=== PATIENT | male | born 1945 | race Caucasian/White ===

== ENCOUNTER → 2022-07-03 12:50 | Outpatient (BNVA) | payer MEDICARE, MEDICAID, SELFPAY | PROVIDERS: PCP Internal Medicine; Visit Provider Urology | DX: R97.20 Elevated prostate specific antigen [PSA] (principal); R35.1 Nocturia | CPT/HCPCS: 99202 ==

== ENCOUNTER → 2022-10-23 11:27 | Outpatient (BNVA) | payer MEDICARE, MEDICAID, SELFPAY | PROVIDERS: PCP Internal Medicine; Visit Provider Urology | DX: N40.1 Benign prostatic hyperplasia with lower urinary tract symptoms (principal); N13.8 Other obstructive and reflux uropathy; R97.20 Elevated prostate specific antigen [PSA] | CPT/HCPCS: Q3014 ==

== ENCOUNTER → 2023-05-01 11:04 | Outpatient (BNVA) | payer MEDICARE, MEDICAID, SELFPAY | PROVIDERS: PCP Internal Medicine; Visit Provider Urology | DX: N40.1 Benign prostatic hyperplasia with lower urinary tract symptoms (principal); N13.8 Other obstructive and reflux uropathy; R97.20 Elevated prostate specific antigen [PSA] | CPT/HCPCS: 99212 ==

== ENCOUNTER → 2023-11-07 11:22 | Outpatient (BNVA) | payer MEDICARE, MEDICAID, SELFPAY | PROVIDERS: PCP Internal Medicine; Visit Provider Urology ==

== ENCOUNTER → 2023-11-07 11:45 | Outpatient (AMB) | payer MEDICARE, MEDICAID, SELFPAY ==
--- NOTE | 2023-11-07 11:33 | MHC.OFFVIS ---
Intake Intake Visit Reasons: 6m/PVR/PSA(SET) HPI HPI Comments History of Present Illness Details Daniel is a pleasant male. He is a patient of Dr. Almendarez. He is seen for the following urologic conditions - elevated PSA - nocturia Telemedicine Evaluation 15 min Consultation [employer] Danny Video attempted Did have recent urinary frequency Concern about UTI Culture and lab work normal Did prescribed 2 weeks tamsulosin to see if this assists His will call effective for extended prescription PSA remains on range Minimal voiding symptoms, nocturia 4-5 times per night which is longstanding Finasteride continue to use will response Six month follow-up PSA Elevated PSA PSA 05/09 5.7, 10/09 3.4 on finasteride, 05/10 2.6, 11/09 3.2 Minimal symptoms No family history prostate cancer - Discussed risk prostate cancer approximately 5-10% JOHNNY 2+ soft no nodules Review of Systems Const All systems reviewed & are unremarkable except as noted in HPI and below Reports no additional complaints Resp Reports no additional complaints GI Reports no additional complaints Reports as per HPI Musc Reports no additional complaints Physical Exam Telemedicine evaluation Appropriate responses Regular breathing rate and rhythm HEENT Head: Yes normal to inspection Ears: hearing grossly normal bilaterally Eyes General: appearance normal, both eyes and all related structures Neck Neck: Yes normal visual inspection Chest Chest palpation & inspection: normal inspection of the chest Resp Effort & Inspection: normal respiratory effort and able to speak in complete sentences Assessment & Plan Assessment & Plan (1) BPH w urinary obs/LUTS: Code(s): N40.1 - Benign prostatic hyperplasia with lower urinary tract symptoms; N13.8 - Other obstructive and reflux uropathy (2) Elevated PSA: Code(s): R97.20 - Elevated prostate specific antigen [PSA] Plan Six month follow-up PSA Orders: Orders Prostate Specific Antigen 6 Months N13.8 - Other obstructive and reflux uropathy, N40.1 - Benign prostatic hyperplasia with lower urinary tract symptoms Medications: New tamsulosin (Flomax) 0.4 mg PO BEDTIME 14 caps 0RF 14 days N13.2 - Hydronephrosis with renal and ureteral calculous obstruction, N13.8 - Other obstructive and reflux uropathy, N40.1 - Benign prostatic hyperplasia with lower urinary tract symptoms Patient Instructions: Imaging studies, laboratory and physical exam results were discussed and reviewed in detail. No major barriers to patient understanding were identified. An opportunity to ask questions regarding the treatment plan was provided. All questions were answered. The patient expressed understanding and agreement with the above treatment plan. The patient is aware they should contact our office by phone for worsening of their current condition or the appearance of new urologic symptoms. Compliance is encouraged with any medications and followup testing that is ordered. It is a privilege to participate in the urologic care of your patient. If you have any questions or concerns regarding treatment for the above conditions, or other urologic issues, please do not hesitate to contact me. The office telephone contact is [phone]. This note is constructed using voice recognition software. While every effort has been made to ensure accuracy jailer errors may have been included. Yours sincerely, Dr Nathan Norris MD, [facility] - Urology Providers of Expert, Compassionate Care for the Genitourinary System Telehealth Telehealth Location of provider rendering services: practice address Location of patient: address on file Patient Identification confirmed using: Name, : Yes Telehealth method: video Patient verbally consented to treatment: Yes Patient verbally consented to billing insurance company: Yes Patient informed of any privacy concerns related to visit: Yes Coding Level of Care Code Tele Est Pt Level 3 (86251) Diagnoses BPH w urinary obs/LUTS N40.1; N13.8 Elevated PSA R97.20
== END | disposition home or self-care (01) ==
LOC: HO.HUSH 11:22
PROVIDERS: PCP Internal Medicine; Visit Provider Urology
DX: N40.1 Benign prostatic hyperplasia with lower urinary tract symptoms (principal); N13.8 Other obstructive and reflux uropathy; R97.20 Elevated prostate specific antigen [PSA]
CPT/HCPCS: 99213

== ENCOUNTER 2024-04-02 12:44 | Outpatient (AMB) | payer MEDICARE, MEDICAID, SELFPAY ==
--- NOTE | 2024-04-02 12:59 | A.OFFVIS_ITS ---
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 Had a possible TIA on February 2022 and that seem to be the starting point of some issues. Some symptoms are tremors, weakness, high anxiety, hallucinations, delusions and insomnia. Loss of mobility. Allergies oxycodone Allergy (Severe, Verified 04/02/24 13:23) Blister Medication List - Last Reconciled 04/02/24 by Isabell Lott MD apixaban (Eliquis) 5 mg PO BID aspirin 81 mg PO DAILY finasteride 5 mg PO DAILY 90 days HPI Comments Details: 78y/o right handed male comes for evaluation of possible Parkinsons Disease. He is accompanied by his life partner Sarah who helps with history. He had a hip replacement in January of 2021 and has been having issues with tremors, cognition, gait, balance etc. The tremors in his right hand became noticeable 2 years ago and has progressed since then . Now he also has tremors in his right leg .He is slower . He has trouble with names, word finding difficulty and short term memory issues since 2020. He has loud dreams talks screams yells in sleep for past 6 mths. His anxiety has worsened in the past 1 year.He is not motivated. His voice is softer for more than 3 years now. He also has drooling.He needs help with using utensils, has trouble bathing and dressing. His handwriting is smaller. He has trouble turning in bed. He had a fall 5 months ago and since then his gait has been unstable and is using a walker. He reports constipation . He denies dizziness , diplopia .He has hallucinations and delusions. 20 years ago his son was murdered and he has been depressed and anxious since then. [facility] Medical History (Updated 04/02/24 @ 14:08 by Isabell Lott MD) REM behavioral disorder Hallucinations Cognitive disorder Parkinson's disease without dyskinesia HTN (hypertension) TIA (transient ischemic attack) Raynauds disease Hyperlipidemia Arthritis Lumbar spondylosis Fatty liver Atrial fibrillation Surgical History History of hip replacement Family History Father Stroke Mother Heart failure Sister Breast cancer in female Social History Household Members: Spouse Housing: House Alcohol intake: former Patient Tobacco Use Status: Never used Tobacco Physical Exam Vital Signs: Last Vital Signs Pulse 57 04/02/24 13:27 BP 92/64 04/02/24 13:27 Pulse Ox 96 04/02/24 13:27 Oxygen Delivery Method Room Air 04/02/24 13:27 BMI result Body Mass Index 19.5 Const General: cooperative and comfortable Nutritional Appearance: average body habitus Orientation/consciousness: oriented to person and oriented to place HEENT Head: Yes normal to inspection Neck Other: mild antecollis and restricted range of motion Neuro Other: severe decreased blink and facial expression mild- moderate tongue tremors , slow tongue movements Voice-severe hypophonia , whispering quality with word finding difficulties Right UE high amplitude rest tremors , right leg rest tremors Fine Finger movements - severely decreased hu R>L Alternating hand movements - decreased hu Hand movements - decreased hu Foot taps- decreased hu Hu cog wheel rigidity gait - stooped, mild slowness and decreased arm swing R>L General: oriented to person and oriented to place Cranial nerves: Yes CN's II-XII intact bilaterally, Yes Bilaterally intact EOM present, Yes Normal facial strength present and Yes Midline tongue present Cognition (Neuro): abnormal cognition (repeats questions frequently) Motor exam (neuro): 5/5 motor strength present throughout and Normal motor muscle tone present throughout Deep tendon reflexes (DTR's): Right triceps reflex intensity grade: 2+, Left triceps reflex intensity grade: 2+, Rt Biceps (C5, C6): 2+, Left biceps reflex intensity grade: 2+, Right brachioradialis reflex intensity grade: 2+, Left brachioradialis reflex intensity grade: 2+, Right patellar reflex intensity grade: 2+ and Left patellar reflex intensity grade: 2+ Coordination: [id number] test normal Orientation What is the (year) (season) (date) (day) (month)?: year, season, day and month Where are we (state) (county) (town or city) (hospital) (floor)?: state, county, town or city, hospital/clinic and floor Registration Name of 3 unrelated objects clearly and slowly, then ask patient to repeat all 3 of them. (1st repeat determines score. Make sure they can repeat all three): object 1, object 2 and object 3 Recall Ask patient to repeat the 3 items from question #3.: object 1 Language Show patient a wristwatch & ask what it is. Repeat for pencil.: watch and pencil Ask the patient to repeat the phrase 'No ifs, ands, or buts' after you.: correct Ask the patient to 'take a piece of paper with their right hand' 'fold paper in half' 'place paper on floor': take paper in right hand, fold paper in half and place paper on floor Print the sentence 'CLOSE YOUR EYES' on a piece. If patient actually closes eyes then score.: followed written direction Give patient a blank piece of paper & ask to write a sentence. Score if it contains a noun & verb.: sentence contains subject and verb Ask patient to copy figure of intersecting pentagons exactly. Score if all 10 angles & 2 intersects are included.: all 10 angles present & 2 are intersected Score Score: 22 Assessment & Plan Assessment & Plan (1) Parkinson's disease without dyskinesia: Comment: ? diffuse lewy body dementia Code(s): G20.A1 - Parkinson's disease without dyskinesia, without mention of fluctuations Category: Medical (2) Cognitive disorder: Comment: ? vascular ? DLBD Code(s): F09 - Unspecified mental disorder due to known physiological condition Category: Medical (3) Hallucinations: Code(s): R44.3 - Hallucinations, unspecified Category: Medical (4) REM behavioral disorder: Code(s): G47.52 - REM sleep behavior disorder Category: Medical Plan The disease state prognosis and management options were discussed with patient. I will trial him on carbidopa/levodopa 25/100 1/2 tab tid for 1 week increase to 1 tab tid - monitor for hallucinations , orthostatic hypotension. Interactions with protein discussed in detail PT for gait training balance MRI brain Miralax qod melatonin 3-5 mg qhs Increase fluids Orders: Orders MR head/brain wo con Today G20.A1 - Parkinson's disease without dyskinesia, without mention of fluctuations PT Evaluation and Treatment Today G20.A1 - Parkinson's disease without dyskinesia, without mention of fluctuations Medications: New carbidopa-levodopa 25-100 mg 1/2 tab tid for 1 week then 1 tab tid orally 3 times a day; 90 tabs 6RF Coding Level of Care Code New Pt Level 5 (60295) Complex EM visit Add On G2211 Diagnoses Parkinson's disease without dyskinesia G20.A1 Cognitive disorder F09 Hallucinations R44.3 REM behavioral disorder G47.52
[2024-04-02 13:27] VITALS: BP 92/64; PULSE 57; O2SAT 96; BMI 19.5
== END 2024-04-02 14:18 | disposition home or self-care (01) ==
PROVIDERS: PCP Internal Medicine; Visit Provider Psychiatry & Neurology Neurology
DX: G20.A1 Parkinson's disease without dyskinesia, without mention of fluctuations (principal); F02.82 Dementia in other diseases classified elsewhere, unspecified severity, with psychotic disturbance; G47.52 REM sleep behavior disorder
CPT/HCPCS: 99205; G2211

== ENCOUNTER → 2024-04-02 12:44 | Outpatient (BNVA) | payer MEDICARE, MEDICAID, SELFPAY | PROVIDERS: PCP Internal Medicine; Visit Provider Psychiatry & Neurology Neurology | DX: G20.A1 Parkinson's disease without dyskinesia, without mention of fluctuations (principal); G47.52 REM sleep behavior disorder; F09 Unspecified mental disorder due to known physiological condition; R44.3 Hallucinations, unspecified | CPT/HCPCS: 99202 ==

== ENCOUNTER 2024-05-01 14:27 | Outpatient (REF) | payer MEDICARE, OTHER, SELFPAY ==
--- NOTE | ~2024-05-01 | MR_ITS ---
EXAMINATION: MR BRAIN WITHOUT CONTRAST CLINICAL INFORMATION: Parkinson's disease without dyskinesia. COMPARISON: None available. TECHNIQUE: MRI of the brain was obtained using routine sequences without contrast. FINDINGS: Moderately motion degraded exam. No focal restricted diffusion is demonstrated to suggest acute or subacute cerebral ischemia. No evidence of acute or chronic hemorrhagic products on heme-sensitive imaging. 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 Scattered and partially confluent periventricular, deep white matter, and brainstem T2 FLAIR hyperintensities consistent with mild to moderate underlying microangiopathy. Proportional prominence of the ventricles and sulcal spaces without evidence of obstructive hydrocephalus. There is an extra-axial nodular lesion along the planum sphenoidale, measuring up to 1.7 x 1.9 x 0.9 cm. No additional abnormal mass effect. No midline shift. Normal appearance of the pituitary gland. Normal positioning of the cerebellar tonsils. Normal arterial and venous vascular flow voids are present. Normal, homogeneous marrow signal. Mild mucosal thickening of the paranasal sinuses. Moderate rightward nasal septal deviation. No signal abnormalities within the mastoids. Bilateral lens extractions. MR/MR head/brain wo con IMPRESSION: 1. No acute intracranial abnormalities. 2. Mild to moderate underlying microangiopathy and generalized cerebral volume loss. 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 3. There is a 1.9 cm extra-axial nodular lesion along the planum sphenoidale suggestive of a meningioma.
== END 2024-05-01 14:28 | disposition home or self-care (01) ==
LOC: HO.MRI 14:27
PROVIDERS: PCP Internal Medicine; Visit Provider Psychiatry & Neurology Neurology
DX: G20.A1 Parkinson's disease without dyskinesia, without mention of fluctuations (principal)
CPT/HCPCS: 70551

== ENCOUNTER 2024-05-06 11:02 | Outpatient (AMB) | payer MEDICARE, MEDICAID, SELFPAY ==
--- NOTE | 2024-05-06 11:04 | MHC.OFFVIS ---
Intake Visit Reasons: 1 mon follow up - Confirmed Intake Note: Patient presents for a 1 months f/u. Carbidopa-Levodopa is not working. Allergies oxycodone Allergy (Severe, Verified 05/06/24 11:05) Blister Medication List - Last Reconciled 05/06/24 by Isabell Lott MD apixaban (Eliquis) 5 mg PO BID aspirin 81 mg PO DAILY carbidopa-levodopa 25-100 mg 4 times a day; finasteride 5 mg PO DAILY 90 days pimavanserin (Nuplazid) 10 mg PO DAILY HPI Comments Details: 78y/o right handed male calls for follow up of possible Parkinsons Disease. He is accompanied by his life partner Sarah who helps with history and he was unable to come to an in perosn visit. He did not notice any improvement and no worsening of hallucinations. Past vist- He had a hip replacement in January of 2021 and has been having issues with tremors, cognition, gait, balance etc. The tremors in his right hand became noticeable 2 years ago and has progressed since then . Now he also has tremors in his right leg .He is slower . He has trouble with names, word finding difficulty and short term memory issues since 2020. He has loud dreams talks screams yells in sleep for past 6 mths. His anxiety has worsened in the past 1 year.He is not motivated. His voice is softer for more than 3 years now. He also has drooling.He needs help with using utensils, has trouble bathing and dressing. His handwriting is smaller. He has trouble turning in bed. He had a fall 5 months ago and since then his gait has been unstable and is using a walker. He reports constipation . He denies dizziness , diplopia .He has hallucinations and delusions. 20 years ago his son was murdered and he has been depressed and anxious since then. [facility] Medical History REM behavioral disorder Hallucinations Cognitive disorder Parkinson's disease without dyskinesia HTN (hypertension) TIA (transient ischemic attack) Raynauds disease Hyperlipidemia Arthritis Lumbar spondylosis Fatty liver Atrial fibrillation Surgical History History of hip replacement Family History Father Stroke Mother Heart failure Sister Breast cancer in female Social History Household Members: Spouse Housing: House Alcohol intake: former Patient Tobacco Use Status: Never used Tobacco Telehealth Telehealth Telehealth Platform: Telephone Location of provider rendering services: practice address Location of patient: address on file Patient Identification confirmed using: Name, : Yes Telehealth method: voice only Patient verbally consented to treatment: Yes Patient verbally consented to billing insurance company: Yes Patient informed of any privacy concerns related to visit: Yes Assessment & Plan Assessment & Plan (1) Parkinson's disease without dyskinesia: Comment: ? diffuse lewy body dementia Code(s): G20.A1 - Parkinson's disease without dyskinesia, without mention of fluctuations Category: Medical (2) Cognitive disorder: Comment: ? vascular ? DLBD Code(s): F09 - Unspecified mental disorder due to known physiological condition Category: Medical (3) Hallucinations: Code(s): R44.3 - Hallucinations, unspecified Category: Medical (4) REM behavioral disorder: Code(s): G47.52 - REM sleep behavior disorder Category: Medical Plan The disease state prognosis and management options were discussed with patient. Increase carbidopa/levodopa 25/100 qid monitor for hallucinations , orthostatic hypotension. Interactions with protein discussed in detail Nuplazid 10mg qd MRI brain reviewed Miralax qod melatonin 3-5 mg qhs Increase fluids Medications: New pimavanserin (Nuplazid) 10 mg PO DAILY 30 tabs 6RF Changed From carbidopa-levodopa 25-100 mg 1/2 tab tid for 1 week then 1 tab tid orally 3 times a day; 90 tabs 6RF To carbidopa-levodopa 25-100 mg 4 times a day; 120 tabs 6RF Coding Level of Care Code Tele Est Pt Level 4 (19158) Complex EM visit Add On G2211 Diagnoses Parkinson's disease without dyskinesia G20.A1 Cognitive disorder F09 Hallucinations R44.3 REM behavioral disorder G47.52 Time Spent (min) 22
== END 2024-05-06 16:20 | disposition home or self-care (01) ==
LOC: HO.HSMS 11:03
PROVIDERS: PCP Internal Medicine; Visit Provider Psychiatry & Neurology Neurology
DX: G20.A1 Parkinson's disease without dyskinesia, without mention of fluctuations (principal); R41.89 Other symptoms and signs involving cognitive functions and awareness; R44.3 Hallucinations, unspecified; G47.52 REM sleep behavior disorder
CPT/HCPCS: 99443

== ENCOUNTER → 2024-05-06 11:02 | Outpatient (BNVA) | payer MEDICARE, MEDICAID, SELFPAY | PROVIDERS: PCP Internal Medicine; Visit Provider Psychiatry & Neurology Neurology ==

== ENCOUNTER 2024-06-04 14:24 | Outpatient (AMB) | payer MEDICARE, MEDICAID, SELFPAY ==
--- NOTE | 2024-06-04 15:01 | MHC.OFFVIS ---
Vital Signs 06/04/24 15:02 Height 6 ft Weight 144 lb BMI 19.5 BP 124/66 Blood Pressure Location Lt brachial Position Sitting Respiration 17 Pulse 74 Pulse Source Pulse Oximeter Pulse Oximetry (%) 98 Oxygen Delivery Method Room Air Intake Visit Reasons: Follow up - Confirmed Intake Note: Pt presents for a one month follow up for cognitive disorder to assess med increase. Location Director Required: No Allergies oxycodone Allergy (Severe, Verified 06/04/24 15:02) Blister HPI Comments Details: 79y/o right handed male calls for follow up of possible Parkinsons Disease. He is accompanied by his life partner Sarah who helps with history and he was unable to come to an in person visit. He had 1 dose of nuplazid - the next day he was very weak and confused so she stopped. He did not notice any improvement and no worsening of hallucinations. Past visit- He had a hip replacement in January of 2021 and has been having issues with tremors, cognition, gait, balance etc. The tremors in his right hand became noticeable 2 years ago and has progressed since then . Now he also has tremors in his right leg .He is slower . He has trouble with names, word finding difficulty and short term memory issues since 2020. He has loud dreams talks screams yells in sleep for past 6 mths. His anxiety has worsened in the past 1 year.He is not motivated. His voice is softer for more than 3 years now. He also has drooling.He needs help with using utensils, has trouble bathing and dressing. His handwriting is smaller. He has trouble turning in bed. He had a fall 5 months ago and since then his gait has been unstable and is using a walker. He reports constipation . He denies dizziness , diplopia .He has hallucinations and delusions. 20 years ago his son was murdered and he has been depressed and anxious since then. [facility] Medical History REM behavioral disorder Hallucinations Cognitive disorder Parkinson's disease without dyskinesia HTN (hypertension) TIA (transient ischemic attack) Raynauds disease Hyperlipidemia Arthritis Lumbar spondylosis Fatty liver Atrial fibrillation Surgical History History of hip replacement Family History Father Stroke Mother Heart failure Sister Breast cancer in female Social History Household Members: Spouse Housing: House Alcohol intake: former Patient Tobacco Use Status: Never used Tobacco Physical Exam Vital Signs: Last Vital Signs Pulse 74 06/04/24 15:02 Resp 17 06/04/24 15:02 BP 124/66 06/04/24 15:02 Pulse Ox 98 06/04/24 15:02 Oxygen Delivery Method Room Air 06/04/24 15:02 BMI result Body Mass Index 19.5 Const General: cooperative and comfortable Nutritional Appearance: average body habitus Orientation/consciousness: oriented to person and oriented to place HEENT Head: Yes normal to inspection Neck Other: mild antecollis and restricted range of motion Neuro Other: severe decreased blink and facial expression mild- moderate tongue tremors , slow tongue movements Voice-severe hypophonia , whispering quality with word finding difficulties Right UE high amplitude rest tremors , right leg rest tremors Fine Finger movements - severely decreased hu R>L Alternating hand movements - decreased hu Hand movements - decreased hu Foot taps- decreased hu Hu cog wheel rigidity gait - stooped, mild slowness and decreased arm swing R>L General: oriented to person and oriented to place Cranial nerves: Yes CN's II-XII intact bilaterally, Yes Bilaterally intact EOM present, Yes Normal facial strength present and Yes Midline tongue present Cognition (Neuro): abnormal cognition (repeats questions frequently) Motor exam (neuro): 5/5 motor strength present throughout and Normal motor muscle tone present throughout Coordination: [id number] test normal Assessment & Plan Assessment & Plan (1) Parkinson's disease without dyskinesia: Comment: ? diffuse lewy body dementia Code(s): G20.A1 - Parkinson's disease without dyskinesia, without mention of fluctuations Category: Medical (2) Cognitive disorder: Comment: ? vascular ? DLBD Code(s): F09 - Unspecified mental disorder due to known physiological condition Category: Medical (3) Hallucinations: Code(s): R44.3 - Hallucinations, unspecified Category: Medical (4) REM behavioral disorder: Code(s): G47.52 - REM sleep behavior disorder Category: Medical Plan The disease state prognosis and management options were discussed with patient. Continue carbidopa/levodopa 25/100 qid monitor for hallucinations , orthostatic hypotension. Interactions with protein discussed in detail Miralax qod melatonin 3-5 mg qhs Increase fluids Coding Level of Care Code Est Pt Level 4 (56977) Complex EM visit Add On G2211 Diagnoses Parkinson's disease without dyskinesia G20.A1 Cognitive disorder F09 Hallucinations R44.3 REM behavioral disorder G47.52
[2024-06-04 15:02] VITALS: BP 124/66; PULSE 74; RESP 17; O2SAT 98; BMI 19.5
== END 2024-06-04 15:36 | disposition home or self-care (01) ==
PROVIDERS: PCP Internal Medicine; Visit Provider Psychiatry & Neurology Neurology
DX: G20.B1 Parkinson's disease with dyskinesia, without mention of fluctuations (principal); R41.89 Other symptoms and signs involving cognitive functions and awareness; R44.3 Hallucinations, unspecified; G47.52 REM sleep behavior disorder
CPT/HCPCS: 99214; G2211

== ENCOUNTER → 2024-06-04 14:24 | Outpatient (BNVA) | payer MEDICARE, MEDICAID, SELFPAY | PROVIDERS: PCP Internal Medicine; Visit Provider Psychiatry & Neurology Neurology | DX: G20.A1 Parkinson's disease without dyskinesia, without mention of fluctuations (principal); R44.3 Hallucinations, unspecified; G47.52 REM sleep behavior disorder | CPT/HCPCS: 99212 ==

== ENCOUNTER 2024-07-22 09:10 | Outpatient (AMB) | payer MEDICARE, MEDICAID, SELFPAY ==
--- NOTE | 2024-07-22 09:12 | MHC.OFFVIS ---
Intake Visit Reasons: 6M Follow Up-PVR/Med Review/Voiding Trial Intake Note: Patient is present for 6M Follow Up PVR/MED REVIEW/ VOIDING TRAIL Urology Med:NONE Antibiotic Allergy: None Blood Thinner: Eliquis, Aspirin TODAY'S PVR:0ML'S Block Engraver Required: No Allergies oxycodone Allergy (Severe, Verified 07/22/24 09:15) Blister HPI Comments Details: Daniel is a pleasant male. He is a patient of Dr. Almendarez. He is seen for the following urologic conditions - elevated PSA - nocturia Nine month follow-up PSA - has progressive Parkinson's Finasteride continue to use Recent admission to [facility] Verma catheter placed for urinary management Has been in place for 4 weeks No prior history of retention Catheter removed in office today Recommendation for [place] cath to be changed to daily due to immobility impairing bathroom access has toileting plan should he be transferred home Elevated PSA PSA 05/09 5.7, 10/09 3.4 on finasteride, 05/10 2.6, 11/09 3.2 Minimal symptoms No family history prostate cancer - Discussed risk prostate cancer approximately 5-10% JOHNNY 2+ soft no nodules PFSH Medical History REM behavioral disorder Hallucinations Cognitive disorder Parkinson's disease without dyskinesia HTN (hypertension) TIA (transient ischemic attack) Raynauds disease Hyperlipidemia Arthritis Lumbar spondylosis Fatty liver Atrial fibrillation Surgical History History of hip replacement Family History Father Stroke Mother Heart failure Sister Breast cancer in female Social History Household Members: Spouse Housing: House Alcohol intake: former Patient Tobacco Use Status: Never used Tobacco Review of Systems Const Denies chills and Denies fever(s) Card Reports no additional complaints and Denies syncope Resp Denies cough GI Denies abdominal pain and Denies heartburn Reports as per HPI and Denies change in libido Neuro Denies syncope Psych Denies change in libido Endo Denies change in libido Physical Exam Const General: cooperative, healthy appearing, comfortable and no acute distress Orientation/consciousness: patient oriented x3 HEENT Face and sinus: Yes normal facial exam Mouth: moist mucous membranes Neck Neck: Yes normal visual inspection, Yes full ROM and Yes trachea midline Chest Chest palpation & inspection: normal inspection of the chest Resp Effort & Inspection: normal respiratory effort, able to speak in complete sentences and no respiratory distress GI Inspection: Yes normal to inspection Back/Spine/Pelvis Cervical Spine: normal cervical lordosis Thoracic/Lumbar Spine: thoracic and lumbar spine normal to inspection Skin General skin exam: no rashes or lesions noted Neuro General: patient oriented x3, gait normal, tone normal and moves all extremities Extrem General: Yes normal to inspection and Yes capillary refill normal Office Procedures Post Void Residual Post Residual Void Post Void Residual (PVR): 0 [id number] Void Residual by ultrasound Assessment & Plan Assessment & Plan (1) Incontinence of urine: Code(s): R32 - Unspecified urinary incontinence Category: Medical (2) Parkinson's disease without dyskinesia: Comment: ? diffuse lewy body dementia Code(s): G20.A1 - Parkinson's disease without dyskinesia, without mention of fluctuations Category: Medical Plan [place]/condom catheter 3m f/u tele Patient Instructions: Imaging studies, laboratory and physical exam results were discussed and reviewed in detail. No major barriers to patient understanding were identified. An opportunity to ask questions regarding the treatment plan was provided. All questions were answered. The patient expressed understanding and agreement with the above treatment plan. The patient is aware they should contact our office by phone for worsening of their current condition or the appearance of new urologic symptoms. Compliance is encouraged with any medications and followup testing that is ordered. It is a privilege to participate in the urologic care of your patient. If you have any questions or concerns regarding treatment for the above conditions, or other urologic issues, please do not hesitate to contact me. The office telephone contact is [phone]. This note is constructed using voice recognition software. While every effort has been made to ensure accuracy quality assurance test program manager errors may have been included. Yours sincerely, Dr Nathan Norris MD, [facility] - Urology Providers of Expert, Compassionate Care for the Genitourinary System Coding Level of Care Code Est Pt Level 4 (09657) Diagnoses Incontinence of urine R32 Parkinson's disease without dyskinesia G20.A1 CPT Codes Post Residual Void - PVR CPT Code: 80671-Ppfd Void Residual by ultrasound ([id number])
== END 2024-07-22 09:50 | disposition home or self-care (01) ==
PROVIDERS: PCP Internal Medicine; Visit Provider Urology
DX: R32 Unspecified urinary incontinence (principal); G20.A1 Parkinson's disease without dyskinesia, without mention of fluctuations
CPT/HCPCS: 99214

== ENCOUNTER → 2024-07-22 09:10 | Outpatient (BNVA) | payer MEDICARE, MEDICAID, SELFPAY | PROVIDERS: PCP Internal Medicine; Visit Provider Urology | DX: R32 Unspecified urinary incontinence (principal); G20.A1 Parkinson's disease without dyskinesia, without mention of fluctuations | CPT/HCPCS: 51798; 99212 ==

== ENCOUNTER 2024-10-20 14:30 | Outpatient (REF) | payer MEDICARE, MEDICAID, SELFPAY ==
[2024-10-20 16:40] LABS: Urine Cytology See Pathology rpt
== END 2024-10-20 14:31 | disposition home or self-care (01) ==
LOC: HO.LAB 14:30
PROVIDERS: Visit Provider Urology
DX: G20.A1 Parkinson's disease without dyskinesia, without mention of fluctuations (principal); R32 Unspecified urinary incontinence; N40.1 Benign prostatic hyperplasia with lower urinary tract symptoms; N13.8 Other obstructive and reflux uropathy; F09 Unspecified mental disorder due to known physiological condition; R44.3 Hallucinations, unspecified; G47.52 REM sleep behavior disorder
CPT/HCPCS: 87086; 87088; 87186; 88112; 99212

== ENCOUNTER → 2024-10-20 14:30 | Outpatient (BNV) | payer MEDICARE, MEDICAID, SELFPAY | PROVIDERS: PCP Internal Medicine; Visit Provider Urology | DX: R32 Unspecified urinary incontinence (principal); N40.1 Benign prostatic hyperplasia with lower urinary tract symptoms; N13.8 Other obstructive and reflux uropathy | CPT/HCPCS: 81003 ==

== ENCOUNTER 2024-10-20 15:13 | Outpatient (AMB) | payer MEDICARE, MEDICAID, SELFPAY ==
--- NOTE | 2024-10-20 15:43 | MHC.OFFVIS ---
Vital Signs 10/20/24 15:44 Height 6 ft Weight 144 lb BMI 19.5 Intake Visit Reasons: Follow up Intake Note: Patient presents for follow up. Allergies oxycodone Allergy (Severe, Verified 10/20/24 15:45) Blister HPI Comments Details: 79y/o right handed male comes for follow up of Parkinsonism. He is accompanied by Sarah his life partner who is concerned about the timing of his parkinsons medications. when he was discharged from the hospital for possible UTI on June 18 and after his discharge he went to [place] His carbidopa.levodopa was decreased to 25/100 1/2 tab tid and was on zyprexa for 10 days . He felt good and calm at that time. Past visit- He had a hip replacement in January of 2021 and has been having issues with tremors, cognition, gait, balance etc. The tremors in his right hand became noticeable 2 years ago and has progressed since then . Now he also has tremors in his right leg .He is slower . He has trouble with names, word finding difficulty and short term memory issues since 2020. He has loud dreams talks screams yells in sleep for past 6 mths. His anxiety has worsened in the past 1 year.He is not motivated. His voice is softer for more than 3 years now. He also has drooling.He needs help with using utensils, has trouble bathing and dressing. His handwriting is smaller. He has trouble turning in bed. He had a fall 5 months ago and since then his gait has been unstable and is using a walker. He reports constipation . He denies dizziness , diplopia .He has hallucinations and delusions. 20 years ago his son was murdered and he has been depressed and anxious since then. [facility] Medical History REM behavioral disorder Hallucinations Cognitive disorder Parkinson's disease without dyskinesia HTN (hypertension) TIA (transient ischemic attack) Raynauds disease Hyperlipidemia Arthritis Lumbar spondylosis Fatty liver Atrial fibrillation Surgical History History of hip replacement Family History Father Stroke Mother Heart failure Sister Breast cancer in female Social History Household Members: Spouse Housing: House Alcohol intake: former Patient Tobacco Use Status: Never used Tobacco Physical Exam Vital Signs: BMI result Body Mass Index 19.5 Const General: cooperative and comfortable Nutritional Appearance: average body habitus Orientation/consciousness: oriented to person and oriented to place HEENT Head: Yes normal to inspection Neck Other: mild antecollis and restricted range of motion Neuro Other: severe decreased blink and facial expression mild- moderate tongue tremors , slow tongue movements Voice-severe hypophonia , whispering quality with word finding difficulties Right UE high amplitude rest tremors , right leg rest tremors Fine Finger movements - severely decreased stephanie R>L Alternating hand movements - decreased stephanie Hand movements - decreased stephanie Foot taps- decreased stephanie Stephanie cog wheel rigidity General: oriented to person and oriented to place Cranial nerves: Yes CN's II-XII intact bilaterally, Yes Bilaterally intact EOM present, Yes Normal facial strength present and Yes Midline tongue present Cognition (Neuro): abnormal cognition (repeats questions frequently) Motor exam (neuro): 5/5 motor strength present throughout and Normal motor muscle tone present throughout Coordination: [id number] test normal Results AMB Urinalysis, Automated UA Leukoctes 500 Long/uL Last Edit by Colin Mayer LPN on 10/20/24 14:37 UA Nitrite Negative Last Edit by Colin Mayer LPN on 10/20/24 14:37 UA Urobilinogen 0.2 mg/dL Last Edit by Colin Mayer LPN on 10/20/24 14:37 UA Protein 30 mg/dL Last Edit by Colin Mayer LPN on 10/20/24 14:37 UA pH 5.5 Last Edit by Colin Mayer LPN on 10/20/24 14:37 UA Blood 80 Tamir/uL Last Edit by Colin Mayer LPN on 10/20/24 14:37 UA Specific [place] 1.025 Last Edit by Colin Mayer LPN on 10/20/24 14:37 UA Ketone Positive Last Edit by Colin Mayer LPN on 10/20/24 14:37 UA Bilirubin 0 mg/dL Last Edit by Colin Mayer LPN on 10/20/24 14:37 UA Glucose 0 mg/dL Last Edit by Colin Mayer LPN on 10/20/24 14:37 Assessment & Plan Assessment & Plan (1) Parkinson's disease without dyskinesia: Comment: ? diffuse lewy body dementia Code(s): G20.A1 - Parkinson's disease without dyskinesia, without mention of fluctuations Category: Medical Qualifiers: Fluctuating manifestations: without fluctuating manifestations Qualified Code(s): G20.A1 - Parkinson's disease without dyskinesia, without mention of fluctuations (2) Cognitive disorder: Comment: ? vascular ? DLBD Code(s): F09 - Unspecified mental disorder due to known physiological condition Category: Medical (3) Hallucinations: Code(s): R44.3 - Hallucinations, unspecified Category: Medical (4) REM behavioral disorder: Code(s): G47.52 - REM sleep behavior disorder Category: Medical Plan The disease state prognosis and management options were discussed with patient. Continue carbidopa/levodopa 25/100 tid ( 8AM , 12 noon, 5pm )monitor for hallucinations , orthostatic hypotension. Interactions with protein discussed in detail. MAINTAIN time frame within 30 minutes when medications are given to avoid side effects Patient should be walk with walker gait belt and with supervision 2 times a day on days without PT Patients partner Sarah was disappointed and stressed with patients prognosis and his terminal operations supervisor care placement . suggested a caregiver support group which she declined. discussed about long acting sinemet and rytary and crexont may not be a good option due to his sensitivty and different pharmacokinetics. Coding Level of Care Code Est Pt Level 4 (54458) Complex EM visit Add On G2211 Diagnoses Parkinson's disease without dyskinesia or fluctuating manifestations G20.A1 Fluctuating manifestations: without fluctuating manifestations Cognitive disorder F09 Hallucinations R44.3 REM behavioral disorder G47.52
[2024-10-20 15:44] VITALS: BMI 19.5
== END 2024-10-20 16:28 | disposition home or self-care (01) ==
PROVIDERS: PCP Internal Medicine; Visit Provider Psychiatry & Neurology Neurology
DX: G20.A1 Parkinson's disease without dyskinesia, without mention of fluctuations (principal); F09 Unspecified mental disorder due to known physiological condition; R44.3 Hallucinations, unspecified; G47.52 REM sleep behavior disorder
CPT/HCPCS: 99214; G2211

== ENCOUNTER 2024-10-21 13:04 | Outpatient (AMB) | payer MEDICARE, MEDICAID, SELFPAY ==
--- NOTE | 2024-10-21 13:02 | MHC.OFFVIS ---
Intake Visit Reasons: 3m follow up Intake Note: Patient is present for 3m F/U Urology Medication:NONE Antibiotic Allergy:NONE Blood Thinner:ASPIRIN,ELIQUIS Senior Technical Manager Required: No Allergies oxycodone Allergy (Severe, Verified 10/21/24 13:05) Blister HPI Comments Details: Daniel is a pleasant male. He is a patient of Dr. Almendarez. He is seen for the following urologic conditions - elevated PSA - nocturia Telemedicine Evaluation 15 min Consultation [employer] Danny Video Discussion with Continue to use finasteride Urine from yesterday is testing positive with Gram-negative rods On Keflex just started for leg infection. At UTI should be covered. She will call if has continued mental status changes Prior admission to [facility] - 06/10 Prior attempted use of [place] catheter. Was uncomfortable for patient. Recommend timed voiding however this would require patient compliance has toileting plan should he be transferred home Elevated PSA PSA 05/09 5.7, 10/09 3.4 on finasteride, 05/10 2.6, 11/09 3.2 Minimal symptoms No family history prostate cancer - Discussed risk prostate cancer approximately 5-10% JOHNNY 2+ soft no nodules PFSH Medical History REM behavioral disorder Hallucinations Cognitive disorder Parkinson's disease without dyskinesia HTN (hypertension) TIA (transient ischemic attack) Raynauds disease Hyperlipidemia Arthritis Lumbar spondylosis Fatty liver Atrial fibrillation Surgical History History of hip replacement Family History Father Stroke Mother Heart failure Sister Breast cancer in female Social History Household Members: Spouse Housing: House Alcohol intake: former Patient Tobacco Use Status: Never used Tobacco Review of Systems Const All systems reviewed & are unremarkable except as noted in HPI and below Reports no additional complaints Resp Reports no additional complaints GI Reports no additional complaints Reports as per HPI Musc Reports no additional complaints Physical Exam Telemedicine evaluation Appropriate responses Regular breathing rate and rhythm HEENT Head: Yes normal to inspection Ears: hearing grossly normal bilaterally Eyes General: appearance normal, both eyes and all related structures Neck Neck: Yes normal visual inspection Chest Chest palpation & inspection: normal inspection of the chest Resp Effort & Inspection: normal respiratory effort and able to speak in complete sentences Telehealth Telehealth Telehealth Platform: Navid[employer] Location of provider rendering services: practice address Location of patient: address on file Patient Identification confirmed using: Name, : Yes Telehealth method: video Patient verbally consented to treatment: Yes Patient verbally consented to billing insurance company: Yes Patient informed of any privacy concerns related to visit: Yes Minutes spent on Phone/Video with Pt.: 15 Assessment & Plan Assessment & Plan (1) Chronic UTI (urinary tract infection): Code(s): N39.0 - Urinary tract infection, site not specified Category: Medical (2) Incontinence of urine: Code(s): R32 - Unspecified urinary incontinence Category: Medical (3) BPH w urinary obs/LUTS: Code(s): N40.1 - Benign prostatic hyperplasia with lower urinary tract symptoms; N13.8 - Other obstructive and reflux uropathy Category: Medical Plan Six-month follow-up tele Patient Instructions: Imaging studies, laboratory and physical exam results were discussed and reviewed in detail. No major barriers to patient understanding were identified. An opportunity to ask questions regarding the treatment plan was provided. All questions were answered. The patient expressed understanding and agreement with the above treatment plan. The patient is aware they should contact our office by phone for worsening of their current condition or the appearance of new urologic symptoms. Compliance is encouraged with any medications and followup testing that is ordered. It is a privilege to participate in the urologic care of your patient. If you have any questions or concerns regarding treatment for the above conditions, or other urologic issues, please do not hesitate to contact me. The office telephone contact is [phone]. This note is constructed using voice recognition software. While every effort has been made to ensure accuracy mannequin wig maker errors may have been included. Yours sincerely, Dr Nathan Norris MD, [facility] - Urology Providers of Expert, Compassionate Care for the Genitourinary System Coding Level of Care Code Tele Est Pt Level 3 (05822) Diagnoses Chronic UTI (urinary tract infection) N39.0 Incontinence of urine R32 BPH w urinary obs/LUTS N40.1; N13.8
== END 2024-10-21 14:28 | disposition home or self-care (01) ==
LOC: HO.HUSH 13:04
PROVIDERS: PCP Internal Medicine; Visit Provider Urology
DX: N39.0 Urinary tract infection, site not specified (principal); R32 Unspecified urinary incontinence; N40.1 Benign prostatic hyperplasia with lower urinary tract symptoms; N13.8 Other obstructive and reflux uropathy
CPT/HCPCS: 99213

== ENCOUNTER 2024-11-04 13:52 | Outpatient (REF) | payer MEDICARE, MEDICAID, SELFPAY | END 2024-11-04 13:53 | disposition home or self-care (01) | LOC: HO.HMGCX 13:52 | PROVIDERS: PCP Internal Medicine; Visit Provider Urology | DX: N39.0 Urinary tract infection, site not specified (principal); R32 Unspecified urinary incontinence; R97.20 Elevated prostate specific antigen [PSA]; N40.1 Benign prostatic hyperplasia with lower urinary tract symptoms; N13.8 Other obstructive and reflux uropathy | CPT/HCPCS: 76770 ==

== ENCOUNTER 2024-12-01 12:46 | Inpatient (IN) | payer MEDICARE, MEDICAID, SELFPAY ==
[2024-12-01] VITALS (8 sets, daily range): BP systolic 108–124; BP diastolic 49–80; PULSE 63–78; RESP 15–20; TEMP 36.7–38.2; O2SAT 94–99; BMI 24.4
--- NOTE | ~2024-12-01 | CT_ITS ---
CLINICAL HISTORY: rt hip fx CT right hip without contrast Comparison: CR/SR - XR FEMUR RT 2V - 12/01/24 14:30 EST CR/NV/SR - XR PELVIS 1-2V - 12/01/24 14:29 EST Findings: Acute subcapital fracture of the femur. Mild degenerative change of the hip joint. No radiopaque foreign body. Impression: Acute subcapital fracture of the femur. This document has been electronically signed by: Shanon Nieto MD on 12/01/2024 20:56:01
--- NOTE | ~2024-12-01 | CT_ITS ---
EXAMINATION: CT HEAD WITHOUT CONTRAST CLINICAL INFORMATION: Fall COMPARISON: None available. TECHNIQUE: Contiguous axial imaging was performed from the skull base to vertex without intravenous administration of contrast. This CT examination was performed using dose optimization techniques as appropriate, variously including the following: *Automated exposure control *Adjustment of mA and/or kV according to patient size (this includes techniques or standardized protocols for targeted exams where dose is matched to indication/reason for exam; i.e. extremities or head) *Use of iterative reconstruction technique FINDINGS: Study is significantly motion degraded, despite rescanning, significantly limiting sensitivity. There is no evidence of intracranial hemorrhage or extra-axial fluid collection. There is no mass effect, or edema. Grossly, no evidence of acute territorial infarct although motion significantly degrades sensitivity. Ventricles, sulci, and cisterns are normal in size and configuration for patient age. No hydrocephalus. No midline shift. There are old lacunar type infarcts in the left anterior gangliocapsular region. There are mild supratentorial low density white matter changes, in keeping with small vessel ischemia. Normal sella. Mild atheromatous calcification of the bilateral carotid siphons and V4 segments vertebral arteries bilaterally. Imaging of the globes and orbital contents is limited due to motion. There are bilateral lens replacements. Shift of normally. No extracranial soft tissue abnormalities. The paranasal sinuses, mastoid air cells, and tympanic cavities are normally aerated. No suspicious bony abnormalities. CT/CT head/brain wo IV con IMPRESSION: 1. Significantly motion limited exam. Within these confines, there is no definite acute intracranial abnormality. Electronically signed by: Brad Ibarra MD 12/01/2024 03:[address] [facility]
--- NOTE | ~2024-12-01 | XR_ITS ---
EXAMINATION: XR KNEE, RIGHT CLINICAL INFORMATION: right knee pain after a fall COMPARISON: None available. TECHNIQUE: Four views of the right knee. FINDINGS: No acute cortical disruption or malalignment. Joint space narrowing involving medial lateral compartment as well as the patellofemoral joint space. Osteopenia versus processes. No suprapatellar bursa joint effusion. Vascular calcifications. XR/XR knee RT 2V IMPRESSION: Tricompartmental osteoarthrosis without acute fracture or dislocation. Atherosclerosis disease, peripheral. Osteopenia versus osteoporosis. Electronically signed by: Enoch Cardona MD 12/01/2024 03:05 PM [facility]
--- NOTE | ~2024-12-01 | XR_ITS ---
EXAMINATION: XR PELVIS CLINICAL INFORMATION: fall COMPARISON: None available. TECHNIQUE: AP view of the pelvis. FINDINGS: There is foreshortening of the right femoral neck. The right femoral head is well-seated in the right acetabulum. Asymmetric joint space narrowing in the right coxofemoral joint with sclerosis in the articular surface of the right acetabulum. The bony pelvis is intact. Total left hip arthroplasty prosthesis not fully included. Lumbar spondylosis L4-5 and L5-S1. XR/XR pelvis 1-2V IMPRESSION: Questionable acute subcapital fracture, right femur. Electronically signed by: Enoch Cardona MD 12/01/2024 03:03 PM [facility]
--- NOTE | ~2024-12-01 | XR_ITS ---
EXAMINATION: XR TIBIA AND FIBULA, RIGHT CLINICAL INFORMATION: fall COMPARISON: None available. TECHNIQUE: AP and lateral views of the right tibia and fibula were obtained. FINDINGS: Excluded proximal tibia and fibula. No acute cortical disruption. No gross lytic or blastic lesions. XR/XR tibia fibula RT 2V IMPRESSION: Limited secondary to partial exclusion of the [id number] proximal tibia and fibula. No acute fracture. Electronically signed by: Enoch Cardona MD 12/01/2024 03:01 PM [facility]
--- NOTE | ~2024-12-01 | XR_ITS ---
EXAMINATION: XR FEMUR, RIGHT CLINICAL INFORMATION: fall COMPARISON: None available. TECHNIQUE: AP and lateral views of the right femur were obtained. FINDINGS: There is foreshortening of the right femoral neck with upward position. The right femoral head is well-seated in the right acetabulum. Osteopenia versus osteoporosis. Asymmetric joint space narrowing, right coxofemoral joint. Sclerotic articular surface, right acetabulum. Degenerative changes in the right knee. XR/XR femur RT 2V IMPRESSION: Concerning acute subcapital fracture, right femur. Electronically signed by: Enoch Cardona MD 12/01/2024 03:07 PM [facility]
--- NOTE | ~2024-12-01 | XR_ITS ---
EXAMINATION: XR PELVIS CLINICAL INFORMATION: s/p Lt hip corrine COMPARISON: Plain films dated earlier same day. TECHNIQUE: AP view of the pelvis. FINDINGS: Previously seen right subcapital hip fracture has been replaced bipolar arthroplasty. Femoral, and acetabular components appear intact, well seated, in anatomic alignment. No acute periprosthetic fracture or abnormality. There are skin aidee laterally. Total left hip arthroplasty in place, stable without complication. Degenerative changes lower lumbar spine and bilateral SI joints. XR/XR pelvis 1-2V IMPRESSION: 1. Total right hip arthroplasty without complication. Electronically signed by: Brad Ibarra MD 12/02/2024 02:52 PM [facility]
--- NOTE | ~2024-12-01 | CT_ITS ---
EXAMINATION: CT CERVICAL SPINE WITHOUT CONTRAST CLINICAL INFORMATION: Fall, no further clinical information provided. COMPARISON: None available. TECHNIQUE: Spiral CT of the cervical spine was performed in axial plane from the petrous ridges to the thoracic inlet without IV contrast. Sagittal, coronal, and thin section axial reformatted images were constructed from the axial data set. This CT examination was performed using dose optimization techniques as appropriate, variously including the following: *Automated exposure control *Adjustment of mA and/or kV according to patient size (this includes techniques or standardized protocols for targeted exams where dose is matched to indication/reason for exam; i.e. extremities or head) *Use of iterative reconstruction technique FINDINGS: Study is somewhat limited due to patient motion artifact. There is no evidence of fracture or traumatic subluxation. No suspicious bone lesions. There is a bone island in C6. There is normal facet alignment. Atlantoaxial joint and craniocervical junction are intact and aligned. Multilevel moderate to severe degenerative disc changes present with partial fusion of C3-4 disc space. There appears to be a prominent central disc protrusion at C4-5, which may be contacting the cervical cord. This cannot be evaluated further due to motion and study limitations. There is normal facet alignment. There are left greater than right multilevel hypertrophic degenerative facet uncinate changes. No prevertebral soft tissue abnormality is evident. There is moderate calcification of the bilateral carotid bulbs. There is heterogeneity of the thyroid gland with a calcified nodule in the left lobe measuring 1.2 cm. There may be additional nodules present although study limitations preclude definitive evaluation. Lung apices appear clear within the confines of respiratory motion. CT/CT cervical spine wo IV con IMPRESSION: 1. Mildly motion degraded examination. There is no acute cervical spine fracture or injury. 2. Degenerative spondylosis. 3. Ancillary findings as discussed. Electronically signed by: Brad Ibarra MD 12/01/2024 03:50 PM EST
--- NOTE | 2024-12-01 13:42 | ED.FALL ---
HPI - Fall General Chief Complaint: Fall Stated Complaint: FALL T-1,RLE PAIN FROM SNF PER EMS Time Seen by Provider: 12/01/24 13:15 Source: EMS Mode of arrival: EMS Limitations: other History of Present Illness HPI Narrative: 59-year-old male presents with his power of attorney general and caregiver and girlfriend over 20 years for a fall yesterday. Patient is at a retirement per his girlfriend who was not there he did not hit his head he does have advanced dementia with parkinsonian features and is on carbidopa levodopa she did let me know that he did not get his noon dose in his requesting it on arrival to the ER. Patient has a very limited historian he denies any pain and unable to reproduce any pain he was able to stand ambulate placed in a bed at the retirement. His girlfriend who is at the bedside also wants to be checked as he has history of ESBL but is adamant that no Verma catheter can be placed. Related Data Home Medications ?Medication ?Instructions ?Recorded ?Confirmed apixaban 5 mg tablet (Eliquis) 5 mg PO BID 07/03/22 05/06/24 aspirin 81 mg tablet,delayed 81 mg PO DAILY 10/22/22 05/06/24 release carbidopa 25 mg-levodopa 100 mg See Rx Instructions PO TID 06/04/24 tablet Previous Rx's ?Medication ?Instructions ?Recorded nitrofurantoin 100 mg PO BID 7 days #14 caps 10/22/24 monohydrate/macrocrystals 100 mg capsule (Macrobid) Allergies Allergy/AdvReac Type Severity Reaction Status Date / Time oxycodone Allergy Severe Blister Verified 12/01/24 13:48 haloperidol [From Haldol] Allergy Agitated Verified 12/01/24 13:48 Review of Systems Review of Systems: Yes Unobtainable due to mental status and Other PMFSH Past Medical History Medical History REM behavioral disorder Hallucinations Cognitive disorder Parkinson's disease without dyskinesia HTN (hypertension) TIA (transient ischemic attack) Raynauds disease Hyperlipidemia Arthritis Lumbar spondylosis Fatty liver Atrial fibrillation Surgical History History of hip replacement Family History Family History Father Stroke Mother Heart failure Sister Breast cancer in female Social History Social History Household Members: Spouse Housing: House Alcohol intake: former Patient Tobacco Use Status: Never used Tobacco Smoked in Last 30 Days: No Use of substances other than those prescribed or required for medical reasons: No Advance Directives: Yes Advance Directives Information Provided: Yes Advance Directives on File: No Do you have a plan to hurt others: No Plan Physical Exam Vital Signs: Vital Signs: Last Vital Signs Temp 100.7 F H 12/01/24 16:03 Pulse 69 12/01/24 16:03 Resp 18 12/01/24 16:03 BP 108/62 12/01/24 16:03 Pulse Ox 94 12/01/24 16:03 O2 Del Method Room Air 12/01/24 16:03 BMI result Body Mass Index 24.4 General: Well-appearing well-nourished in no signs of distress HEENT: Normocephalic atraumatic Neck: No signs of JVD, no masses no tenderness or lymphadenopathy Cardiovascular: Regular rate and rhythm Respiratory: Clear to auscultation bilaterally Abdomen: Soft nontender no masses rectal exam performed guiac negative construction quality control manager confirmed. Extremities: Normal pedal pulses no signs of edema no pain to palpation of the hip pelvis femur he tibia or fibula or ankle patient is able to lift up his leg is able to bend the knee there was redness around the knee on the right side Skin: Dry warm no rashes Back: No tenderness full ROM Course Reevaluation(s) Reevaluation #1: I did explain to his that home medications we will usually be given after they return home or at admission she did ask multiple times for medications estimated if those are going to be ordered reassure her they will not be too long. She did want a CBC done after the initial evaluation stating the nurse medical services manager requested a CBC. Time: 13:50 Time: 15:26 Reevaluation #3: Patient re-evaluated multiple times it did explain the CBC as well as the BNP and all labs came back CT scan of the head and neck is still pending but x-ray of the right leg demonstrates right hip fracture subcapital patient explain this to the girlfriend who was understandably upset as instructions to do surgery with his advanced dementia as he has not recovered from the previous surgery in 2020 at a local hospital. I contacted Orthopedics Time: 15:27 Consultations Consultation #1: Orthopedics were consulted at 1527 did respond to initial and wanted imaging sent via [employer] which was done Time: 15:46 Consultation #2: Ortho does agree the patient should be admitted to the medicine team I did consult Lesly who agrees with the admission Time: 16:27 Medications Administered Discontinued Medications Generic Name Dose Route Start Last Admin Trade Name Frenicole PRN Reason Stop Dose Admin Acetaminophen 1,000 mg in 100 mls @ 400 mls/hr 12/01/24 13:57 12/01/24 15:58 Ofirmev IV 12/01/24 14:11 Infused ONCE ONE Infusion Medical Decision Making Medical Decision Making [facility] Narrative: I will check labs hopefully get a urine CT scan x-ray and reassess Differential Diagnosis Differential Diagnoses: The differential diagnosis associated with the presentation includes Patient with advanced dementia with an unwitnessed fall I will give the patient for CT scan and an x-ray I will check some general labs with a girlfriend also wants to know if he has ESBL. Lab Data 12/01/24 14:09 12/01/24 14:09 Labs: Lab Results 12/01/24 Range/Units 14:09 WBC 9.2 (4.8-10.8) X10*3/uL RBC 4.08 L (4.60-5.80) X10*6/uL Hgb 13.2 L (14.0-18.0) g/dl Hct 38.8 L (42.0-52.0) % MCV 95.1 (80.0-98.0) fL MCH 32.4 (27.0-33.0) pg MCHC 34.0 (31.0-36.0) g/dl RDW 13.9 (11.0-16.0) % Plt Count 177 (160-400) X10*3/uL MPV 9.1 L (9.4-12.4) fL Immature Gran % (Auto) 0.4 (0.0-0.4) % Neut % (Auto) 69.7 (45-73) % Lymph % (Auto) 15.2 L (20-40) % [place] % (Auto) 11.5 H (2-11) % Eos % (Auto) 2.8 (0-4) % Baso % (Auto) 0.4 (0-2) % Lymph # (Auto) 1.4 (1.2-4.9) X10*3/uL [place] # (Auto) 1.1 (0.1-1.2) X10*3/uL Eos # (Auto) 0.3 (0.0-0.4) X10*3/uL Baso # (Auto) 0.0 (0.0-0.2) X10*3/uL Abs Immat Gran (auto) 0.04 H (0.00-0.03) X10*3/uL Absolute Neuts (auto) 6.4 (2.0-8.3) x10*3/uL Absolute Nucleated RBC 0.000 (0.0-0.012) X10*3/uL Nucleated RBC % (auto) 0.0 (0.0-0.2) /100WBC Sodium 137 (135-145) mmol/L Potassium 4.2 (3.3-5.1) mmol/L Chloride 104 (96-108) mmol/L Carbon Dioxide 27 (22-29) mmol/L Anion Gap 10 L (12-20) BUN 21 H (9-16) mg/dL Creatinine 0.72 (0.5-1.4) mg/dL Estim Creat Clear Calc 85.8 Estimated GFR > 60 Random Glucose 103 (60-115) mg/dL Lactic Acid 1.1 (0.5-2.0) mmol/L Calcium 9.2 (8.4-10.2) mg/dL COVID-19 (MARGARITO) Negative (Negative) COVID-19 Clin Com See Note Discharge Plan Discharge Clinical Impression: Fall, Closed fracture of right hip Patient Disposition: Admitted As Inpatient Print Language: Kyrgyz
[2024-12-01 14:14] LABS: MANUAL DIFF FLAG NO
[2024-12-01 14:15] LABS: Basophils Percent Auto 0.4 % (0-2); Eosinophils Absolute Auto 0.3 X10*3/uL (0.0-0.4); Eosinophils Percent Auto 2.8 % (0-4); Hematocrit 38.8 % (42.0-52.0); Hemoglobin 13.2 g/dl (14.0-18.0); Imm Gran Abs Auto 0.04 X10*3/uL (0.00-0.03); Imm Gran Pct Auto 0.4 % (0.0-0.4); Lymphocytes Absolute Auto 1.4 X10*3/uL (1.2-4.9); Lymphocytes Percent Auto 15.2 % (20-40); Mean Corpuscular Hemoglobin 32.4 pg (27.0-33.0); Mean Corpuscular Volume 95.1 fL (80.0-98.0); Mean Platelet Volume 9.1 fL (9.4-12.4); Monocytes Absolute Auto 1.1 X10*3/uL (0.1-1.2); Monocytes Percent Auto 11.5 % (2-11); Neutrophils Absolute Auto 6.4 x10*3/uL (2.0-8.3); Neutrophils Percent Auto 69.7 % (45-73); Platelet Count 177 X10*3/uL (160-400); Red Blood Count 4.08 X10*6/uL (4.60-5.80); Red Cell Distribution Width 13.9 % (11.0-16.0); White Blood Count 9.2 X10*3/uL (4.8-10.8)
[2024-12-01] MEDS: Acetaminophen 1,000 MG/100 ML PIGGYBACK 400 MG IV (14:19)
--- NOTE | 2024-12-01 14:22 | PC.NURSE ---
[place] CATH IN PLACE AT THIS TIME TO OBTAIN URINE SAMPLE
[2024-12-01 14:32] LABS: COVID-19 Test Negative (Negative); IDNOW Serial# 55D5AD1C
[2024-12-01 14:39] LABS: Anion Gap 10 (12-20); Blood Urea Nitrogen 21 mg/dL (9-16); Calcium 9.2 mg/dL (8.4-10.2); Carbon Dioxide 27 mmol/L (22-29); Chloride 104 mmol/L (96-108); Creatinine Clr Calc Pharmacy 85.8; Estimated Glomerular Filt Rate > 60; Glucose Random 103 mg/dL (60-115); Potassium 4.2 mmol/L (3.3-5.1); Sodium 137 mmol/L (135-145)
[2024-12-01 14:40] LABS: Lactic Acid 1.1 mmol/L (0.5-2.0)
--- NOTE | 2024-12-01 16:29 | P.HPHOSP_ITS ---
History of Present Illness Date of Service: 12/01/24 Chief Complaint: Fall 79-year-old man from [facility] presenting after a mechanical fall. Patient has a history of Lewy body dementia and is unable to give any history. Upon arrival to the ER, multiple imaging studies completed including head, cervical spine CT, knee x-ray all negative for acute fracture. However, femur x-ray showing acute subcapital fracture to right femur. Patient was seen evaluated by Orthopedic surgery team as well as his significant other, she was agreeable to move forward with surgery. Patient's labs are all within acceptable limits, vital signs are stable although he was noted to have a low- grade temperature of 100.7 degrees which will be treated with Tylenol. He was treated for a UTI at the custodial facility and has been started on Macrobid for ESBL type. Plan is to admit patient for further management and treatment of acute hip fracture. 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 HTN (hypertension) TIA (transient ischemic attack) Raynauds disease Hyperlipidemia Arthritis Lumbar spondylosis Fatty liver Atrial fibrillation Family History Father Stroke Mother Heart failure Sister Breast cancer in female Surgical History History of hip replacement Social History Household Members: Spouse Housing: House Alcohol intake: former Patient Tobacco Use Status: Never used Tobacco Smoked in Last 30 Days: No Use of substances other than those prescribed or required for medical reasons: No Advance Directives: Yes Advance Directives Information Provided: Yes Advance Directives on File: No Do you have a plan to hurt others: No Plan Nutrition Risks: No Nutritional Risk Meds Allergies Allergy/AdvReac Type Severity Reaction Status Date / Time oxycodone Allergy Severe Blister Verified 12/01/24 13:48 haloperidol [From Haldol] Allergy Agitated Verified 12/01/24 13:48 Home Medications ?Medication ?Instructions ?Recorded ?Confirmed ?Last Taken ?Type apixaban 5 mg tablet (Eliquis) 5 mg PO BID 07/03/22 05/06/24 Unknown History aspirin 81 mg tablet,delayed 81 mg PO DAILY 10/22/22 05/06/24 Unknown History release carbidopa 25 mg-levodopa 100 mg See Rx Instructions PO TID 06/04/24 Unknown History tablet Physical Exam 2 Vital Signs and Narrative: Vital Signs: Last Vital Signs Temp 100.7 F H 12/01/24 16:03 Pulse 69 12/01/24 16:03 Resp 18 12/01/24 16:03 BP 108/62 12/01/24 16:03 Pulse Ox 94 12/01/24 16:03 O2 Del Method Room Air 12/01/24 16:03 BMI result Body Mass Index 24.4 Appearing in no acute distress head is normocephalic atraumatic eyes pupils are PERRLA sclera is anicteric mouth throat mucous membranes are intact and moist neck is supple no lymphadenopathy, no JVD noted lung sounds are clear to auscultation heart regular rate rhythm, clear S1, S2 positive bowel sounds, abdomen is soft, nontender neuro patient is alert, confused Condom catheter Results Labs 12/01/24 14:09 12/01/24 14:09 Labs: Laboratory Results - last 24 hr 12/01/24 14:09 MCV 95.1 MCH 32.4 MCHC 34.0 RDW 13.9 Plt Count 177 MPV 9.1 L Immature Gran % (Auto) 0.4 Neut % (Auto) 69.7 Lymph % (Auto) 15.2 L [place] % (Auto) 11.5 H Eos % (Auto) 2.8 Baso % (Auto) 0.4 Lymph # (Auto) 1.4 [place] # (Auto) 1.1 Eos # (Auto) 0.3 Baso # (Auto) 0.0 Abs Immat Gran (auto) 0.04 H Absolute Neuts (auto) 6.4 Absolute Nucleated RBC 0.000 Nucleated RBC % (auto) 0.0 Anion Gap 10 L Estim Creat Clear Calc 85.8 Estimated GFR > 60 Random Glucose 103 Lactic Acid 1.1 Calcium 9.2 COVID-19 (MARGARITO) Negative COVID-19 Clin Com See Note Imaging Radiologist's Impressions: Impressions Head CT 12/01/24 13:40 IMPRESSION: 1. Significantly motion limited exam. Within these confines, there is no definite acute intracranial abnormality. Electronically signed by: Brad Ibarra MD 12/01/2024 03:44 PM EST RP Knee X-Ray 12/01/24 13:40 IMPRESSION: Tricompartmental osteoarthrosis without acute fracture or dislocation. Atherosclerosis disease, peripheral. Osteopenia versus osteoporosis. Electronically signed by: Eonch Cardona MD 12/01/2024 03:05 PM EST RP Pelvis X-Ray 12/01/24 13:40 IMPRESSION: Questionable acute subcapital fracture, right femur. Electronically signed by: Enoch Cardona MD 12/01/2024 03:03 PM EST RP Tibia/Fibula X-Ray 12/01/24 13:40 IMPRESSION: Limited secondary to partial exclusion of the [id number] proximal tibia and fibula. No acute fracture. Electronically signed by: Enoch Cardona MD 12/01/2024 03:01 PM EST RP Femur X-Ray 12/01/24 14:15 IMPRESSION: Concerning acute subcapital fracture, right femur. Electronically signed by: Enoch Cardona MD 12/01/2024 03:07 PM EST RP Cervical Spine CT 12/01/24 14:39 IMPRESSION: 1. Mildly motion degraded examination. There is no acute cervical spine fracture or injury. 2. Degenerative spondylosis. 3. Ancillary findings as discussed. Electronically signed by: Brad Ibarra MD 12/01/2024 03:50 PM EST RP Assessment and Plan (1) Closed fracture of right hip: Status: Acute Plan 79-year-old man with a history of Lewy body dementia presenting from long-term care facility after a mechanical fall and found to have a hip fracture. Mechanical fall with right femur fracture Orthopedic surgery consultation, plan for OR tomorrow NPO after midnight Pain management Bed rest ESBL UTI Reported by patient's significant other Patient was started on Macrobid on 12/01/2024 for ESBL UTI at custodial facility Start meropenem Recheck UA and culture Lewy body dementia Supportive care Redirection History of Parkinson's disease Continue Sinemet History of paroxysmal atrial fibrillation Hold Eliquis in light of surgical procedure DVT prophylaxis with pneumatic compression boots in light of upcoming surgical procedure Full code Quality Stroke Does the patient have a stroke diagnosis?: No VTE Prior VTE?: No VTE Risk Level:: Medical - moderate - high VTE Device Contraindication: N/A - Device Ordered VTE Drug Contraindication: Treatment Not Indicated
--- NOTE | 2024-12-01 16:31 | P.CONOP_ITS ---
History of Present Illness HPI Consult date: 12/01/24 Chief complaint: fall, hip fx Narrative: 59-year-old male admitted to the medical service after a fall yesterday . He was transported to the ED, xrays obtained which were significant for a right femoral neck fracture . His power of deputy county attorney/caregiver/girlfriend over 20 years is at bedside, she states he has been living at a rehab facility since Jun 2024 due to weakness, confusion and multiple falls. She states he has advanced dementia with parkinsonian features and is on carbidopa levodopa. She states the patient usually spends about 14-16 hours a day in a wheelchair at the rehab facility. If he does walk, it is with a walker with assistance from another individual with a gait belt and a wheelchair behind him. Of note, patient is on Eliquis for Afib. He is also being treated for ESBL urinary infection which has caused him more confusion. 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 HTN (hypertension) TIA (transient ischemic attack) Raynauds disease Hyperlipidemia Arthritis Lumbar spondylosis Fatty liver Atrial fibrillation Family History Family History Father Stroke Mother Heart failure Sister Breast cancer in female Surgical History Surgical History History of hip replacement Social History Social History Household Members: Spouse Housing: House Alcohol intake: former Patient Tobacco Use Status: Never used Tobacco Smoked in Last 30 Days: No Use of substances other than those prescribed or required for medical reasons: No Advance Directives: Yes Advance Directives Information Provided: Yes Advance Directives on File: No Do you have a plan to hurt others: No Plan Nutrition Risks: No Nutritional Risk Meds Allergies Allergy/AdvReac Type Severity Reaction Status Date / Time oxycodone Allergy Severe Blister Verified 12/01/24 13:48 haloperidol [From Haldol] Allergy Agitated Verified 12/01/24 13:48 Home Medications ?Medication ?Instructions ?Recorded ?Confirmed ?Last Taken ?Type apixaban 5 mg tablet (Eliquis) 5 mg PO BID 07/03/22 05/06/24 Unknown History carbidopa 25 mg-levodopa 100 mg See Rx Instructions PO TID 06/04/24 Unknown History tablet docusate sodium 100 mg capsule 100 mg PO BID 12/01/24 12/01/24 Unknown History (Colace) polyethylene glycol 3350 17 17 g PO DAILY 12/01/24 12/01/24 11/30/24 History gram/dose oral powder (Miralax) sennosides 8.6 mg tablet (senna) 17.2 mg PO BID 12/01/24 12/01/24 12/01/24 History thiamine HCl (vitamin B1) 100 mg 100 mg PO DAILY 12/01/24 12/01/24 Unknown History tablet (Vitamin B-1) Physical Exam 2 Vital Signs: Vital Signs: Last Vital Signs Temp 100.7 F H 12/01/24 16:03 Pulse 69 12/01/24 16:03 Resp 18 12/01/24 16:03 BP 108/62 12/01/24 16:03 Pulse Ox 94 12/01/24 16:03 O2 Del Method Room Air 12/01/24 16:03 BMI result Body Mass Index 24.4 Const: General: comfortable and no acute distress Extrem: Other: Right leg skin intact, no open wounds. Shortened and ER. Results Labs 12/01/24 14:09 12/01/24 14:09 Labs: Abnormal lab results 12/01/24 Range/Units 14:09 RBC 4.08 L (4.60-5.80) X10*6/uL Hgb 13.2 L (14.0-18.0) g/dl Hct 38.8 L (42.0-52.0) % MPV 9.1 L (9.4-12.4) fL Lymph % (Auto) 15.2 L (20-40) % [place] % (Auto) 11.5 H (2-11) % Abs Immat Gran (auto) 0.04 H (0.00-0.03) X10*3/uL Anion Gap 10 L (12-20) BUN 21 H (9-16) mg/dL H & H 12/01/24 Range/Units 14:09 Hgb 13.2 L (14.0-18.0) g/dl Hct 38.8 L (42.0-52.0) % All other labs normal. Assessment and Plan (1) Closed fracture of right hip: Status: Acute Plan I discussed the case with Dr Santos and explained the extent of the injury to the patient's HCP and options available which include surgical intervention. I explained the procedure in detail along with the length of recovery and rehab course. I explained the risk, benefits and alternatives. Risk including, but not limited to infection, blood clots, bleeding, non union or malunion and nerve/tissue damage to surrounding areas and decline in overall health. I answered all their questions and with their understanding they have consented to move forward with Operative Fixation of the right hip . The patient will be T&S, med clearance obtained and NPO after midnight. A CT scan will be obtained for further surgical planning. Procedures Date of Service Date of Service: 12/01/24
[2024-12-01] MEDS: Ibuprofen 400 MG TABLET PO (17:16)
--- NOTE | 2024-12-01 17:29 | PC.NURSE ---
replaced [place] cath. pt incontinent of urine. linens changed
[2024-12-01] MEDS: Meropenem 1 GM VIAL IVPUSH (18:29)
[2024-12-01 18:43] LABS: Appearance Urine Clear; Color Urine Yellow; Glucose Urine UA Negative (Negative); Leukocyte Esterase Urine Moderate (2+) (Negative); Nitrite Urine Negative (Negative); PH 5.5 (5.0-9.0); Specific Gravity - Urine 1.015 (1.005-1.025); UMIC TRIGGER UACC YES; Urine Blood Negative (Negative); Urine Ketones Negative (Negative); Urine Protein Negative (Neg-Trace)
--- NOTE | 2024-12-01 18:54 | PHA.MEDREC ---
Pharmacy Consult ? Medication Reconciliation Pharmacy has completed the medication reconciliation.
--- NOTE | 2024-12-01 19:35 | MHC.EDTECH ---
This tech took over care of pt at 1900,rounded and introduced self to pt,patient has a [place] Cath,placed by previous shift,draining urine at this time, pt appers comfortable,belongings list completed,copy placed in chart girlfriend at bedside,call green in reach
--- NOTE | 2024-12-01 19:52 | PC.NURSE ---
this RN spoke to Demarco JOSEPH at facility, report last took hussein 11/30/24 @ 9pm
[2024-12-01 20:28] LABS: Bacteria Urine None Seen (None Seen); Hyaline Casts Urine 0-2 /LPF (0-2); RBC Urine 0-2 /HPF (0-2); Squamous Epithelial Cell Urine 0-2 /HPF (0-2); UACC Culture Trigger YES; WBC Urine >50 /HPF (0-5)
--- NOTE | 2024-12-01 21:39 | MHC.EDTECH ---
Patient placed in hospital bed at this time,for comfort/safety,patient took [place] cath off, was incont. of a large amount of urine,cleaned and repositioned to comfort. bed alarm on for safety
--- NOTE | 2024-12-01 21:57 | MHC.EDTECH ---
Patient was given 2 sun butter and jelly sandwiches,a pudding and 240 MLS of milk,pt is sitting up in bed eating at this time,girlfriend is at bedside
--- NOTE | 2024-12-01 22:00 | PC.NURSE ---
pt has removed multiple [place] cath at this point. pt has a broken hip and pain when rolling to be cleaned. hcp is refusing [place] cath to be placed at this time. will allow another [place] cath to be placed at this time. if he takes this one off, she will consider a [place] cath for him. she is aware they will place one anyway tomorrow for surgery. hospitalist at bedside
--- NOTE | 2024-12-01 22:15 | MHC.EDTECH ---
Patient ate both sandwiches,T/W placed a [place] cath on pt,patient tolerated well,bed alarm on for safety
[2024-12-02] VITALS (21 sets, daily range): BP systolic 91–144; BP diastolic 45–77; PULSE 52–98; RESP 12–18; TEMP 36.2–37.1; O2SAT 94–100; BMI 25.9
--- NOTE | 2024-12-02 | ECG_ITS ---
Test Reason : pacu Blood Pressure : */* mmHG Vent. Rate : 76 BPM Atrial Rate : * BPM P-R Int : * ms QRS Dur : 74 ms QT Int : 372 ms P-R-T Axes : * 66 52 degrees QTcB Int : 418 ms Atrial fibrillation Nonspecific ST abnormality Abnormal ECG No previous ECGs available Referred By: Lay Avery Electronically Signed By: Yonatan Menjivar
[2024-12-02] MEDS: Acetaminophen 1,000 MG/100 ML PIGGYBACK 400 MG IV (00:34)
[2024-12-02] MEDS: 0.9 % Sodium Chloride Flush 3 ML SYRINGE IVFLUSH ×3 (00:36→20:19)
--- NOTE | 2024-12-02 00:55 | PC.NURSE ---
pt was sleeping and medicated per mar.
[2024-12-02] MEDS: Meropenem 1 GM VIAL IVPUSH ×3 (01:36→19:53)
[2024-12-02] MEDS: Morphine Sulfate 4 MG/ML CARTRIDGE 1 MG IVPUSH (01:48)
--- NOTE | 2024-12-02 02:01 | PC.NURSE ---
complete bed change, replaced [place] cath, medicated for pain management.
--- NOTE | 2024-12-02 02:04 | MHC.EDTECH ---
Replaced [place] cath,patient took previous off,pt was incont. of a large amount of urine, cleaned and repositioned to comfort,vitals taken,BP is low 95/45,RN aware
[2024-12-02] MEDS: Lactated Ringers 1,000 ML 999 ML IV (02:41)
--- NOTE | 2024-12-02 02:42 | PC.NURSE ---
pt has low bp, notified Dr. Ruth , fluid hung per order.
--- NOTE | 2024-12-02 04:03 | PC.NURSE ---
vss and up to date at this time aside from pt being slightly hypotensive despite previous IVF bolus. admitting provider notified/aware. no interventions needed at this time. pt otherwise continues to rest in no apparent distress w/ eyes closed. lights dimmed for comfort. partner bedside for support. on RA w/o difficulty - no sob/wob noted. respirations even/unlabored. bed alarm turned on for safety precautions. plan of care ongoing. call green placed within reach.
--- NOTE | 2024-12-02 04:09 | MHC.EDTECH ---
Labs drawn and sent to lab
[2024-12-02 04:12] LABS: MANUAL DIFF FLAG NO
[2024-12-02 04:13] LABS: Basophils Percent Auto 0.5 % (0-2); Eosinophils Absolute Auto 0.6 X10*3/uL (0.0-0.4); Eosinophils Percent Auto 8.2 % (0-4); Hematocrit 33.4 % (42.0-52.0); Hemoglobin 11.3 g/dl (14.0-18.0); Imm Gran Abs Auto 0.04 X10*3/uL (0.00-0.03); Imm Gran Pct Auto 0.5 % (0.0-0.4); Lymphocytes Absolute Auto 1.4 X10*3/uL (1.2-4.9); Lymphocytes Percent Auto 18.1 % (20-40); Mean Corpuscular HGB Conc 33.8 g/dl (31.0-36.0); Mean Corpuscular Volume 94.6 fL (80.0-98.0); Mean Platelet Volume 9.4 fL (9.4-12.4); Monocytes Percent Auto 12.8 % (2-11); Neutrophils Absolute Auto 4.6 x10*3/uL (2.0-8.3); Neutrophils Percent Auto 59.9 % (45-73); Platelet Count 144 X10*3/uL (160-400); Red Blood Count 3.53 X10*6/uL (4.60-5.80); White Blood Count 7.7 X10*3/uL (4.8-10.8)
[2024-12-02 04:38] LABS: Alanine Aminotransferase 12 U/L (0-40); Albumin Level 2.9 g/dL (3.5-5.0); Alkaline Phosphatase 61 U/L (39-117); Anion Gap 11 (12-20); Aspartate Amino Transferase 22 U/L (5-37); Bilirubin Total 1.4 mg/dL (0.0-1.0); Blood Urea Nitrogen 19 mg/dL (9-16); Calcium 8.5 mg/dL (8.4-10.2); Carbon Dioxide 24 mmol/L (22-29); Chloride 108 mmol/L (96-108); Creatinine Clr Calc Pharmacy 96.6; Estimated Glomerular Filt Rate > 60; Glucose Random 100 mg/dL (60-115); Potassium 3.9 mmol/L (3.3-5.1); Sodium 139 mmol/L (135-145); Total Protein 5.6 g/dL (6.5-8.0)
--- NOTE | 2024-12-02 05:54 | MHC.EDTECH ---
Rounds completed,patient is sleeping,bed alarm on for safety
--- NOTE | 2024-12-02 06:11 | MHC.EDTECH ---
Emptied 150MLS external cath
[2024-12-02] MEDS: Dextrose 5 % and 0.9 % NaCl 1,000 ML 80 ML IVCONT (08:05)
--- NOTE | 2024-12-02 08:11 | PC.NURSE ---
vss and up to date at this time. D5NS infusing @ 80mls/hr at this time. pt continues to pend ETA for procedure at this time. resting in no apparent distress. no sob/wob noted. respirations even/unlabored. plan of care ongoing. call green placed within reach.
--- NOTE | 2024-12-02 09:44 | PC.NURSE ---
abx administered per provider order. pt being transported to the OR at this time.
--- NOTE | 2024-12-02 10:06 | P.CONAN_ITS ---
HPI - Anesthesia Eval Consult details Narrative: for hip fracture repair PMFSH Active Problems Active Problems: All Active Problems Closed fracture of right hip (Acute) Fall (Acute) Chronic UTI (urinary tract infection) (Acute) Incontinence of urine (Acute) REM behavioral disorder (Acute) Hallucinations (Acute) Cognitive disorder (Acute) Parkinson's disease without dyskinesia (Acute) Raynauds disease (Acute) Hyperlipidemia (Acute) Arthritis (Acute) Lumbar spondylosis (Acute) Fatty liver (Acute) Atrial fibrillation (Acute) BPH w urinary obs/LUTS (Acute) Elevated PSA (Acute) Past Medical History Medical History 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 HTN (hypertension) TIA (transient ischemic attack) Raynauds disease Hyperlipidemia Arthritis Lumbar spondylosis Fatty liver Atrial fibrillation Family History Family History Father Stroke Mother Heart failure Sister Breast cancer in female Family history of problems with anesthesia: No Surgical History Surgical History History of hip replacement History of Problems with Anesthesia: No Social History Social History Household Members: Spouse Housing: House Alcohol intake: former Patient Tobacco Use Status: Never used Tobacco Meds Allergies Allergy/AdvReac Type Severity Reaction Status Date / Time oxycodone Allergy Severe Blister Verified 12/01/24 13:48 haloperidol [From Haldol] Allergy Agitated Verified 12/01/24 13:48 Active Medications: Current Medications Acetaminophen (Acetaminophen 325 Mg Tablet) 975 mg PO Q6H [facility] Last Admin: 12/02/24 04:45 Dose: Not Given Calcium Carbonate (Calcium Carbonate 750 Mg Tab.Chew) 750 mg PO Q4H PRN PRN Reason: Heartburn Dextrose/Sodium Chloride (D5ns) 1,000 mls @ 80 mls/hr IVCONT .[id number] [facility] Last Admin: 12/02/24 08:05 Dose: 80 mls/hr Magnesium Hydroxide (Milk Of Magnesia 30 Ml Oral.Susp) 30 ml PO DAILY PRN PRN Reason: Constipation Melatonin (Melatonin 3 Mg Tablet) 6 mg PO BEDTIME PRN PRN Reason: Insomnia Meropenem (Meropenem 1 Gm Vial) 1 gm IVPUSH Q8H [facility] Last Admin: 12/02/24 09:40 Dose: 1 gm Morphine Sulfate (Morphine Sulfate 4 Mg/Ml Cartridge) 1 mg IVPUSH Q4H PRN; Protocol PRN Reason: Pain, Severe (Pain Scale 7-10) Last Admin: 12/02/24 01:48 Dose: 1 mg Sodium Chloride (0.9 % Sodium Chloride Flush 3 Ml Syringe) 3 ml IVFLUSH QSHIFT [facility] Last Admin: 12/02/24 07:35 Dose: Not Given Home Medications ?Medication ?Instructions ?Recorded ?Confirmed ?Last Taken ?Type apixaban 5 mg tablet (Eliquis) 5 mg PO BID 07/03/22 12/01/24 12/01/24 History carbidopa 25 mg-levodopa 100 mg 1 tab PO TID 06/04/24 12/01/24 12/01/24 History tablet docusate sodium 100 mg capsule 100 mg PO BID 12/01/24 12/01/24 Unknown History (Colace) polyethylene glycol 3350 17 17 g PO DAILY 12/01/24 12/01/24 11/30/24 History gram/dose oral powder (Miralax) sennosides 8.6 mg tablet (senna) 17.2 mg PO BID 12/01/24 12/01/24 12/01/24 History thiamine HCl (vitamin B1) 100 mg 100 mg PO DAILY 12/01/24 12/01/24 Unknown History tablet (Vitamin B-1) Exam Height,Weight and Vital Signs: Height 5 ft 10 in Weight 77 kg Last Vital Signs Temp 97.4 F 12/02/24 08:03 Pulse 54 12/02/24 08:03 Resp 16 12/02/24 08:03 BP 107/46 L 12/02/24 08:03 Pulse Ox 96 12/02/24 08:03 O2 Del Method Room Air 12/02/24 08:03 Pertinent Lab Results Pertinent Lab Results: Laboratory Tests 12/01/24 12/01/24 12/01/24 14:09 18:31 18:51 WBC 9.2 RBC 4.08 L Hgb 13.2 L Hct 38.8 L MCV 95.1 MCH 32.4 MCHC 34.0 RDW 13.9 Plt Count 177 MPV 9.1 L Immature Gran % (Auto) 0.4 Neut % (Auto) 69.7 Lymph % (Auto) 15.2 L [place] % (Auto) 11.5 H Eos % (Auto) 2.8 Baso % (Auto) 0.4 Lymph # (Auto) 1.4 [place] # (Auto) 1.1 Eos # (Auto) 0.3 Baso # (Auto) 0.0 Abs Immat Gran (auto) 0.04 H Absolute Neuts (auto) 6.4 Absolute Nucleated RBC 0.000 Nucleated RBC % (auto) 0.0 Sodium 137 Potassium 4.2 Chloride 104 Carbon Dioxide 27 Anion Gap 10 L BUN 21 H Creatinine 0.72 Estim Creat Clear Calc 85.8 Estimated GFR > 60 Random Glucose 103 Lactic Acid 1.1 Calcium 9.2 Total Bilirubin AST ALT Alkaline Phosphatase Total Protein Albumin Urine Color Yellow Urine Appearance Clear Urine pH 5.5 Ur Specific [place] 1.015 Urine Protein Negative Urine Glucose (UA) Negative Urine Ketones Negative Urine Blood Negative Urine Nitrite Negative Ur Leukocyte Esterase Moderate (2+) H Urine RBC 0-2 Urine WBC >50 H Ur Squamous Epith Cells 0-2 Urine Bacteria None Seen Hyaline Casts 0-2 COVID-19 ([facility]) Negative COVID-19 Clin Com See Note Blood Type O Positive Antibody Screen NEGATIVE 12/02/24 04:08 WBC 7.7 RBC 3.53 L Hgb 11.3 L Hct 33.4 L MCV 94.6 MCH 32.0 MCHC 33.8 RDW 14.0 Plt Count 144 L MPV 9.4 Immature Gran % (Auto) 0.5 H Neut % (Auto) 59.9 Lymph % (Auto) 18.1 L [place] % (Auto) 12.8 H Eos % (Auto) 8.2 H Baso % (Auto) 0.5 Lymph # (Auto) 1.4 [place] # (Auto) 1.0 Eos # (Auto) 0.6 H Baso # (Auto) 0.0 Abs Immat Gran (auto) 0.04 H Absolute Neuts (auto) 4.6 Absolute Nucleated RBC 0.000 Nucleated RBC % (auto) 0.0 Sodium 139 Potassium 3.9 Chloride 108 Carbon Dioxide 24 Anion Gap 11 L BUN 19 H Creatinine 0.64 Estim Creat Clear Calc 96.6 Estimated GFR > 60 Random Glucose 100 Lactic Acid Calcium 8.5 D Total Bilirubin 1.4 H AST 22 ALT 12 Alkaline Phosphatase 61 Total Protein 5.6 L Albumin 2.9 L Urine Color Urine Appearance Urine pH Ur Specific [place] Urine Protein Urine Glucose (UA) Urine Ketones Urine Blood Urine Nitrite Ur Leukocyte Esterase Urine RBC Urine WBC Ur Squamous Epith Cells Urine Bacteria Hyaline Casts COVID-19 ([facility]) COVID-19 Clin Com Blood Type Antibody Screen Airway Mallampati Class: Patient Non-Cooperative TM Dist: <=3cm Neck ROM: Poor Heart: afib Lungs: cta Assessment and Plan Assessment Anesthesia Assessment: Anesthesia Plan Discussed Final Anesthetic Review Family History of Problems with Anesthesia: No History of Problems with Anesthesia: No NPO: Yes ASA Class: III Final Preanesthetic Review: No Changes in Pt Med Stat, Meds/Allgs Chart Reviewed, Consent Obtained/Reviewed and Anes Risks/Benef Reviewed Patient Risk: Intermediate Procedure Risk: Intermediate Anesthetic Plan Anesthetic Plan: GA Disposition: Standard PACU
--- NOTE | 2024-12-02 11:14 | MHC.SHP ---
Pre-Procedural Eval Section A - 24 Hr Update-Section A only Date of Service: 12/02/24 The patient is an INPATIENT: Yes Changes since office visit: No Cold of Flu in the past 2 weeks, No New Medical Problems, No Changes in Medication and No Patient answered all questions The patient has been examined within 24 hours of the surgical procedure. The History & Physical has been completed within 30 days and I have reviewed it.: Yes Section B - Complete if H&P > 30 days Chief Complaint: fall, hip fx Allergies: Allergies Allergy/AdvReac Type Severity Reaction Status Date / Time oxycodone Allergy Severe Blister Verified 12/01/24 13:48 haloperidol [From Haldol] Allergy Agitated Verified 12/01/24 13:48 Plan I have reviewed the history and physical and performed a pertinent physical examination on my patient. No changes have occurred unless specified. Time Spent With Patient Time: Total time managing care of this patient today ____ minutes.
--- NOTE | 2024-12-02 13:20 | HO.PM.IMPN ---
Subjective Subjective Date of Service: 12/02/24 Review of Systems Follow up fall Status post hemiarthroplasty today Physical Exam Vital Signs: Vital Signs: Last Vital Signs Temp 98.8 F 12/02/24 10:07 Pulse 61 12/02/24 10:07 Resp 16 12/02/24 10:07 BP 107/58 L 12/02/24 10:07 Pulse Ox 96 12/02/24 10:07 O2 Del Method Room Air 12/02/24 10:07 BMI result Body Mass Index 24.4 Appearing in no acute distress lung sounds are clear to auscultation heart regular rate rhythm, clear S1, S2 positive bowel sounds, abdomen is soft, nontender neuro patient is alert x3, no focal deficits Objective Data Active Medications Acetaminophen (Acetaminophen 325 Mg Tablet) 975 mg PO Q6H [facility] Last Admin: 12/02/24 04:45 Dose: Not Given Documented By: [email or web address] Non-Admin Reason: NPO Calcium Carbonate (Calcium Carbonate 750 Mg Tab.Chew) 750 mg PO Q4H PRN PRN Reason: Heartburn Fentanyl (Fentanyl Citrate/Pf 100 Mcg/2 Ml Vial) 25 mcg IVPUSH Q5M PRN PRN Reason: Pain, Moderate to Severe (Pain Scale 4-10) Stop: 12/02/24 16:07 Dextrose/Sodium Chloride (D5ns) 1,000 mls @ 80 mls/hr IVCONT .[id number] [facility] Last Admin: 12/02/24 08:05 Dose: 80 mls/hr Documented By: [email or web address] Magnesium Hydroxide (Milk Of Magnesia 30 Ml Oral.Susp) 30 ml PO DAILY PRN PRN Reason: Constipation Melatonin (Melatonin 3 Mg Tablet) 6 mg PO BEDTIME PRN PRN Reason: Insomnia Meropenem (Meropenem 1 Gm Vial) 1 gm IVPUSH Q8H [facility] Last Admin: 12/02/24 09:40 Dose: 1 gm Documented By: [email or web address] Morphine Sulfate (Morphine Sulfate 4 Mg/Ml Cartridge) 1 mg IVPUSH Q4H PRN; Protocol PRN Reason: Pain, Severe (Pain Scale 7-10) Last Admin: 12/02/24 01:48 Dose: 1 mg Documented By: BAKARI Naloxone HCl (Naloxone Hcl 0.4 Mg/Ml Vial) 0.04 mg IVPUSH Q5M PRN PRN Reason: Excessive sedation or RR < 8 Ondansetron HCl (Ondansetron Hcl 4 Mg/2 Ml Vial) 4 mg IVPUSH ONCE PRN PRN Reason: Nausea and Vomiting Stop: 12/02/24 16:07 Sodium Chloride (0.9 % Sodium Chloride Flush 3 Ml Syringe) 3 ml IVFLUSH QSHIFT [facility] Last Admin: 12/02/24 07:35 Dose: Not Given Documented By: [email or web address] Non-Admin Reason: Patient Asleep Labs 12/02/24 04:08 12/02/24 04:08 Labs: Laboratory Results - last 24 hr 12/01/24 12/01/24 12/01/24 14:09 18:31 18:51 MCV 95.1 MCH 32.4 MCHC 34.0 RDW 13.9 Plt Count 177 MPV 9.1 L Immature Gran % (Auto) 0.4 Neut % (Auto) 69.7 Lymph % (Auto) 15.2 L [place] % (Auto) 11.5 H Eos % (Auto) 2.8 Baso % (Auto) 0.4 Lymph # (Auto) 1.4 [place] # (Auto) 1.1 Eos # (Auto) 0.3 Baso # (Auto) 0.0 Abs Immat Gran (auto) 0.04 H Absolute Neuts (auto) 6.4 Absolute Nucleated RBC 0.000 Nucleated RBC % (auto) 0.0 Anion Gap 10 L Estim Creat Clear Calc 85.8 Estimated GFR > 60 Random Glucose 103 Lactic Acid 1.1 Calcium 9.2 Total Bilirubin AST ALT Alkaline Phosphatase Total Protein Albumin Urine Color Yellow Urine Appearance Clear Urine pH 5.5 Ur Specific [place] 1.015 Urine Protein Negative Urine Glucose (UA) Negative Urine Ketones Negative Urine Blood Negative Urine Nitrite Negative Ur Leukocyte Esterase Moderate (2+) H Urine RBC 0-2 Urine WBC >50 H Ur Squamous Epith Cells 0-2 Urine Bacteria None Seen Hyaline Casts 0-2 COVID-19 ([facility]) Negative COVID-19 Clin Com See Note Blood Type O Positive Antibody Screen NEGATIVE Crossmatch See Detail 12/02/24 04:08 MCV 94.6 MCH 32.0 MCHC 33.8 RDW 14.0 Plt Count 144 L MPV 9.4 Immature Gran % (Auto) 0.5 H Neut % (Auto) 59.9 Lymph % (Auto) 18.1 L [place] % (Auto) 12.8 H Eos % (Auto) 8.2 H Baso % (Auto) 0.5 Lymph # (Auto) 1.4 [place] # (Auto) 1.0 Eos # (Auto) 0.6 H Baso # (Auto) 0.0 Abs Immat Gran (auto) 0.04 H Absolute Neuts (auto) 4.6 Absolute Nucleated RBC 0.000 Nucleated RBC % (auto) 0.0 Anion Gap 11 L Estim Creat Clear Calc 96.6 Estimated GFR > 60 Random Glucose 100 Lactic Acid Calcium 8.5 D Total Bilirubin 1.4 H AST 22 ALT 12 Alkaline Phosphatase 61 Total Protein 5.6 L Albumin 2.9 L Urine Color Urine Appearance Urine pH Ur Specific [place] Urine Protein Urine Glucose (UA) Urine Ketones Urine Blood Urine Nitrite Ur Leukocyte Esterase Urine RBC Urine WBC Ur Squamous Epith Cells Urine Bacteria Hyaline Casts COVID-19 ([facility]) COVID-19 Clin Com Blood Type Antibody Screen Crossmatch Microbiology Microbiology Results: Microbiology 12/01/24 Unknown Urine Culture - Preliminary Urine clean catch - Clean Catch Midstream No growth to date. Assessment and Plan (1) Closed fracture of right hip: Status: Acute Plan 9-year-old man with a history of Lewy body dementia presenting from long-term care facility after a mechanical fall and found to have a hip fracture. Mechanical fall with right femur fracture s/p right hip hemiarthroplasty Pain management PT evaluation ESBL UTI Reported by patient's significant other Patient was started on Macrobid on 12/01/2024 for ESBL UTI at correction facility Start meropenem UA and culture pending Lewy body dementia Supportive care Redirection History of Parkinson's disease Continue Sinemet History of paroxysmal atrial fibrillation Hold Eliquis in light of surgical procedure DVT prophylaxis with pneumatic compression boots in light of upcoming surgical procedure Full code Quality Stroke Does the patient have a stroke diagnosis?: No VTE Prior VTE?: No VTE Risk Level:: Medical - moderate - high VTE Device Contraindication: N/A - Device Ordered VTE Drug Contraindication: Treatment Not Indicated
--- NOTE | 2024-12-02 13:34 | P.BOP_ITS ---
Brief Operative Note Date of Service: 12/02/24 Pre-op diagnosis: Right femoral neck fracture Post-op diagnosis: same Procedure: Right hip hemiarthroplasty Implants: Forsan Accolade2 127 # 7 with +54 Bipolar Surgeon: Donnell Santos MD Anesthesia: GLMA and local Was an Apartment Maintenance used for this Procedure?: Yes Apartment Maintenance: Rocío Aguilar Estimated blood loss (mL): 200 IV fluids (mL): 800 Pathology: other Condition: stable Disposition: PACU
--- NOTE | 2024-12-02 13:39 | P.OP_ITS ---
Operative Note Operative Note Date of Service: 12/02/24 Narrative: Date of Service: 12/02/24 Pre-op diagnosis: Right femoral neck fracture Post-op diagnosis: same Procedure: Right hip hemiarthroplasty Implants: [place] [id number] 127 # 7 with +54 Bipolar Surgeon: Donnell Santos MD Anesthesia: GLMA and local Was an Piano Case And Bench Assembler used for this Procedure?: Yes Piano Case And Bench Assembler: Rocío Aguilar Estimated blood loss (mL): 200 IV fluids (mL): 800 Pathology: other Condition: stable Disposition: PACU Procedure in detail: Patient was brought to the operative room placed in the lateral decubitus position. All bony prominences were well padded and the was prepped and draped in standard sterile fashion. IV antibiotics per weight were administered and a time-out was called to identify proper site proper procedure proper surgeon. Radiographs were available and confirmed. I began by making a curvilinear incision over the posterolateral aspect of the greater trochanter. Dissection was taken down to the tensor fascia which was incised in line with the incision and a Charnley retractor was placed. The hip was internally rotated and the external rotators were identified. All vessels in the area were cauterized and a full-thickness capsular/external rotator layer was developed in a hockey-stick fashion starting just proximal to the piriformis. This layer was tagged and the displaced femoral neck fracture was identified. Clean-up cuts was performed while protecting the posterolateral soft tissues and the head was removed and measured (54 mm) on the back table. I then copiously irrigated the acetabulum and removed all bony fragments. Once this was done I used a cookie cutter to lateralize and a Charnley awl to identify the canal and then sequentially broached up to a 127 deg #7. I then trialed with a standard +0 head and a bipolar component matching the femoral head size. I was satisfied with the range of motion and stability and length. Therefore I removed all instrumentation and copiously irrigated. I then placed my final femoral implant and then retrialed. I was satisfied with the +4/54 implants. My final bipolar components were then placed. I closed the capsular layer with FiberWire and then copiously irrigated. I performed a layered closure with aidee on skin. The patient was placed in sterile dressing extubated brought to recovery room in stable condition there were no known complications.
[2024-12-02] MEDS: Acetaminophen 325 MG TABLET 975 MG PO (19:18)
[2024-12-02] MEDS: Carbidopa/Levodopa 25/100 TABLET 1 TAB PO (19:19)
[2024-12-02] MEDS: Lactated Ringers 1,000 ML 100 ML IVCONT (19:49)
[2024-12-02] MEDS: ceFAZolin Sodium/Dextrose,Iso 2 GM/50 ML PIGGYBACK IV (20:02)
[2024-12-02] MEDS: Melatonin 3 MG TABLET 6 MG PO (20:18)
[2024-12-02] MEDS: Docusate Sodium 100 MG CAPSULE PO (20:18)
[2024-12-02] MEDS: Celecoxib 200 MG CAPSULE PO (20:18)
[2024-12-02] MEDS: Sennosides 8.6 MG TABLET 17.2 MG PO (20:18)
[2024-12-03] MEDS: Meropenem 1 GM VIAL IVPUSH ×3 (02:52→17:02)
[2024-12-03 04:00] VITALS: BP 113/57; PULSE 73; RESP 18; TEMP 36.4; O2SAT 96
[2024-12-03] MEDS: Lactated Ringers 1,000 ML 100 ML IVCONT (05:55)
[2024-12-03 06:00] LABS: MANUAL DIFF FLAG NO
[2024-12-03 06:05] LABS: Basophils Percent Auto 0.2 % (0-2); Eosinophils Percent Auto 0.2 % (0-4); Hematocrit 30.4 % (42.0-52.0); Imm Gran Abs Auto 0.05 X10*3/uL (0.00-0.03); Imm Gran Pct Auto 0.5 % (0.0-0.4); Lymphocytes Absolute Auto 0.9 X10*3/uL (1.2-4.9); Lymphocytes Percent Auto 7.7 % (20-40); Mean Corpuscular HGB Conc 32.9 g/dl (31.0-36.0); Mean Corpuscular Hemoglobin 32.3 pg (27.0-33.0); Mean Corpuscular Volume 98.1 fL (80.0-98.0); Mean Platelet Volume 10.1 fL (9.4-12.4); Monocytes Absolute Auto 1.2 X10*3/uL (0.1-1.2); Monocytes Percent Auto 10.4 % (2-11); Platelet Count 159 X10*3/uL (160-400); Red Cell Distribution Width 13.7 % (11.0-16.0); White Blood Count 11.1 X10*3/uL (4.8-10.8)
[2024-12-03 06:23] LABS: Anion Gap 10 (12-20); Blood Urea Nitrogen 20 mg/dL (9-16); Calcium 8.4 mg/dL (8.4-10.2); Carbon Dioxide 24 mmol/L (22-29); Chloride 108 mmol/L (96-108); Creatinine Clr Calc Pharmacy 98.1; Estimated Glomerular Filt Rate > 60; Glucose Random 121 mg/dL (60-115); Potassium 4.6 mmol/L (3.3-5.1); Sodium 137 mmol/L (135-145)
[2024-12-03 06:28] LABS: Anion Gap 12 (12-20); Blood Urea Nitrogen 20 mg/dL (9-16); Calcium 8.4 mg/dL (8.4-10.2); Carbon Dioxide 23 mmol/L (22-29); Chloride 108 mmol/L (96-108); Creatinine Clr Calc Pharmacy 99.7; Estimated Glomerular Filt Rate > 60; Glucose Fasting 120 mg/dL (60-99); Potassium 4.7 mmol/L (3.3-5.1); Sodium 138 mmol/L (135-145)
--- NOTE | 2024-12-03 07:28 | PM.PNORT ---
Subjective Subjective Date of Service: 12/03/24 Interval history: 79-year-old male postop day 1 status post right hip hemiarthroplasty Patient resting comfortably in bed Pain well managed No acute events overnight No other acute complaints or concerns at this time Physical Exam Vital Signs: Vital Signs: Last Vital Signs Temp 97.5 F 12/03/24 04:00 Pulse 73 12/03/24 04:00 Resp 18 12/03/24 04:00 BP 113/57 L 12/03/24 04:00 Pulse Ox 96 12/03/24 04:00 O2 Del Method Room Air 12/03/24 04:00 O2 Flow Rate 2 12/02/24 16:10 BMI result Body Mass Index 25.9 Extrem: Other: Dressing on right hip clean, dry, intact No evidence of surrounding erythema, ecchymosis No evidence of infection Patient is able to flex and extend the digits of the left foot without difficulty Compartments soft, nontender Distal sensation intact Capillary refill brisk Procedures Date of Service Date of Service: 12/03/24 Progress Note: A&P Assessment and plan (1) Closed fracture of right hip: Status: Acute Plan 1. Status post right hip hemiarthroplasty DOS 12/02/2024 Patient appears to be recovering well postoperatively Begin anticoagulation for DVT prophylaxis 24 hours postoperatively Continue pain management Dispo planning-PT/OT evaluation, pain management, medical clearance Continue with all other recommendations per Medicine Time Spent With Patient Time: Total time managing care of this patient today ____ minutes. Quality Stroke Does the patient have a stroke diagnosis?: No VTE Prior VTE?: No VTE Risk Level:: Medical - moderate - high VTE Device Contraindication: N/A - Device Ordered VTE Drug Contraindication: Treatment Not Indicated
[2024-12-03] MEDS: Morphine Sulfate 4 MG/ML CARTRIDGE 1 MG IVPUSH (07:59)
[2024-12-03] MEDS: Dextrose 5 % and 0.9 % NaCl 1,000 ML 80 ML IVCONT (07:59)
[2024-12-03 08:00] VITALS: BP 110/58; PULSE 67; RESP 18; TEMP 36.1; O2SAT 96
--- NOTE | 2024-12-03 08:42 | PM.PNORT ---
Subjective Subjective Date of Service: 12/03/24 Interval history: POD 1 s/p Rt hip corrine no overnight events working with OT sitting in recliner Physical Exam Vital Signs: Vital Signs: Last Vital Signs Temp 96.9 F 12/03/24 08:00 Pulse 67 12/03/24 08:00 Resp 18 12/03/24 08:00 BP 110/58 L 12/03/24 08:00 Pulse Ox 96 12/03/24 08:00 O2 Del Method Room Air 12/03/24 08:00 O2 Flow Rate 2 12/02/24 16:10 BMI result Body Mass Index 25.9 Const: General: cooperative and no acute distress Orientation/consciousness: patient oriented x3 Resp: Effort & Inspection: normal respiratory effort and able to speak in complete sentences Cardio: Peripheral pulses: Peripheral pulses 2+ throughout Neuro: General: patient oriented x3 Extrem: Other: bandage clean dry and intact. Caty intact. No erythema or effusion. Calf supple nontender. Neurovascularly intact. Procedures Date of Service Date of Service: 12/03/24 Progress Note: A&P Assessment and plan (1) Closed fracture of right hip: Status: Acute Assessment and Plan: pain mgmnt begin lovenox for dvt ppx x48 hrs then resume eliquis PT/OT for right hip posterior precautions wbat Dispo-pending PT eval and medical clearance Time Spent With Patient Time: Total time managing care of this patient today ____ minutes. Quality Stroke Does the patient have a stroke diagnosis?: No VTE Prior VTE?: No VTE Risk Level:: Medical - moderate - high VTE Device Contraindication: N/A - Device Ordered VTE Drug Contraindication: Treatment Not Indicated
--- NOTE | 2024-12-03 09:05 | HO.POSTANES ---
Post Anesthesia Evaluation Post Anesthesia Evaluation Date of Service: 12/03/24 Vital Signs: Vital Signs Temp Pulse Resp BP Pulse Ox O2 Del Method 12/03/24 08:00 96.9 F 67 18 110/58 L 96 Room Air 12/03/24 04:00 97.5 F 73 18 113/57 L 96 Room Air 12/02/24 23:33 97.3 F 67 16 115/57 L 96 Room Air Anesthesia: General Endotracheal-GETA Mental Status: Awake Pain Control: Satisfactory Nausea/Vomiting: None Hydration: Adequate Anesthesia-Related Issues: No Anes. Related Issues
[2024-12-03] MEDS: Celecoxib 200 MG CAPSULE PO ×2 (09:49→19:51)
[2024-12-03] MEDS: Carbidopa/Levodopa 25/100 TABLET 1 TAB PO ×3 (09:49→19:51)
[2024-12-03] MEDS: Thiamine HCL 100 MG TABLET PO (09:49)
[2024-12-03] MEDS: polyethylene glycoL 3350 17 GM POWD.PACK PO (09:49)
[2024-12-03] MEDS: Sennosides 8.6 MG TABLET 17.2 MG PO ×2 (09:49→19:52)
[2024-12-03] MEDS: Docusate Sodium 100 MG CAPSULE PO ×2 (09:49→19:51)
[2024-12-03 11:40] VITALS: BP 97/54; PULSE 67; RESP 18; TEMP 36.4; O2SAT 96
[2024-12-03] MEDS: Acetaminophen 325 MG TABLET 975 MG PO ×3 (12:07→22:30)
--- NOTE | 2024-12-03 15:02 | MHC.CM.PN ---
IMM 12/03/24 Patient resides @ [place]/ C. S/P fall R Hip FX s/p BETTYE. Patient's S.O./HCP/POA is requesting that the patient not return to [place]/[facility]. Patient + S.O. were informed that there is a shortage of LTC beds. It is not likely that a LTC bed offer will be extended. SNF preferences were obtained.Referrals have been sent. No bed offers have been received. Additional referrals have been sent. Print outs of SNFs + STAR ratings have been provided. CM will follow for placement vs return to [place]. DP LTC via BLS.
[2024-12-03] MEDS: 0.9 % Sodium Chloride Flush 3 ML SYRINGE IVFLUSH ×2 (15:05→22:30)
[2024-12-03 15:36] VITALS: BP 97/56; PULSE 67; RESP 18; TEMP 36.2; O2SAT 97
--- NOTE | 2024-12-03 17:18 | HO.PM.IMPN ---
Subjective Subjective Date of Service: 12/04/24 Interval History: seen and examined this morning follow up for right hemiarthroplasty awake, alert, confused limited history Physical Exam Vital Signs: Vital Signs: Last Vital Signs Temp 97.1 F 12/03/24 15:36 Pulse 67 12/03/24 15:36 Resp 18 12/03/24 15:36 BP 97/56 L 12/03/24 15:36 Pulse Ox 97 12/03/24 15:36 O2 Del Method Room Air 12/03/24 15:36 O2 Flow Rate 2 12/02/24 16:10 BMI result Body Mass Index 25.9 Const: General: alert, awake and Physically active Nutritional Appearance: average body habitus Orientation/consciousness: oriented to person Resp: Effort & Inspection: normal respiratory effort, able to speak in complete sentences, no respiratory distress and no use of accessory muscles Neuro: General: oriented to person Extrem: Other: right hip dressing c/d/i Objective Data Active Medications Acetaminophen (Acetaminophen 325 Mg Tablet) 975 mg PO Q6H [facility] Last Admin: 12/03/24 17:01 Dose: 975 mg Documented By: JORGE Calcium Carbonate (Calcium Carbonate 750 Mg Tab.Chew) 750 mg PO Q4H PRN PRN Reason: Heartburn Carbidopa/Levodopa (Carbidopa/Levodopa 25/100 Tablet) 1 tab PO TID [facility] Last Admin: 12/03/24 15:04 Dose: 1 tab Documented By: JORGE Celecoxib (Celecoxib 200 Mg Capsule) 200 mg PO BID [facility] Last Admin: 12/03/24 09:49 Dose: 200 mg Documented By: JORGE Docusate Sodium (Docusate Sodium 100 Mg Capsule) 100 mg PO BID [facility] Last Admin: 12/03/24 09:49 Dose: 100 mg Documented By: JORGE Magnesium Hydroxide (Milk Of Magnesia 30 Ml Oral.Susp) 30 ml PO DAILY PRN PRN Reason: Constipation Melatonin (Melatonin 3 Mg Tablet) 6 mg PO BEDTIME PRN PRN Reason: Insomnia Last Admin: 12/02/24 20:18 Dose: 6 mg Documented By: JUSTICE Meropenem (Meropenem 1 Gm Vial) 1 gm IVPUSH Q8H [facility] Last Admin: 12/03/24 17:02 Dose: 1 gm Documented By: JORGE Morphine Sulfate (Morphine Sulfate 4 Mg/Ml Cartridge) 1 mg IVPUSH Q4H PRN; Protocol PRN Reason: Pain, Severe (Pain Scale 7-10) Last Admin: 12/03/24 07:59 Dose: 1 mg Documented By: JORGE Naloxone HCl (Naloxone Hcl 0.4 Mg/Ml Vial) 0.04 mg IVPUSH Q5M PRN PRN Reason: Excessive sedation or RR < 8 Polyethylene Glycol (Polyethylene Glycol 3350 17 Gm Powd.Pack) 17 gm PO DAILY [facility] Last Admin: 12/03/24 09:49 Dose: 17 gm Documented By: JORGE Senna (Sennosides 8.6 Mg Tablet) 17.2 mg PO BID [facility] Last Admin: 12/03/24 09:49 Dose: 17.2 mg Documented By: JORGE Sodium Chloride (0.9 % Sodium Chloride Flush 3 Ml Syringe) 3 ml IVFLUSH QSHIFT [facility] Last Admin: 12/03/24 15:05 Dose: 3 ml Documented By: JORGE Thiamine HCl (Thiamine Hcl 100 Mg Tablet) 100 mg PO DAILY [facility] Last Admin: 12/03/24 09:49 Dose: 100 mg Documented By: JORGE Labs 12/04/24 05:38 12/04/24 05:38 Labs: Laboratory Results - last 24 hr 12/03/24 12/03/24 12/03/24 05:48 05:48 05:48 MCV 98.1 H MCH 32.3 MCHC 32.9 RDW 13.7 Plt Count 159 L MPV 10.1 Immature Gran % (Auto) 0.5 H Neut % (Auto) 81.0 H Lymph % (Auto) 7.7 L [place] % (Auto) 10.4 Eos % (Auto) 0.2 Baso % (Auto) 0.2 Lymph # (Auto) 0.9 L [place] # (Auto) 1.2 Eos # (Auto) 0.0 Baso # (Auto) 0.0 Abs Immat Gran (auto) 0.05 H Absolute Neuts (auto) 9.0 H Absolute Nucleated RBC 0.000 Nucleated RBC % (auto) 0.0 Anion Gap 10 L 12 Estim Creat Clear Calc 98.1 99.7 Estimated GFR > 60 Random Glucose Fasting Glucose Calcium 12/03/24 12/03/24 05:48 05:48 MCV MCH MCHC RDW Plt Count MPV Immature Gran % (Auto) Neut % (Auto) Lymph % (Auto) [place] % (Auto) Eos % (Auto) Baso % (Auto) Lymph # (Auto) [place] # (Auto) Eos # (Auto) Baso # (Auto) Abs Immat Gran (auto) Absolute Neuts (auto) Absolute Nucleated RBC Nucleated RBC % (auto) Anion Gap Estim Creat Clear Calc Estimated GFR > 60 Random Glucose 121 H Fasting Glucose 120 H Calcium 8.4 8.4 Microbiology Microbiology Results: Microbiology 12/01/24 14:13 Blood Culture - Preliminary Blood - Venous No growth after 48 hours. 12/01/24 14:09 Blood Culture - Preliminary Blood - Venous No growth after 48 hours. 12/01/24 Unknown Urine Culture - Final Urine clean catch - Clean Catch Midstream No growth. Assessment and Plan (1) Closed fracture of right hip: Status: Acute Plan This is a 79-year-old man with a history of Lewy body dementia presenting from long-term care facility after a mechanical fall and found to have a hip fracture. Mechanical fall with right femur fracture s/p right hip hemiarthroplasty Pain management PT evaluation -> rec LTC follow H/H ESBL UTI Reported by patient's significant other Patient was started on Macrobid on 12/01/2024 for ESBL UTI at [facility] facility initially treated with meropenem, repeat UCX negative; d/w ID no need to treat Lewy body dementia Supportive care Redirection History of Parkinson's disease Continue Sinemet History of paroxysmal atrial fibrillation Hold Eliquis in light of surgical procedure. plan for lovenox, then resume eliquis after 48 hours DVT prophylaxis per orthopedic recommendation Full code iwona return to facility in am Quality Stroke Does the patient have a stroke diagnosis?: No VTE Prior VTE?: No VTE Risk Level:: Medical - moderate - high VTE Device Contraindication: N/A - Device Ordered VTE Drug Contraindication: Treatment Not Indicated
[2024-12-03 19:23] VITALS: BP 96/51; PULSE 59; RESP 18; TEMP 36.6; O2SAT 96
[2024-12-03] MEDS: Enoxaparin Sodium 40 MG/0.4 ML SYRINGE SUBCUT (19:28)
[2024-12-03 23:52] VITALS: BP 104/55; PULSE 51; RESP 16; TEMP 36.6; O2SAT 95
[2024-12-04] MEDS: Acetaminophen 325 MG TABLET 975 MG PO ×2 (03:16→10:45)
[2024-12-04 03:25] VITALS: BP 109/54; PULSE 73; RESP 18; TEMP 36.6; O2SAT 96
[2024-12-04 05:48] LABS: MANUAL DIFF FLAG NO
[2024-12-04 06:11] LABS: Hematocrit 28.4 % (42.0-52.0); Hemoglobin 9.3 g/dl (14.0-18.0)
[2024-12-04 06:12] LABS: Basophils Percent Auto 0.3 % (0-2); Eosinophils Absolute Auto 0.5 X10*3/uL (0.0-0.4); Eosinophils Percent Auto 5.9 % (0-4); Hematocrit 28.1 % (42.0-52.0); Hemoglobin 9.3 g/dl (14.0-18.0); Imm Gran Abs Auto 0.05 X10*3/uL (0.00-0.03); Imm Gran Pct Auto 0.6 % (0.0-0.4); Lymphocytes Absolute Auto 1.6 X10*3/uL (1.2-4.9); Lymphocytes Percent Auto 18.2 % (20-40); Mean Corpuscular HGB Conc 33.1 g/dl (31.0-36.0); Mean Corpuscular Hemoglobin 32.3 pg (27.0-33.0); Mean Corpuscular Volume 97.6 fL (80.0-98.0); Monocytes Percent Auto 11.3 % (2-11); Neutrophils Absolute Auto 5.5 x10*3/uL (2.0-8.3); Neutrophils Percent Auto 63.7 % (45-73); Platelet Count 159 X10*3/uL (160-400); Red Blood Count 2.88 X10*6/uL (4.60-5.80); Red Cell Distribution Width 13.6 % (11.0-16.0); White Blood Count 8.6 X10*3/uL (4.8-10.8)
[2024-12-04 06:28] LABS: Anion Gap 9 (12-20); Blood Urea Nitrogen 29 mg/dL (9-16); Calcium 8.3 mg/dL (8.4-10.2); Carbon Dioxide 28 mmol/L (22-29); Chloride 105 mmol/L (96-108); Creatinine Clr Calc Pharmacy 88.3; Estimated Glomerular Filt Rate > 60; Glucose Fasting 91 mg/dL (60-99); Potassium 4.1 mmol/L (3.3-5.1); Sodium 138 mmol/L (135-145)
[2024-12-04] MEDS: Carbidopa/Levodopa 25/100 TABLET 1 TAB PO ×2 (07:56→14:17)
[2024-12-04] MEDS: polyethylene glycoL 3350 17 GM POWD.PACK PO (07:56)
[2024-12-04] MEDS: Docusate Sodium 100 MG CAPSULE PO (07:56)
[2024-12-04] MEDS: Sennosides 8.6 MG TABLET 17.2 MG PO (07:56)
[2024-12-04] MEDS: Thiamine HCL 100 MG TABLET PO (07:56)
[2024-12-04] MEDS: Celecoxib 200 MG CAPSULE PO (07:57)
[2024-12-04] MEDS: 0.9 % Sodium Chloride Flush 3 ML SYRINGE IVFLUSH (07:57)
[2024-12-04 08:11] VITALS: BP 115/56; PULSE 50; RESP 12; TEMP 36.1; O2SAT 94
[2024-12-04 10:27] VITALS: BP 115/56; PULSE 50; O2SAT 94
--- NOTE | 2024-12-04 10:45 | P.DS_ITS ---
DS: Providers Provider Date of Service: 12/04/24 Date of admission: 12/01/24 17:23 Date of discharge: 12/04/24 Primary care physician: Leona Almendarez MD Attending physician on discharge: Amanuel Hines Discharging clinician: Coleen Leger DS: Diagnosis Discharge Diagnosis (1) Closed fracture of right hip: Status: Acute DS: Summary Hospital Course Hospital Course: From H&P on the day of admission 79-year-old man from [facility] presenting after a mechanical fall. Patient has a history of Lewy body dementia and is unable to give any history. Upon arrival to the ER, multiple imaging studies completed including head, cervical spine CT, knee x-ray all negative for acute fracture. However, femur x-ray showing acute subcapital fracture to right femur. Patient was seen evaluated by Orthopedic surgery team as well as his significant other, she was agreeable to move forward with surgery. Patient's labs are all within acceptable limits, vital signs are st able although he was noted to have a low-grade temperature of 100.7 degrees which will be treated with Tylenol. He was treated for a UTI at the longterm facility and has been started on Macrobid for ESBL type. Plan is to admit patient for further management and treatment of acute hip fracture. Mechanical fall with right femur fracture seen by Orthopedic surgery and underwent right hip hemiarthroplasty on 12/02 seen by PT evaluation who rec LTC> patient currently resides at [facility]. H/H has trended down slightly but still well above transfusion threshold. Received Lovenox 12/03 for DVT ppx, should receive one more dose of lovenox subq 12/04 at around 7pm and then resume home dose of Eliquis 12/05 starting with the evening dose. outpatient follow up with orthopedic surgery ESBL UTI Reported by patient's significant other. Patient was started on Macrobid on 12/01/2024 for ESBL UTI at longterm facility. initially treated with meropenem, repeat UCX negative; d/w ID no need to treat, meropenem discontinued. patient has been afebrile, leukocytosis resolved and is otherwise well appearing. Lewy body dementia Supportive care. Redirection. appears to be at baseline metnal status. History of Parkinson's disease Continue Sinemet History of paroxysmal atrial fibrillation Hold Eliquis in light of surgical procedure. plan for lovenox, then resume eliquis after 48 hours as above Time Attestation Discharge Coordination Time (in mins): 36 Quality: Safe Use of Opioids Does Pt have an Active Cancer Diagnosis on the Problem List?: No Quality: Stroke Does the patient have a stroke diagnosis?: No Physical Exam Vital Signs: Vital Signs: Last Vital Signs Temp 97.0 F 12/04/24 08:11 Pulse 50 12/04/24 10:27 Resp 12 12/04/24 08:11 BP 115/56 L 12/04/24 10:27 Pulse Ox 94 12/04/24 10:27 O2 Del Method Room Air 12/04/24 08:11 O2 Flow Rate 2 12/02/24 16:10 BMI result Body Mass Index 25.9 Const: General: comfortable, no acute distress, alert, awake and Physically active Nutritional Appearance: average body habitus Orientation/consciousness: oriented to person and oriented to place Resp: Effort & Inspection: normal respiratory effort, able to speak in complete sentences, no respiratory distress and no use of accessory muscles Neuro: General: oriented to person and oriented to place Extrem: Other: right hip dressing c/d/i DS: Data Data Completed and Pending Pending studies at discharge: Pending at discharge 12/02/24 13:23 Surgical [PTH] Routine Labs on day of discharge: Laboratory Results - last 24 hr 12/04/24 12/04/24 12/04/24 05:38 05:38 05:38 WBC 8.6 RBC 2.88 L Hgb 9.3 L 9.3 L Hct 28.1 L 28.4 L MCV 97.6 MCH 32.3 MCHC 33.1 RDW 13.6 Plt Count 159 L MPV 10.0 Immature Gran % (Auto) 0.6 H Neut % (Auto) 63.7 Lymph % (Auto) 18.2 L [place] % (Auto) 11.3 H Eos % (Auto) 5.9 H Baso % (Auto) 0.3 Lymph # (Auto) 1.6 [place] # (Auto) 1.0 Eos # (Auto) 0.5 H Baso # (Auto) 0.0 Abs Immat Gran (auto) 0.05 H Absolute Neuts (auto) 5.5 Absolute Nucleated RBC 0.000 Nucleated RBC % (auto) 0.0 Sodium 138 Potassium 4.1 Chloride 105 Carbon Dioxide 28 Anion Gap 9 L BUN 29 H Creatinine 0.70 Estim Creat Clear Calc 88.3 Estimated GFR > 60 Fasting Glucose 91 Calcium 8.3 L Preliminary micro results at discharge 12/01/24 14:13 Blood Culture - Preliminary Blood - Venous No growth after 48 hours. 12/01/24 14:09 Blood Culture - Preliminary Blood - Venous No growth after 48 hours. Discharge Plan Discharge Anticipated Discharge Date/Time: 12/04/24 10:56 Patient Disposition: Xfer [facility] Discharge Diagnosis: acute right femoral neck fracture s/p right hip hemiarthroplasty Referrals: Leona Almendarez MD [Primary Care Provider] - 1 Week Discharge Medications: New enoxaparin 40 mg/0.4 mL Syringe 40 mg subcut Q24H 1 Days Qty: 0.4 0RF Continued sennosides [senna] 8.6 mg Tablet 17.2 mg PO BID thiamine HCl (vitamin B1) [Vitamin B-1] 100 mg Tablet 100 mg PO DAILY docusate sodium [Colace] 100 mg Capsule 100 mg PO BID polyethylene glycol 3350 [Miralax] 17 gram/dose Powder 17 g PO DAILY carbidopa-levodopa 25-100 mg tablet 1 tab PO TID Held Eliquis 5 mg tablet 5 mg PO BID Hold Instructions: resume 12/05 with evening dose Discontinued nitrofurantoin monohyd/m-cryst [Macrobid] 100 mg capsule 100 mg PO BID 7 Days Qty: 14 0RF Rx Instructions: must administer with a meal/food Discharge Orders: Discharge Order (Routine); Ordered 12/04/24 Ordered By: Coleen Leger Activity on Discharge: Use cane or walker Stand Alone Forms: Patient Portal Discharge page Print Language: Greenlandic Care Plan Goals: see below Health Concerns: right femoral neck fracture s/p right hip hemiarthoplasty Plan of Treatment: Physical therapy for hip hemiarthroplasty: WBAT, posterior precautions, gait training, range of motion, strength Limit stair climbing No showering, no tub bath-keep dressing clean dry and intact No driving for 6 weeks Continue anticoagulation as prescribed for 6 weeks - 1 dose of lovenox subQ 12/04 at 7pm and then resume home eliquis 12/05 at evening dose Follow-up with [facility] in 2 weeks can consider repeating H/H in the next one week pain has been well controlled with Tylenol Assessment: see discharge summary
[2024-12-04 12:32] VITALS: BP 124/80; PULSE 55; RESP 18; TEMP 36.5; O2SAT 96
--- NOTE | 2024-12-04 12:34 | MHC.CM.PN ---
PT CLEARED TO RETURN TO LTC TODAY ESTHER MET WITH PT AND S/O, SHE SAYS SHE DID NOT WANT PT TO RETURN TO THE SAME SNF SHE IS AWARE THE PREVIOUS CM DID A BROAD SEARCH FOR ANOTHER LTC BED, HOWEVER THERE WERE NO OFFERS SHE EXPRESSED CONCERNS ABOUT THE CARE THE PT WAS RECEIVING AT THE SNF ESTHER PROVIDED THE CONTACT INFO/FORMS TO FILE COMPLAINTS WITH DP AND THE NUMBER FOR THE LOCAL [facility] PT WILL DC BACK TO [facility] TODAY VIA [facility]
--- NOTE | 2024-12-04 12:59 | PC.NURSE ---
reviwed discharge instructions with Pt's JOSEPH Smith. pt is to return to [place] via ambulance eta [phone]
[2024-12-04 15:11] VITALS: BP 146/63; PULSE 69; RESP 18; TEMP 36.6; O2SAT 97
== END 2024-12-04 16:11 | DRG 522 ==
LOC: HO.ED 15:27 → HO.EDOVER 17:34 → HO.SSSA 12-02 15:26 → HO.S3 12-02 16:19
PROVIDERS: Orthopaedic Surgery; Physician Assistant; Admitting Provider Nurse Practitioner Acute Care; Emergency Provider Student in an Organized Health Care Education/Training Program; PCP Internal Medicine; Visit Provider Physician Assistant Medical
PROC: 0SRR0JA Replacement of Right Hip Joint, Femoral Surface with Synthetic Substitute, Uncemented, Open Approach (ICD-10-PCS; CPT 27125; principal; 2024-12-02 12:10)
DX: S72.011A Unspecified intracapsular fracture of right femur, initial encounter for closed fracture (principal); N39.0 Urinary tract infection, site not specified; Z16.12 Extended spectrum beta lactamase (ESBL) resistance; W19.XXXA Unspecified fall, initial encounter; G20.A1 Parkinson's disease without dyskinesia, without mention of fluctuations; I48.0 Paroxysmal atrial fibrillation; G31.83 Neurocognitive disorder with Lewy bodies; F02.80 Dementia in other diseases classified elsewhere, unspecified severity, without behavioral disturbance, psychotic disturbance, mood disturbance, and anxiety; I73.00 Raynaud's syndrome without gangrene; Z20.822 Contact with and (suspected) exposure to COVID-19; Z79.01 Long term (current) use of anticoagulants; Z79.899 Other long term (current) drug therapy
CPT/HCPCS: 36415; 70450; 72125; 72170; 73552; 73560; 73590; 73700; 80048; 80053; 81001; 83605; 85014; 85018; 85025; 86850; 86900; 86901; 86923; 87040; 87086; 87635; 88305; 88311; 93005; 97163; 97167; 97530; 97535; 99285; C1758; C1776; J0131; J0690; J1100; J1580; J1650; J2003; J2185; J2270; J2371; J2405; J2704; J2795; J3010; J7120

== ENCOUNTER → 2024-12-01 13:40 | Outpatient (BNV) | payer MEDICARE, MEDICAID, SELFPAY | PROVIDERS: Emergency Provider Student in an Organized Health Care Education/Training Program; PCP Internal Medicine; Visit Provider Radiology Diagnostic Radiology | DX: S72.011A Unspecified intracapsular fracture of right femur, initial encounter for closed fracture (principal); R90.82 White matter disease, unspecified; M47.812 Spondylosis without myelopathy or radiculopathy, cervical region; M25.561 Pain in right knee; M17.11 Unilateral primary osteoarthritis, right knee | CPT/HCPCS: 70450; 72125; 72170; 73552; 73560; 73590 ==

== ENCOUNTER 2024-12-01 17:23 | Outpatient (BNV) | payer MEDICARE, MEDICAID, SELFPAY | END 2024-12-02 14:34 | PROVIDERS: Admitting Provider Nurse Practitioner Acute Care; Emergency Provider Student in an Organized Health Care Education/Training Program; PCP Internal Medicine; Visit Provider Internal Medicine Cardiovascular Disease | DX: I48.91 Unspecified atrial fibrillation (principal) | CPT/HCPCS: 93010 ==

== ENCOUNTER 2024-12-01 17:23 | Outpatient (BNV) | payer MEDICARE, MEDICAID, SELFPAY | END 2024-12-02 11:53 | PROVIDERS: Admitting Provider Nurse Practitioner Acute Care; Emergency Provider Student in an Organized Health Care Education/Training Program; PCP Internal Medicine; Visit Provider Radiology Diagnostic Radiology | DX: M51.379 Other intervertebral disc degeneration, lumbosacral region without mention of lumbar back pain or lower extremity pain (principal); Z96.641 Presence of right artificial hip joint | CPT/HCPCS: 72170 ==

== ENCOUNTER → 2024-12-01 17:23 | Outpatient (BNV) | payer MEDICARE, MEDICAID, SELFPAY | PROVIDERS: Admitting Provider Nurse Practitioner Acute Care; Emergency Provider Student in an Organized Health Care Education/Training Program; PCP Internal Medicine; Visit Provider Physician Assistant | DX: S72.001A Fracture of unspecified part of neck of right femur, initial encounter for closed fracture (principal) | CPT/HCPCS: 27236; 99222 ==

== ENCOUNTER → 2024-12-01 17:23 | Outpatient (BNV) | payer MEDICARE, MEDICAID, SELFPAY | PROVIDERS: Admitting Provider Nurse Practitioner Acute Care; Emergency Provider Student in an Organized Health Care Education/Training Program; PCP Internal Medicine; Visit Provider Nurse Practitioner Acute Care | DX: S72.001A Fracture of unspecified part of neck of right femur, initial encounter for closed fracture (principal); G31.83 Neurocognitive disorder with Lewy bodies | CPT/HCPCS: 99223; 99232; 99239 ==

== ENCOUNTER 2024-12-16 10:32 | Outpatient (REF) | payer MEDICARE, MEDICAID, SELFPAY ==
--- NOTE | ~2024-12-16 | XR_ITS ---
EXAMINATION: XR HIP 2 OR MORE VIEWS RIGHT HISTORY: M25.551 - Pain in right hip COMPARISON: There are no prior studies for comparison. FINDINGS: Two AP views of the pelvis and two views of the right hip are submitted. 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 There is no fracture or dislocation. The patient is status post left total hip arthroplasty. The soft tissues are unremarkable. XR/XR hip RT min 2V IMPRESSION: Status post right total hip arthroplasty. 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 Electronically signed by: Basilio Killian MD 12/17/2024 07:42 AM [facility]
--- OUTSIDE RECORDS SUMMARY | 2024-12-17 14:10 | XMS_ITS | Encounter Summary ---
Author Organization [facility] [place] [address] Care Team Providers Care Railroad Dispatcher Name Role Phone Leona Almendarez MD Primary Care Provider [phone] Encounter Details Date Type Department Care Team (Late st Contact Info) Description 09/30/2024 Lab Requisition [facility] - Main Lab 299 [facility] [place] [phone] Angel Adamson MD [address] [place] [address] Hematuria, unspecified Social History Tobacco Use Types [...] AM EST) WBC 7.9 4.8 - 10.8 K/[facility] LAB HEMETOLOGY METHOD 10/01/2024 10:12 AM [facility] LAB RBC 4.00(L) 4.50 - 5.50 M/mcL LAB HEMETOLOGY METHOD 10/01/2024 10:12 AM [facility] LAB Hemoglobin 13.0(L) 13.5 - 17.5 g/dL LAB HEMETOLOGY METHOD 10/01/2024 10:12 AM [facility] LAB Hematocrit 40.5(L) 42.0 - 54.0 % LAB HEMETOLOGY METHOD 10/01/2024 10:12 AM [facility] LAB MCV 101.0(H) 79.0 - 98.0 FL LAB HEMETOLOGY METHOD 10/01/2024 10:12 AM [facility] LAB MCH 32.4(H) 27.0 - 32.0 pcg LAB HEMETOLOGY METHOD 10/01/2024 10:12 AM [facility] LAB MCHC 32.1 32.0 - 37.0 g/dL LAB HEMETOLOGY METHOD 10/01/2024 10:12 AM [facility] LAB RDW 13.6 11.0 - 15.0 % LAB HEMETOLOGY METHOD 10/01/2024 10:12 AM [facility] LAB Platelets 223 130 - 400 K/mcL LAB HEMETOLOGY METHOD 10/01/2024 10:12 AM [facility] LAB MPV 10.3 7.0 - 11.0 FL LAB HEMETOLOGY METHOD 10/01/2024 10:12 AM [facility] LAB NRBC 0.0 <1.0 % LAB HEMETOLOGY METHOD 10/01/2024 10:12 AM [facility] LAB NRBC Absolute 0.00 <0.10 K/mcL LAB HEMETOLOGY METHOD 10/01/2024 10:12 AM [facility] LAB Blood Venous blood specimen / Unknown Venipuncture / Unknown 10/01/2024 7:30 AM EST 10/01/2024 8:42 AM EST Angel Adamson MD LAB BLOOD ORDERABLES [facility] LAB [address] [place] [address], * (ABNORMAL) Basic metabolic panel (10/01/2024 7:30 AM EST) Sodium 140 133 - 145 mmol/L LAB CHEMISTRY METHOD 10/01/2024 10:16 AM [facility] LAB Potassium 4.1 3.5 - 5.5 mmol/L LAB CHEMISTRY METHOD 10/01/2024 10:16 AM [facility] LAB Chloride 108 96 - 110 mmol/L LAB CHEMISTRY METHOD 10/01/2024 10:16 AM [facility] LAB CO2 26 21 - 32 mmol/L LAB CHEMISTRY METHOD 10/01/2024 10:16 AM [facility] LAB Anion Gap 6 3 - 11 LAB CHEMISTRY METHOD 10/01/2024 10:16 AM [facility] LAB Glucose 84 70 - 100 mg/dL LAB CHEMISTRY METHOD 10/01/2024 10:16 AM [facility] LAB BUN 16 5 - 25 mg/dL LAB CHEMISTRY METHOD 10/01/2024 10:16 AM [facility] LAB Creatinine 0.65(L) 0.70 - 1.30 mg/dL LAB CHEMISTRY METHOD 10/01/2024 10:16 AM [facility] LAB eGFR 96 >=60 mL/min/1. 73m2 LAB CHEMISTRY METHOD 10/01/2024 10:16 AM [facility] LAB Comment:Calculation based on the??Chronic Kidney Disease Epidemiology Collaboration (CKD-EPI) equation refit??without adjustment for race. BUN/Creatinine Ratio 24.6 LAB CHEMISTRY METHOD 10/01/2024 10:16 AM EST [facility] LAB Calcium 9.0 8.5 - 10.5 mg/dL LAB CHEMISTRY METHOD 10/01/2024 10:16 AM EST [facility] LAB Blood Venous blood specimen / Unknown Venipuncture / Unknown 10/01/2024 7:30 AM EST 10/01/2024 8:42 AM EST Angel Adamson MD LAB BLOOD ORDERABLES [facility] LAB [address] [place] [address], documented in this encounter Visit Diagnoses Diagnosis Hematuria, unspecified documented in this encounter Additional Health Concerns Infection Onset Date Last Indicated Resolved Time ESBL 11/24/2024 11/24/2024 documented as of this encounter Care Teams Railroad Dispatcher Relationship Specialty Start Date End Date Leona Almendarez MD [facility] [address] [place], [place] PCP - General 07/03/18 documented as of this encounter
--- OUTSIDE RECORDS SUMMARY | 2024-12-17 14:10 | XMS_ITS | Encounter Summary ---
Author Organization [facility] [place] [address] Care Team Providers Care Sweeper Operator Highways Name Role Phone Leona Almendarez MD Primary Care Provider [phone] Encounter Details Date Type Department Care Team (Late st Contact Info) Description 12/15/2024 Lab Requisition [facility] - Main Lab 299 [facility] [place] [phone] Angel Adamson MD [address] [place] [address] Altered mental status, unspecified; Confusional arousals Social History Tobacco Use Types [...] Routine 12/15/2024 10:30 AM EST Confusional arousals Altered mental status, unspecified URINALYSIS MICROSCOPIC ONLY Routine 12/15/2024 10:30 AM EST Confusional arousals Altered mental status, unspecified CULTURE URINE Routine 12/15/2024 10:30 AM EST Confusional arousals Altered mental status, unspecified documented in this encounter Results * (ABNORMAL) Urinalysis microscopic only (12/15/2024 10:30 AM EST) RBC, Urine 4.0 0 - 4 /HPF LAB URINALYSIS - AUTOMATED METHOD 12/15/2024 5:36 PM [facility] LAB WBC, Urine 7.1(H) 0 - 4 /HPF LAB URINALYSIS - AUTOMATED METHOD 12/15/2024 5:36 PM [facility] LAB Squamous Epithelial, Urine 27 0 - 60 /LPF LAB URINALYSIS - AUTOMATED METHOD 12/15/2024 5:36 PM [facility] LAB Crystals, Urine ..Heavy Calcium Oxalate crystals. /LPF 12/15/2024 5:36 PM [facility] LAB Bacteria, Urine Negative Negative /HPF LAB URINALYSIS - AUTOMATED METHOD 12/15/2024 5:36 PM [facility] LAB Hyaline Casts, Urine 2.5 0 - 3 /LPF LAB URINALYSIS - AUTOMATED METHOD 12/15/2024 5:36 PM [facility] LAB Urine Urine specimen obtained by clean catch procedure / Unknown 12/15/2024 10:30 AM EST 12/15/2024 4:02 PM EST Angel Adamson MD LAB URINE ORDERABLES [facility] LAB [address] [place] [address], * Culture urine (12/15/2024 10:30 AM EST) Culture, Urine <10,000 CFU/mL gram positive cocci, insignificant count, no further workup 12/16/2024 7:56 AM EST [facility] Urine Urine specimen obtained by clean catch procedure / Unknown 12/15/2024 10:30 AM EST 12/15/2024 4:02 PM EST Angel Adamson MD LAB MICROBIOLOGY - G ENERAL ORDERABLES [facility] [address] [place] [address], documented in this encounter Visit Diagnoses Diagnosis Altered mental status, unspecified Confusional arousals documented in this encounter Additional Health Concerns Infection Onset Date Last Indicated Resolved Time ESBL 11/24/2024 11/24/2024 documented as of this encounter Care Teams Sweeper Operator Highways Relationship Specialty Start Date End Date Leona Almednarez MD [address] [place], [place] PCP - General 07/03/18 documented as of this encounter
--- OUTSIDE RECORDS SUMMARY | 2024-12-17 14:10 | XMS_ITS | Encounter Summary ---
Author Organization [facility] [place] [address] Care Team Providers Care Mirror Polisher Name Role Phone Leona Almendarez MD Primary Care Provider [phone] Encounter Details Date Type Department Care Team (Late st Contact Info) Description 11/25/2024 Lab Requisition [facility] - Main Lab 299 [facility] [place] [phone] Angel Adamson MD [address] [place] [address] Altered mental status, unspecified; Chronic fatigue, unspecified [...] reflex microscopic (11/24/2024 3:20 PM EST) Specific [place] Urine 1.012 1.003 - 1.030 LAB URINALYSIS - AUTOMATED METHOD 11/25/2024 10:19 AM [facility] pH, Urine 7.0 5.0 - 8.0 pH LAB URINALYSIS - AUTOMATED METHOD 11/25/2024 10:19 AM [facility] Leukocytes, Urine Large(A) Negative LAB URINALYSIS - AUTOMATED METHOD 11/25/2024 10:19 AM [facility] Nitrite, Urine Negative Negative LAB URINALYSIS - AUTOMATED METHOD 11/25/2024 10:19 AM [facility] Protein, Urine 30(A) <=Trace mg/dL LAB URINALYSIS - AUTOMATED METHOD 11/25/2024 10:19 AM [facility] LAB Glucose, Urine Negative Negative mg/dL LAB URINALYSIS - AUTOMATED METHOD 11/25/2024 10:19 AM [facility] Ketones, Urine Negative Negative mg/dL LAB URINALYSIS - AUTOMATED METHOD 11/25/2024 10:19 AM [facility] Urobilinogen , Urine 0.2 0.2 - 1.0 mg/dL LAB URINALYSIS - AUTOMATED METHOD 11/25/2024 10:19 AM [facility] Bilirubin, Urine Negative Negative LAB URINALYSIS - AUTOMATED METHOD 11/25/2024 10:19 AM [facility] Blood, Urine Small(A) Negative LAB URINALYSIS - AUTOMATED METHOD 11/25/2024 10:19 AM [facility] RBC, Urine 9.2(H) 0 - 4 /HPF LAB URINALYSIS - AUTOMATED METHOD 11/25/2024 10:19 AM [facility] WBC, Urine 2,095.6(H) 0 - 4 /HPF LAB URINALYSIS - AUTOMATED METHOD 11/25/2024 10:19 AM EST [facility] LAB Squamous Epithelial, Urine 64(H) 0 - 60 /LPF LAB URINALYSIS - AUTOMATED METHOD 11/25/2024 10:19 AM [facility] Bacteria, Urine Moderate(A) Negative /HPF LAB URINALYSIS - AUTOMATED METHOD 11/25/2024 10:19 AM [facility] LAB Hyaline Casts, Urine 3.4(H) 0 - 3 /LPF LAB URINALYSIS - AUTOMATED METHOD 11/25/2024 10:19 AM [facility] Urine Urine specimen from urethra / Unknown 11/24/2024 3:20 PM EST 11/25/2024 9:19 AM EST Angel Adamson MD LAB URINE ORDERABLES [facility] LAB [address] [place] [address], * (ABNORMAL) Culture urine (11/24/2024 3:20 PM EST) Culture, Urine 50,000-100,00 0 CFU/mL Klebsiella pneumoniae ESBL(A) ABNER 11/28/2024 9:40 AM EST [facility] LAB Comment: TESTING SUGGESTS AN ESBL(EXTENDED-SPECTRUM BETA-L [...] MD LAB MICROBIOLOGY - G ENERAL ORDERABLES [facility] ([facility]) [facility] LAB [address] [place] [address], documented in this encounter Visit Diagnoses Diagnosis Altered mental status, unspecified Chronic fatigue, unspecified documented in this encounter Additional Health Concerns Infection Onset Date Last Indicated Resolved Time ESBL 11/24/2024 11/24/2024 documented as of this encounter Care Teams Mirror Polisher Relationship Specialty Start Date End Date Leona Almendarez MD [facility] [address] PCP - General 07/03/18 documented as of this encounter
--- OUTSIDE RECORDS SUMMARY | 2024-12-17 14:10 | XMS_ITS | Encounter Summary ---
Author Organization [facility] [place] [address] Care Team Providers Care Director Paid Media Name Role Phone Leona Almendarez MD Primary Care Provider [phone] Encounter Details Date Type Department Care Team (Late st Contact Info) Description 12/16/2024 Lab Requisition [facility] - Main Lab 299 [facility] [place] [phone] Angel Adamson MD [address] [place] [address] Parkinsonism, unspecified (CMS/HCC) Social History Tobacco Use [...] Associated Diagnosis Comments COMPLETE BLOOD COUNT Routine 12/17/2024 7:30 AM EST Parkinsonism, unspecified (CMS/HCC) BASIC METABOLIC PANEL Routine 12/17/2024 7:30 AM EST Parkinsonism, unspecified (CMS/HCC) documented in this encounter Results * (ABNORMAL) Basic metabolic panel (12/17/2024 7:30 AM EST) Sodium 140 133 - 145 mmol/L LAB CHEMISTRY METHOD 12/17/2024 10:16 AM [facility] LAB Potassium 4.1 3.5 - 5.5 mmol/L LAB CHEMISTRY METHOD 12/17/2024 10:16 AM [facility] LAB Chloride 106 96 - 110 mmol/L LAB CHEMISTRY METHOD 12/17/2024 10:16 AM [facility] LAB CO2 28 21 - 32 mmol/L LAB CHEMISTRY METHOD 12/17/2024 10:16 AM [facility] LAB Anion Gap 6 3 - 11 LAB CHEMISTRY METHOD 12/17/2024 10:16 AM [facility] LAB Glucose 84 70 - 100 mg/dL LAB CHEMISTRY METHOD 12/17/2024 10:16 AM [facility] LAB BUN 17 5 - 25 mg/dL LAB CHEMISTRY METHOD 12/17/2024 10:16 AM [facility] LAB Creatinine 0.55(L) 0.70 - 1.30 mg/dL LAB CHEMISTRY METHOD 12/17/2024 10:16 AM [facility] LAB eGFR 101 >=60 mL/min/1. 73m2 LAB CHEMISTRY METHOD 12/17/2024 10:16 AM [facility] LAB Comment:Calculation based on the??Chronic Kidney Disease Epidemiology Collaboration (CKD-EPI) equation refit??without adjustment for race. BUN/Creatinine Ratio 30.9 LAB CHEMISTRY METHOD 12/17/2024 10:16 AM [facility] LAB Calcium 9.0 8.5 - 10.5 mg/dL LAB CHEMISTRY METHOD 12/17/2024 10:16 AM [facility] LAB Blood Venous blood specimen / Unknown Venipuncture / Unknown 12/17/2024 7:30 AM EST 12/17/2024 10:16 AM EST Angel Adamson MD LAB BLOOD ORDERABLES [facility] LAB [address] [place] [address], * (ABNORMAL) Complete blood count (12/17/2024 7:30 AM EST) [facility] Signature WBC 6.8 4.8 - 10.8 K/mcL LAB HEMETOLOGY METHOD 12/17/2024 10:16 AM EST [facility] LAB RBC 3.60(L) 4.50 - 5.50 M/mcL LAB HEMETOLOGY METHOD 12/17/2024 10:16 AM [facility] LAB Hemoglobin 11.5(L) 13.5 - 17.5 g/dL LAB HEMETOLOGY METHOD 12/17/2024 10:16 AM [facility] LAB Hematocrit 36.9(L) 42.0 - 54.0 % LAB HEMETOLOGY METHOD 12/17/2024 10:16 AM [facility] LAB MCV 101.9(H) 79.0 - 98.0 FL LAB HEMETOLOGY METHOD 12/17/2024 10:16 AM [facility] LAB MCH 31.8 27.0 - 32.0 pcg LAB HEMETOLOGY METHOD 12/17/2024 10:16 AM [facility] LAB MCHC 31.2(L) 32.0 - 37.0 g/dL LAB HEMETOLOGY METHOD 12/17/2024 10:16 AM [facility] LAB RDW 14.7 11.0 - 15.0 % LAB HEMETOLOGY METHOD 12/17/2024 10:16 AM [facility] LAB Platelets 352 130 - 400 K/mcL LAB HEMETOLOGY METHOD 12/17/2024 10:16 AM [facility] LAB MPV 9.4 7.0 - 11.0 FL LAB HEMETOLOGY METHOD 12/17/2024 10:16 AM [facility] LAB NRBC 0.0 <1.0 % LAB HEMETOLOGY METHOD 12/17/2024 10:16 AM EST [facility] LAB NRBC Absolute 0.00 <0.10 K/mcL LAB HEMETOLOGY METHOD 12/17/2024 10:16 AM EST [facility] LAB Blood Venous blood specimen / Unknown Venipuncture / Unknown 12/17/2024 7:30 AM EST 12/17/2024 10:16 AM EST Angel Adamson MD LAB BLOOD ORDERABLES [facility] LAB [address] [place], [place] [address] [phone] documented in this encounter Visit Diagnoses Diagnosis Parkinsonism, unspecified (CMS/HCC) documented in this encounter Additional Health Concerns Infection Onset Date Last Indicated Resolved Time ESBL 11/24/2024 11/24/2024 documented as of this encounter Care Teams Director Paid Media Relationship Specialty Start Date End Date Leona Almendarez MD [address] PCP - General 07/03/18 documented as of this encounter
--- OUTSIDE RECORDS SUMMARY | 2024-12-17 14:10 | XMS_ITS | Encounter Summary ---
Author Organization [facility] [place] [address] Care Team Providers Care Healthcare Administrator Name Role Phone Leona Almendarez MD Primary Care Provider [phone] Encounter Details Date Type Department Care Team (Late st Contact Info) Description 11/20/2024 Lab Requisition [facility] - Main Lab 299 [facility] [place] [phone] Maggie Parry PA [address] [place] [address] [facility] [place] [address] Essential (primary) hypertension Social History Tobacco Use [...] mmol/L LAB CHEMISTRY METHOD 11/20/2024 5:10 PM [facility] LAB Potassium 4.2 3.5 - 5.5 mmol/L LAB CHEMISTRY METHOD 11/20/2024 5:10 PM [facility] LAB Chloride 106 96 - 110 mmol/L LAB CHEMISTRY METHOD 11/20/2024 5:10 PM [facility] LAB CO2 30 21 - 32 mmol/L LAB CHEMISTRY METHOD 11/20/2024 5:10 PM [facility] LAB Anion Gap 5 3 - 11 LAB CHEMISTRY METHOD 11/20/2024 5:10 PM [facility] LAB Glucose 94 70 - 100 mg/dL LAB CHEMISTRY METHOD 11/20/2024 5:10 PM [facility] LAB BUN 19 5 - 25 mg/dL LAB CHEMISTRY METHOD 11/20/2024 5:10 PM [facility] LAB Creatinine 0.63(L) 0.70 - 1.30 mg/dL LAB CHEMISTRY METHOD 11/20/2024 5:10 PM [facility] LAB eGFR 97 >=60 mL/min/1. 73m2 LAB CHEMISTRY METHOD 11/20/2024 5:10 PM [facility] LAB Comment:Calculation based on the??Chronic Kidney Disease Epidemiology Collaboration (CKD-EPI) equation refit??without adjustment for race. BUN/Creatinine Ratio 30.2 LAB CHEMISTRY METHOD 11/20/2024 5:10 PM [facility] LAB Calcium 8.8 8.5 - 10.5 mg/dL LAB CHEMISTRY METHOD 11/20/2024 5:10 PM [facility] LAB Blood Venous blood specimen / Unknown Venipuncture / Unknown 11/20/2024 3:13 PM EST 11/20/2024 4:32 PM EST Maggie YORK LAB BLOOD ORDERABLES [facility] LAB [address] [place] [address], * (ABNORMAL) Complete blood count (11/20/2024 3:13 PM EST) [facility] WBC 7.9 4.8 - 10.8 K/mcL LAB HEMETOLOGY METHOD 11/20/2024 4:51 PM [facility] LAB RBC 4.10(L) 4.50 - 5.50 M/mcL LAB HEMETOLOGY METHOD 11/20/2024 4:51 PM [facility] LAB Hemoglobin 12.8(L) 13.5 - 17.5 g/dL LAB HEMETOLOGY METHOD 11/20/2024 4:51 PM [facility] LAB Hematocrit 39.5(L) 42.0 - 54.0 % LAB HEMETOLOGY METHOD 11/20/2024 4:51 PM [facility] LAB MCV 97.3 79.0 - 98.0 FL LAB HEMETOLOGY METHOD 11/20/2024 4:51 PM [facility] LAB MCH 31.5 27.0 - 32.0 pcg LAB HEMETOLOGY METHOD 11/20/2024 4:51 PM [facility] LAB MCHC 32.4 32.0 - 37.0 g/dL LAB HEMETOLOGY METHOD 11/20/2024 4:51 PM [facility] LAB RDW 13.5 11.0 - 15.0 % LAB HEMETOLOGY METHOD 11/20/2024 4:51 PM [facility] LAB Platelets 200 130 - 400 K/mcL LAB HEMETOLOGY METHOD 11/20/2024 4:51 PM [facility] LAB MPV 10.2 7.0 - 11.0 FL LAB HEMETOLOGY METHOD 11/20/2024 4:51 PM [facility] LAB NRBC 0.0 <1.0 % LAB HEMETOLOGY METHOD 11/20/2024 4:51 PM [facility] LAB NRBC Absolute 0.00 <0.10 K/mcL LAB HEMETOLOGY METHOD 11/20/2024 4:51 PM EST [facility] LAB Blood Venous blood specimen / Unknown Venipuncture / Unknown 11/20/2024 3:13 PM EST 11/20/2024 4:32 PM EST Maggie YORK LAB BLOOD ORDERABLES [facility] LAB [address] [place] [address], documented in this encounter Visit Diagnoses Diagnosis Essential (primary) hypertension Unspecified essential hypertension documented in this encounter Additional Health Concerns Infection Onset Date Last Indicated Resolved Time ESBL 11/24/2024 11/24/2024 documented as of this encounter Care Teams Healthcare Administrator Relationship Specialty Start Date End Date Leona Almendarez MD [facility] [address] [place], [place] PCP - General 07/03/18 documented as of this encounter
--- OUTSIDE RECORDS SUMMARY | 2024-12-17 14:10 | XMS_ITS | Encounter Summary ---
Author Organization [facility] [address] Care Team Providers Care Associate Store Manager Name Role Phone Leona Almendarez MD Primary Care Provider [phone] Encounter Details Date Type Department Care Team (Late st Contact Info) Description 09/22/2024 Lab Requisition [facility] - Main Lab 299 [facility] [place] [phone] Angel Adamson MD [address] [place] [address] Hematuria, unspecified Social History Tobacco Use Types [...] AM EST) WBC 6.9 4.8 - 10.8 K/[facility] LAB HEMETOLOGY METHOD 09/24/2024 9:58 AM [facility] LAB RBC 4.20(L) 4.50 - 5.50 M/[facility] LAB HEMETOLOGY METHOD 09/24/2024 9:58 AM [facility] LAB Hemoglobin 13.3(L) 13.5 - 17.5 g/dL LAB HEMETOLOGY METHOD 09/24/2024 9:58 AM [facility] LAB Hematocrit 41.8(L) 42.0 - 54.0 % LAB HEMETOLOGY METHOD 09/24/2024 9:58 AM [facility] LAB MCV 100.7(H) 79.0 - 98.0 FL LAB HEMETOLOGY METHOD 09/24/2024 9:58 AM [facility] LAB MCH 32.0 27.0 - 32.0 pcg LAB HEMETOLOGY METHOD 09/24/2024 9:58 AM [facility] LAB MCHC 31.8(L) 32.0 - 37.0 g/dL LAB HEMETOLOGY METHOD 09/24/2024 9:58 AM [facility] LAB RDW 13.6 11.0 - 15.0 % LAB HEMETOLOGY METHOD 09/24/2024 9:58 AM [facility] LAB Platelets 222 130 - 400 K/[facility] LAB HEMETOLOGY METHOD 09/24/2024 9:58 AM [facility] LAB MPV 10.3 7.0 - 11.0 FL LAB HEMETOLOGY METHOD 09/24/2024 9:58 AM [facility] LAB NRBC 0.0 <1.0 % LAB HEMETOLOGY METHOD 09/24/2024 9:58 AM [facility] LAB NRBC Absolute 0.00 <0.10 K/[facility] LAB HEMETOLOGY METHOD 09/24/2024 9:58 AM [facility] LAB Blood Venous blood specimen / Unknown Venipuncture / Unknown 09/24/2024 6:32 AM EST 09/24/2024 8:46 AM EST Angel Adamson MD LAB BLOOD ORDERABLES [facility] LAB [address] [place] [address], * (ABNORMAL) Basic metabolic panel (09/24/2024 6:32 AM EST) Sodium 141 133 - 145 mmol/L LAB CHEMISTRY METHOD 09/24/2024 10:21 AM [facility] LAB Potassium 3.8 3.5 - 5.5 mmol/L LAB CHEMISTRY METHOD 09/24/2024 10:21 AM [facility] LAB Chloride 107 96 - 110 mmol/L LAB CHEMISTRY METHOD 09/24/2024 10:21 AM [facility] LAB CO2 26 21 - 32 mmol/L LAB CHEMISTRY METHOD 09/24/2024 10:21 AM [facility] LAB Anion Gap 8 3 - 11 LAB CHEMISTRY METHOD 09/24/2024 10:21 AM [facility] LAB Glucose 63(L) 70 - 100 mg/dL LAB CHEMISTRY METHOD 09/24/2024 10:21 AM [facility] LAB BUN 15 5 - 25 mg/dL LAB CHEMISTRY METHOD 09/24/2024 10:21 AM [facility] LAB Creatinine 0.59(L) 0.70 - 1.30 mg/dL LAB CHEMISTRY METHOD 09/24/2024 10:21 AM [facility] LAB eGFR 99 >=60 mL/min/1. 73m2 LAB CHEMISTRY METHOD 09/24/2024 10:21 AM [facility] LAB Comment:Calculation based on the??Chronic Kidney [...] ORDERABLES [facility] LAB [address] [place] [address], documented in this encounter Visit Diagnoses Diagnosis Hematuria, unspecified documented in this encounter Additional Health Concerns Infection Onset Date Last Indicated Resolved Time ESBL 11/24/2024 11/24/2024 documented as of this encounter Care Teams Associate Store Manager Relationship Specialty Start Date End Date Leona Almendarez MD [facility] [address] PCP - General 07/03/18 documented as of this encounter
--- OUTSIDE RECORDS SUMMARY | 2024-12-17 14:10 | XMS_ITS | Encounter Summary ---
Author Organization [facility] [place] [address] Care Team Providers Care Electrolog Operator Name Role Phone Leona Almendarez MD Primary Care Provider [phone] Encounter Details Date Type Department Care Team (Late st Contact Info) Description 11/26/2024 Lab Requisition [facility] - Main Lab 299 [facility] [place] [phone] Angel Adamson MD [address] [place] [address] Parkinsonism, unspecified (CMS/HCC) Social History Tobacco Use [...] mmol/L LAB CHEMISTRY METHOD 11/27/2024 9:35 AM [facility] LAB Potassium 4.0 3.5 - 5.5 mmol/L LAB CHEMISTRY METHOD 11/27/2024 9:35 AM [facility] LAB Chloride 105 96 - 110 mmol/L LAB CHEMISTRY METHOD 11/27/2024 9:35 AM [facility] LAB CO2 29 21 - 32 mmol/L LAB CHEMISTRY METHOD 11/27/2024 9:35 AM [facility] LAB Anion Gap 4 3 - 11 LAB CHEMISTRY METHOD 11/27/2024 9:35 AM [facility] LAB Glucose 81 70 - 100 mg/dL LAB CHEMISTRY METHOD 11/27/2024 9:35 AM [facility] LAB BUN 20 5 - 25 mg/dL LAB CHEMISTRY METHOD 11/27/2024 9:35 AM [facility] LAB Creatinine 0.73 0.70 - 1.30 mg/dL LAB CHEMISTRY METHOD 11/27/2024 9:35 AM [facility] LAB eGFR 93 >=60 mL/min/1. 73m2 LAB CHEMISTRY METHOD 11/27/2024 9:35 AM [facility] LAB Comment:Calculation based on the??Chronic Kidney Disease Epidemiology Collaboration (CKD-EPI) equation refit??without adjustment for race. BUN/Creatinine Ratio 27.4 LAB CHEMISTRY METHOD 11/27/2024 9:35 AM [facility] LAB Calcium 9.2 8.5 - 10.5 mg/dL LAB CHEMISTRY METHOD 11/27/2024 9:35 AM [facility] LAB Blood Venous blood specimen / Unknown Venipuncture / Unknown 11/27/2024 7:12 AM EST 11/27/2024 8:47 AM EST Angel Adamson MD LAB BLOOD ORDERABLES [facility] LAB [address] [place] [address], * (ABNORMAL) Complete blood count (11/27/2024 7:12 AM EST) [facility] WBC 7.7 4.8 - 10.8 K/mcL LAB HEMETOLOGY METHOD 11/27/2024 9:13 AM [facility] LAB RBC 4.30(L) 4.50 - 5.50 M/mcL LAB HEMETOLOGY METHOD 11/27/2024 9:13 AM [facility] LAB Hemoglobin 13.8 13.5 - 17.5 g/dL LAB HEMETOLOGY METHOD 11/27/2024 9:13 AM [facility] LAB Hematocrit 42.9 42.0 - 54.0 % LAB HEMETOLOGY METHOD 11/27/2024 9:13 AM [facility] LAB MCV 100.5(H) 79.0 - 98.0 FL LAB HEMETOLOGY METHOD 11/27/2024 9:13 AM [facility] LAB MCH 32.3(H) 27.0 - 32.0 pcg LAB HEMETOLOGY METHOD 11/27/2024 9:13 AM [facility] LAB MCHC 32.2 32.0 - 37.0 g/dL LAB HEMETOLOGY METHOD 11/27/2024 9:13 AM [facility] LAB RDW 13.7 11.0 - 15.0 % LAB HEMETOLOGY METHOD 11/27/2024 9:13 AM [facility] LAB Platelets 214 130 - 400 K/mcL LAB HEMETOLOGY METHOD 11/27/2024 9:13 AM [facility] LAB MPV 10.2 7.0 - 11.0 FL LAB HEMETOLOGY METHOD 11/27/2024 9:13 AM [facility] LAB NRBC [...] BLOOD ORDERABLES [facility] LAB [address] [place] [address], documented in this encounter Visit Diagnoses Diagnosis Parkinsonism, unspecified (CMS/HCC) documented in this encounter Additional Health Concerns Infection Onset Date Last Indicated Resolved Time ESBL 11/24/2024 11/24/2024 documented as of this encounter Care Teams Electrolog Operator Relationship Specialty Start Date End Date Leona Almendarez MD [address] PCP - General 07/03/18 documented as of this encounter
--- OUTSIDE RECORDS SUMMARY | 2024-12-17 14:10 | XMS_ITS | Clinical Summary ---
Author Organization [address] Address [address] [place] [address] Phone Care Team Providers Care Organ Pipe Voicer Name Role Phone Leona Almendarez MD Primary Care Provider [phone] Encounters Date Type Department Care Team Description 12/16/2024 Lab Requisition [facility] [address] [place] [phone] Angel Adamson MD Parkinsonism, unspecified ([facility]/HCC) 12/15/2024 Lab Requisition [facility] [address] [place] [address] Angel Adamson MD Altered mental status, unspecified; Confusional arousals 12/09/2024 Lab Requisition [facility] [address] [place] [phone] Angel Adamson MD Parkinsonism, unspecified ([facility]/FORM[facility]LY [facility]) 11/26/2024 Lab Requisition [facility] [address] [place] [phone] Angel Adamson MD Parkinsonism, unspecified (CMS/[facility]ER[facility]) 11/25/2024 Lab Requisition [facility] [address] [place] [phone] Angel Adamson MD Altered mental status, unspecified; Chronic fatigue, unspecified 11/21/2024 Lab Requisition [facility] Lab [address] [place] [phone] Angel Adamson MD Urinary tract infection, site not specified 11/20/2024 Lab Requisition [facility] [address] [place] [phone] Maggie Parry PA Essential (primary) hypertension 10/14/2024 Lab Requisition [facility] [address] [place] [phone] Angel Adamson MD Hematuria, unspecified 10/07/2024 Lab Requisition [facility] [address] [place] [phone] Angel Adamson MD Hematuria, unspecified 09/30/2024 Lab Requisition [facility] [address] [place] [phone] Angel Adamson MD Hematuria, unspecified 09/22/2024 Lab Requisition [facility] [address] [place] [phone] Angel Adamson MD Hematuria, unspecified from Last [...] (#1) 2024 Hypertension/CHF/CAD Annual BMP Blood Test 12/17/2025 12/17/2024, 12/10/2024, 11/27/2024, Additional history exists Cholesterol Screening (Lipid Panel) [...] Procedure Name Priority Date/Time Associated Diagnosis Comments BASIC METABOLIC PANEL Routine 12/17/2024 7:30 AM EST Parkinsonism, unspecified (CMS/HCC) COMPLETE BLOOD COUNT Routine 12/17/2024 7:30 AM EST Parkinsonism, unspecified (CMS/HCC) URINALYSIS MICROSCOPIC ONLY Routine 12/15/2024 10:30 AM EST Confusional arousals Altered mental status, unspecified URINALYSIS MICROSCOPIC ONLY Routine 12/15/2024 10:30 AM EST Confusional arousals Altered mental status, unspecified CULTURE URINE Routine 12/15/2024 10:30 AM EST Confusional arousals Altered mental status, unspecified BASIC METABOLIC PANEL Routine 12/10/2024 7:03 AM [...] from Last 3 Months Results * (ABNORMAL) Complete blood count (12/17/2024 7:30 AM EST) Only the most recent of8 resultswithin the time period is included. WBC 6.8 4.8 - 10.8 K/mcL LAB HEMETOLOGY METHOD 12/17/2024 10:16 AM EST [facility] RBC 3.60(L) 4.50 - 5.50 M/mcL LAB HEMETOLOGY METHOD 12/17/2024 10:16 AM EST [facility] Hemoglobin 11.5(L) 13.5 - 17.5 g/dL LAB HEMETOLOGY METHOD 12/17/2024 10:16 AM [facility] Hematocrit 36.9(L) 42.0 - 54.0 % LAB HEMETOLOGY METHOD 12/17/2024 10:16 AM EST [facility] MCV 101.9(H) 79.0 - 98.0 FL LAB HEMETOLOGY METHOD 12/17/2024 10:16 AM [facility] MCH 31.8 27.0 - 32.0 pcg LAB HEMETOLOGY METHOD 12/17/2024 10:16 AM EST [facility] MCHC 31.2(L) 32.0 - 37.0 g/dL LAB HEMETOLOGY METHOD 12/17/2024 10:16 AM EST [facility] RDW 14.7 11.0 - 15.0 % LAB HEMETOLOGY METHOD 12/17/2024 10:16 AM [facility] Platelets 352 130 - 400 K/mcL LAB HEMETOLOGY METHOD 12/17/2024 10:16 AM EST [facility] MPV 9.4 7.0 - 11.0 FL LAB HEMETOLOGY METHOD 12/17/2024 10:16 AM EST [facility] NRBC 0.0 <1.0 % LAB HEMETOLOGY METHOD 12/17/2024 10:16 AM [facility] NRBC Absolute 0.00 <0.10 K/mcL LAB HEMETOLOGY METHOD 12/17/2024 10:16 AM EST [facility] Blood Venous blood specimen / Unknown Venipuncture / Unknown 12/17/2024 7:30 AM EST 12/17/2024 10:16 AM EST Angel Adamson MD LAB BLOOD ORDERABLES [facility] [address] [place] [address], * (ABNORMAL) Basic metabolic panel (12/17/2024 7:30 AM EST) Only the most recent of8 resultswithin the time period is included. Sodium 140 133 - 145 mmol/L LAB CHEMISTRY METHOD 12/17/2024 10:16 AM [facility] Potassium 4.1 3.5 - 5.5 mmol/L LAB CHEMISTRY METHOD 12/17/2024 10:16 AM [facility] Chloride 106 96 - 110 mmol/L LAB CHEMISTRY METHOD 12/17/2024 10:16 AM [facility] CO2 28 21 - 32 mmol/L LAB CHEMISTRY METHOD 12/17/2024 10:16 AM [facility] Anion Gap 6 3 - 11 LAB CHEMISTRY METHOD 12/17/2024 10:16 AM [facility] Glucose 84 70 - 100 mg/dL LAB CHEMISTRY METHOD 12/17/2024 10:16 AM [facility] BUN 17 5 - 25 mg/dL LAB CHEMISTRY METHOD 12/17/2024 10:16 AM [facility] Creatinine 0.55(L) 0.70 - 1.30 mg/dL LAB CHEMISTRY METHOD 12/17/2024 10:16 AM [facility] eGFR 101 >=60 mL/min/1. 73m2 LAB CHEMISTRY METHOD 12/17/2024 10:16 AM [facility] Comment:Calculation based on the??Chronic Kidney Disease Epidemiology Collaboration (CKD-EPI) equation refit??without adjustment for race. BUN/Creatinine Ratio 30.9 LAB CHEMISTRY METHOD 12/17/2024 10:16 AM [facility] Calcium 9.0 8.5 - 10.5 mg/dL LAB CHEMISTRY METHOD 12/17/2024 10:16 AM [facility] Blood Venous blood specimen / Unknown Venipuncture / Unknown 12/17/2024 7:30 AM EST 12/17/2024 10:16 AM EST Angel Adamson MD LAB BLOOD ORDERABLES [facility] [address] [place] [address], * (ABNORMAL) Urinalysis microscopic only (12/15/2024 10:30 AM EST) RBC, Urine 4.0 0 - 4 /HPF LAB URINALYSIS - AUTOMATED METHOD 12/15/2024 5:36 PM EST [facility] WBC, Urine 7.1(H) 0 - 4 /HPF LAB URINALYSIS - AUTOMATED METHOD 12/15/2024 5:36 PM [facility] Squamous Epithelial, Urine 27 0 - 60 /LPF LAB URINALYSIS - AUTOMATED METHOD 12/15/2024 5:36 PM EST [facility] Crystals, Urine ..Heavy Calcium Oxalate crystals. /LPF 12/15/2024 5:36 PM EST [facility] Bacteria, Urine Negative Negative /HPF LAB URINALYSIS - AUTOMATED METHOD 12/15/2024 5:36 PM [facility] Hyaline Casts, Urine 2.5 0 - 3 /LPF LAB URINALYSIS - AUTOMATED METHOD 12/15/2024 5:36 PM EST [facility] Urine Urine specimen obtained by clean catch procedure / Unknown 12/15/2024 10:30 AM EST 12/15/2024 4:02 PM EST Angel Adamson MD LAB URINE ORDERABLES [facility] [address] [place] [address], * Culture urine (12/15/2024 10:30 AM EST) Only the most recent of2 resultswithin the time period is included. Culture, Urine <10,000 CFU/mL gram positive cocci, insignificant count, no further workup 12/16/2024 7:56 AM [facility] Urine Urine specimen obtained by clean catch procedure / Unknown 12/15/2024 10:30 AM EST 12/15/2024 4:02 PM EST Angel Adamson MD LAB MICROBIOLOGY - G ENERAL ORDERABLES [facility] [address] [place] [address], * (ABNORMAL) Urinalysis with reflex microscopic (11/24/2024 3:20 PM EST) Only the most recent of2 resultswithin the time period is included. Specific [place] Urine 1.012 1.003 - 1.030 LAB URINALYSIS - AUTOMATED METHOD 11/25/2024 10:19 AM [facility] pH, Urine 7.0 5.0 - 8.0 pH LAB URINALYSIS - AUTOMATED METHOD 11/25/2024 10:19 AM [facility] Leukocytes, Urine Large(A) Negative LAB URINALYSIS - AUTOMATED METHOD 11/25/2024 10:19 AM [facility] Nitrite, Urine Negative Negative LAB URINALYSIS - AUTOMATED METHOD 11/25/2024 10:19 AM [facility] Protein, Urine 30(A) <=Trace mg/dL LAB URINALYSIS - AUTOMATED METHOD 11/25/2024 10:19 AM [facility] Glucose, Urine Negative Negative mg/dL LAB URINALYSIS - AUTOMATED METHOD 11/25/2024 10:19 AM [facility] Ketones, Urine Negative Negative mg/dL LAB URINALYSIS - AUTOMATED METHOD 11/25/2024 10:19 AM [facility] Urobilinogen , Urine 0.2 0.2 - 1.0 mg/dL LAB URINALYSIS - AUTOMATED METHOD 11/25/2024 10:19 AM [facility] Bilirubin, Urine Negative Negative LAB URINALYSIS - AUTOMATED METHOD 11/25/2024 10:19 AM [facility] Blood, Urine Small(A) Negative LAB URINALYSIS - AUTOMATED METHOD 11/25/2024 10:19 AM [facility] RBC, Urine 9.2(H) 0 - 4 /HPF LAB URINALYSIS - AUTOMATED METHOD 11/25/2024 10:19 AM [facility] WBC, Urine 2,095.6(H) 0 - 4 /HPF LAB URINALYSIS - AUTOMATED METHOD 11/25/2024 10:19 AM [facility] Squamous Epithelial, Urine 64(H) 0 - 60 /LPF LAB URINALYSIS - AUTOMATED METHOD 11/25/2024 10:19 AM [facility] Bacteria, Urine Moderate(A) Negative /HPF LAB URINALYSIS - AUTOMATED METHOD 11/25/2024 10:19 AM [facility] Hyaline Casts, Urine 3.4(H) 0 - 3 /LPF LAB URINALYSIS - AUTOMATED METHOD 11/25/2024 10:19 AM [facility] Urine Urine specimen from urethra / Unknown 11/24/2024 3:20 PM EST 11/25/2024 9:19 AM EST Angel Adamson MD LAB URINE ORDERABLES [facility] [address] [place] [address], * [place] urine culture tube (11/20/2024 12:00 AM EST) Extra Tube Hold for add-ons. 11/21/2024 2:01 PM EST [facility] Comment:Auto resulted. 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
--- OUTSIDE RECORDS SUMMARY | 2024-12-17 14:10 | XMS_ITS | Encounter Summary ---
Author Organization [facility] [place] [address] Care Team Providers Care Golf Club Assembler Name Role Phone Leona Almendarez MD Primary Care Provider [phone] Encounter Details Date Type Department Care Team (Late st Contact Info) Description 11/21/2024 Lab Requisition [facility] [address] [facility] [place] [phone] Angel Adamson MD [address] [place] [address] Urinary tract infection, site not specified Social [...] culture tube (11/20/2024 12:00 AM EST) Pathologist [facility] Extra Tube Hold for add-ons. 11/21/2024 2:01 PM [facility] Comment:Auto resulted. Urine Urine specimen obtained by clean catch procedure / Unknown Non-blood Collection / Unknown 11/20/2024 11/21/2024 12:11 PM EST Angel Adamson MD LAB URINE ORDERABLES [facility] [address] [place] [address], * (ABNORMAL) Urinalysis with reflex microscopic (11/20/2024 12:00 AM EST) [facility] Specific [place] Urine 1.019 1.003 - 1.030 LAB URINALYSIS - AUTOMATED METHOD 11/21/2024 1:26 PM [facility] pH, Urine >=9.0(A) 5.0 - 8.0 pH LAB URINALYSIS - AUTOMATED METHOD 11/21/2024 1:26 PM [facility] Leukocytes, Urine Large(A) Negative LAB URINALYSIS - AUTOMATED METHOD 11/21/2024 1:26 PM [facility] Nitrite, Urine Positive(A) Negative LAB URINALYSIS - AUTOMATED METHOD 11/21/2024 1:26 PM [facility] Protein, Urine 100(A) <=Trace mg/dL LAB URINALYSIS - AUTOMATED METHOD 11/21/2024 1:26 PM [facility] Glucose, Urine Negative Negative mg/dL LAB URINALYSIS - AUTOMATED METHOD 11/21/2024 1:26 PM [facility] Ketones, Urine Negative Negative mg/dL LAB URINALYSIS - AUTOMATED METHOD 11/21/2024 1:26 PM [facility] Urobilinogen , Urine 0.2 0.2 - 1.0 mg/dL LAB URINALYSIS - AUTOMATED METHOD 11/21/2024 1:26 PM [facility] Bilirubin, Urine Negative Negative LAB URINALYSIS - AUTOMATED METHOD 11/21/2024 1:26 PM [facility] Blood, Urine Negative Negative LAB URINALYSIS - AUTOMATED METHOD 11/21/2024 1:26 PM [facility] RBC, Urine 1.3 0 - 4 /HPF LAB URINALYSIS - AUTOMATED METHOD 11/21/2024 1:26 PM [facility] WBC, Urine 27.4(H) 0 - 4 /HPF LAB URINALYSIS - AUTOMATED METHOD 11/21/2024 1:26 PM [facility] Squamous Epithelial, Urine 10 0 - 60 /LPF LAB URINALYSIS - AUTOMATED METHOD 11/21/2024 1:26 PM [facility] Crystals, Urine HEAVY TRIPLE PHOS /LPF LAB URINALYSIS - AUTOMATED METHOD 11/21/2024 1:26 PM [facility] Bacteria, Urine Few(A) Negative /HPF LAB URINALYSIS - AUTOMATED METHOD 11/21/2024 1:26 PM [facility] Hyaline Casts, Urine 6.6(H) 0 - 3 /LPF LAB URINALYSIS - AUTOMATED METHOD 11/21/2024 1:26 PM [facility] Urine Urine specimen obtained by clean catch procedure / Unknown Non-blood Collection / Unknown 11/20/2024 11/21/2024 12:11 PM EST Angel Adamson MD LAB URINE ORDERABLES [facility] [address] [place] [address], documented in this encounter Visit Diagnoses Diagnosis Urinary tract infection, site not specified documented in this encounter Additional Health Concerns Infection Onset Date Last Indicated Resolved Time ESBL 11/24/2024 11/24/2024 documented as of this encounter Care Teams Golf Club Assembler Relationship Specialty Start Date End Date Leona Almendarez MD 12[address] [facility] [address] [place] PCP - General 07/03/18 documented as of this encounter
--- OUTSIDE RECORDS SUMMARY | 2024-12-17 14:10 | XMS_ITS | Data Portability ---
Author Organization [facility], PAIN OFFICE Address [address] [facility] [address] [place] [address] Care Team Providers Care Fabricator Industrial Furnace Name Role Phone CAPRI DUNAWAY Primary Care Provider Assessment Encounter Date Assessment Date Assessment LastModified by Organization Details LastModified Time 05/12/2018 05/12/2018 Daniel Smith is a 73 year old man with low back pain radiating into left lower extremity with numbness . On exam ,he has pain on flexion. Straight leg raising test is positive on the left. MRI Lumbar spine shows Multilevel spondylitic changes superimposed upon congenitally narrow central canal, at the L3-L4 and L4-L5 levels, there is moderate central stenosis with potential constriction of the cauda equina, particularly L3-L4 level. Mild to moderate foraminal stenoses, maximal on the left L3-L4 and L4-L5, but without effacement of foraminal fat planes. Trial of Lumbar epidural steroid injections under fluoroscopic guidance was recommended. The risks and benefits of the procedure were discussed in detail. He wishes to proceed. An appointment has been booked for the same. He needs a local owner operator truck driver on the day of the procedure. [email or web address] Not available 05/12/2018 14:59:57 05/27/2018 05/27/2018 Daniel Smith is a 73 year old man with low back pain radiating into left lower extremity with numbness . On exam ,he has pain on flexion. Straight leg raising test is positive on the left. MRI Lumbar spine shows Multilevel spondylitic changes superimposed upon congenitally narrow central canal, at the L3-L4 and L4-L5 levels, there is moderate central stenosis with potential constriction of the cauda equina, particularly L3-L4 level. Mild to moderate foraminal stenoses, maximal on the left L3-L4 and L4-L5, but without effacement of foraminal fat planes. He is here for a trial of Lumbar epidural steroid injections under fluoroscopic guidance . The risks and benefits of the procedure were discussed in detail. He wishes to proceed. He needs to follow up in four weeks. [email or web address] Not available 05/27/2018 13:46:36 Plan of Treatment Reminders Order Date Submit Date Provider Last Modified By Organization Details Last Modified Time Details Appointments None record ed. Lab None record ed. Referral None record ed. Procedures None record ed. Surgeries None record ed. Imaging None record ed. Medication Orders None record ed. Patient TargetsNo targets recorded. Patient Instructions Encounter Date Encounter Id Patient Instructions Last Modified By Organization Details Last Modified Time 05/12/2018 [id number] He was advised against bed rest lasting longer than four days and to continue activities as tolerated. [email or web address] Not available 05/12/2018 14:54:12 05/27/2018 [id number] He was advised against bed rest lasting longer than four days and to continue activities as tolerated. [email or web address] Not available 05/27/2018 13:41:18 Reason for Referral None Reported. Problems Name Problem SNOMED Code Status Onset Date Resolution Date Notes Provider Name and Address Organization Details Recorded Time Spinal stenosis of lumbar region 91018518 Active Davey enriquez MD [address] , [address], [facility] [place], [address], [place] [facility] 8 13:58:53 Degeneration of lumbar intervertebral disc 85895006 Active Davey enriquez MD [address] , [address], [facility] [place], [address], [place] [facility] 8 13:59:02 Lumbosacral radiculopathy 8742780 Active Davey enriquez MD [address] , [address], [facility] [place], [address], [place] [facility] 8 13:59:16 Lumbosacral spondylosis without myelopathy 52204624 Saul enriquez MD [address] , [address], [facility] [place], [address], [place] [facility] 8 13:59:38 Problem Notes None recorded. Procedures Surgical History Date Name Laterality Status Provider Name and Address Organization Details Recorded Time 05/27/20 18 Lumbar Epidural steroid injection under fluoroscopic guidance completed Davey Auguste MD [address] [place] [address] , [address], [place], [address], [place] [facility] 05/27/2018 13:45:40 Other completed Ashwini Tsang [facility] 05/12/2018 14:01:20 Other completed Ashwini Tsang [facility] 05/12/2018 14:02:10 Other completed Ashwini Tsang [facility] 05/12/2018 14:02:51 Imaging Results None recorded. Procedure Notes None recorded. Medical Equipment None Reported. Allergies No known drug allergies Medications Name Sig Start Date Stop Date Status Note LastModified by Organization Details LastModified Time ibuprofen 800 mg tablet as needed active Not Available Not Available No t Available lidocaine-robert locaine 2.5 %-2.5 % topical cream 05/12 completed Not Available Not Available Not Available cephalexin 500 mg capsule 05/12 completed Not Available Not Available Not Available lorazepam 1 mg tablet 05/12 completed Not Available Not Available Not Available Asprin Ec Low Dose 81 mg tablet,delaye d release Take 1 tablet every day by oral route. active Not Available Not Available No t Available Multi Vitamin active Not Available Not Available Not Available Fluzone High-Dose 4916-2417 (PF) 180 mcg/0.5 mL intramuscular syringe ADM 0.5ML IM UTD 05/12 completed Not Available Not Available Not Available Vitals Date Recorded Heart rate Oxygen saturation Oxygen saturation in Arterial blood by Pulse oximetry Body weight Body mass index (BMI) Body height Systolic blood pressure Diastolic blood pressure Provider Name and Address Organization Details Last Updated DateTime 8 71 /min 95 % 95 % 025459. 05 g 34.6 kg/m2 182.88 cm 152 mm[Hg] 65 mm[Hg] Ashwini Tsang [place] [facility] 8 13:49:46 Date Recorded Body height Heart rate Oxygen saturation Oxygen saturation in Arterial blood by Pulse oximetry Systolic blood pressure Diastolic blood pressure Provider Name and Address Organization Details Last Updated DateTime 8 182.88 cm 69 /min 96 % 96 % 153 mm[Hg] 73 mm[Hg] Ashwini Tsang MA [facility] 8 13:18:29 Social History Question Answer Notes LastModified by Organizat ion Details LastModified Time Tobacco Smoking Status Never Smoker [facility] 05/12/2018 13:56:10 What Is Your Level Of Alcohol Consumption? Occasional Information not available 05/12/2018 Are You Currently Employed? Yes Information not available 05/12/2018 Which Illicit Or Recreational Drugs Have You Used? No Information not available 05/12/2018 Education 12 Some College Information not available 05/12/2018 Live Alone Or With Others? With Others Information not available 05/12/2018 Marital Status [email or web address] Informatio n not available 05/12/2018 What Was The Date Of Your Most Recent Tobacco Screening? 05/27/2018 Information not available 06/10/2019 Sex: Unknown Functional Status None recorded. Mental Status None recorded. Family History Relationship Description Onset Age of this Age Resolved Age Notes LastModified by Organization Details LastModified Time Father No current problems or disability Not available 05/12 13:56:04 Mother No current problems or disability [email or web address] Not available 05/12 13:56:04 Medical History Condition Response Cancer Y Past Encounters Encounter ID Performer Location Encounter Start Date Encounter Closed Date Diagnosis/Indication Diagnosis SNOMED-CT Code Diagnosis ICD10 Code Diagnosis Note [id number] Davey Auguste MD PAIN OFFICE [address] [place] [address] 05/12/2018 13:27:49 05/12/2018 15:01:22 Lumbosacral radiculopathy 9612922 M54.17 Spinal marla nosis of lumbar region 32300226 M48.062 Degenerati on of lumbar intervertebral disc 24532398 M51.36 Lumbosacra l spondylosis without myelopathy 25584649 M47.817 [id number] Davey Auguste MD PAIN OFFICE [address] [place] [address] 05/27/2018 13:15:35 05/27/2018 14:13:07 Lumbosacral radiculopathy 0999688 M54.17 Spinal marla nosis of lumbar region 73384118 M48.062 Degenerati on of lumbar intervertebral disc 50690424 M51.36 Lumbosacra l spondylosis without myelopathy 05686529 M47.817 Health Concerns Section Related Observation LastModified by Organization Detai ls LastModified Time None Recorded Concern Status LastModified by Organization Details LastModified Time None Recorded Advance Directives Directive None Recorded Payers Encounter Date Sequence Insurance Name Policy Number Policy Seymour Covered Member ID Seymour Member ID Guarantor Name 05/12/2018 1 [facility] - MEDICARE PREFERRED (MEDICARE REPLACEMENT HMO) TERRIE Daniel Smith [id number] Daniel Smith 05/27/2018 1 [facility] - MEDICARE PREFERRED (MEDICARE REPLACEMENT HMO) [facility] Daniel Smith [id number] Daniel Smith Notes Date Note Type Note Provider Name and Address Organization Details Recorded Time 05/12/2018 text/html Daniel Smith is a 73 year old man with complaints of low back pain radiating into left buttock region and into the posterior aspect of his left lower extremity. The pain is chronic in nature and he has been having a recent exacerbation . He states he did play football and did a lot of lifting in the past. He describes the pain as a shooting pain , sharp which starts in his left buttock region to the left leg with numbness. Current pain level is 5-10/10. Pain is aggravated by standing and walking . Pain is relieved with sitting and laying down. He has no history of bladder or bowel incontinence.MRI Lumbar spine shows Multilevel spondylitic changes superimposed upon congenitally narrow central canal, at the L3-L4 and L4-L5 levels, there is moderate central stenosis with potential constriction of the cauda equina, particularly L3-L4 level. Mild to moderate foraminal stenoses, maximal on the left L3-L4 and L4-L5, but without effacement of foraminal fat planes.He has trialed physical therapy at [facility] with aggravation of his symptoms. He had two steroid injections at [facility] and the injections did not help. He has seen Dr. miriam Thomas who did not recommend surgery at that time. Davey Auguste MD [address] [facility] , [address], [place], [address], [facility] 05/27/2018 08:28:05 05/27/2018 text/html He is here today for a lumbar epidural steroid injection under fluroscopic guidance. Davey Auguste MD [address] [facility] , [address], [place], [address], [facility] - Pain Management 05/30/2018 08:35:36
--- OUTSIDE RECORDS SUMMARY | 2024-12-17 14:10 | XMS_ITS | Clinical Summary ---
Author Organization [facility] Address [address] [place] [address] Care Team Providers Care Underwear Cutter Name Role Phone Leona Almendarez MD Primary Care Provider [phone] Allergies No known active allergies Medications Medication [...] age to complete this topic Care Teams Underwear Cutter Relationship Specialty Start Date End Date Leona Almendarez MD [address] [phone] PCP - General Internal Medicine 05/11/19
--- OUTSIDE RECORDS SUMMARY | 2024-12-17 14:10 | XMS_ITS | Encounter Summary ---
Author Organization [facility] [place] [address] Care Team Providers Care Carpenter And Joiner Name Role Phone Leona Almendarez MD Primary Care Provider [phone] Encounter Details Date Type Department Care Team (Late st Contact Info) Description 12/09/2024 Lab Requisition [facility] - Main Lab [address] [facility] [place] [phone] Angel Adamson MD [address] [place] [address] Parkinsonism, unspecified (CMS/HCC) Social History Tobacco Use [...] mmol/L LAB CHEMISTRY METHOD 12/10/2024 8:57 AM [facility] Potassium 4.0 3.5 - 5.5 mmol/L LAB CHEMISTRY METHOD 12/10/2024 8:57 AM [facility] Chloride 104 96 - 110 mmol/L LAB CHEMISTRY METHOD 12/10/2024 8:57 AM [facility] CO2 27 21 - 32 mmol/L LAB CHEMISTRY METHOD 12/10/2024 8:57 AM [facility] Anion Gap 5 3 - 11 LAB CHEMISTRY METHOD 12/10/2024 8:57 AM [facility] Glucose 104(H) 70 - 100 mg/dL LAB CHEMISTRY METHOD 12/10/2024 8:57 AM [facility] BUN 22 5 - 25 mg/dL LAB CHEMISTRY METHOD 12/10/2024 8:57 AM [facility] Creatinine 0.63(L) 0.70 - 1.30 mg/dL LAB CHEMISTRY METHOD 12/10/2024 8:57 AM [facility] LAB eGFR 97 >=60 mL/min/1. 73m2 LAB CHEMISTRY METHOD 12/10/2024 8:57 AM [facility] LAB Comment:Calculation based on the??Chronic Kidney Disease Epidemiology Collaboration (CKD-EPI) equation refit??without adjustment for race. BUN/Creatinine Ratio 34.9 LAB CHEMISTRY METHOD 12/10/2024 8:57 AM [facility] Calcium 8.5 8.5 - 10.5 mg/dL LAB CHEMISTRY METHOD 12/10/2024 8:57 AM [facility] Blood Venous blood specimen / Unknown Venipuncture / Unknown 12/10/2024 7:03 AM EST 12/10/2024 8:24 AM EST Angel Adamson MD LAB BLOOD ORDERABLES [facility] LAB [address] [place] [address], * (ABNORMAL) Complete blood count (12/10/2024 7:03 AM EST) [facility] Signature WBC 9.5 4.8 - 10.8 K/mcL LAB HEMETOLOGY METHOD 12/10/2024 8:32 AM EST [facility] RBC 3.20(L) 4.50 - 5.50 M/mcL LAB HEMETOLOGY METHOD 12/10/2024 8:32 AM [facility] Hemoglobin 10.4(L) 13.5 - 17.5 g/dL LAB HEMETOLOGY METHOD 12/10/2024 8:32 AM [facility] Hematocrit 32.5(L) 42.0 - 54.0 % LAB HEMETOLOGY METHOD 12/10/2024 8:32 AM [facility] MCV 100.6(H) 79.0 - 98.0 FL LAB HEMETOLOGY METHOD 12/10/2024 8:32 AM [facility] MCH 32.2(H) 27.0 - 32.0 pcg LAB HEMETOLOGY METHOD 12/10/2024 8:32 AM [facility] MCHC 32.0 32.0 - 37.0 g/dL LAB HEMETOLOGY METHOD 12/10/2024 8:32 AM [facility] RDW 14.2 11.0 - 15.0 % LAB HEMETOLOGY METHOD 12/10/2024 8:32 AM [facility] LAB Platelets 356 130 - 400 K/mcL LAB HEMETOLOGY METHOD 12/10/2024 8:32 AM [facility] MPV 9.1 7.0 - 11.0 FL LAB HEMETOLOGY METHOD 12/10/2024 8:32 AM [facility] NRBC 0.0 <1.0 % LAB HEMETOLOGY METHOD 12/10/2024 8:32 AM EST [facility] NRBC Absolute 0.00 <0.10 K/mcL LAB HEMETOLOGY METHOD 12/10/2024 8:32 AM EST [facility] Blood Venous blood specimen / Unknown Venipuncture / Unknown 12/10/2024 7:03 AM EST 12/10/2024 8:24 AM EST Angel Adamson MD LAB BLOOD ORDERABLES [facility] [address] [phone] documented in this encounter Visit Diagnoses Diagnosis Parkinsonism, unspecified (CMS/HCC) documented in this encounter Additional Health Concerns Infection Onset Date Last Indicated Resolved Time ESBL 11/24/2024 11/24/2024 documented as of this encounter Care Teams Carpenter And Joiner Relationship Specialty Start Date End Date Leona Almendarez MD [address] PCP - General 07/03/18 documented as of this encounter
--- OUTSIDE RECORDS SUMMARY | 2024-12-17 14:10 | XMS_ITS | Encounter Summary ---
Author Organization [facility] [place] [address] Care Team Providers Care Clinical Application Consultant Name Role Phone Leona Almendarez MD Primary Care Provider [phone] Encounter Details Date Type Department Care Team (Late st Contact Info) Description 10/07/2024 Lab Requisition [facility] - Main Lab [address] [facility] [place] [phone] Angel Adamson MD [address] [place] [address] Hematuria, unspecified Social History Tobacco Use Types [...] mmol/L LAB CHEMISTRY METHOD 10/08/2024 10:04 AM [facility] LAB Potassium 4.0 3.5 - 5.5 mmol/L LAB CHEMISTRY METHOD 10/08/2024 10:04 AM [facility] LAB Chloride 107 96 - 110 mmol/L LAB CHEMISTRY METHOD 10/08/2024 10:04 AM [facility] LAB CO2 26 21 - 32 mmol/L LAB CHEMISTRY METHOD 10/08/2024 10:04 AM [facility] LAB Anion Gap 6 3 - 11 LAB CHEMISTRY METHOD 10/08/2024 10:04 AM [facility] LAB Glucose 111(H) 70 - 100 mg/dL LAB CHEMISTRY METHOD 10/08/2024 10:04 AM [facility] LAB BUN 12 5 - 25 mg/dL LAB CHEMISTRY METHOD 10/08/2024 10:04 AM [facility] LAB Creatinine 0.65(L) 0.70 - 1.30 mg/dL LAB CHEMISTRY METHOD 10/08/2024 10:04 AM [facility] LAB eGFR 96 >=60 mL/min/1. 73m2 LAB CHEMISTRY METHOD 10/08/2024 10:04 AM [facility] LAB Comment:Calculation based on the??Chronic Kidney Disease Epidemiology Collaboration (CKD-EPI) equation refit??without adjustment for race. BUN/Creatinine Ratio 18.5 LAB CHEMISTRY METHOD 10/08/2024 10:04 AM [facility] LAB Calcium 9.2 8.5 - 10.5 mg/dL LAB CHEMISTRY METHOD 10/08/2024 10:04 AM [facility] Blood Venous blood specimen / Unknown Venipuncture / Unknown 10/08/2024 7:18 AM EST 10/08/2024 9:10 AM EST Angel Adamson MD LAB BLOOD ORDERABLES [facility] [address] [place] [address], * (ABNORMAL) Complete blood count (10/08/2024 7:18 AM EST) [facility] WBC 7.0 4.8 - 10.8 K/mcL LAB HEMETOLOGY METHOD 10/08/2024 9:41 AM [facility] RBC 4.20(L) 4.50 - 5.50 M/mcL LAB HEMETOLOGY METHOD 10/08/2024 9:41 AM [facility] LAB Hemoglobin 13.6 13.5 - 17.5 g/dL LAB HEMETOLOGY METHOD 10/08/2024 9:41 AM [facility] LAB Hematocrit 42.0 42.0 - 54.0 % LAB HEMETOLOGY METHOD 10/08/2024 9:41 AM [facility] LAB MCV 99.1(H) 79.0 - 98.0 FL LAB HEMETOLOGY METHOD 10/08/2024 9:41 AM [facility] LAB MCH 32.1(H) 27.0 - 32.0 pcg LAB HEMETOLOGY METHOD 10/08/2024 9:41 AM [facility] LAB MCHC 32.4 32.0 - 37.0 g/dL LAB HEMETOLOGY METHOD 10/08/2024 9:41 AM [facility] LAB RDW 13.3 11.0 - 15.0 % LAB HEMETOLOGY METHOD 10/08/2024 9:41 AM [facility] LAB Platelets 255 130 - 400 K/mcL LAB HEMETOLOGY METHOD 10/08/2024 9:41 AM [facility] LAB MPV 9.9 7.0 - 11.0 FL LAB HEMETOLOGY METHOD 10/08/2024 9:41 AM [facility] LAB NRBC 0.0 <1.0 % LAB HEMETOLOGY METHOD 10/08/2024 9:41 AM [facility] LAB NRBC Absolute 0.00 <0.10 K/mcL LAB HEMETOLOGY METHOD 10/08/2024 9:41 AM EST [facility] LAB Blood Venous blood specimen / Unknown Venipuncture / Unknown 10/08/2024 7:18 AM EST 10/08/2024 9:10 AM EST Angel Adamson MD LAB BLOOD ORDERABLES [facility] [address] [place], [place] [address] [phone] documented in this encounter Visit Diagnoses Diagnosis Hematuria, unspecified documented in this encounter Additional Health Concerns Infection Onset Date Last Indicated Resolved Time ESBL 11/24/2024 11/24/2024 documented as of this encounter Care Teams Clinical Application Consultant Relationship Specialty Start Date End Date Leona Almendarez MD 1221 [facility] [address] [place], [place] PCP - General 07/03/18 documented as of this encounter
--- OUTSIDE RECORDS SUMMARY | 2024-12-17 14:10 | XMS_ITS | Encounter Summary ---
Author Organization [facility] [place] [address] Care Team Providers Care Indoor Sports Centre Manager Name Role Phone Leona Almendarez MD Primary Care Provider [phone] Encounter Details Date Type Department Care Team (Late st Contact Info) Description 10/14/2024 Lab Requisition [facility] - Main Lab [address] [facility] [phone] Angel Adamson MD [address] [place] [address] Hematuria, unspecified Social History Tobacco Use Types [...] AM EST) WBC 7.6 4.8 - 10.8 K/[facility] LAB HEMETOLOGY METHOD 10/16/2024 11:51 AM [facility] LAB RBC 4.20(L) 4.50 - 5.50 M/mcL LAB HEMETOLOGY METHOD 10/16/2024 11:51 AM [facility] LAB Hemoglobin 13.5 13.5 - 17.5 g/dL LAB HEMETOLOGY METHOD 10/16/2024 11:51 AM [facility] LAB Hematocrit 43.1 42.0 - 54.0 % LAB HEMETOLOGY METHOD 10/16/2024 11:51 AM [facility] LAB MCV 101.7(H) 79.0 - 98.0 FL LAB HEMETOLOGY METHOD 10/16/2024 11:51 AM [facility] LAB MCH 31.8 27.0 - 32.0 pcg LAB HEMETOLOGY METHOD 10/16/2024 11:51 AM [facility] LAB MCHC 31.3(L) 32.0 - 37.0 g/dL LAB HEMETOLOGY METHOD 10/16/2024 11:51 AM [facility] LAB RDW 13.2 11.0 - 15.0 % LAB HEMETOLOGY METHOD 10/16/2024 11:51 AM [facility] LAB Platelets 243 130 - 400 K/mcL LAB HEMETOLOGY METHOD 10/16/2024 11:51 AM [facility] LAB MPV 10.0 7.0 - 11.0 FL LAB HEMETOLOGY METHOD 10/16/2024 11:51 AM [facility] LAB NRBC 0.0 <1.0 % LAB HEMETOLOGY METHOD 10/16/2024 11:51 AM [facility] LAB NRBC Absolute 0.00 <0.10 K/mcL LAB HEMETOLOGY METHOD 10/16/2024 11:51 AM [facility] LAB Blood Venous blood specimen / Unknown Venipuncture / Unknown 10/16/2024 8:55 AM EST 10/16/2024 11:14 AM EST Angel Adamson MD LAB BLOOD ORDERABLES [facility] [address] [place] [address], * (ABNORMAL) Basic metabolic panel (10/16/2024 8:55 AM EST) Sodium 140 133 - 145 mmol/L LAB CHEMISTRY METHOD 10/16/2024 12:09 PM [facility] Potassium 4.1 3.5 - 5.5 mmol/L LAB CHEMISTRY METHOD 10/16/2024 12:09 PM [facility] LAB Chloride 106 96 - 110 mmol/L LAB CHEMISTRY METHOD 10/16/2024 12:09 PM [facility] LAB CO2 28 21 - 32 mmol/L LAB CHEMISTRY METHOD 10/16/2024 12:09 PM [facility] LAB Anion Gap 6 3 - 11 LAB CHEMISTRY METHOD 10/16/2024 12:09 PM [facility] LAB Glucose 80 70 - 100 mg/dL LAB CHEMISTRY METHOD 10/16/2024 12:09 PM [facility] BUN 19 5 - 25 mg/dL LAB CHEMISTRY METHOD 10/16/2024 12:09 PM [facility] LAB Creatinine 0.69(L) 0.70 - 1.30 mg/dL LAB CHEMISTRY METHOD 10/16/2024 12:09 PM [facility] LAB eGFR 94 >=60 mL/min/1. 73m2 LAB CHEMISTRY METHOD 10/16/2024 12:09 PM [facility] LAB Comment:Calculation based on the??Chronic Kidney Disease Epidemiology Collaboration (CKD-EPI) equation refit??without adjustment for race. BUN/Creatinine Ratio 27.5 LAB CHEMISTRY METHOD 10/16/2024 12:09 PM [facility] LAB Calcium 9.3 8.5 - 10.5 mg/dL LAB CHEMISTRY METHOD 10/16/2024 12:09 PM EST [facility] Blood Venous blood specimen / Unknown Venipuncture / Unknown 10/16/2024 8:55 AM EST 10/16/2024 11:14 AM EST Angel Adamson MD LAB BLOOD ORDERABLES [facility] [address] [place] [address], documented in this encounter Visit Diagnoses Diagnosis Hematuria, unspecified documented in this encounter Additional Health Concerns Infection Onset Date Last Indicated Resolved Time ESBL 11/24/2024 11/24/2024 documented as of this encounter Care Teams Indoor Sports Centre Manager Relationship Specialty Start Date End Date Leona Almendarez MD 1221 [facility] [address] [place], [place] PCP - General 07/03/18 documented as of this encounter
== END 2024-12-16 10:33 | disposition home or self-care (01) ==
LOC: HO.HOSX 10:32
PROVIDERS: Visit Provider Physician Assistant
DX: Z47.1 Aftercare following joint replacement surgery (principal); Z96.641 Presence of right artificial hip joint
CPT/HCPCS: 73502; 99212

== ENCOUNTER 2024-12-16 11:10 | Outpatient (AMB) | payer MEDICARE, MEDICAID, SELFPAY ==
--- NOTE | 2024-12-16 11:29 | MHC.OFFVIS ---
Intake Visit Reasons: PO Rt hip corrine 12/02/24 NE Intake Note: Daniel is a 79 year old male who presents today for a post operative RT hip corrine, DOS 12/02/24 NE. Allergies oxycodone Allergy (Severe, Verified 12/16/24 11:32) Blister haloperidol [From Haldol] Allergy (Verified 12/16/24 11:32) Agitated Medication List - Last Reconciled 12/16/24 by Reid Pryor PA-C apixaban (Eliquis) 5 mg PO BID carbidopa-levodopa 25-100 mg 1 tab PO TID docusate sodium (Colace) 100 mg PO BID enoxaparin 40 mg (0.4 mL) subcut Q24H 1 day polyethylene glycol 3350 (Miralax) 17 grams PO DAILY sennosides (senna) 17.2 mg PO BID thiamine HCl (vitamin B1) (Vitamin B-1) 100 mg PO DAILY HPI HPI PO Rt hip corrine 12/02/24 NE: Details: 79-year-old gentleman returns to the office today status post right hip hemiarthroplasty on 12/[address] Santos. He is working with physical therapy on a daily basis ambulating with a walker and assistance. [facility] Medical History 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 HTN (hypertension) TIA (transient ischemic attack) Raynauds disease Hyperlipidemia Arthritis Lumbar spondylosis Fatty liver Atrial fibrillation Surgical History History of hip replacement Family History Father Stroke Mother Heart failure Sister Breast cancer in female Social History Household Members: Other Housing: Senior Living Do you presently have visiting nurse or other home services: No Alcohol intake: former Patient Tobacco Use Status: Never used Tobacco Advance Directives Date on File: 12/02/24 service: Yes Review of Systems Const All systems reviewed & are unremarkable except as noted in HPI and below Physical Exam Extrem Other: Right hip incision clean dry and intact no erythema or drainage neurovascularly intact. Results Reviewed Results Reviewed: X-rays of the right hip obtained in the office today show intact prosthesis Assessment & Plan Assessment & Plan (1) History of hemiarthroplasty of right hip: Code(s): Z96.641 - Presence of right artificial hip joint Category: Surgical Plan: [place] removed today Steri-Strips applied he will continue working with physical therapy for gait training, strengthening ADLs an upper body conditioning. He will see us back in 4 weeks with x-rays sooner if needed. Orders: Orders XR hip RT min 2V Today M25.551 - Pain in right hip Coding Level of Care Code Global (84654) Diagnoses History of hemiarthroplasty of right hip Z96.641
--- OUTSIDE RECORDS SUMMARY | 2024-12-16 13:26 | XMS_ITS | Encounter Summary ---
Author Organization [facility] [place] [address] Care Team Providers Care Collect On Delivery Clerk Name Role Phone Leona Almendarez MD Primary Care Provider [phone] Encounter Details Date Type Department Care Team (Late st Contact Info) Description 10/14/2024 Lab Requisition [facility] - Main Lab [address] [facility] [place] [id number] Angel Adamson MD [address] [place] [address] Hematuria, unspecified Social History Tobacco Use Types Packs/Day Years Used Date Smoking Tobacco: Never Smokeless Tobacco: Never Alcohol Use Standard Drinks/Week Comments Not Currently 0 (1 standard drink = 0.6 oz pur e alcohol) Sex and Gender Information Value Date Recorded Sex Assigned at Not on file Gender Identity Not on file Sexual Orientation Not on file documented as of this encounter Plan of Treatment Not on file documented as of this encounter Procedures Procedure Name Priority Date/Time Associated Diagnosis Comments COMPLETE BLOOD COUNT Routine 10/16/2024 8:55 AM EST Hematuria, unspecified BASIC METABOLIC PANEL Routine 10/16/2024 8:55 AM EST Hematuria, unspecified documented in this encounter Results * (ABNORMAL) Complete blood count (10/16/2024 8:55 AM EST) WBC 7.6 4.8 - 10.8 [facility] LAB HEMETOLOGY METHOD 10/16/2024 11:51 AM [facility] RBC 4.20(L) 4.50 - 5.50 M/mcL LAB HEMETOLOGY METHOD 10/16/2024 11:51 AM [facility] Hemoglobin 13.5 13.5 - 17.5 g/dL LAB HEMETOLOGY METHOD 10/16/2024 11:51 AM [facility] Hematocrit 43.1 42.0 - 54.0 % LAB HEMETOLOGY METHOD 10/16/2024 11:51 AM [facility] MCV 101.7(H) 79.0 - 98.0 FL LAB HEMETOLOGY METHOD 10/16/2024 11:51 AM [facility] MCH 31.8 27.0 - 32.0 pcg LAB HEMETOLOGY METHOD 10/16/2024 11:51 AM [facility] MCHC 31.3(L) 32.0 - 37.0 g/dL LAB HEMETOLOGY METHOD 10/16/2024 11:51 AM [facility] RDW 13.2 11.0 - 15.0 % LAB HEMETOLOGY METHOD 10/16/2024 11:51 AM [facility] Platelets 243 130 - 400 K/mcL LAB HEMETOLOGY METHOD 10/16/2024 11:51 AM [facility] MPV 10.0 7.0 - 11.0 FL LAB HEMETOLOGY METHOD 10/16/2024 11:51 AM [facility] NRBC 0.0 <1.0 % LAB HEMETOLOGY METHOD 10/16/2024 11:51 AM [facility] NRBC Absolute 0.00 <0.10 K/mcL LAB HEMETOLOGY METHOD 10/16/2024 11:51 AM [facility] Blood Venous blood specimen / Unknown Venipuncture / Unknown 10/16/2024 8:55 AM EST 10/16/2024 11:14 AM EST Angel Adamson MD LAB BLOOD ORDERABLES [facility] [address] [place] [address], * (ABNORMAL) Basic metabolic panel (10/16/2024 8:55 AM EST) Sodium 140 133 - 145 mmol/L LAB CHEMISTRY METHOD 10/16/2024 12:09 PM [facility] Potassium 4.1 3.5 - 5.5 mmol/L LAB CHEMISTRY METHOD 10/16/2024 12:09 PM [facility] Chloride 106 96 - 110 mmol/L LAB CHEMISTRY METHOD 10/16/2024 12:09 PM [facility] CO2 28 21 - 32 mmol/L LAB CHEMISTRY METHOD 10/16/2024 12:09 PM [facility] Anion Gap 6 3 - 11 LAB CHEMISTRY METHOD 10/16/2024 12:09 PM [facility] Glucose 80 70 - 100 mg/dL LAB CHEMISTRY METHOD 10/16/2024 12:09 PM [facility] BUN 19 5 - 25 mg/dL LAB CHEMISTRY METHOD 10/16/2024 12:09 PM [facility] Creatinine 0.69(L) 0.70 - 1.30 mg/dL LAB CHEMISTRY METHOD 10/16/2024 12:09 PM [facility] eGFR 94 >=60 mL/min/1. 73m2 LAB CHEMISTRY METHOD 10/16/2024 12:09 PM [facility] Comment:Calculation based on the??Chronic Kidney Disease Epidemiology Collaboration (CKD-EPI) equation refit??without adjustment for race. BUN/Creatinine Ratio 27.5 LAB CHEMISTRY METHOD 10/16/2024 12:09 PM [facility] Calcium 9.3 8.5 - 10.5 mg/dL LAB CHEMISTRY METHOD 10/16/2024 12:09 PM EST [facility] Blood Venous blood specimen / Unknown Venipuncture / Unknown 10/16/2024 8:55 AM EST 10/16/2024 11:14 AM EST Angel Adamson MD LAB BLOOD ORDERABLES [facility] [address] [place] [address], documented in this encounter Visit Diagnoses Diagnosis Hematuria, unspecified documented in this encounter Additional Health Concerns Infection Onset Date Last Indicated Resolved Time ESBL 11/24/2024 11/24/2024 documented as of this encounter Care Teams Collect On Delivery Clerk Relationship Specialty Start Date End Date Leona Almendarez MD [address] [facility] [address] [place], [place] PCP - General 07/03/18 documented as of this encounter
--- OUTSIDE RECORDS SUMMARY | 2024-12-16 13:26 | XMS_ITS | Clinical Summary ---
Author Organization [facility] Address [address] [place] [address] Care Team Providers Care Machine Learning Intern Name Role Phone Leona Almendarez MD Primary Care Provider [phone] Allergies No known active allergies Medications Medication Sig Dispensed Refills Start Date End Date Status ELIQUIS 5 MG TABS tablet take 1 tablet by mouth twice a day 9AM AND 9PM 0 06/19/2019 Active atorvastatin (LIPITOR) tablet 20 mg TK 1 T PO HS 0 04/30/2019 Active ibuprofen (ADVIL,MOTRIN) 800 MG tablet ibuprofen 800 mg tablet as needed 0 Active furosemide (LASIX) 20 MG tablet Take 20 mg by mouth daily. 0 12/01/2020 Active celecoxib (CeleBREX) 200 MG capsule 0 04/06/2021 Active tamsulosin (FLOMAX) 0.4 MG CAPS Take 0.4 mg by mouth daily. 0 04/05/2021 Active amoxicillin (AMOXIL) 500 MG tablet Take four tabs (2,000 mg) one hour before any dental work 20 tablet 2 04/11/2021 Active Acetaminophen-Codein e (TYLENOL/CODEINE #3) 300-30 MG per tablet Take 1 tab every 12 hours as needed for pain 30 tablet 0 05/17/2021 Active Active Problems Problem Noted Date Diagnosed Date Osteoarthritis of one hip, left 01/08/2020 Arthritis of left hip 06/25/2019 Family History Medical History Relation Name Comments Heart disease Brother Heart disease Father Heart disease Mother Cancer Sister Relation Name Status Comments Brother Father Mother Sister Social History Tobacco Use Types Packs/Day Years Used Date Smoking Tobacco: Never Smokeless Tobacco: Never Alcohol Use Standard Drinks/Week Comments Yes 3 (1 standard drink = 0.6 oz pur e alcohol) Sex and Gender Information Value Date Recorded Sex Assigned at Male 05/07/2019 3:44 PM EDT Gender Identity Not on file Sexual Orientation Not on file Job Start Date Occupation Industry Not on file Not on file Not on file Last Filed Vital Signs Vital Sign Reading Time Taken Comments Blood Pressure - - Pulse - - Temperature - - Respiratory Rate - - Oxygen Saturation - - Inhaled Oxygen Concentration - - Weight 107 kg (236 lb) 06/25/2019 1:44 PM EDT Height 182.9 cm (6') 06/25/2019 1:44 PM EDT Body Mass Index 32.01 06/25/2019 1:44 PM EDT Plan of Treatment Health Maintenance Due Date Last Done Comments Hepatitis C Screening 1945 COVID-19 Vaccine (#1) 1945 Depression Screening 1957 BMI Counseling 1963 Preventative Health Evaluation 1963 DTap / Tdap / Td (1 - Tdap) 1964 Shingrix-Zoster Vaccine (1 of 2) 1995 Fall Risk Assessment 2010 Pneumococcal Vaccine (1 of 1 - PCV) 2010 RSV Adult > 60+ Yrs or Pregn ant (1 - 1-dose 75+ series) 2020 Influenza Vaccine (#1) 2024 Hepatitis B Vaccines Aged Out No long er eligible based on patient's age to complete this topic RSV Ped < 20 months Aged Out No longe r eligible based on patient's age to complete this topic Care Teams Machine Learning Intern Relationship Specialty Start Date End Date Leona Almendarez MD [address] [phone] PCP - General Internal Medicine 05/11/19
--- OUTSIDE RECORDS SUMMARY | 2024-12-16 13:26 | XMS_ITS | Clinical Summary ---
Author Organization [address] Address [address] [place] [address] Phone Care Team Providers Care Call Center Operator Name Role Phone Leona Almendarez MD Primary Care Provider [phone] Encounters Date Type Department Care Team Description 12/15/2024 Lab Requisition [facility] [address] [place] [phone] Angel Adamson MD Confusional arousals 12/09/2024 Lab Requisition [facility] [address] [place] [address] Angel Adamson MD Parkinsonism, unspecified ([facility]) 11/26/2024 Lab Requisition [facility] [address] [place] [phone] Angel Adamson MD Parkinsonism, unspecified ([facility]) 11/25/2024 Lab Requisition [facility] [address] [place] [address] Angel Adamson MD Altered mental status, unspecified; Chronic fatigue, unspecified 11/21/2024 Lab Requisition [facility] [address] [place] [phone] Angel Adamson MD Urinary tract infection, site not specified 11/20/[address] [facility] - Main Lab [address] [place] [phone] Maggie Parry PA Essential (primary) hypertension 10/14/2024 Lab Requisition [facility] Main Lab [address] [place] [phone] Angel Adamson MD Hematuria, unspecified 10/07/2024 Lab Requisition [facility] [address] [place] [phone] Angel Adamson MD Hematuria, unspecified 09/30/2024 Lab Requisition [facility] [address] [place] [phone] Angel Adamson MD Hematuria, unspecified 09/22/2024 Lab Requisition [facility] [address] [place] [phone] Angel Adamson MD Hematuria, unspecified from Last 3 Months Medical History Medical History Date Comments Status post left hip replacement DX:Status post left hip replacement DVT prophylaxis DX:DVT prophylax is SOB (shortness of breath) DX:SOB (shortness of breath) Social History Tobacco Use Types Packs/Day Years Used Date Smoking Tobacco: Never Smokeless Tobacco: Never Alcohol Use Standard Drinks/Week Comments Not Currently 0 (1 standard drink = 0.6 oz pur e alcohol) Sex and Gender Information Value Date Recorded Sex Assigned at Not on file Gender Identity Not on file Sexual Orientation Not on file Obstetrics History Last Filed Vital Signs Vital Sign Reading Time Taken Comments Blood Pressure 130/82 03/19/2023 1:09 PM EDT Sit ting L Arm Pulse 58 03/19/2023 1:09 PM EDT Temperature - - Respiratory Rate - - Oxygen Saturation - - Inhaled Oxygen Concentration - - Weight 103 kg (226 lb) 03/19/2023 1:09 PM EDT Height 182.9 cm (6') 03/19/2023 1:09 PM EDT Body Mass Index 30.65 03/19/2023 1:09 PM EDT Plan of Treatment Health Maintenance Due Date Last Done Comments DTaP,Tdap,and Td Vaccines (1 - Tdap) 1964 Zoster Vaccines (1 of 2) 1995 Pneumococcal Vaccine: 65+ Years (1 of 1 - PCV) 2010 RSV Immunization Patients 60+ Years Old (1 - 1-dose 75+ series) 2020 Depression Screening 10/25/2022 Falls Risk Assessment 10/25/2022 Hepatitis C Screening 10/25/2022 Medicare Annual Wellness Visit 10/25/2022 Social Influencers of Health Screening 10/25/2022 COVID-19 Vaccine (1 - 2023- season) 2024 Influenza Vaccine (#1) 2024 Hypertension/CHF/CAD Annual BMP Blood Test 12/10/2025 12/10/2024, 11/27/2024, 11/20/2024, Additional history exists Cholesterol Screening (Lipid Panel) 03/11/2029 03/11/2024 HIB Vaccines Aged Out No longer eligi ble based on patient's age to complete this topic HPV Vaccines Aged Out No longer eligi ble based on patient's age to complete this topic Hepatitis A Vaccines Aged Out No long er eligible based on patient's age to complete this topic Hepatitis B Vaccines Aged Out No long er eligible based on patient's age to complete this topic IPV Vaccines Aged Out No longer eligi ble based on patient's age to complete this topic MMR Vaccines Aged Out No longer eligi ble based on patient's age to complete this topic Meningococcal ACWY Vaccine Aged Out N o longer eligible based on patient's age to complete this topic RSV Immunization Patients Under 20 months Aged Out No longer eligible based on patient's age to complete this topic Varicella Vaccines Aged Out No longer eligible based on patient's age to complete this topic Procedures Procedure Name Priority Date/Time Associated Diagnosis Comments URINALYSIS MICROSCOPIC ONLY Routine 12/15/2024 10:30 AM EST Confusional arousals URINALYSIS MICROSCOPIC ONLY Routine 12/15/2024 10:30 AM EST Confusional arousals CULTURE URINE Routine 12/15/2024 10:30 AM EST Confusional arousals BASIC METABOLIC PANEL Routine 12/10/2024 7:03 AM EST Parkinsonism, unspecified (CMS/HCC) COMPLETE BLOOD COUNT Routine 12/10/2024 7:03 AM EST Parkinsonism, unspecified (CMS/HCC) BASIC METABOLIC PANEL Routine 11/27/2024 7:12 AM EST Parkinsonism, unspecified (CMS/HCC) COMPLETE BLOOD COUNT Routine 11/27/2024 7:12 AM EST Parkinsonism, unspecified (CMS/HCC) URINALYSIS WITH REFLEX MICROSCOPIC Routine 11/24/2024 3:20 PM EST Altered mental status, unspecified Chronic fatigue, unspecified URINALYSIS WITH REFLEX MICROSCOPIC Routine 11/24/2024 3:20 PM EST Altered mental status, unspecified Chronic fatigue, unspecified CULTURE URINE Routine 11/24/2024 3:20 PM EST Altered mental status, unspecified Chronic fatigue, unspecified BASIC METABOLIC PANEL STAT 11/20/2024 3:13 PM EST Essential (primary) hypertension COMPLETE BLOOD COUNT STAT 11/20/2024 3:13 PM EST Essential (primary) hypertension AMBROCIO URINE CULTURE TUBE Routine 11/20/2024 12:00 AM EST Urinary tract infection, site not specified URINALYSIS WITH REFLEX MICROSCOPIC Routine 11/20/2024 12:00 AM EST Urinary tract infection, site not specified URINALYSIS WITH REFLEX MICROSCOPIC Routine 11/20/2024 12:00 AM EST Urinary tract infection, site not specified COMPLETE BLOOD COUNT Routine 10/16/2024 8:55 AM EST Hematuria, unspecified BASIC METABOLIC PANEL Routine 10/16/2024 8:55 AM EST Hematuria, unspecified BASIC METABOLIC PANEL Routine 10/08/2024 7:18 AM EST Hematuria, unspecified COMPLETE BLOOD COUNT Routine 10/08/2024 7:18 AM EST Hematuria, unspecified COMPLETE BLOOD COUNT Routine 10/01/2024 7:30 AM EST Hematuria, unspecified BASIC METABOLIC PANEL Routine 10/01/2024 7:30 AM EST Hematuria, unspecified COMPLETE BLOOD COUNT Routine 09/24/2024 6:32 AM EST Hematuria, unspecified BASIC METABOLIC PANEL Routine 09/24/2024 6:32 AM EST Hematuria, unspecified from Last 3 Months Results * (ABNORMAL) Urinalysis microscopic only (12/15/2024 10:30 AM EST) RBC, Urine 4.0 0 - 4 /HPF LAB URINALYSIS - AUTOMATED METHOD 12/15/2024 5:36 PM [facility] WBC, Urine 7.1(H) 0 - 4 /HPF LAB URINALYSIS - AUTOMATED METHOD 12/15/2024 5:36 PM [facility] Squamous Epithelial, Urine 27 0 - 60 /LPF LAB URINALYSIS - AUTOMATED METHOD 12/15/2024 5:36 PM [facility] Crystals, Urine ..Heavy Calcium Oxalate crystals. /LPF 12/15/2024 5:36 PM [facility] Bacteria, Urine Negative Negative /HPF LAB URINALYSIS - AUTOMATED METHOD 12/15/2024 5:36 PM [facility] Hyaline Casts, Urine 2.5 0 - 3 /LPF LAB URINALYSIS - AUTOMATED METHOD 12/15/2024 5:36 PM [facility] Urine Urine specimen obtained by clean catch procedure / Unknown 12/15/2024 10:30 AM EST 12/15/2024 4:02 PM EST Angel Adamson MD LAB URINE ORDERABLES Performing Organization Address City/[facility]/ZIP Co de Phone Number [facility] [address] [place] [address], * Culture urine (12/15/2024 10:30 AM EST) Only the most recent of2 resultswithin the time period is included. Pathologist [facility] Culture, Urine <10,000 CFU/mL gram positive cocci, insignificant count, no further workup 12/16/2024 7:56 AM [facility] Urine Urine specimen obtained by clean catch procedure / Unknown 12/15/2024 10:30 AM EST 12/15/2024 4:02 PM EST Angel Adamson MD LAB MICROBIOLOGY - G ENERAL ORDERABLES Performing Organization Address [facility]/ZIP Co de Phone Number [facility] [address] [place] [address], [place] [phone] * (ABNORMAL) Complete blood count (12/10/2024 7:03 AM EST) Only the most recent of7 resultswithin the time period is included. Pathologist [facility] WBC 9.5 4.8 - 10.8 K/mcL LAB HEMETOLOGY METHOD 12/10/2024 8:32 AM [facility] RBC 3.20(L) 4.50 - 5.50 M/mcL LAB HEMETOLOGY METHOD 12/10/2024 8:32 AM [facility] Hemoglobin 10.4(L) 13.5 - 17.5 g/dL LAB HEMETOLOGY METHOD 12/10/2024 8:32 AM [facility] Hematocrit 32.5(L) 42.0 - 54.0 % LAB HEMETOLOGY METHOD 12/10/2024 8:32 AM [facility] MCV 100.6(H) 79.0 - 98.0 FL LAB HEMETOLOGY METHOD 12/10/2024 8:32 AM EST [facility] MCH 32.2(H) 27.0 - 32.0 pcg LAB HEMETOLOGY METHOD 12/10/2024 8:32 AM EST [facility] MCHC 32.0 32.0 - 37.0 g/dL LAB HEMETOLOGY METHOD 12/10/2024 8:32 AM EST [facility] RDW 14.2 11.0 - 15.0 % LAB HEMETOLOGY METHOD 12/10/2024 8:32 AM EST [facility] Platelets 356 130 - 400 K/mcL LAB HEMETOLOGY METHOD 12/10/2024 8:32 AM EST [facility] MPV 9.1 7.0 - 11.0 FL LAB HEMETOLOGY METHOD 12/10/2024 8:32 AM EST [facility] NRBC 0.0 <1.0 % LAB HEMETOLOGY METHOD 12/10/2024 8:32 AM EST [facility] NRBC Absolute 0.00 <0.10 K/mcL LAB HEMETOLOGY METHOD 12/10/2024 8:32 AM [facility] Blood Venous blood specimen / Unknown Venipuncture / Unknown 12/10/2024 7:03 AM EST 12/10/2024 8:24 AM EST Angel Adamson MD LAB BLOOD ORDERABLES [facility] [address] [place] [address], * (ABNORMAL) Basic metabolic panel (12/10/2024 7:03 AM EST) Only the most recent of7 resultswithin the time period is included. Sodium 136 133 - 145 mmol/L LAB CHEMISTRY METHOD 12/10/2024 8:57 AM EST [facility] Potassium 4.0 3.5 - 5.5 mmol/L LAB CHEMISTRY METHOD 12/10/2024 8:57 AM [facility] Chloride 104 96 - 110 mmol/L LAB CHEMISTRY METHOD 12/10/2024 8:57 AM [facility] CO2 27 21 - 32 mmol/L LAB CHEMISTRY METHOD 12/10/2024 8:57 AM [facility] Anion Gap 5 3 - 11 LAB CHEMISTRY METHOD 12/10/2024 8:57 AM [facility] Glucose 104(H) 70 - 100 mg/dL LAB CHEMISTRY METHOD 12/10/2024 8:57 AM [facility] BUN 22 5 - 25 mg/dL LAB CHEMISTRY METHOD 12/10/2024 8:57 AM [facility] Creatinine 0.63(L) 0.70 - 1.30 mg/dL LAB CHEMISTRY METHOD 12/10/2024 8:57 AM [facility] eGFR 97 >=60 mL/min/1. 73m2 LAB CHEMISTRY METHOD 12/10/2024 8:57 AM [facility] Comment:Calculation based on the??Chronic Kidney Disease Epidemiology Collaboration (CKD-EPI) equation refit??without adjustment for race. BUN/Creatinine Ratio 34.9 LAB CHEMISTRY METHOD 12/10/2024 8:57 AM [facility] Calcium 8.5 8.5 - 10.5 mg/dL LAB CHEMISTRY METHOD 12/10/2024 8:57 AM [facility] Blood Venous blood specimen / Unknown Venipuncture / Unknown 12/10/2024 7:03 AM EST 12/10/2024 8:24 AM EST Angel Adamson MD LAB BLOOD ORDERABLES [facility] [address] [place] [address], * (ABNORMAL) Urinalysis with reflex microscopic (11/24/2024 3:20 PM EST) Only the most recent of2 resultswithin the time period is included. Specific [place] Urine 1.012 1.003 - 1.030 LAB URINALYSIS - AUTOMATED METHOD 11/25/2024 10:19 AM [facility] pH, Urine 7.0 5.0 - 8.0 pH LAB URINALYSIS - AUTOMATED METHOD 11/25/2024 10:19 AM [facility] Leukocytes, Urine Large(A) Negative LAB URINALYSIS - AUTOMATED METHOD 11/25/2024 10:19 AM [facility] Nitrite, Urine Negative Negative LAB URINALYSIS - AUTOMATED METHOD 11/25/2024 10:19 AM [facility] Protein, Urine 30(A) <=Trace mg/dL LAB URINALYSIS - AUTOMATED METHOD 11/25/2024 10:19 AM [facility] Glucose, Urine Negative Negative mg/dL LAB URINALYSIS - AUTOMATED METHOD 11/25/2024 10:19 AM [facility] Ketones, Urine Negative Negative mg/dL LAB URINALYSIS - AUTOMATED METHOD 11/25/2024 10:19 AM [facility] Urobilinogen , Urine 0.2 0.2 - 1.0 mg/dL LAB URINALYSIS - AUTOMATED METHOD 11/25/2024 10:19 AM [facility] Bilirubin, Urine Negative Negative LAB URINALYSIS - AUTOMATED METHOD 11/25/2024 10:19 AM [facility] Blood, Urine Small(A) Negative LAB URINALYSIS - AUTOMATED METHOD 11/25/2024 10:19 AM [facility] RBC, Urine 9.2(H) 0 - 4 /HPF LAB URINALYSIS - AUTOMATED METHOD 11/25/2024 10:19 AM [facility] WBC, Urine 2,095.6(H) 0 - 4 /HPF LAB URINALYSIS - AUTOMATED METHOD 11/25/2024 10:19 AM [facility] Squamous Epithelial, Urine 64(H) 0 - 60 /LPF LAB URINALYSIS - AUTOMATED METHOD 11/25/2024 10:19 AM [facility] Bacteria, Urine Moderate(A) Negative /HPF LAB URINALYSIS - AUTOMATED METHOD 11/25/2024 10:19 AM [facility] Hyaline Casts, Urine 3.4(H) 0 - 3 /LPF LAB URINALYSIS - AUTOMATED METHOD 11/25/2024 10:19 AM [facility] Urine Urine specimen from urethra / Unknown 11/24/2024 3:20 PM EST 11/25/2024 9:19 AM EST Angel Adamson MD LAB URINE ORDERABLES Performing Organization Address [facility]/ZIP Co de Phone Number [facility] [address] [place] [address], [place] [phone] * Ambrocio urine culture tube (11/20/2024 12:00 AM EST) Extra Tube Hold for add-ons. 11/21/2024 2:01 PM [facility] Comment:Auto resulted. 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
--- OUTSIDE RECORDS SUMMARY | 2024-12-16 13:26 | XMS_ITS | Encounter Summary ---
Author Organization [facility] [place] [address] Care Team Providers Care Pastry Finisher Name Role Phone Leona Almendarez MD Primary Care Provider [phone] Encounter Details Date Type Department Care Team (Late st Contact Info) Description 11/20/2024 Lab Requisition [facility] - Main Lab [address] [facility] [place] [phone] Maggie Parry PA [address] [place] [address] [facility] [address] Essential (primary) hypertension Social History Tobacco Use Types Packs/Day Years [...] Date/Time Associated Diagnosis Comments COMPLETE BLOOD COUNT STAT 11/20/2024 3:13 PM EST Essential (primary) hypertension BASIC METABOLIC PANEL STAT 11/20/2024 3:13 PM EST Essential (primary) hypertension documented in this encounter Results * (ABNORMAL) Basic metabolic panel (11/20/2024 3:13 PM EST) Sodium 141 133 - 145 mmol/L LAB CHEMISTRY METHOD 11/20/2024 5:10 PM [facility] Potassium 4.2 3.5 - 5.5 mmol/L LAB CHEMISTRY METHOD 11/20/2024 5:10 PM [facility] Chloride 106 96 - 110 mmol/L LAB CHEMISTRY METHOD 11/20/2024 5:10 PM [facility] CO2 30 21 - 32 mmol/L LAB CHEMISTRY METHOD 11/20/2024 5:10 PM [facility] Anion Gap 5 3 - 11 LAB CHEMISTRY METHOD 11/20/2024 5:10 PM [facility] Glucose 94 70 - 100 mg/dL LAB CHEMISTRY METHOD 11/20/2024 5:10 PM [facility] BUN 19 5 - 25 mg/dL LAB CHEMISTRY METHOD 11/20/2024 5:10 PM [facility] Creatinine 0.63(L) 0.70 - 1.30 mg/dL LAB CHEMISTRY METHOD 11/20/2024 5:10 PM [facility] eGFR 97 >=60 mL/min/1. 73m2 LAB CHEMISTRY METHOD 11/20/2024 5:10 PM [facility] Comment:Calculation based on the??Chronic Kidney Disease Epidemiology Collaboration (CKD-EPI) equation refit??without adjustment for race. BUN/Creatinine Ratio 30.2 LAB CHEMISTRY METHOD 11/20/2024 5:10 PM [facility] Calcium 8.8 8.5 - 10.5 mg/dL LAB CHEMISTRY METHOD 11/20/2024 5:10 PM [facility] Blood Venous blood specimen / Unknown Venipuncture / Unknown 11/20/2024 3:13 PM EST 11/20/2024 4:32 PM EST Maggie YORK LAB BLOOD ORDERABLES [facility] [address] [place] [address], * (ABNORMAL) Complete blood count (11/20/2024 3:13 PM EST) [facility] WBC 7.9 4.8 - 10.8 K/mcL LAB HEMETOLOGY METHOD 11/20/2024 4:51 PM [facility] RBC 4.10(L) 4.50 - 5.50 M/mcL LAB HEMETOLOGY METHOD 11/20/2024 4:51 PM [facility] Hemoglobin 12.8(L) 13.5 - 17.5 g/dL LAB HEMETOLOGY METHOD 11/20/2024 4:51 PM [facility] Hematocrit 39.5(L) 42.0 - 54.0 % LAB HEMETOLOGY METHOD 11/20/2024 4:51 PM [facility] MCV 97.3 79.0 - 98.0 FL LAB HEMETOLOGY METHOD 11/20/2024 4:51 PM [facility] MCH 31.5 27.0 - 32.0 pcg LAB HEMETOLOGY METHOD 11/20/2024 4:51 PM [facility] MCHC 32.4 32.0 - 37.0 g/dL LAB HEMETOLOGY METHOD 11/20/2024 4:51 PM [facility] RDW 13.5 11.0 - 15.0 % LAB HEMETOLOGY METHOD 11/20/2024 4:51 PM [facility] Platelets 200 130 - 400 K/mcL LAB HEMETOLOGY METHOD 11/20/2024 4:51 PM [facility] MPV 10.2 7.0 - 11.0 FL LAB HEMETOLOGY METHOD 11/20/2024 4:51 PM [facility] NRBC 0.0 <1.0 % LAB HEMETOLOGY METHOD 11/20/2024 4:51 PM [facility] NRBC Absolute 0.00 <0.10 K/mcL LAB HEMETOLOGY METHOD 11/20/2024 4:51 PM EST [facility] Blood Venous blood specimen / Unknown Venipuncture / Unknown 11/20/2024 3:13 PM EST 11/20/2024 4:32 PM EST Maggie YORK LAB BLOOD ORDERABLES [facility] [address] [place] [address], documented in this encounter Visit Diagnoses Diagnosis Essential (primary) hypertension Unspecified essential hypertension documented in this encounter Additional Health Concerns Infection Onset Date Last Indicated Resolved Time ESBL 11/24/2024 11/24/2024 documented as of this encounter Care Teams Pastry Finisher Relationship Specialty Start Date End Date Leona Almendarez MD [facility] [address] [place], [place] PCP - General 07/03/18 documented as of this encounter
--- OUTSIDE RECORDS SUMMARY | 2024-12-16 13:26 | XMS_ITS | Encounter Summary ---
Author Organization [facility] [place] [address] Care Team Providers Care Horse Trainer Name Role Phone Loena Almendarez MD Primary Care Provider [phone] Encounter Details Date Type Department Care Team (Late st Contact Info) Description 12/15/2024 Lab Requisition [facility] - Main Lab [address] [facility] [place] [phone] Angel Adamson MD [address] [place] [address] Confusional arousals Social History Tobacco Use Types Packs/Day Years [...] Routine 12/15/2024 10:30 AM EST Confusional arousals documented in this encounter Results * (ABNORMAL) Urinalysis microscopic only (12/15/2024 10:30 AM EST) RBC, Urine 4.0 0 - 4 /HPF LAB URINALYSIS - AUTOMATED METHOD 12/15/2024 5:36 PM [facility] WBC, Urine 7.1(H) 0 - 4 /HPF LAB URINALYSIS - AUTOMATED METHOD 12/15/2024 5:36 PM [facility] Squamous Epithelial, Urine 27 0 - 60 /LPF LAB URINALYSIS - AUTOMATED METHOD 12/15/2024 5:36 PM [facility] Crystals, Urine ..Heavy Calcium Oxalate crystals. /LPF 12/15/2024 5:36 PM [facility] Bacteria, Urine Negative Negative /HPF LAB URINALYSIS - AUTOMATED METHOD 12/15/2024 5:36 PM [facility] Hyaline Casts, Urine 2.5 0 - 3 /LPF LAB URINALYSIS - AUTOMATED METHOD 12/15/2024 5:36 PM [facility] Urine Urine specimen obtained by clean catch procedure / Unknown 12/15/2024 10:30 AM EST 12/15/2024 4:02 PM EST Angel Adamson MD LAB URINE ORDERABLES [facility] [address] [place] [address], * Culture urine (12/15/2024 10:30 AM EST) Culture, Urine <10,000 CFU/mL gram positive cocci, insignificant count, no further workup 12/16/2024 7:56 AM EST [facility] Urine Urine specimen obtained by clean catch procedure / Unknown 12/15/2024 10:30 AM EST 12/15/2024 4:02 PM EST Angel Adamson MD LAB MICROBIOLOGY - G ENERAL ORDERABLES [facility] H[facility]PITAL LAB [address] [place] [address], documented in this encounter Visit Diagnoses Diagnosis Confusional arousals documented in this encounter Additional Health Concerns Infection Onset Date Last Indicated Resolved Time ESBL 11/24/2024 11/24/2024 documented as of this encounter Care Teams Horse Trainer Relationship Specialty Start Date End Date Leona Almendarez MD [address] [facility] [address] [place], [place] PCP - General 07/03/18 documented as of this encounter
--- OUTSIDE RECORDS SUMMARY | 2024-12-16 13:27 | XMS_ITS | Encounter Summary ---
Author Organization [facility] [place] [address] Care Team Providers Care Supervisor Solder Making Name Role Phone Leona Almendarez MD Primary Care Provider [phone] Encounter Details Date Type Department Care Team (Late st Contact Info) Description 12/09/[address] [facility] - Main Lab 299 [facility] [place] [phone] Angel Adamson MD [address] [place] [address] Parkinsonism, unspecified (CMS/HCC) Social History Tobacco Use Types Packs/Day Years [...] Associated Diagnosis Comments COMPLETE BLOOD COUNT Routine 12/10/2024 7:03 AM EST Parkinsonism, unspecified (CMS/HCC) BASIC METABOLIC PANEL Routine 12/10/2024 7:03 AM EST Parkinsonism, unspecified (CMS/HCC) documented in this encounter Results * (ABNORMAL) Basic metabolic panel (12/10/2024 7:03 AM EST) Sodium 136 133 - 145 mmol/L LAB CHEMISTRY METHOD 12/10/2024 8:57 AM [facility] Potassium 4.0 3.5 - 5.5 mmol/L LAB CHEMISTRY METHOD 12/10/2024 8:57 AM [facility] Chloride 104 96 - 110 mmol/L LAB CHEMISTRY METHOD 12/10/2024 8:57 AM [facility] CO2 27 21 - 32 mmol/L LAB CHEMISTRY METHOD 12/10/2024 8:57 AM [facility] Anion Gap 5 3 - 11 LAB CHEMISTRY METHOD 12/10/2024 8:57 AM [facility] Glucose 104(H) 70 - 100 mg/dL LAB CHEMISTRY METHOD 12/10/2024 8:57 AM [facility] BUN 22 5 - 25 mg/dL LAB CHEMISTRY METHOD 12/10/2024 8:57 AM [facility] Creatinine 0.63(L) 0.70 - 1.30 mg/dL LAB CHEMISTRY METHOD 12/10/2024 8:57 AM [facility] eGFR 97 >=60 mL/min/1. 73m2 LAB CHEMISTRY METHOD 12/10/2024 8:57 AM [facility] Comment:Calculation based on the??Chronic Kidney Disease Epidemiology Collaboration (CKD-EPI) equation refit??without adjustment for race. BUN/Creatinine Ratio 34.9 LAB CHEMISTRY METHOD 12/10/2024 8:57 AM [facility] Calcium 8.5 8.5 - 10.5 mg/dL LAB CHEMISTRY METHOD 12/10/2024 8:57 AM [facility] Blood Venous blood specimen / Unknown Venipuncture / Unknown 12/10/2024 7:03 AM EST 12/10/2024 8:24 AM EST Angel Adamson MD LAB BLOOD ORDERABLES [facility] [address] [place] [address], * (ABNORMAL) Complete blood count (12/10/2024 7:03 AM EST) [facility] Signature WBC 9.5 4.8 - 10.8 K/mcL LAB HEMETOLOGY METHOD 12/10/2024 8:32 AM EST [facility] RBC 3.20(L) 4.50 - 5.50 M/mcL LAB HEMETOLOGY METHOD 12/10/2024 8:32 AM [facility] Hemoglobin 10.4(L) 13.5 - 17.5 g/dL LAB HEMETOLOGY METHOD 12/10/2024 8:32 AM [facility] Hematocrit 32.5(L) 42.0 - 54.0 % LAB HEMETOLOGY METHOD 12/10/2024 8:32 AM [facility] MCV 100.6(H) 79.0 - 98.0 FL LAB HEMETOLOGY METHOD 12/10/2024 8:32 AM [facility] MCH 32.2(H) 27.0 - 32.0 pcg LAB HEMETOLOGY METHOD 12/10/2024 8:32 AM [facility] MCHC 32.0 32.0 - 37.0 g/dL LAB HEMETOLOGY METHOD 12/10/2024 8:32 AM [facility] RDW 14.2 11.0 - 15.0 % LAB HEMETOLOGY METHOD 12/10/2024 8:32 AM [facility] Platelets 356 130 - 400 K/mcL LAB HEMETOLOGY METHOD 12/10/2024 8:32 AM [facility] MPV 9.1 7.0 - 11.0 FL LAB HEMETOLOGY METHOD 12/10/2024 8:32 AM [facility] NRBC 0.0 <1.0 % LAB HEMETOLOGY METHOD 12/10/2024 8:32 AM EST [facility] NRBC Absolute 0.00 <0.10 K/mcL LAB HEMETOLOGY METHOD 12/10/2024 8:32 AM EST [facility] Blood Venous blood specimen / Unknown Venipuncture / Unknown 12/10/2024 7:03 AM EST 12/10/2024 8:24 AM EST Angel Adamson MD LAB BLOOD ORDERABLES [facility] [address] [phone] documented in this encounter Visit Diagnoses Diagnosis Parkinsonism, unspecified (CMS/HCC) documented in this encounter Additional Health Concerns Infection Onset Date Last Indicated Resolved Time ESBL 11/24/2024 11/24/2024 documented as of this encounter Care Teams Supervisor Solder Making Relationship Specialty Start Date End Date Leona Almendarez MD [address] PCP - General 07/03/18 documented as of this encounter
--- OUTSIDE RECORDS SUMMARY | 2024-12-16 13:27 | XMS_ITS | Encounter Summary ---
Author Organization [facility] [place] [address] Care Team Providers Care Manager Actuarial Name Role Phone Leona Almendarez MD Primary Care Provider [phone] Encounter Details Date Type Department Care Team (Late st Contact Info) Description 10/07/2024 Lab Requisition [facility] - Main Lab 299 [facility] [place] [phone] Angel Adamson MD [address] [place] [address] Hematuria, unspecified Social History Tobacco Use Types [...] Associated Diagnosis Comments COMPLETE BLOOD COUNT Routine 10/08/2024 7:18 AM EST Hematuria, unspecified BASIC METABOLIC PANEL Routine 10/08/2024 7:18 AM EST Hematuria, unspecified documented in this encounter Results * (ABNORMAL) Basic metabolic panel (10/08/2024 7:18 AM EST) Sodium 139 133 - 145 mmol/L LAB CHEMISTRY METHOD 10/08/2024 10:04 AM [facility] Potassium 4.0 3.5 - 5.5 mmol/L LAB CHEMISTRY METHOD 10/08/2024 10:04 AM [facility] Chloride 107 96 - 110 mmol/L LAB CHEMISTRY METHOD 10/08/2024 10:04 AM [facility] CO2 26 21 - 32 mmol/L LAB CHEMISTRY METHOD 10/08/2024 10:04 AM [facility] Anion Gap 6 3 - 11 LAB CHEMISTRY METHOD 10/08/2024 10:04 AM [facility] Glucose 111(H) 70 - 100 mg/dL LAB CHEMISTRY METHOD 10/08/2024 10:04 AM [facility] BUN 12 5 - 25 mg/dL LAB CHEMISTRY METHOD 10/08/2024 10:04 AM [facility] Creatinine 0.65(L) 0.70 - 1.30 mg/dL LAB CHEMISTRY METHOD 10/08/2024 10:04 AM [facility] eGFR 96 >=60 mL/min/1. 73m2 LAB CHEMISTRY METHOD 10/08/2024 10:04 AM [facility] Comment:Calculation based on the??Chronic Kidney Disease Epidemiology Collaboration (CKD-EPI) equation refit??without adjustment for race. BUN/Creatinine Ratio 18.5 LAB CHEMISTRY METHOD 10/08/2024 10:04 AM [facility] Calcium 9.2 8.5 - 10.5 mg/dL LAB CHEMISTRY METHOD 10/08/2024 10:04 AM [facility] Blood Venous blood specimen / Unknown Venipuncture / Unknown 10/08/2024 7:18 AM EST 10/08/2024 9:10 AM EST Angel Adamson MD LAB BLOOD ORDERABLES [facility] [address] [place] [address], * (ABNORMAL) Complete blood count (10/08/2024 7:18 AM EST) [facility] WBC 7.0 4.8 - 10.8 K/mcL LAB HEMETOLOGY METHOD 10/08/2024 9:41 AM [facility] RBC 4.20(L) 4.50 - 5.50 M/mcL LAB HEMETOLOGY METHOD 10/08/2024 9:41 AM [facility] Hemoglobin 13.6 13.5 - 17.5 g/dL LAB HEMETOLOGY METHOD 10/08/2024 9:41 AM [facility] Hematocrit 42.0 42.0 - 54.0 % LAB HEMETOLOGY METHOD 10/08/2024 9:41 AM [facility] MCV 99.1(H) 79.0 - 98.0 FL LAB HEMETOLOGY METHOD 10/08/2024 9:41 AM [facility] MCH 32.1(H) 27.0 - 32.0 pcg LAB HEMETOLOGY METHOD 10/08/2024 9:41 AM [facility] MCHC 32.4 32.0 - 37.0 g/dL LAB HEMETOLOGY METHOD 10/08/2024 9:41 AM [facility] RDW 13.3 11.0 - 15.0 % LAB HEMETOLOGY METHOD 10/08/2024 9:41 AM [facility] Platelets 255 130 - 400 K/mcL LAB HEMETOLOGY METHOD 10/08/2024 9:41 AM [facility] MPV 9.9 7.0 - 11.0 FL LAB HEMETOLOGY METHOD 10/08/2024 9:41 AM [facility] NRBC 0.0 <1.0 % LAB HEMETOLOGY METHOD 10/08/2024 9:41 AM [facility] NRBC Absolute 0.00 <0.10 K/mcL LAB HEMETOLOGY METHOD 10/08/2024 9:41 AM EST [facility] Blood Venous blood specimen / Unknown Venipuncture / Unknown 10/08/2024 7:18 AM EST 10/08/2024 9:10 AM EST Angel Adamson MD LAB BLOOD ORDERABLES [facility] [address] [place], [place] [address] [phone] documented in this encounter Visit Diagnoses Diagnosis Hematuria, unspecified documented in this encounter Additional Health Concerns Infection Onset Date Last Indicated Resolved Time ESBL 11/24/2024 11/24/2024 documented as of this encounter Care Teams Manager Actuarial Relationship Specialty Start Date End Date Leona Almendarez MD 1221 [facility] [address] [place], [place] PCP - General 07/03/18 documented as of this encounter
--- OUTSIDE RECORDS SUMMARY | 2024-12-16 13:27 | XMS_ITS | Encounter Summary ---
Author Organization [facility] [place] [address] Care Team Providers Care Cigarette Seller Name Role Phone Leona Almendarez MD Primary Care Provider [phone] Encounter Details Date Type Department Care Team (Late st Contact Info) Description 09/30/2024 Lab Requisition [facility] - Main Lab 299 [facility] [place] [phone] Angel Adamson MD [address] [place] [address] Hematuria, unspecified Social History Tobacco Use Types [...] Associated Diagnosis Comments COMPLETE BLOOD COUNT Routine 10/01/2024 7:30 AM EST Hematuria, unspecified BASIC METABOLIC PANEL Routine 10/01/2024 7:30 AM EST Hematuria, unspecified documented in this encounter Results * (ABNORMAL) Complete blood count (10/01/2024 7:30 AM EST) WBC 7.9 4.8 - 10.8 K/[facility] LAB HEMETOLOGY METHOD 10/01/2024 10:12 AM [facility] RBC 4.00(L) 4.50 - 5.50 M/mcL LAB HEMETOLOGY METHOD 10/01/2024 10:12 AM [facility] Hemoglobin 13.0(L) 13.5 - 17.5 g/dL LAB HEMETOLOGY METHOD 10/01/2024 10:12 AM [facility] Hematocrit 40.5(L) 42.0 - 54.0 % LAB HEMETOLOGY METHOD 10/01/2024 10:12 AM [facility] MCV 101.0(H) 79.0 - 98.0 FL LAB HEMETOLOGY METHOD 10/01/2024 10:12 AM [facility] MCH 32.4(H) 27.0 - 32.0 pcg LAB HEMETOLOGY METHOD 10/01/2024 10:12 AM [facility] MCHC 32.1 32.0 - 37.0 g/dL LAB HEMETOLOGY METHOD 10/01/2024 10:12 AM [facility] RDW 13.6 11.0 - 15.0 % LAB HEMETOLOGY METHOD 10/01/2024 10:12 AM [facility] Platelets 223 130 - 400 K/mcL LAB HEMETOLOGY METHOD 10/01/2024 10:12 AM [facility] MPV 10.3 7.0 - 11.0 FL LAB HEMETOLOGY METHOD 10/01/2024 10:12 AM [facility] NRBC 0.0 <1.0 % LAB HEMETOLOGY METHOD 10/01/2024 10:12 AM [facility] NRBC Absolute 0.00 <0.10 K/mcL LAB HEMETOLOGY METHOD 10/01/2024 10:12 AM [facility] Blood Venous blood specimen / Unknown Venipuncture / Unknown 10/01/2024 7:30 AM EST 10/01/2024 8:42 AM EST Angel Adamson MD LAB BLOOD ORDERABLES [facility] [address] [place] [address], * (ABNORMAL) Basic metabolic panel (10/01/2024 7:30 AM EST) Sodium 140 133 - 145 mmol/L LAB CHEMISTRY METHOD 10/01/2024 10:16 AM [facility] Potassium 4.1 3.5 - 5.5 mmol/L LAB CHEMISTRY METHOD 10/01/2024 10:16 AM [facility] Chloride 108 96 - 110 mmol/L LAB CHEMISTRY METHOD 10/01/2024 10:16 AM [facility] CO2 26 21 - 32 mmol/L LAB CHEMISTRY METHOD 10/01/2024 10:16 AM [facility] Anion Gap 6 3 - 11 LAB CHEMISTRY METHOD 10/01/2024 10:16 AM [facility] Glucose 84 70 - 100 mg/dL LAB CHEMISTRY METHOD 10/01/2024 10:16 AM [facility] BUN 16 5 - 25 mg/dL LAB CHEMISTRY METHOD 10/01/2024 10:16 AM [facility] Creatinine 0.65(L) 0.70 - 1.30 mg/dL LAB CHEMISTRY METHOD 10/01/2024 10:16 AM [facility] eGFR 96 >=60 mL/min/1. 73m2 LAB CHEMISTRY METHOD 10/01/2024 10:16 AM [facility] Comment:Calculation based on the??Chronic Kidney Disease Epidemiology Collaboration (CKD-EPI) equation refit??without adjustment for race. BUN/Creatinine Ratio 24.6 LAB CHEMISTRY METHOD 10/01/2024 10:[address] [facility] Calcium 9.0 8.5 - 10.5 mg/dL LAB CHEMISTRY METHOD 10/01/2024 10:[address] [facility] Blood Venous blood specimen / Unknown Venipuncture / Unknown 10/01/2024 7:30 AM EST 10/01/2024 8:42 AM EST Angel Adamson MD LAB BLOOD ORDERABLES [facility] [address] [place] [address], documented in this encounter Visit Diagnoses Diagnosis Hematuria, unspecified documented in this encounter Additional Health Concerns Infection Onset Date Last Indicated Resolved Time ESBL 11/24/2024 11/24/2024 documented as of this encounter Care Teams Cigarette Seller Relationship Specialty Start Date End Date Leona Almendarez MD [facility] [address] [place], [place] PCP - General 07/03/18 documented as of this encounter
--- OUTSIDE RECORDS SUMMARY | 2024-12-16 13:27 | XMS_ITS | Encounter Summary ---
Author Organization [facility] [place] [address] Care Team Providers Care Shake Table Operator Name Role Phone Leona Almendarez MD Primary Care Provider [phone] Encounter Details Date Type Department Care Team (Late st Contact Info) Description 11/26/2024 Lab Requisition [facility] - Main Lab 299 [facility] [place] [phone] Angel Adamson MD [address] [place] [address] Parkinsonism, unspecified (CMS/HCC) Social History Tobacco Use [...] Associated Diagnosis Comments COMPLETE BLOOD COUNT Routine 11/27/2024 7:12 AM EST Parkinsonism, unspecified (CMS/HCC) BASIC METABOLIC PANEL Routine 11/27/2024 7:12 AM EST Parkinsonism, unspecified (CMS/HCC) documented in this encounter Results * Basic metabolic panel (11/27/2024 7:12 AM EST) Sodium 138 133 - 145 mmol/L LAB CHEMISTRY METHOD 11/27/2024 9:35 AM [facility] Potassium 4.0 3.5 - 5.5 mmol/L LAB CHEMISTRY METHOD 11/27/2024 9:35 AM [facility] Chloride 105 96 - 110 mmol/L LAB CHEMISTRY METHOD 11/27/2024 9:35 AM [facility] CO2 29 21 - 32 mmol/L LAB CHEMISTRY METHOD 11/27/2024 9:35 AM [facility] Anion Gap 4 3 - 11 LAB CHEMISTRY METHOD 11/27/2024 9:35 AM [facility] Glucose 81 70 - 100 mg/dL LAB CHEMISTRY METHOD 11/27/2024 9:35 AM [facility] BUN 20 5 - 25 mg/dL LAB CHEMISTRY METHOD 11/27/2024 9:35 AM [facility] Creatinine 0.73 0.70 - 1.30 mg/dL LAB CHEMISTRY METHOD 11/27/2024 9:35 AM [facility] eGFR 93 >=60 mL/min/1. 73m2 LAB CHEMISTRY METHOD 11/27/2024 9:35 AM [facility] Comment:Calculation based on the??Chronic Kidney Disease Epidemiology Collaboration (CKD-EPI) equation refit??without adjustment for race. BUN/Creatinine Ratio 27.4 LAB CHEMISTRY METHOD 11/27/2024 9:35 AM [facility] Calcium 9.2 8.5 - 10.5 mg/dL LAB CHEMISTRY METHOD 11/27/2024 9:35 AM [facility] Blood Venous blood specimen / Unknown Venipuncture / Unknown 11/27/2024 7:12 AM EST 11/27/2024 8:47 AM EST Angel Adamson MD LAB BLOOD ORDERABLES [facility] [address] [place] [address], * (ABNORMAL) Complete blood count (11/27/2024 7:12 AM EST) [facility] WBC 7.7 4.8 - 10.8 K/mcL LAB HEMETOLOGY METHOD 11/27/2024 9:13 AM [facility] RBC 4.30(L) 4.50 - 5.50 M/mcL LAB HEMETOLOGY METHOD 11/27/2024 9:13 AM [facility] Hemoglobin 13.8 13.5 - 17.5 g/dL LAB HEMETOLOGY METHOD 11/27/2024 9:13 AM [facility] Hematocrit 42.9 42.0 - 54.0 % LAB HEMETOLOGY METHOD 11/27/2024 9:13 AM [facility] MCV 100.5(H) 79.0 - 98.0 FL LAB HEMETOLOGY METHOD 11/27/2024 9:13 AM [facility] MCH 32.3(H) 27.0 - 32.0 pcg LAB HEMETOLOGY METHOD 11/27/2024 9:13 AM [facility] MCHC 32.2 32.0 - 37.0 g/dL LAB HEMETOLOGY METHOD 11/27/2024 9:13 AM [facility] RDW 13.7 11.0 - 15.0 % LAB HEMETOLOGY METHOD 11/27/2024 9:13 AM [facility] Platelets 214 130 - 400 K/mcL LAB HEMETOLOGY METHOD 11/27/2024 9:13 AM [facility] MPV 10.2 7.0 - 11.0 FL LAB HEMETOLOGY METHOD 11/27/2024 9:13 AM [facility] NRBC 0.0 <1.0 % LAB HEMETOLOGY METHOD 11/27/2024 9:13 AM EST [facility] NRBC Absolute 0.00 <0.10 K/mcL LAB HEMETOLOGY METHOD 11/27/2024 9:13 AM EST [facility] Blood Venous blood specimen / Unknown Venipuncture / Unknown 11/27/2024 7:12 AM EST 11/27/2024 8:47 AM EST Angel Adamson MD LAB BLOOD ORDERABLES [facility] [address] [place] [address], documented in this encounter Visit Diagnoses Diagnosis Parkinsonism, unspecified (CMS/HCC) documented in this encounter Additional Health Concerns Infection Onset Date Last Indicated Resolved Time ESBL 11/24/2024 11/24/2024 documented as of this encounter Care Teams Shake Table Operator Relationship Specialty Start Date End Date Leona Almendarez MD [address] PCP - General 07/03/18 documented as of this encounter
--- OUTSIDE RECORDS SUMMARY | 2024-12-16 13:27 | XMS_ITS | Encounter Summary ---
Author Organization [facility] [place] [address] Care Team Providers Care Weld Technician Name Role Phone Leona Almendarez MD Primary Care Provider Encounter Details Date Type Department Care Team (Late st Contact Info) Description 11/21/[address] [facility] - Main Lab 299 [facility] [place] [phone] Angel Adamson MD [address] [place] [address] Urinary tract infection, site not specified Social History Tobacco Use Types Packs/Day Years [...] Name Priority Date/Time Associated Diagnosis Comments URINALYSIS WITH REFLEX MICROSCOPIC Routine 11/20/2024 12:00 AM EST Urinary tract infection, site not specified AMBROCIO URINE CULTURE TUBE Routine 11/20/2024 12:00 AM EST Urinary tract infection, site not specified URINALYSIS WITH REFLEX MICROSCOPIC Routine 11/20/2024 12:00 AM EST Urinary tract infection, site not specified documented in this encounter Results * Ambrocio urine culture tube (11/20/2024 12:00 AM EST) Pathologist [facility] Extra Tube Hold for add-ons. 11/21/2024 2:01 PM [facility] Comment:Auto resulted. Urine Urine specimen obtained by clean catch procedure / Unknown Non-blood Collection / Unknown 11/20/2024 11/21/2024 12:11 PM EST Angel Adamson MD LAB URINE ORDERABLES [facility] [address] [place] [address], * (ABNORMAL) Urinalysis with reflex microscopic (11/20/2024 12:00 AM EST) [facility] Specific [place] Urine 1.019 1.003 - 1.030 LAB URINALYSIS - AUTOMATED METHOD 11/21/2024 1:26 PM [facility] pH, Urine >=9.0(A) 5.0 - 8.0 pH LAB URINALYSIS - AUTOMATED METHOD 11/21/2024 1:26 PM [facility] Leukocytes, Urine Large(A) Negative LAB URINALYSIS - AUTOMATED METHOD 11/21/2024 1:26 PM [facility] Nitrite, Urine Positive(A) Negative LAB URINALYSIS - AUTOMATED METHOD 11/21/2024 1:26 PM [facility] Protein, Urine 100(A) <=Trace mg/dL LAB URINALYSIS - AUTOMATED METHOD 11/21/2024 1:26 PM [facility] Glucose, Urine Negative Negative mg/dL LAB URINALYSIS - AUTOMATED METHOD 11/21/2024 1:26 PM [facility] Ketones, Urine Negative Negative mg/dL LAB URINALYSIS - AUTOMATED METHOD 11/21/2024 1:26 PM [facility] Urobilinogen , Urine 0.2 0.2 - 1.0 mg/dL LAB URINALYSIS - AUTOMATED METHOD 11/21/2024 1:26 PM [facility] Bilirubin, Urine Negative Negative LAB URINALYSIS - AUTOMATED METHOD 11/21/2024 1:26 PM [facility] Blood, Urine Negative Negative LAB URINALYSIS - AUTOMATED METHOD 11/21/2024 1:26 PM [facility] RBC, Urine 1.3 0 - 4 /HPF LAB URINALYSIS - AUTOMATED METHOD 11/21/2024 1:26 PM [facility] WBC, Urine 27.4(H) 0 - 4 /HPF LAB URINALYSIS - AUTOMATED METHOD 11/21/2024 1:26 PM [facility] Squamous Epithelial, Urine 10 0 - 60 /LPF LAB URINALYSIS - AUTOMATED METHOD 11/21/2024 1:26 PM [facility] Crystals, Urine HEAVY TRIPLE PHOS /LPF LAB URINALYSIS - AUTOMATED METHOD 11/21/2024 1:26 PM [facility] Bacteria, Urine Few(A) Negative /HPF LAB URINALYSIS - AUTOMATED METHOD 11/21/2024 1:26 PM [facility] Hyaline Casts, Urine 6.6(H) 0 - 3 /LPF LAB URINALYSIS - AUTOMATED METHOD 11/21/2024 1:26 PM [facility] Urine Urine specimen obtained by clean catch procedure / Unknown Non-blood Collection / Unknown 11/20/2024 11/21/2024 12:11 PM EST Angel Adamson MD LAB URINE ORDERABLES [facility] [address] [place] [address], documented in this encounter Visit Diagnoses Diagnosis Urinary tract infection, site not specified documented in this encounter Additional Health Concerns Infection Onset Date Last Indicated Resolved Time ESBL 11/24/2024 11/24/2024 documented as of this encounter Care Teams Weld Technician Relationship Specialty Start Date End Date Leona Almendarez MD 1221 [facility] [address] [place] PCP - General 07/03/18 documented as of this encounter
--- OUTSIDE RECORDS SUMMARY | 2024-12-16 13:27 | XMS_ITS | Encounter Summary ---
Author Organization [facility] [place] [address] Care Team Providers Care Framework Developer Name Role Phone Leona Almendarez MD Primary Care Provider [phone] Encounter Details Date Type Department Care Team (Late st Contact Info) Description 09/22/2024 Lab Requisition [facility] - Main Lab 299 [facility] [place] [phone] Angel Adamson MD [address] [place] [address] Hematuria, unspecified Social History Tobacco Use Types [...] Associated Diagnosis Comments COMPLETE BLOOD COUNT Routine 09/24/2024 6:32 AM EST Hematuria, unspecified BASIC METABOLIC PANEL Routine 09/24/2024 6:32 AM EST Hematuria, unspecified documented in this encounter Results * (ABNORMAL) Complete blood count (09/24/2024 6:32 AM EST) WBC 6.9 4.8 - 10.8 K/[facility] LAB HEMETOLOGY METHOD 09/24/2024 9:58 AM [facility] LAB RBC 4.20(L) 4.50 - 5.50 M/[facility] LAB HEMETOLOGY METHOD 09/24/2024 9:58 AM [facility] LAB Hemoglobin 13.3(L) 13.5 - 17.5 g/dL LAB HEMETOLOGY METHOD 09/24/2024 9:58 AM [facility] LAB Hematocrit 41.8(L) 42.0 - 54.0 % LAB HEMETOLOGY METHOD 09/24/2024 9:58 AM [facility] LAB MCV 100.7(H) 79.0 - 98.0 FL LAB HEMETOLOGY METHOD 09/24/2024 9:58 AM [facility] LAB MCH 32.0 27.0 - 32.0 pcg LAB HEMETOLOGY METHOD 09/24/2024 9:58 AM [facility] LAB MCHC 31.8(L) 32.0 - 37.0 g/dL LAB HEMETOLOGY METHOD 09/24/2024 9:58 AM [facility] LAB RDW 13.6 11.0 - 15.0 % LAB HEMETOLOGY METHOD 09/24/2024 9:58 AM [facility] LAB Platelets 222 130 - 400 K/[facility] LAB HEMETOLOGY METHOD 09/24/2024 9:58 AM [facility] LAB MPV 10.3 7.0 - 11.0 FL LAB HEMETOLOGY METHOD 09/24/2024 9:58 AM [facility] LAB NRBC 0.0 <1.0 % LAB HEMETOLOGY METHOD 09/24/2024 9:58 AM [facility] LAB NRBC Absolute 0.00 <0.10 K/[facility] LAB HEMETOLOGY METHOD 09/24/2024 9:58 AM [facility] LAB Blood Venous blood specimen / Unknown Venipuncture / Unknown 09/24/2024 6:32 AM EST 09/24/2024 8:46 AM EST Angel Adamson MD LAB BLOOD ORDERABLES [facility] LAB [address] [place] [address], * (ABNORMAL) Basic metabolic panel (09/24/2024 6:32 AM EST) Sodium 141 133 - 145 mmol/L LAB CHEMISTRY METHOD 09/24/2024 10:21 AM [facility] LAB Potassium 3.8 3.5 - 5.5 mmol/L LAB CHEMISTRY METHOD 09/24/2024 10:21 AM [facility] LAB Chloride 107 96 - 110 mmol/L LAB CHEMISTRY METHOD 09/24/2024 10:21 AM [facility] LAB CO2 26 21 - 32 mmol/L LAB CHEMISTRY METHOD 09/24/2024 10:21 AM [facility] LAB Anion Gap 8 3 - 11 LAB CHEMISTRY METHOD 09/24/2024 10:21 AM [facility] LAB Glucose 63(L) 70 - 100 mg/dL LAB CHEMISTRY METHOD 09/24/2024 10:21 AM [facility] LAB BUN 15 5 - 25 mg/dL LAB CHEMISTRY METHOD 09/24/2024 10:21 AM [facility] LAB Creatinine 0.59(L) 0.70 - 1.30 mg/dL LAB CHEMISTRY METHOD 09/24/2024 10:21 AM [facility] LAB eGFR 99 >=60 mL/min/1. 73m2 LAB CHEMISTRY METHOD 09/24/2024 10:21 AM [facility] LAB Comment:Calculation based on the??Chronic Kidney Disease Epidemiology Collaboration (CKD-EPI) equation refit??without adjustment for race. BUN/Creatinine Ratio 25.4 LAB CHEMISTRY METHOD 09/24/2024 10:21 AM EST [facility] LAB Calcium 9.1 8.5 - 10.5 mg/dL LAB CHEMISTRY METHOD 09/24/2024 10:21 AM EST [facility] LAB Blood Venous blood specimen / Unknown Venipuncture / Unknown 09/24/2024 6:32 AM EST 09/24/2024 8:46 AM EST Angel Adamson MD LAB BLOOD ORDERABLES [facility] LAB [address] [place] [address], documented in this encounter Visit Diagnoses Diagnosis Hematuria, unspecified documented in this encounter Additional Health Concerns Infection Onset Date Last Indicated Resolved Time ESBL 11/24/2024 11/24/2024 documented as of this encounter Care Teams Framework Developer Relationship Specialty Start Date End Date Leona Almendarez MD [facility] [address] PCP - General 07/03/18 documented as of this encounter
--- OUTSIDE RECORDS SUMMARY | 2024-12-16 13:27 | XMS_ITS | Encounter Summary ---
Author Organization [facility] [place] [address] Care Team Providers Care Departmental Shipping Clerk Name Role Phone Leona Almendarez MD Primary Care Provider [phone] Encounter Details Date Type Department Care Team (Late st Contact Info) Description 11/25/2024 Lab Requisition [facility] - Main Lab 299 [facility] [place] [phone] Angel Adamson MD [address] [place] [address] Altered mental status, unspecified; Chronic fatigue, unspecified Social History Tobacco Use Types Packs/Day [...] Diagnosis Comments URINALYSIS WITH REFLEX MICROSCOPIC Routine 11/24/2024 3:20 PM EST Altered mental status, unspecified Chronic fatigue, unspecified URINALYSIS WITH REFLEX MICROSCOPIC Routine 11/24/2024 3:20 PM EST Altered mental status, unspecified Chronic fatigue, unspecified CULTURE URINE Routine 11/24/2024 3:20 PM EST Altered mental status, unspecified Chronic fatigue, unspecified documented in this encounter Results * (ABNORMAL) Urinalysis with reflex microscopic (11/24/2024 3:20 PM EST) Specific [place] Urine 1.012 1.003 - 1.030 LAB URINALYSIS - AUTOMATED METHOD 11/25/2024 10:19 AM [facility] LAB pH, Urine 7.0 5.0 - 8.0 pH LAB URINALYSIS - AUTOMATED METHOD 11/25/2024 10:19 AM [facility] LAB Leukocytes, Urine Large(A) Negative LAB URINALYSIS - AUTOMATED METHOD 11/25/2024 10:19 AM [facility] LAB Nitrite, Urine Negative Negative LAB URINALYSIS - AUTOMATED METHOD 11/25/2024 10:19 AM [facility] LAB Protein, Urine 30(A) <=Trace mg/dL LAB URINALYSIS - AUTOMATED METHOD 11/25/2024 10:19 AM [facility] LAB Glucose, Urine Negative Negative mg/dL LAB URINALYSIS - AUTOMATED METHOD 11/25/2024 10:19 AM [facility] LAB Ketones, Urine Negative Negative mg/dL LAB URINALYSIS - AUTOMATED METHOD 11/25/2024 10:19 AM [facility] LAB Urobilinogen , Urine 0.2 0.2 - 1.0 mg/dL LAB URINALYSIS - AUTOMATED METHOD 11/25/2024 10:19 AM [facility] LAB Bilirubin, Urine Negative Negative LAB URINALYSIS - AUTOMATED METHOD 11/25/2024 10:19 AM [facility] LAB Blood, Urine Small(A) Negative LAB URINALYSIS - AUTOMATED METHOD 11/25/2024 10:19 AM [facility] LAB RBC, Urine 9.2(H) 0 - 4 /HPF LAB URINALYSIS - AUTOMATED METHOD 11/25/2024 10:19 AM [facility] LAB WBC, Urine 2,095.6(H) 0 - 4 /HPF LAB URINALYSIS - AUTOMATED METHOD 11/25/2024 10:19 AM EST [facility] LAB Squamous Epithelial, Urine 64(H) 0 - 60 /LPF LAB URINALYSIS - AUTOMATED METHOD 11/25/2024 10:19 AM [facility] LAB Bacteria, Urine Moderate(A) Negative /HPF LAB URINALYSIS - AUTOMATED METHOD 11/25/2024 10:19 AM [facility] LAB Hyaline Casts, Urine 3.4(H) 0 - 3 /LPF LAB URINALYSIS - AUTOMATED METHOD 11/25/2024 10:19 AM [facility] LAB Urine Urine specimen from urethra / Unknown 11/24/2024 3:20 PM EST 11/25/2024 9:19 AM EST Angel Adamson MD LAB URINE ORDERABLES [facility] LAB [address] [place] [address], * (ABNORMAL) Culture urine (11/24/2024 3:20 PM EST) Culture, Urine 50,000-100,00 0 CFU/mL Klebsiella pneumoniae ESBL(A) ABNER 11/28/2024 9:40 AM EST [facility] LAB Comment: TESTING SUGGESTS AN ESBL(EXTENDED-SPECTRUM BETA-L ACTAMASE PRODUCING STRAIN)WHICH MAY BE RESISTANT C LINICALLY TO ALL CEPHALOSPORINS AND AZTREONAM. This is an edited result. Previous organism was Gram negative bacilli on 11/26/2024 at 0814 EST. This is an edited result. Previous organism was Klebsiella pneumoniae ssp pneumoniae on 11/27/2024 at 1021 EST. Urine Urine specimen from urethra / Unknown 11/24/2024 3:20 PM EST 11/25/2024 9:19 AM EST Narrative Organism Antibiotic Method Susceptibility Klebsiella pneumoniae ESBL Amoxicillin/Clavulanate ABNER 16 ug/ml: Intermediate Klebsiella pneumoniae ESBL Ampicillin/Sulbactam ABNER >=32 ug/ml: Resistant Klebsiella pneumoniae ESBL Piperacillin/Tazobactam ABNER 16 ug/ml: Intermediate Klebsiella pneumoniae ESBL Cefazolin (Urine) ABNER >=32 ug/ml: Resistant Klebsiella pneumoniae ESBL Cefoxitin ABNER <=4 ug/ml: Susceptible Klebsiella pneumoniae ESBL Ceftazidime ABNER >=32 ug/ml: Resistant Klebsiella pneumoniae ESBL Ceftriaxone ABNER >=64 ug/ml: Resistant Klebsiella pneumoniae ESBL Cefepime ABNER >=32 ug/ml: Resistant Klebsiella pneumoniae ESBL Meropenem ABNER <=0.25 ug/ml: Susceptible Klebsiella pneumoniae ESBL Amikacin ABNER 4 ug/ml: Susceptible Klebsiella pneumoniae ESBL Gentamicin ABNER <=1 ug/ml: Susceptible Klebsiella pneumoniae ESBL Ciprofloxacin ABNER >=4 ug/ml: Resistant Klebsiella pneumoniae ESBL Levofloxacin ABNER 1 ug/ml: Resistant Klebsiella pneumoniae ESBL Nitrofurantoin ABNER <=16 ug/ml: Susceptible Klebsiella pneumoniae ESBL Trimethoprim/Sulfamethoxazo le ABNER >=320 ug/ml: Resistant Angel Adamson MD LAB MICROBIOLOGY - G ENERAL ORDERABLES [facility] ([facility] LAB [address] [place] [address], documented in this encounter Visit Diagnoses Diagnosis Altered mental status, unspecified Chronic fatigue, unspecified documented in this encounter Additional Health Concerns Infection Onset Date Last Indicated Resolved Time ESBL 11/24/2024 11/24/2024 documented as of this encounter Care Teams Departmental Shipping Clerk Relationship Specialty Start Date End Date Leona Almendarez MD [facility] [address] PCP - General 07/03/18 documented as of this encounter
== END 2024-12-16 11:51 | disposition home or self-care (01) ==
PROVIDERS: PCP Internal Medicine; Visit Provider Physician Assistant
DX: Z96.641 Presence of right artificial hip joint (principal)
CPT/HCPCS: 99024

== ENCOUNTER → 2024-12-16 11:17 | Outpatient (BNV) | payer MEDICARE, MEDICAID, SELFPAY | PROVIDERS: Visit Provider Radiology Diagnostic Radiology | DX: M25.551 Pain in right hip (principal); Z96.641 Presence of right artificial hip joint | CPT/HCPCS: 73502 ==

== ENCOUNTER 2025-01-14 11:07 | Outpatient (REF) | payer MEDICARE, MEDICAID, SELFPAY ==
--- NOTE | ~2025-01-14 | XR_ITS ---
CLINICAL HISTORY: M25.551 - Pain in right hip 3 view, pelvis and right hip Comparison: 12/16/2024 Findings: The bones and components of the hip prostheses are intact. No significant arthritic change. The soft tissues are unremarkable. IMPRESSION: No acute findings. This document has been electronically signed by: Vern Tilley MD on 01/14/2025 18:38:28
--- OUTSIDE RECORDS SUMMARY | 2025-01-15 13:02 | XMS_ITS | Encounter Summary ---
Author Organization [facility] [place] [address] Care Team Providers Care Squadron Worker Name Role Phone Leona Almendarez MD Primary Care Provider [phone] Encounter Details Date Type Department Care Team (Late st Contact Info) Description 01/08/2025 Lab Requisition [facility] Lab 299 [facility] [place] [phone] Angel Adamson MD [address] [place] [address] Hematuria, unspecified Social History Tobacco Use Types [...] reflex microscopic (01/08/2025 12:00 AM EST) Specific [place] Urine 1.020 1.003 - 1.030 LAB URINALYSIS - AUTOMATED METHOD 01/08/2025 7:39 PM [facility] pH, Urine 6.5 5.0 - 8.0 pH LAB URINALYSIS - AUTOMATED METHOD 01/08/2025 7:39 PM [facility] Leukocytes, Urine Trace(A) Negative LAB URINALYSIS - AUTOMATED METHOD 01/08/2025 7:39 PM [facility] Nitrite, Urine Negative Negative LAB URINALYSIS - AUTOMATED METHOD 01/08/2025 7:39 PM [facility] Protein, Urine Negative <=Trace mg/dL LAB URINALYSIS - AUTOMATED METHOD 01/08/2025 7:39 PM [facility] Glucose, Urine Negative Negative mg/dL LAB URINALYSIS - AUTOMATED METHOD 01/08/2025 7:39 PM [facility] Ketones, Urine Negative Negative mg/dL LAB URINALYSIS - AUTOMATED METHOD 01/08/2025 7:39 PM [facility] Urobilinogen, Urine 1.0 0.2 - 1.0 mg/dL LAB URINALYSIS - AUTOMATED METHOD 01/08/2025 7:39 PM [facility] Bilirubin, Urine Negative Negative LAB URINALYSIS - AUTOMATED METHOD 01/08/2025 7:39 PM [facility] Blood, Urine Negative Negative LAB URINALYSIS - AUTOMATED METHOD 01/08/2025 7:39 PM [facility] RBC, Urine 3.6 0 - 4 /HPF LAB URINALYSIS - AUTOMATED METHOD 01/08/2025 7:39 PM [facility] WBC, Urine 1.6 0 - 4 /HPF LAB URINALYSIS - AUTOMATED METHOD 01/08/2025 7:39 PM [facility] Squamous Epithelial, Urine 4 0 - 60 /LPF LAB URINALYSIS - AUTOMATED METHOD 01/08/2025 7:39 PM [facility] Bacteria, Urine Negative Negative /HPF LAB URINALYSIS - AUTOMATED METHOD 01/08/2025 7:39 PM [facility] Hyaline Casts, Urine 0.8 0 - 3 /LPF LAB URINALYSIS - AUTOMATED METHOD 01/08/2025 7:39 PM [facility] Urine Urine specimen obtained by clean catch procedure / Unknown 01/08/2025 01/08/2025 7:01 PM EST us Angel Adamson MD LAB URINE ORDERABLES Final Resul t Performing Organization Address [facility]/ZIP Co de Phone Number [facility] [address] [place] [address], [place] [phone] * Culture urine (01/08/2025 12:00 AM EST) Culture, Urine No growth 01/09/2025 1:42 PM [facility] Urine Urine specimen obtained by clean catch procedure / Unknown 01/08/2025 01/08/2025 7:01 PM EST us Angel Adamson MD LAB MICROBIOLOGY - GENERAL ORDER TABITHA Final Result Performing Organization Address City/[facility]/ZIP Co de Phone Number [facility] [address] [place] [address], [place] [phone] documented in this encounter Visit Diagnoses Diagnosis Hematuria, unspecified documented in this encounter Additional Health Concerns Infection Onset Date Last Indicated Resolved Time ESBL 11/24/2024 11/24/2024 documented as of this encounter Care Teams Squadron Worker Relationship Specialty Start Date End Date Leona Almendarez MD [address] PCP - General 07/03/18 documented as of this encounter
--- OUTSIDE RECORDS SUMMARY | 2025-01-15 13:02 | XMS_ITS | Clinical Summary ---
Author Organization [address] Address [address] [place] [address] Phone Care Team Providers Care Entry Level Accountant Name Role Phone Leona Almendarez MD Primary Care Provider [phone] Encounters Date Type Department Care Team Description 01/15/2025 Lab Requisition [facility] - [facility] Lab [address] [place] [address] Angel Adamson MD Other fatigue 01/08/2025 [facility] [address] [place] [address] Angel Adamson MD Hematuria, unspecified 01/08/2025 Lab Requisition [facility] Lab [address] [place] [address] Angel Adamson MD Unspecified atrial fibrillation ([facility]/HCC) 12/23/2024 Lab Requisition [facility] Lab [address] [place] [address] Angel Adamson MD Parkinsonism, unspecified ([facility]/HCC) 12/16/2024 Lab Requisition [facility] Main Lab [address] [place] [address] Angel Adamson MD Parkinsonism, unspecified ([facility]/HCC) 12/15/2024 Lab Requisition [facility] Main Lab [address] [place] [phone] Angel Adamson MD Altered mental status, unspecified; Confusional arousals 12/09/2024 Lab Requisition [facility] Lab [address] [place] [phone] Angel Adamson MD Parkinsonism, unspecified ([facility]) 11/26/2024 Lab Requisition [facility] Lab [address] [place] [phone] Angel Adamson MD Parkinsonism, unspecified ([facility]) 11/25/2024 Lab Requisition [facility] Lab [address] [place] [phone] Angel Adamson MD Altered mental status, unspecified; Chronic fatigue, unspecified 11/21/2024 Lab Requisition [facility] Lab [address] [place] [phone] Angel Adamson MD Urinary tract infection, site not specified 11/20/2024 Lab Requisition [facility] Lab [address] [place] [phone] Maggie Parry PA Essential (primary) hypertension 10/14/2024 Lab Requisition [facility] Lab [address] [place] [phone] Angel Adamson MD Hematuria, unspecified from Last [...] of Health Screening 10/25/2022 COVID-19 Vaccine ( season) 2024 Influenza Vaccine (#1) 2024 Hypertension/CHF/CAD [...] Procedure Name Priority Date/Time Associated Diagnosis Comments HEMOGLOBIN AND HEMATOCRIT Routine 01/15/2025 8:18 AM EST Other fatigue BASIC METABOLIC PANEL STAT 01/08/2025 10:49 AM [...] from Last 3 Months Results * (ABNORMAL) Hemoglobin and hematocrit (01/15/2025 8:18 AM EST) Hemoglobin 13.3(L) 13.5 - 17.5 g/dL LAB HEMETOLOGY METHOD 01/15/2025 10:10 AM EST [facility] Hematocrit 41.9(L) 42.0 - 54.0 % LAB HEMETOLOGY METHOD 01/15/2025 10:10 AM EST [facility] Blood Venous blood specimen / Unknown Venipuncture / Unknown 01/15/2025 8:18 AM EST 01/15/2025 9:34 AM EST Angel Adamson MD LAB BLOOD ORDERABLES Final Resul t [facility] [address] [place] [address], [place] [phone] * (ABNORMAL) Complete blood count (01/08/2025 10:49 AM EST) Only the most recent of7 resultswithin the time period is included. Pathologist [facility] WBC 6.8 4.8 - 10.8 K/mcL LAB HEMETOLOGY METHOD 01/08/2025 11:42 AM [facility] RBC 3.70(L) 4.50 - 5.50 M/mcL LAB HEMETOLOGY METHOD 01/08/2025 11:42 AM [facility] Hemoglobin 11.8(L) 13.5 - 17.5 g/dL LAB HEMETOLOGY METHOD 01/08/2025 11:42 AM [facility] Hematocrit 37.8(L) 42.0 - 54.0 % LAB HEMETOLOGY METHOD 01/08/2025 11:42 AM [facility] MCV 103.6(H) 79.0 - 98.0 FL LAB HEMETOLOGY METHOD 01/08/2025 11:42 AM [facility] MCH 32.3(H) 27.0 - 32.0 pcg LAB HEMETOLOGY METHOD 01/08/2025 11:42 AM EST [facility] MCHC 31.2(L) 32.0 - 37.0 g/dL LAB HEMETOLOGY METHOD 01/08/2025 11:42 AM [facility] RDW 14.0 11.0 - 15.0 % LAB HEMETOLOGY METHOD 01/08/2025 11:42 AM EST [facility] Platelets 221 130 - 400 K/mcL LAB HEMETOLOGY METHOD 01/08/2025 11:42 AM [facility] MPV 10.0 7.0 - 11.0 FL LAB HEMETOLOGY METHOD 01/08/2025 11:42 AM [facility] NRBC 0.0 <1.0 % LAB HEMETOLOGY METHOD 01/08/2025 11:42 AM [facility] NRBC Absolute 0.00 <0.10 K/mcL LAB HEMETOLOGY METHOD 01/08/2025 11:42 AM [facility] Blood Venous blood specimen / Unknown Venipuncture / Unknown 01/08/2025 10:49 AM EST 01/08/2025 11:28 AM EST us Angel Adamson MD LAB BLOOD ORDERABLES Final Resul t [facility] [address] [place] [address], * (ABNORMAL) Basic metabolic panel (01/08/2025 10:49 AM EST) Only the most recent of7 resultswithin the time period is included. Sodium 142 133 - 145 mmol/L LAB CHEMISTRY METHOD 01/08/2025 11:57 AM [facility] Potassium 3.9 3.5 - 5.5 mmol/L LAB CHEMISTRY METHOD 01/08/2025 11:57 AM [facility] Chloride 108 96 - 110 mmol/L LAB CHEMISTRY METHOD 01/08/2025 11:57 AM [facility] CO2 27 21 - 32 mmol/L LAB CHEMISTRY METHOD 01/08/2025 11:57 AM [facility] Anion Gap 7 3 - 11 LAB CHEMISTRY METHOD 01/08/2025 11:57 AM [facility] Glucose 97 70 - 100 mg/dL LAB CHEMISTRY METHOD 01/08/2025 11:57 AM [facility] BUN 16 5 - 25 mg/dL LAB CHEMISTRY METHOD 01/08/2025 11:57 AM [facility] Creatinine 0.63(L) 0.70 - 1.30 mg/dL LAB CHEMISTRY METHOD 01/08/2025 11:57 AM [facility] eGFR 97 >=60 mL/min/1. 73m2 LAB CHEMISTRY METHOD 01/08/2025 11:57 AM [facility] Comment:Calculation based on the??Chronic Kidney Disease Epidemiology Collaboration (CKD-EPI) equation refit??without adjustment for race. BUN/Creatinine Ratio 25.4 LAB CHEMISTRY METHOD 01/08/2025 11:57 AM [facility] Calcium 8.8 8.5 - 10.5 mg/dL LAB CHEMISTRY METHOD 01/08/2025 11:57 AM [facility] Blood Venous blood specimen / Unknown Venipuncture / Unknown 01/08/2025 10:49 AM EST 01/08/2025 11:28 AM EST us Angel Adamson MD LAB BLOOD ORDERABLES Final Resul t [facility] [address] [place] [address], [place] [phone] * (ABNORMAL) Urinalysis with reflex microscopic (01/08/2025 12:00 AM EST) Only the most recent of3 resultswithin the time period is included. Specific [place] Urine 1.020 1.003 - 1.030 LAB URINALYSIS - AUTOMATED METHOD 01/08/2025 7:39 PM [facility] pH, Urine 6.5 5.0 - 8.0 pH LAB URINALYSIS - AUTOMATED METHOD 01/08/2025 7:39 PM [facility] Leukocytes, Urine Trace(A) Negative LAB URINALYSIS - AUTOMATED METHOD 01/08/2025 7:39 PM [facility] Nitrite, Urine Negative Negative LAB URINALYSIS - AUTOMATED METHOD 01/08/2025 7:39 PM [facility] Protein, Urine Negative <=Trace mg/dL LAB URINALYSIS - AUTOMATED METHOD 01/08/2025 7:39 PM [facility] Glucose, Urine Negative Negative mg/dL LAB URINALYSIS - AUTOMATED METHOD 01/08/2025 7:39 PM [facility] Ketones, Urine Negative Negative mg/dL LAB URINALYSIS - AUTOMATED METHOD 01/08/2025 7:39 PM [facility] Urobilinogen, Urine 1.0 0.2 - 1.0 mg/dL LAB URINALYSIS - AUTOMATED METHOD 01/08/2025 7:39 PM [facility] Bilirubin, Urine Negative Negative LAB URINALYSIS - AUTOMATED METHOD 01/08/2025 7:39 PM [facility] Blood, Urine Negative Negative LAB URINALYSIS - AUTOMATED METHOD 01/08/2025 7:39 PM [facility] RBC, Urine 3.6 0 - 4 /HPF LAB URINALYSIS - AUTOMATED METHOD 01/08/2025 7:39 PM [facility] WBC, Urine 1.6 0 - 4 /HPF LAB URINALYSIS - AUTOMATED METHOD 01/08/2025 7:39 PM [facility] Squamous Epithelial, Urine 4 0 - 60 /LPF LAB URINALYSIS - AUTOMATED METHOD 01/08/2025 7:39 PM [facility] Bacteria, Urine Negative Negative /HPF LAB URINALYSIS - AUTOMATED METHOD 01/08/2025 7:39 PM [facility] Hyaline Casts, Urine 0.8 0 - 3 /LPF LAB URINALYSIS - AUTOMATED METHOD 01/08/2025 7:39 PM [facility] Urine Urine specimen obtained by clean catch procedure / Unknown 01/08/2025 01/08/2025 7:01 PM EST us Angel Adamson MD LAB URINE ORDERABLES Final Resul t Performing Organization Address [facility]/ZIP Co de Phone Number [facility] [address] [place] [address], [place] [phone] * Culture urine (01/08/2025 12:00 AM EST) Only the most recent of3 resultswithin the time period is included. Culture, Urine No growth 01/09/2025 1:42 PM [facility] Urine Urine specimen obtained by clean catch procedure / Unknown 01/08/2025 01/08/2025 7:01 PM EST us Angel Adamson MD LAB MICROBIOLOGY - GENERAL ORDER TABITHA Final Result [facility] [address] [place] [address], [place] [phone] * (ABNORMAL) Urinalysis microscopic only (12/15/2024 10:30 AM EST) RBC, Urine 4.0 0 - 4 /HPF LAB URINALYSIS - AUTOMATED METHOD 12/15/2024 5:36 PM [facility] WBC, Urine 7.1(H) 0 - 4 /HPF LAB URINALYSIS - AUTOMATED METHOD 12/15/2024 5:36 PM [facility] Squamous Epithelial, Urine 27 0 - 60 /LPF LAB URINALYSIS - AUTOMATED METHOD 12/15/2024 5:36 PM [facility] Crystals, Urine ..Heavy Calcium Oxalate crystals. /LPF 12/15/2024 5:36 PM [facility] Bacteria, Urine Negative Negative /HPF LAB URINALYSIS - AUTOMATED METHOD 12/15/2024 5:36 PM [facility] Hyaline Casts, Urine 2.5 0 - 3 /LPF LAB URINALYSIS - AUTOMATED METHOD 12/15/2024 5:36 PM [facility] Urine Urine specimen obtained by clean catch procedure / Unknown 12/15/2024 10:30 AM EST 12/15/2024 4:02 PM EST us Angel Adamson MD LAB URINE ORDERABLES Final Resul t Performing Organization Address City/[facility]/ZIP Co de Phone Number [facility] [address] [place] [address], [place] [phone] * [place] urine culture tube (11/20/2024 12:00 AM EST) Extra Tube Hold for add-ons. 11/21/2024 2:01 PM [facility] Comment:Auto resulted. Urine Urine specimen obtained by clean catch procedure / Unknown Non-blood Collection / Unknown 11/20/2024 11/21/2024 12:11 PM EST us Angel Adamson MD LAB URINE ORDERABLES Final Resul t Performing Organization Address City/[facility]/ZIP Co de Phone Number [facility] [address] [place] [address], [place] [phone] from Last 3 Months Additional Health Concerns Infection Onset Date Last Indicated ESBL 11/24/2024 11/24/2024 Insurance [place]ICA[place] - [place] MEDICARE Advance Directives Documents on File Type Date Recorded Patient Log Scaler Expl anation Health Care Decision (hx) 06/25/2024 AD WILSON DIRECTIVE Health Care Decision (hx) 06/25/2024 AD WILSON DIRECTIVE Health Care Decision (hx) 06/20/2024 AD WILSON DIRECTIVE Health Care Decision (hx) 06/20/2024 AD WILSON DIRECTIVE Care Teams Entry Level Accountant Relationship Specialty Start Date End Date Leona Almendarez MD [address] [place] [address] [place] PCP - General 07/03/18
--- OUTSIDE RECORDS SUMMARY | 2025-01-15 13:02 | XMS_ITS | Encounter Summary ---
Author Organization [facility] [place] [address] Care Team Providers Care Horses Or Mules Teamster Name Role Phone Leona Almendarez MD Primary Care Provider [phone] Encounter Details Date Type Department Care Team (Late st Contact Info) Description 09/22/2024 Lab Requisition [facility] Lab 299 [facility] [place] [phone] Angel Adamson MD [address] [place] [address] Hematuria, unspecified Social History Tobacco Use Types [...] K/mcL LAB HEMETOLOGY METHOD 09/24/2024 9:58 AM [facility] RBC 4.20(L) 4.50 - 5.50 M/[facility] LAB HEMETOLOGY METHOD 09/24/2024 9:58 AM [facility] Hemoglobin 13.3(L) 13.5 - 17.5 g/dL LAB HEMETOLOGY METHOD 09/24/2024 9:58 AM [facility] Hematocrit 41.8(L) 42.0 - 54.0 % LAB HEMETOLOGY METHOD 09/24/2024 9:58 AM [facility] MCV 100.7(H) 79.0 - 98.0 FL LAB HEMETOLOGY METHOD 09/24/2024 9:58 AM [facility] MCH 32.0 27.0 - 32.0 pcg LAB HEMETOLOGY METHOD 09/24/2024 9:58 AM [facility] MCHC 31.8(L) 32.0 - 37.0 g/dL LAB HEMETOLOGY METHOD 09/24/2024 9:58 AM [facility] RDW 13.6 11.0 - 15.0 % LAB HEMETOLOGY METHOD 09/24/2024 9:58 AM [facility] Platelets 222 130 - 400 K/[facility] LAB HEMETOLOGY METHOD 09/24/2024 9:58 AM [facility] MPV 10.3 7.0 - 11.0 FL LAB HEMETOLOGY METHOD 09/24/2024 9:58 AM [facility] NRBC 0.0 <1.0 % LAB HEMETOLOGY METHOD 09/24/2024 9:58 AM [facility] NRBC Absolute 0.00 <0.10 K/[facility] LAB HEMETOLOGY METHOD 09/24/2024 9:58 AM [facility] Blood Venous blood specimen / Unknown Venipuncture / Unknown 09/24/2024 6:32 AM EST 09/24/2024 8:46 AM EST Angel Adamson MD LAB BLOOD ORDERABLES Final Resul t [facility] [address] [place] [address], [place] [phone] * (ABNORMAL) Basic metabolic panel (09/24/2024 6:32 AM EST) Sodium 141 133 - 145 mmol/L LAB CHEMISTRY METHOD 09/24/2024 10:21 AM [facility] Potassium 3.8 3.5 - 5.5 mmol/L LAB CHEMISTRY METHOD 09/24/2024 10:21 AM [facility] Chloride 107 96 - 110 mmol/L LAB CHEMISTRY METHOD 09/24/2024 10:21 AM [facility] CO2 26 21 - 32 mmol/L LAB CHEMISTRY METHOD 09/24/2024 10:21 AM [facility] Anion Gap 8 3 - 11 LAB CHEMISTRY METHOD 09/24/2024 10:21 AM [facility] Glucose 63(L) 70 - 100 mg/dL LAB CHEMISTRY METHOD 09/24/2024 10:21 AM [facility] BUN 15 5 - 25 mg/dL LAB CHEMISTRY METHOD 09/24/2024 10:21 AM [facility] Creatinine 0.59(L) 0.70 - 1.30 mg/dL LAB CHEMISTRY METHOD 09/24/2024 10:21 AM [facility] eGFR 99 >=60 mL/min/1. 73m2 LAB CHEMISTRY METHOD 09/24/2024 10:21 AM [facility] Comment:Calculation based on the??Chronic Kidney Disease Epidemiology Collaboration (CKD-EPI) equation refit??without adjustment for race. BUN/Creatinine Ratio 25.4 LAB CHEMISTRY METHOD 09/24/2024 10:21 AM EST [facility] Calcium 9.1 8.5 - 10.5 mg/dL LAB CHEMISTRY METHOD 09/24/2024 10:21 AM EST [facility] Blood Venous blood specimen / Unknown Venipuncture / Unknown 09/24/2024 6:32 AM EST 09/24/2024 8:46 AM EST us Angel Adamson MD LAB BLOOD ORDERABLES Final Resul t [facility] [address] [place] [address], documented in this encounter Visit Diagnoses Diagnosis Hematuria, unspecified documented in this encounter Additional Health Concerns Infection Onset Date Last Indicated Resolved Time ESBL 11/24/2024 11/24/2024 documented as of this encounter Care Teams Horses Or Mules Teamster Relationship Specialty Start Date End Date Leona Almendarez MD [address] [facility] [address] [place], [place] PCP - General 07/03/18 documented as of this encounter
--- OUTSIDE RECORDS SUMMARY | 2025-01-15 13:02 | XMS_ITS | Encounter Summary ---
Author Organization [facility] [place] [address] Care Team Providers Care Wrecking Crane Engine Operator Name Role Phone Leona Almendarez MD Primary Care Provider [phone] Encounter Details Date Type Department Care Team (Late st Contact Info) Description 01/15/2025 Lab Requisition [facility] - Main Lab 299 [facility] [employer] [place] [phone] Angel Adamson MD [address] [place] [address] Other fatigue Social History Tobacco Use Types Packs/Day Years [...] Routine 01/15/2025 8:18 AM EST Other fatigue documented in this encounter Results * (ABNORMAL) Hemoglobin and hematocrit (01/15/2025 8:18 AM EST) Hemoglobin 13.3(L) 13.5 - 17.5 g/dL LAB HEMETOLOGY METHOD 01/15/2025 10:10 AM EST [facility] Hematocrit 41.9(L) 42.0 - 54.0 % LAB HEMETOLOGY METHOD 01/15/2025 10:10 AM EST [facility] Blood Venous blood specimen / Unknown Venipuncture / Unknown 01/15/2025 8:18 AM EST 01/15/2025 9:34 AM EST us Angel Adamson MD LAB BLOOD ORDERABLES Final Resul t [facility] [address] [place] [address], documented in this encounter Visit Diagnoses Diagnosis Other fatigue documented in this encounter Additional Health Concerns Infection Onset Date Last Indicated Resolved Time ESBL 11/24/2024 11/24/2024 documented as of this encounter Care Teams Wrecking Crane Engine Operator Relationship Specialty Start Date End Date Leona Almendarez MD [address] [facility] [address] [place], [place] PCP - General 07/03/18 documented as of this encounter
--- OUTSIDE RECORDS SUMMARY | 2025-01-15 13:02 | XMS_ITS | Encounter Summary ---
Author Organization [facility] [place] [address] Care Team Providers Care Machine Umbrella Tipper Name Role Phone Leona Almendarez MD Primary Care Provider [phone] Encounter Details Date Type Department Care Team (Late st Contact Info) Description 12/09/2024 Lab Requisition [facility] - Main Lab 299 [facility] [place] [phone] Angel Adamson MD [address] [place] [address] Parkinsonism, unspecified (CMS/HCC) Social History Tobacco Use [...] mmol/L LAB CHEMISTRY METHOD 12/10/2024 8:57 AM [facility] Potassium 4.0 3.5 - 5.5 mmol/L LAB CHEMISTRY METHOD 12/10/2024 8:57 AM [facility] Chloride 104 96 - 110 mmol/L LAB CHEMISTRY METHOD 12/10/2024 8:57 AM [facility] CO2 27 21 - 32 mmol/L LAB CHEMISTRY METHOD 12/10/2024 8:57 AM [facility] Anion Gap 5 3 - 11 LAB CHEMISTRY METHOD 12/10/2024 8:57 AM [facility] Glucose 104(H) 70 - 100 mg/dL LAB CHEMISTRY METHOD 12/10/2024 8:57 AM [facility] BUN 22 5 - 25 mg/dL LAB CHEMISTRY METHOD 12/10/2024 8:57 AM [facility] Creatinine 0.63(L) 0.70 - 1.30 mg/dL LAB CHEMISTRY METHOD 12/10/2024 8:57 AM [facility] eGFR 97 >=60 mL/min/1. 73m2 LAB CHEMISTRY METHOD 12/10/2024 8:57 AM [facility] Comment:Calculation based on the??Chronic Kidney Disease Epidemiology Collaboration (CKD-EPI) equation refit??without adjustment for race. BUN/Creatinine Ratio 34.9 LAB CHEMISTRY METHOD 12/10/2024 8:57 AM [facility] Calcium 8.5 8.5 - 10.5 mg/dL LAB CHEMISTRY METHOD 12/10/2024 8:57 AM [facility] Blood Venous blood specimen / Unknown Venipuncture / Unknown 12/10/2024 7:03 AM EST 12/10/2024 8:24 AM EST Angel Adamson MD LAB BLOOD ORDERABLES Final Resul t [facility] [address] [place] [address], * (ABNORMAL) Complete blood count (12/10/2024 7:03 AM EST) WBC 9.5 4.8 - 10.8 K/mcL LAB HEMETOLOGY METHOD 12/10/2024 8:32 AM [facility] RBC 3.20(L) 4.50 - 5.50 M/mcL LAB HEMETOLOGY METHOD 12/10/2024 8:32 AM [facility] Hemoglobin 10.4(L) 13.5 - 17.5 g/dL LAB HEMETOLOGY METHOD 12/10/2024 8:32 AM [facility] Hematocrit 32.5(L) 42.0 - 54.0 % LAB HEMETOLOGY METHOD 12/10/2024 8:32 AM [facility] MCV 100.6(H) 79.0 - 98.0 FL LAB HEMETOLOGY METHOD 12/10/2024 8:32 AM [facility] MCH 32.2(H) 27.0 - 32.0 pcg LAB HEMETOLOGY METHOD 12/10/2024 8:32 AM [facility] MCHC 32.0 32.0 - 37.0 g/dL LAB HEMETOLOGY METHOD 12/10/2024 8:32 AM [facility] RDW 14.2 11.0 - 15.0 % LAB HEMETOLOGY METHOD 12/10/2024 8:32 AM [facility] Platelets 356 130 - 400 K/mcL LAB HEMETOLOGY METHOD 12/10/2024 8:32 AM [facility] MPV 9.1 7.0 - 11.0 FL LAB HEMETOLOGY METHOD 12/10/2024 8:32 AM [facility] NRBC 0.0 <1.0 % [...] Resul t [facility] [address] [place] [address], documented in this encounter Visit Diagnoses Diagnosis Parkinsonism, unspecified (CMS/HCC) documented in this encounter Additional Health Concerns Infection Onset Date Last Indicated Resolved Time ESBL 11/24/2024 11/24/2024 documented as of this encounter Care Teams Machine Umbrella Tipper Relationship Specialty Start Date End Date Leona Almendarez MD [address] [place], [place] PCP - General 07/03/18 documented as of this encounter
--- OUTSIDE RECORDS SUMMARY | 2025-01-15 13:02 | XMS_ITS | Encounter Summary ---
Author Organization [facility] [place] [address] Care Team Providers Care Wood Gluer Name Role Phone Leona Almendarez MD Primary Care Provider [phone] Encounter Details Date Type Department Care Team (Late st Contact Info) Description 09/30/2024 Lab Requisition [facility] - Main Lab 299 [facility] [place] [phone] Angel Adamson MD [address] [place] [address] Hematuria, unspecified Social History Tobacco Use Types [...] K/mcL LAB HEMETOLOGY METHOD 10/01/2024 10:12 AM [facility] RBC 4.00(L) 4.50 - 5.50 M/mcL LAB HEMETOLOGY METHOD 10/01/2024 10:12 AM [facility] Hemoglobin 13.0(L) 13.5 - 17.5 g/dL LAB HEMETOLOGY METHOD 10/01/2024 10:12 AM [facility] Hematocrit 40.5(L) 42.0 - 54.0 % LAB HEMETOLOGY METHOD 10/01/2024 10:12 AM [facility] LAB MCV 101.0(H) 79.0 - 98.0 FL LAB HEMETOLOGY METHOD 10/01/2024 10:12 AM [facility] LAB MCH 32.4(H) 27.0 - 32.0 pcg LAB HEMETOLOGY METHOD 10/01/2024 10:12 AM [facility] LAB MCHC 32.1 32.0 - 37.0 g/dL LAB HEMETOLOGY METHOD 10/01/2024 10:12 AM [facility] LAB RDW 13.6 11.0 - 15.0 % LAB HEMETOLOGY METHOD 10/01/2024 10:12 AM [facility] LAB Platelets 223 130 - 400 K/[facility] LAB HEMETOLOGY METHOD 10/01/2024 10:12 AM [facility] LAB MPV 10.3 7.0 - 11.0 FL LAB HEMETOLOGY METHOD 10/01/2024 10:12 AM [facility] LAB NRBC 0.0 <1.0 % LAB HEMETOLOGY METHOD 10/01/2024 10:12 AM [facility] LAB NRBC Absolute 0.00 <0.10 K/mcL LAB HEMETOLOGY METHOD 10/01/2024 10:12 AM [facility] Blood Venous blood specimen / Unknown Venipuncture / Unknown 10/01/2024 7:30 AM EST 10/01/2024 8:42 AM EST us Angel Adamson MD LAB BLOOD ORDERABLES Final Resul t [facility] [address] [place] [address], [place] [phone] * (ABNORMAL) Basic metabolic panel (10/01/2024 7:30 AM EST) Sodium 140 133 - 145 mmol/L LAB CHEMISTRY METHOD 10/01/2024 10:16 AM [facility] Potassium 4.1 3.5 - 5.5 mmol/L LAB CHEMISTRY METHOD 10/01/2024 10:16 AM [facility] Chloride 108 96 - 110 mmol/L LAB CHEMISTRY METHOD 10/01/2024 10:16 AM [facility] CO2 26 21 - 32 mmol/L LAB CHEMISTRY METHOD 10/01/2024 10:16 AM [facility] Anion Gap 6 3 - 11 LAB CHEMISTRY METHOD 10/01/2024 10:16 AM [facility] Glucose 84 70 - 100 mg/dL LAB CHEMISTRY METHOD 10/01/2024 10:16 AM [facility] BUN 16 5 - 25 mg/dL LAB CHEMISTRY METHOD 10/01/2024 10:16 AM [facility] Creatinine 0.65(L) 0.70 - 1.30 mg/dL LAB CHEMISTRY METHOD 10/01/2024 10:16 AM [facility] eGFR 96 >=60 mL/min/1. 73m2 LAB CHEMISTRY METHOD 10/01/2024 10:16 AM [facility] LAB Comment:Calculation based on the??Chronic Kidney Disease Epidemiology Collaboration (CKD-EPI) equation refit??without adjustment for race. BUN/Creatinine Ratio 24.6 LAB CHEMISTRY METHOD 10/01/2024 10:16 AM EST [facility] Calcium 9.0 8.5 - 10.5 mg/dL LAB CHEMISTRY METHOD 10/01/2024 10:16 AM EST [facility] Blood Venous blood specimen / Unknown Venipuncture / Unknown 10/01/2024 7:30 AM EST 10/01/2024 8:42 AM EST us Angel Adamson MD LAB BLOOD ORDERABLES Final Resul t [facility]) [facility] [address] [place] [address], documented in this encounter Visit Diagnoses Diagnosis Hematuria, unspecified documented in this encounter Additional Health Concerns Infection Onset Date Last Indicated Resolved Time ESBL 11/24/2024 11/24/2024 documented as of this encounter Care Teams Wood Gluer Relationship Specialty Start Date End Date Leona Alemndarez MD 1221 [facility] [address] [place], [place] PCP - General 07/03/18 documented as of this encounter
--- OUTSIDE RECORDS SUMMARY | 2025-01-15 13:02 | XMS_ITS | Clinical Summary ---
Author Organization [facility] Address [address] [place] [address] Care Team Providers Care Resourcing Advisor Name Role Phone Leona Almendarez MD Primary Care Provider [phone] Allergies No known active allergies Medications Medication [...] age to complete this topic Care Teams Resourcing Advisor Relationship Specialty Start Date End Date Leona Almendarez MD [address] [phone] PCP - General Internal Medicine 05/11/19
--- OUTSIDE RECORDS SUMMARY | 2025-01-15 13:02 | XMS_ITS | Encounter Summary ---
Author Organization [facility] [place] [address] Care Team Providers Care Kennel Aide Name Role Phone Leona Almendarez MD Primary Care Provider [phone] Encounter Details Date Type Department Care Team (Late st Contact Info) Description 10/14/2024 Lab Requisition [facility] - Main Lab 299 [facility] [place] [phone] Angel Adamson MD [address] [place] [address] Hematuria, unspecified Social History Tobacco Use Types [...] K/mcL LAB HEMETOLOGY METHOD 10/16/2024 11:51 AM [facility] RBC 4.20(L) 4.50 - 5.50 M/mcL LAB HEMETOLOGY METHOD 10/16/2024 11:51 AM [facility] Hemoglobin 13.5 13.5 - 17.5 g/dL LAB HEMETOLOGY METHOD 10/16/2024 11:51 AM [facility] Hematocrit 43.1 42.0 - 54.0 % LAB HEMETOLOGY METHOD 10/16/2024 11:51 AM [facility] MCV 101.7(H) 79.0 - 98.0 FL LAB HEMETOLOGY METHOD 10/16/2024 11:51 AM [facility] MCH 31.8 27.0 - 32.0 pcg LAB HEMETOLOGY METHOD 10/16/2024 11:51 AM [facility] MCHC 31.3(L) 32.0 - 37.0 g/dL LAB HEMETOLOGY METHOD 10/16/2024 11:51 AM [facility] RDW 13.2 11.0 - 15.0 % LAB HEMETOLOGY METHOD 10/16/2024 11:51 AM [facility] Platelets 243 130 - 400 K/[facility] LAB HEMETOLOGY METHOD 10/16/2024 11:51 AM [facility] MPV 10.0 7.0 - 11.0 FL LAB HEMETOLOGY METHOD 10/16/2024 11:51 AM [facility] NRBC 0.0 <1.0 % LAB HEMETOLOGY METHOD 10/16/2024 11:51 AM [facility] NRBC Absolute 0.00 <0.10 K/mcL LAB HEMETOLOGY METHOD 10/16/2024 11:51 AM [facility] Blood Venous blood specimen / Unknown Venipuncture / Unknown 10/16/2024 8:55 AM EST 10/16/2024 11:14 AM EST us Angel Adamson MD LAB BLOOD ORDERABLES Final Resul t [facility] [address] [place] [address], * (ABNORMAL) Basic metabolic panel (10/16/2024 8:55 AM EST) Sodium 140 133 - 145 mmol/L LAB CHEMISTRY METHOD 10/16/2024 12:09 PM [facility] Potassium 4.1 3.5 - 5.5 mmol/L LAB CHEMISTRY METHOD 10/16/2024 12:09 PM [facility] Chloride 106 96 - 110 mmol/L LAB CHEMISTRY METHOD 10/16/2024 12:09 PM [facility] CO2 28 21 - 32 mmol/L LAB CHEMISTRY METHOD 10/16/2024 12:09 PM [facility] Anion Gap 6 3 - 11 LAB CHEMISTRY METHOD 10/16/2024 12:09 PM [facility] Glucose 80 70 - 100 mg/dL LAB CHEMISTRY METHOD 10/16/2024 12:09 PM [facility] BUN 19 5 - 25 mg/dL LAB CHEMISTRY METHOD 10/16/2024 12:09 PM [facility] Creatinine 0.69(L) 0.70 - 1.30 mg/dL LAB CHEMISTRY METHOD 10/16/2024 12:09 PM [facility] eGFR 94 >=60 mL/min/1. 73m2 LAB CHEMISTRY METHOD 10/16/2024 12:09 PM [facility] Comment:Calculation based on the??Chronic Kidney Disease Epidemiology Collaboration (CKD-EPI) equation refit??without adjustment for race. BUN/Creatinine Ratio 27.5 LAB CHEMISTRY METHOD 10/16/2024 12:09 PM EST [facility] Calcium 9.3 8.5 - 10.5 mg/dL LAB CHEMISTRY METHOD 10/16/2024 12:09 PM EST [facility] Blood Venous blood specimen / Unknown Venipuncture / Unknown 10/16/2024 8:55 AM EST 10/16/2024 11:14 AM EST us Angel Adamson MD LAB BLOOD ORDERABLES Final Resul t [facility] [address] [place] [address], documented in this encounter Visit Diagnoses Diagnosis Hematuria, unspecified documented in this encounter Additional Health Concerns Infection Onset Date Last Indicated Resolved Time ESBL 11/24/2024 11/24/2024 documented as of this encounter Care Teams Kennel Aide Relationship Specialty Start Date End Date Leona Almendarez MD [address] PCP - General 07/03/18 documented as of this encounter
--- OUTSIDE RECORDS SUMMARY | 2025-01-15 13:02 | XMS_ITS | Encounter Summary ---
Author Organization [facility] [place] [address] Care Team Providers Care Swimming Teacher Name Role Phone Leona Almendarez MD Primary Care Provider [phone] Encounter Details Date Type Department Care Team (Late st Contact Info) Description 12/15/2024 Lab Requisition [facility] - Main Lab 299 [facility] [place] [phone] Angel Adamson MD [address] [place] [address] Altered mental status, unspecified; Confusional arousals Social [...] Resul t [facility] [address] [place] [address], [place] [phone] * Culture urine (12/15/2024 10:30 AM EST) Culture, Urine <10,000 CFU/mL gram positive cocci, insignificant count, no further workup 12/16/2024 7:56 AM EST [facility] Urine Urine specimen obtained by clean catch procedure / Unknown 12/15/2024 10:30 AM EST 12/15/2024 4:02 PM EST Angel Adamson MD LAB MICROBIOLOGY - GENERAL ORDER TABITHA Final Result [facility] [address] [place] [address], documented in this encounter Visit Diagnoses Diagnosis Altered mental status, unspecified Confusional arousals documented in this encounter Additional Health Concerns Infection Onset Date Last Indicated Resolved Time ESBL 11/24/2024 11/24/2024 documented as of this encounter Care Teams Swimming Teacher Relationship Specialty Start Date End Date Leona Almendarez MD 1221 [facility] [address] [place], [place] PCP - General 07/03/18 documented as of this encounter
--- OUTSIDE RECORDS SUMMARY | 2025-01-15 13:02 | XMS_ITS | Encounter Summary ---
Author Organization [facility] [place] [address] Care Team Providers Care Engine Oiler Name Role Phone Leona Almendarez MD Primary Care Provider [phone] Encounter Details Date Type Department Care Team (Late st Contact Info) Description 12/16/2024 Lab Requisition [facility] - Main Lab 299 [facility] [place] [phone] Angel Adamson MD [address] [place] [address] Parkinsonism, unspecified (CMS/HCC) Social History Tobacco Use [...] mmol/L LAB CHEMISTRY METHOD 12/17/2024 10:16 AM [facility] Potassium 4.1 3.5 - 5.5 mmol/L LAB CHEMISTRY METHOD 12/17/2024 10:16 AM [facility] Chloride 106 96 - 110 mmol/L LAB CHEMISTRY METHOD 12/17/2024 10:16 AM [facility] CO2 28 21 - 32 mmol/L LAB CHEMISTRY METHOD 12/17/2024 10:16 AM [facility] Anion Gap 6 3 - 11 LAB CHEMISTRY METHOD 12/17/2024 10:16 AM [facility] Glucose 84 70 - 100 mg/dL LAB CHEMISTRY METHOD 12/17/2024 10:16 AM [facility] BUN 17 5 - 25 mg/dL LAB CHEMISTRY METHOD 12/17/2024 10:16 AM [facility] Creatinine 0.55(L) 0.70 - 1.30 mg/dL LAB CHEMISTRY METHOD 12/17/2024 10:16 AM [facility] LAB eGFR 101 >=60 mL/min/1. 73m2 LAB CHEMISTRY METHOD 12/17/2024 10:16 AM [facility] LAB Comment:Calculation based on the??Chronic Kidney Disease Epidemiology Collaboration (CKD-EPI) equation refit??without adjustment for race. BUN/Creatinine Ratio 30.9 LAB CHEMISTRY METHOD 12/17/2024 10:16 AM [facility] Calcium 9.0 8.5 - 10.5 mg/dL LAB CHEMISTRY METHOD 12/17/2024 10:16 AM [facility] Blood Venous blood specimen / Unknown Venipuncture / Unknown 12/17/2024 7:30 AM EST 12/17/2024 10:16 AM EST Angel Adamson MD LAB BLOOD ORDERABLES Final Resul t [facility] [address] [place] [address], * (ABNORMAL) Complete blood count (12/17/2024 7:30 AM EST) [facility] Signature WBC 6.8 4.8 - 10.8 K/mcL LAB HEMETOLOGY METHOD 12/17/2024 10:16 AM EST [facility] LAB RBC 3.60(L) 4.50 - 5.50 M/mcL LAB HEMETOLOGY METHOD 12/17/2024 10:16 AM EST [facility] Hemoglobin 11.5(L) 13.5 - 17.5 g/dL LAB HEMETOLOGY METHOD 12/17/2024 10:16 AM [facility] Hematocrit 36.9(L) 42.0 - 54.0 % LAB HEMETOLOGY METHOD 12/17/2024 10:16 AM EST [facility] LAB MCV 101.9(H) 79.0 - 98.0 FL LAB HEMETOLOGY METHOD 12/17/2024 10:16 AM EST [facility] LAB MCH 31.8 27.0 - 32.0 pcg LAB HEMETOLOGY METHOD 12/17/2024 10:16 AM [facility] MCHC 31.2(L) 32.0 - 37.0 g/dL LAB HEMETOLOGY METHOD 12/17/2024 10:16 AM EST [facility] RDW 14.7 11.0 - 15.0 % LAB HEMETOLOGY METHOD 12/17/2024 10:16 AM [facility] Platelets 352 130 - 400 K/mcL LAB HEMETOLOGY METHOD 12/17/2024 10:16 AM [facility] MPV 9.4 7.0 - 11.0 FL LAB HEMETOLOGY METHOD 12/17/2024 10:16 AM EST [facility] NRBC 0.0 <1.0 % LAB HEMETOLOGY METHOD 12/17/2024 10:16 AM EST [facility] NRBC Absolute 0.00 <0.10 K/mcL LAB HEMETOLOGY METHOD 12/17/2024 10:16 AM EST [facility] Blood Venous blood specimen / Unknown Venipuncture / Unknown 12/17/2024 7:30 AM EST 12/17/2024 10:16 AM EST us Angel Adamson MD LAB BLOOD ORDERABLES Final Resul t [facility] [address] [place] [address], documented in this encounter Visit Diagnoses Diagnosis Parkinsonism, unspecified (CMS/HCC) documented in this encounter Additional Health Concerns Infection Onset Date Last Indicated Resolved Time ESBL 11/24/2024 11/24/2024 documented as of this encounter Care Teams Engine Oiler Relationship Specialty Start Date End Date Leona Almendarez MD 1221 [facility] [address] [place], [place] PCP - General 07/03/18 documented as of this encounter
--- OUTSIDE RECORDS SUMMARY | 2025-01-15 13:02 | XMS_ITS | Encounter Summary ---
Author Organization [facility] [place] [address] Care Team Providers Care Brilliandeer Lopper Name Role Phone Leona Almendarez MD Primary Care Provider [phone] Encounter Details Date Type Department Care Team (Late st Contact Info) Description 11/20/2024 Lab Requisition [facility] - Main Lab 299 [facility] [place] [phone] Maggie Parry PA [address] [place] [address] [facility] [place] [address] Essential (primary) hypertension Social History Tobacco Use [...] mmol/L LAB CHEMISTRY METHOD 11/20/2024 5:10 PM [facility] Potassium 4.2 3.5 - 5.5 mmol/L LAB CHEMISTRY METHOD 11/20/2024 5:10 PM [facility] Chloride 106 96 - 110 mmol/L LAB CHEMISTRY METHOD 11/20/2024 5:10 PM [facility] CO2 30 21 - 32 mmol/L LAB CHEMISTRY METHOD 11/20/2024 5:10 PM [facility] Anion Gap 5 3 - 11 LAB CHEMISTRY METHOD 11/20/2024 5:10 PM [facility] Glucose 94 70 - 100 mg/dL LAB CHEMISTRY METHOD 11/20/2024 5:10 PM [facility] BUN 19 5 - 25 mg/dL LAB CHEMISTRY METHOD 11/20/2024 5:10 PM [facility] Creatinine 0.63(L) 0.70 - 1.30 mg/dL LAB CHEMISTRY METHOD 11/20/2024 5:10 PM [facility] eGFR 97 >=60 mL/min/1. 73m2 LAB CHEMISTRY METHOD 11/20/2024 5:10 PM [facility] Comment:Calculation based on the??Chronic Kidney Disease Epidemiology Collaboration (CKD-EPI) equation refit??without adjustment for race. BUN/Creatinine Ratio 30.2 LAB CHEMISTRY METHOD 11/20/2024 5:10 PM [facility] Calcium 8.8 8.5 - 10.5 mg/dL LAB CHEMISTRY METHOD 11/20/2024 5:10 PM [facility] Blood Venous blood specimen / Unknown Venipuncture / Unknown 11/20/2024 3:13 PM EST 11/20/2024 4:32 PM EST us Maggie YORK LAB BLOOD ORDERABLES Final Resu lt [facility] [address] [place] [address], * (ABNORMAL) Complete blood count (11/20/2024 3:13 PM EST) [facility] Signature WBC 7.9 4.8 - 10.8 K/mcL LAB HEMETOLOGY METHOD 11/20/2024 4:51 PM EST [facility] RBC 4.10(L) 4.50 - 5.50 M/mcL LAB HEMETOLOGY METHOD 11/20/2024 4:51 PM EST [facility] Hemoglobin 12.8(L) 13.5 - 17.5 g/dL LAB HEMETOLOGY METHOD 11/20/2024 4:51 PM [facility] Hematocrit 39.5(L) 42.0 - 54.0 % LAB HEMETOLOGY METHOD 11/20/2024 4:51 PM EST [facility] MCV 97.3 79.0 - 98.0 FL LAB HEMETOLOGY METHOD 11/20/2024 4:51 PM EST [facility] MCH 31.5 27.0 - 32.0 pcg LAB HEMETOLOGY METHOD 11/20/2024 4:51 PM [facility] MCHC 32.4 32.0 - 37.0 g/dL LAB HEMETOLOGY METHOD 11/20/2024 4:51 PM EST [facility] RDW 13.5 11.0 - 15.0 % LAB HEMETOLOGY METHOD 11/20/2024 4:51 PM [facility] Platelets 200 130 - 400 K/mcL LAB HEMETOLOGY METHOD 11/20/2024 4:51 PM [facility] MPV 10.2 7.0 - 11.0 FL LAB HEMETOLOGY METHOD 11/20/2024 4:51 PM [facility] NRBC 0.0 <1.0 % LAB HEMETOLOGY METHOD 11/20/2024 4:51 PM EST [facility] NRBC Absolute 0.00 <0.10 K/mcL LAB HEMETOLOGY METHOD 11/20/2024 4:51 PM EST [facility] Blood Venous blood specimen / Unknown Venipuncture / Unknown 11/20/2024 3:13 PM EST 11/20/2024 4:32 PM EST us Maggie YORK LAB BLOOD ORDERABLES Final Resu lt [facility] [address] [place] [address], documented in this encounter Visit Diagnoses Diagnosis Essential (primary) hypertension Unspecified essential hypertension documented in this encounter Additional Health Concerns Infection Onset Date Last Indicated Resolved Time ESBL 11/24/2024 11/24/2024 documented as of this encounter Care Teams Brilliandeer Lopper Relationship Specialty Start Date End Date Leona Almendarez MD 12[address] [facility] [address] [place], [place] PCP - General 07/03/18 documented as of this encounter
--- OUTSIDE RECORDS SUMMARY | 2025-01-15 13:03 | XMS_ITS | Encounter Summary ---
Author Organization [facility] [place] [address] Care Team Providers Care Manager Stone Name Role Phone Leona Almendarez MD Primary Care Provider [phone] Encounter Details Date Type Department Care Team (Late st Contact Info) Description 01/08/2025 Lab Requisition [facility] - Main Lab 299 [facility] [place] [phone] Angel Adamson MD [address] [place] [address] Unspecified atrial fibrillation (CMS/HCC) Social History Tobacco [...] mmol/L LAB CHEMISTRY METHOD 01/08/2025 11:57 AM [facility] Potassium 3.9 3.5 - 5.5 mmol/L LAB CHEMISTRY METHOD 01/08/2025 11:57 AM [facility] Chloride 108 96 - 110 mmol/L LAB CHEMISTRY METHOD 01/08/2025 11:57 AM [facility] CO2 27 21 - 32 mmol/L LAB CHEMISTRY METHOD 01/08/2025 11:57 AM [facility] Anion Gap 7 3 - 11 LAB CHEMISTRY METHOD 01/08/2025 11:57 AM [facility] Glucose 97 70 - 100 mg/dL LAB CHEMISTRY METHOD 01/08/2025 11:57 AM [facility] BUN 16 5 - 25 mg/dL LAB CHEMISTRY METHOD 01/08/2025 11:57 AM [facility] Creatinine 0.63(L) 0.70 - 1.30 mg/dL LAB CHEMISTRY METHOD 01/08/2025 11:57 AM [facility] eGFR 97 >=60 mL/min/1. 73m2 LAB CHEMISTRY METHOD 01/08/2025 11:57 AM [facility] Comment:Calculation based on the??Chronic Kidney Disease Epidemiology Collaboration (CKD-EPI) equation refit??without adjustment for race. BUN/Creatinine Ratio 25.4 LAB CHEMISTRY METHOD 01/08/2025 11:57 AM [facility] Calcium 8.8 8.5 - 10.5 mg/dL LAB CHEMISTRY METHOD 01/08/2025 11:57 AM [facility] Blood Venous blood specimen / Unknown Venipuncture / Unknown 01/08/2025 10:49 AM EST 01/08/2025 11:28 AM EST Angel Adamson MD LAB BLOOD ORDERABLES Final Resul t [facility] [address] [place] [address], * (ABNORMAL) Complete blood count (01/08/2025 10:49 AM EST) [facility] Signature WBC 6.8 4.8 - 10.8 K/mcL LAB HEMETOLOGY METHOD 01/08/2025 11:42 AM [facility] RBC 3.70(L) 4.50 - 5.50 M/mcL LAB HEMETOLOGY METHOD 01/08/2025 11:42 AM [facility] Hemoglobin 11.8(L) 13.5 - 17.5 g/dL LAB HEMETOLOGY METHOD 01/08/2025 11:42 AM [facility] Hematocrit 37.8(L) 42.0 - 54.0 % LAB HEMETOLOGY METHOD 01/08/2025 11:42 AM [facility] MCV 103.6(H) 79.0 - 98.0 FL LAB HEMETOLOGY METHOD 01/08/2025 11:42 AM [facility] MCH 32.3(H) 27.0 - 32.0 pcg LAB HEMETOLOGY METHOD 01/08/2025 11:42 AM [facility] MCHC 31.2(L) 32.0 - 37.0 g/dL LAB HEMETOLOGY METHOD 01/08/2025 11:42 AM [facility] RDW 14.0 11.0 - 15.0 % LAB HEMETOLOGY METHOD 01/08/2025 11:42 AM [facility] Platelets 221 130 - 400 K/mcL LAB HEMETOLOGY METHOD 01/08/2025 11:42 AM [facility] MPV 10.0 7.0 - 11.0 FL LAB HEMETOLOGY METHOD 01/08/2025 11:42 AM [facility] NRBC 0.0 <1.0 % LAB HEMETOLOGY METHOD 01/08/2025 11:42 AM EST [facility] NRBC Absolute 0.00 <0.10 K/mcL LAB HEMETOLOGY METHOD 01/08/2025 11:42 AM EST [facility] Blood Venous blood specimen / Unknown Venipuncture / Unknown 01/08/2025 10:49 AM EST 01/08/2025 11:28 AM EST us Angel Adamson MD LAB BLOOD ORDERABLES Final Resul t [facility] [address] [place] [address], documented in this encounter Visit Diagnoses Diagnosis Unspecified atrial fibrillation (CMS/HCC) documented in this encounter Additional Health Concerns Infection Onset Date Last Indicated Resolved Time ESBL 11/24/2024 11/24/2024 documented as of this encounter Care Teams Manager Stone Relationship Specialty Start Date End Date Leona Almendarez MD [address] [place], [place] PCP - General 07/03/18 documented as of this encounter
--- OUTSIDE RECORDS SUMMARY | 2025-01-15 13:03 | XMS_ITS | Encounter Summary ---
Author Organization [facility] [place] [address] Care Team Providers Care Staff Pharmacist Hospital Name Role Phone Leona Almendarez MD Primary Care Provider [phone] Encounter Details Date Type Department Care Team (Late st Contact Info) Description 11/21/2024 Lab Requisition [facility] - Main Lab 299 [facility] [place] [phone] Angel Adamson MD [address] [place] [address] Urinary tract infection, site not specified Social [...] culture tube (11/20/2024 12:00 AM EST) Pathologist [facility] Extra Tube Hold for add-ons. 11/21/2024 2:01 PM [facility] Comment:Auto resulted. Urine Urine specimen obtained by clean catch procedure / Unknown Non-blood Collection / Unknown 11/20/2024 11/21/2024 12:11 PM EST Angel Adamson MD LAB URINE ORDERABLES Final Resul t [facility] [address] [place] [address], [place] [phone] * (ABNORMAL) Urinalysis with reflex microscopic (11/20/2024 12:00 AM EST) [facility] Specific [employer] Urine 1.019 1.003 - 1.030 LAB URINALYSIS - AUTOMATED METHOD 11/21/2024 1:26 PM [facility] pH, Urine >=9.0(A) 5.0 - 8.0 pH LAB URINALYSIS - AUTOMATED METHOD 11/21/2024 1:26 PM [facility] Leukocytes, Urine Large(A) Negative LAB URINALYSIS - AUTOMATED METHOD 11/21/2024 1:26 PM [facility] Nitrite, Urine Positive(A) Negative LAB URINALYSIS - AUTOMATED METHOD 11/21/2024 1:26 PM [facility] Protein, Urine 100(A) <=Trace mg/dL LAB URINALYSIS - AUTOMATED METHOD 11/21/2024 1:26 PM [facility] Glucose, Urine Negative Negative mg/dL LAB URINALYSIS - AUTOMATED METHOD 11/21/2024 1:26 PM [facility] Ketones, Urine Negative Negative mg/dL LAB URINALYSIS - AUTOMATED METHOD 11/21/2024 1:26 PM [facility] Urobilinogen , Urine 0.2 0.2 - 1.0 mg/dL LAB URINALYSIS - AUTOMATED METHOD 11/21/2024 1:26 PM [facility] Bilirubin, Urine Negative Negative LAB URINALYSIS - AUTOMATED METHOD 11/21/2024 1:26 PM [facility] Blood, Urine Negative Negative LAB URINALYSIS - AUTOMATED METHOD 11/21/2024 1:26 PM [facility] RBC, Urine 1.3 0 - 4 /HPF LAB URINALYSIS - AUTOMATED METHOD 11/21/2024 1:26 PM [facility] WBC, Urine 27.4(H) 0 - 4 /HPF LAB URINALYSIS - AUTOMATED METHOD 11/21/2024 1:26 PM [facility] Squamous Epithelial, Urine 10 0 - 60 /LPF LAB URINALYSIS - AUTOMATED METHOD 11/21/2024 1:26 PM [facility] Crystals, Urine HEAVY TRIPLE PHOS /LPF LAB URINALYSIS - AUTOMATED METHOD 11/21/2024 1:26 PM [facility] Bacteria, Urine Few(A) Negative /HPF LAB URINALYSIS - AUTOMATED METHOD 11/21/2024 1:26 PM [facility] Hyaline Casts, Urine 6.6(H) 0 - 3 /LPF LAB URINALYSIS - AUTOMATED METHOD 11/21/2024 1:26 PM [facility] Urine Urine specimen obtained by clean catch procedure / Unknown Non-blood Collection / Unknown 11/20/2024 11/21/2024 12:11 PM EST us Angel Adamson MD LAB URINE ORDERABLES Final Resul t [facility] [address] [place] [address], documented in this encounter Visit Diagnoses Diagnosis Urinary tract infection, site not specified documented in this encounter Additional Health Concerns Infection Onset Date Last Indicated Resolved Time ESBL 11/24/2024 11/24/2024 documented as of this encounter Care Teams Staff Pharmacist Hospital Relationship Specialty Start Date End Date Leona Almendarez MD [address] [facility] [address] [place], [place] PCP - General 07/03/18 documented as of this encounter
--- OUTSIDE RECORDS SUMMARY | 2025-01-15 13:03 | XMS_ITS | Encounter Summary ---
Author Organization [facility] [place] [address] Care Team Providers Care Veterinary Radiologist Name Role Phone Leona Almendarez MD Primary Care Provider [phone] Encounter Details Date Type Department Care Team (Late st Contact Info) Description 11/26/2024 Lab Requisition [facility] - Main Lab 299 [facility] [place] [phone] Angel Adamson MD [address] [place] [address] Parkinsonism, unspecified (CMS/HCC) Social History Tobacco Use [...] mmol/L LAB CHEMISTRY METHOD 11/27/2024 9:35 AM [facility] Potassium 4.0 3.5 - 5.5 mmol/L LAB CHEMISTRY METHOD 11/27/2024 9:35 AM [facility] Chloride 105 96 - 110 mmol/L LAB CHEMISTRY METHOD 11/27/2024 9:35 AM [facility] CO2 29 21 - 32 mmol/L LAB CHEMISTRY METHOD 11/27/2024 9:35 AM [facility] Anion Gap 4 3 - 11 LAB CHEMISTRY METHOD 11/27/2024 9:35 AM [facility] Glucose 81 70 - 100 mg/dL LAB CHEMISTRY METHOD 11/27/2024 9:35 AM [facility] BUN 20 5 - 25 mg/dL LAB CHEMISTRY METHOD 11/27/2024 9:35 AM [facility] Creatinine 0.73 0.70 - 1.30 mg/dL LAB CHEMISTRY METHOD 11/27/2024 9:35 AM [facility] eGFR 93 >=60 mL/min/1. 73m2 LAB CHEMISTRY METHOD 11/27/2024 9:35 AM [facility] Comment:Calculation based on the??Chronic Kidney Disease Epidemiology Collaboration (CKD-EPI) equation refit??without adjustment for race. BUN/Creatinine Ratio 27.4 LAB CHEMISTRY METHOD 11/27/2024 9:35 AM [facility] Calcium 9.2 8.5 - 10.5 mg/dL LAB CHEMISTRY METHOD 11/27/2024 9:35 AM [facility] Blood Venous blood specimen / Unknown Venipuncture / Unknown 11/27/2024 7:12 AM EST 11/27/2024 8:47 AM EST Angel Adamson MD LAB BLOOD ORDERABLES Final Resul t [facility] [address] [place] [address], * (ABNORMAL) Complete blood count (11/27/2024 7:12 AM EST) WBC 7.7 4.8 - 10.8 K/mcL LAB HEMETOLOGY METHOD 11/27/2024 9:13 AM EST [facility] RBC 4.30(L) 4.50 - 5.50 M/mcL LAB HEMETOLOGY METHOD 11/27/2024 9:13 AM EST [facility] Hemoglobin 13.8 13.5 - 17.5 g/dL LAB HEMETOLOGY METHOD 11/27/2024 9:13 AM [facility] Hematocrit 42.9 42.0 - 54.0 % LAB HEMETOLOGY METHOD 11/27/2024 9:13 AM EST [facility] MCV 100.5(H) 79.0 - 98.0 FL LAB HEMETOLOGY METHOD 11/27/2024 9:13 AM [facility] MCH 32.3(H) 27.0 - 32.0 pcg LAB HEMETOLOGY METHOD 11/27/2024 9:13 AM [facility] MCHC 32.2 32.0 - 37.0 g/dL LAB HEMETOLOGY METHOD 11/27/2024 9:13 AM EST [facility] RDW 13.7 11.0 - 15.0 % LAB HEMETOLOGY METHOD 11/27/2024 9:13 AM [facility] Platelets 214 130 - 400 K/mcL LAB HEMETOLOGY METHOD 11/27/2024 9:13 AM [facility] MPV 10.2 7.0 - 11.0 FL LAB HEMETOLOGY METHOD 11/27/2024 9:13 AM [facility] NRBC 0.0 <1.0 % LAB HEMETOLOGY METHOD 11/27/2024 9:13 AM EST [facility] NRBC Absolute 0.00 <0.10 K/mcL LAB HEMETOLOGY METHOD 11/27/2024 9:13 AM EST [facility] Blood Venous blood specimen / Unknown Venipuncture / Unknown 11/27/2024 7:12 AM EST 11/27/2024 8:47 AM EST us Angel Adamson MD LAB BLOOD ORDERABLES Final Resul t [facility] [address] [place] [address], documented in this encounter Visit Diagnoses Diagnosis Parkinsonism, unspecified (CMS/HCC) documented in this encounter Additional Health Concerns Infection Onset Date Last Indicated Resolved Time ESBL 11/24/2024 11/24/2024 documented as of this encounter Care Teams Veterinary Radiologist Relationship Specialty Start Date End Date Leona Almendarez MD [address] [place], [place] PCP - General 07/03/18 documented as of this encounter
--- OUTSIDE RECORDS SUMMARY | 2025-01-15 13:03 | XMS_ITS | Encounter Summary ---
Author Organization [facility] [place] [address] Care Team Providers Care Barrel Bridge Assembler Name Role Phone Leona Amlendarez MD Primary Care Provider [phone] Encounter Details Date Type Department Care Team (Late st Contact Info) Description 11/25/2024 Lab Requisition [facility] - Main Lab 299 [facility] [place] [phone] Angel Adamson MD [address] [place] [address] Altered mental status, unspecified; Chronic fatigue, unspecified [...] reflex microscopic (11/24/2024 3:20 PM EST) Specific [place] Urine 1.012 1.003 - 1.030 LAB URINALYSIS - AUTOMATED METHOD 11/25/2024 10:19 AM [facility] pH, Urine 7.0 5.0 - 8.0 pH LAB URINALYSIS - AUTOMATED METHOD 11/25/2024 10:19 AM [facility] Leukocytes, Urine Large(A) Negative LAB URINALYSIS - AUTOMATED METHOD 11/25/2024 10:19 AM [facility] Nitrite, Urine Negative Negative LAB URINALYSIS - AUTOMATED METHOD 11/25/2024 10:19 AM [facility] Protein, Urine 30(A) <=Trace mg/dL LAB URINALYSIS - AUTOMATED METHOD 11/25/2024 10:19 AM [facility] Glucose, Urine Negative Negative mg/dL LAB URINALYSIS - AUTOMATED METHOD 11/25/2024 10:19 AM [facility] Ketones, Urine Negative Negative mg/dL LAB URINALYSIS - AUTOMATED METHOD 11/25/2024 10:19 AM [facility] Urobilinogen , Urine 0.2 0.2 - 1.0 mg/dL LAB URINALYSIS - AUTOMATED METHOD 11/25/2024 10:19 AM [facility] Bilirubin, Urine Negative Negative LAB URINALYSIS - AUTOMATED METHOD 11/25/2024 10:19 AM [facility] Blood, Urine Small(A) Negative LAB URINALYSIS - AUTOMATED METHOD 11/25/2024 10:19 AM [facility] RBC, Urine 9.2(H) 0 - 4 /HPF LAB URINALYSIS - AUTOMATED METHOD 11/25/2024 10:19 AM EST [facility] WBC, Urine 2,095.6(H) 0 - 4 /HPF LAB URINALYSIS - AUTOMATED METHOD 11/25/2024 10:19 AM [facility] Squamous Epithelial, Urine 64(H) 0 - 60 /LPF LAB URINALYSIS - AUTOMATED METHOD 11/25/2024 10:19 AM [facility] Bacteria, Urine Moderate(A) Negative /HPF LAB URINALYSIS - AUTOMATED METHOD 11/25/2024 10:19 AM [facility] Hyaline Casts, Urine 3.4(H) 0 - 3 /LPF LAB URINALYSIS - AUTOMATED METHOD 11/25/2024 10:19 AM [facility] Urine Urine specimen from urethra / Unknown 11/24/2024 3:20 PM EST 11/25/2024 9:19 AM EST Angel Adamson MD LAB URINE ORDERABLES Final Resul t [facility] [address] [place] [address], * (ABNORMAL) Culture urine (11/24/2024 3:20 PM EST) Culture, Urine 50,000-100,00 0 CFU/mL Klebsiella pneumoniae ESBL(A) ABNER 11/28/2024 9:40 AM [facility] Comment: TESTING SUGGESTS AN ESBL(EXTENDED-SPECTRUM [...] MICROBIOLOGY - GENERAL ORDER TABITHA Final Result [facility] [address] [place] [address], documented in this encounter Visit Diagnoses Diagnosis Altered mental status, unspecified Chronic fatigue, unspecified documented in this encounter Additional Health Concerns Infection Onset Date Last Indicated Resolved Time ESBL 11/24/2024 11/24/2024 documented as of this encounter Care Teams Barrel Bridge Assembler Relationship Specialty Start Date End Date Leona Almendarez MD [address] [facility] [address] [place], [place] PCP - General 07/03/18 documented as of this encounter
--- OUTSIDE RECORDS SUMMARY | 2025-01-15 13:03 | XMS_ITS | Encounter Summary ---
Author Organization [facility] [place] [address] Care Team Providers Care Environmental Program Manager Name Role Phone Leona Almendarez MD Primary Care Provider [phone] Encounter Details Date Type Department Care Team (Late st Contact Info) Description 12/23/2024 Lab Requisition [facility] - Main Lab 299 [facility] [place] [phone] Angel Adamson MD [address] [place] [address] Parkinsonism, unspecified (CMS/HCC) Social History Tobacco Use [...] mmol/L LAB CHEMISTRY METHOD 12/24/2024 11:08 AM [facility] Potassium 3.8 3.5 - 5.5 mmol/L LAB CHEMISTRY METHOD 12/24/2024 11:08 AM [facility] Chloride 105 96 - 110 mmol/L LAB CHEMISTRY METHOD 12/24/2024 11:08 AM [facility] CO2 30 21 - 32 mmol/L LAB CHEMISTRY METHOD 12/24/2024 11:08 AM [facility] Anion Gap 5 3 - 11 LAB CHEMISTRY METHOD 12/24/2024 11:08 AM [facility] Glucose 91 70 - 100 mg/dL LAB CHEMISTRY METHOD 12/24/2024 11:08 AM [facility] BUN 24 5 - 25 mg/dL LAB CHEMISTRY METHOD 12/24/2024 11:08 AM [facility] Creatinine 0.66(L) 0.70 - 1.30 mg/dL LAB CHEMISTRY METHOD 12/24/2024 11:08 AM [facility] eGFR 95 >=60 mL/min/1. 73m2 LAB CHEMISTRY METHOD 12/24/2024 11:08 AM [facility] Comment:Calculation based on the??Chronic Kidney Disease Epidemiology Collaboration (CKD-EPI) equation refit??without adjustment for race. BUN/Creatinine Ratio 36.4 LAB CHEMISTRY METHOD 12/24/2024 11:08 AM [facility] Calcium 9.2 8.5 - 10.5 mg/dL LAB CHEMISTRY METHOD 12/24/2024 11:08 AM [facility] Blood Venous blood specimen / Unknown Venipuncture / Unknown 12/24/2024 8:37 AM EST 12/24/2024 11:08 AM EST Angel Adamson MD LAB BLOOD ORDERABLES Final Resul t [facility] [address] [place] [address], * (ABNORMAL) Complete blood count (12/24/2024 8:37 AM EST) [facility] Signature WBC 6.4 4.8 - 10.8 K/mcL LAB HEMETOLOGY METHOD 12/24/2024 11:37 AM EST [facility] RBC 3.50(L) 4.50 - 5.50 M/mcL LAB HEMETOLOGY METHOD 12/24/2024 11:37 AM [facility] Hemoglobin 11.4(L) 13.5 - 17.5 g/dL LAB HEMETOLOGY METHOD 12/24/2024 11:37 AM [facility] Hematocrit 36.2(L) 42.0 - 54.0 % LAB HEMETOLOGY METHOD 12/24/2024 11:37 AM [facility] MCV 102.5(H) 79.0 - 98.0 FL LAB HEMETOLOGY METHOD 12/24/2024 11:37 AM [facility] MCH 32.3(H) 27.0 - 32.0 pcg LAB HEMETOLOGY METHOD 12/24/2024 11:37 AM [facility] MCHC 31.5(L) 32.0 - 37.0 g/dL LAB HEMETOLOGY METHOD 12/24/2024 11:37 AM [facility] RDW 15.2(H) 11.0 - 15.0 % LAB HEMETOLOGY METHOD 12/24/2024 11:37 AM [facility] Platelets 271 130 - 400 K/mcL LAB HEMETOLOGY METHOD 12/24/2024 11:37 AM [facility] MPV 9.5 7.0 - 11.0 FL LAB HEMETOLOGY METHOD 12/24/2024 11:37 AM EST [facility] NRBC 0.0 <1.0 % LAB HEMETOLOGY METHOD 12/24/2024 11:37 AM EST [facility] NRBC Absolute 0.00 <0.10 K/mcL LAB HEMETOLOGY METHOD 12/24/2024 11:37 AM EST [facility] Blood Venous blood specimen / Unknown Venipuncture / Unknown 12/24/2024 8:37 AM EST 12/24/2024 11:36 AM EST us Angel Adamson MD LAB BLOOD ORDERABLES Final Resul t [facility] [address] [place] [address], documented in this encounter Visit Diagnoses Diagnosis Parkinsonism, unspecified (CMS/HCC) documented in this encounter Additional Health Concerns Infection Onset Date Last Indicated Resolved Time ESBL 11/24/2024 11/24/2024 documented as of this encounter Care Teams Environmental Program Manager Relationship Specialty Start Date End Date Leona Almendarez MD [address] [place], [place] PCP - General 07/03/18 documented as of this encounter
--- OUTSIDE RECORDS SUMMARY | 2025-01-15 13:03 | XMS_ITS | Encounter Summary ---
Author Organization [facility] [place] [address] Care Team Providers Care Cigar Head Piercer Name Role Phone Leona Almendarez MD Primary Care Provider [phone] Encounter Details Date Type Department Care Team (Late st Contact Info) Description 10/07/2024 Lab Requisition [facility] - Main Lab 299 [facility] [place] [phone] Angel Adamson MD [address] [place] [address] Hematuria, unspecified Social History Tobacco Use Types [...] mmol/L LAB CHEMISTRY METHOD 10/08/2024 10:04 AM [facility] Potassium 4.0 3.5 - 5.5 mmol/L LAB CHEMISTRY METHOD 10/08/2024 10:04 AM [facility] Chloride 107 96 - 110 mmol/L LAB CHEMISTRY METHOD 10/08/2024 10:04 AM [facility] CO2 26 21 - 32 mmol/L LAB CHEMISTRY METHOD 10/08/2024 10:04 AM [facility] Anion Gap 6 3 - 11 LAB CHEMISTRY METHOD 10/08/2024 10:04 AM [facility] Glucose 111(H) 70 - 100 mg/dL LAB CHEMISTRY METHOD 10/08/2024 10:04 AM [facility] BUN 12 5 - 25 mg/dL LAB CHEMISTRY METHOD 10/08/2024 10:04 AM [facility] Creatinine 0.65(L) 0.70 - 1.30 mg/dL LAB CHEMISTRY METHOD 10/08/2024 10:04 AM [facility] eGFR 96 >=60 mL/min/1. 73m2 LAB CHEMISTRY METHOD 10/08/2024 10:04 AM [facility] Comment:Calculation based on the??Chronic Kidney Disease Epidemiology Collaboration (CKD-EPI) equation refit??without adjustment for race. BUN/Creatinine Ratio 18.5 LAB CHEMISTRY METHOD 10/08/2024 10:04 AM [facility] Calcium 9.2 8.5 - 10.5 mg/dL LAB CHEMISTRY METHOD 10/08/2024 10:04 AM [facility] Blood Venous blood specimen / Unknown Venipuncture / Unknown 10/08/2024 7:18 AM EST 10/08/2024 9:10 AM EST us Angel Adamson MD LAB BLOOD ORDERABLES Final Resul t [facility] [address] [place] [address], * (ABNORMAL) Complete blood count (10/08/2024 7:18 AM EST) [facility] WBC 7.0 4.8 - 10.8 K/mcL LAB HEMETOLOGY METHOD 10/08/2024 9:41 AM EST [facility] RBC 4.20(L) 4.50 - 5.50 M/mcL LAB HEMETOLOGY METHOD 10/08/2024 9:41 AM EST [facility] Hemoglobin 13.6 13.5 - 17.5 g/dL LAB HEMETOLOGY METHOD 10/08/2024 9:41 AM EST [facility] Hematocrit 42.0 42.0 - 54.0 % LAB HEMETOLOGY METHOD 10/08/2024 9:41 AM [facility] MCV 99.1(H) 79.0 - 98.0 FL LAB HEMETOLOGY METHOD 10/08/2024 9:41 AM [facility] MCH 32.1(H) 27.0 - 32.0 pcg LAB HEMETOLOGY METHOD 10/08/2024 9:41 AM [facility] MCHC 32.4 32.0 - 37.0 g/dL LAB HEMETOLOGY METHOD 10/08/2024 9:41 AM EST [facility] RDW 13.3 11.0 - 15.0 % LAB HEMETOLOGY METHOD 10/08/2024 9:41 AM [facility] Platelets 255 130 - 400 K/mcL LAB HEMETOLOGY METHOD 10/08/2024 9:41 AM [facility] MPV 9.9 7.0 - 11.0 FL LAB HEMETOLOGY METHOD 10/08/2024 9:41 AM [facility] NRBC 0.0 <1.0 % LAB HEMETOLOGY METHOD 10/08/2024 9:41 AM EST [facility] NRBC Absolute 0.00 <0.10 K/mcL LAB HEMETOLOGY METHOD 10/08/2024 9:41 AM EST [facility] Blood Venous blood specimen / Unknown Venipuncture / Unknown 10/08/2024 7:18 AM EST 10/08/2024 9:10 AM EST us Angel Adamson MD LAB BLOOD ORDERABLES Final Resul t [facility] [address] [place] [address], documented in this encounter Visit Diagnoses Diagnosis Hematuria, unspecified documented in this encounter Additional Health Concerns Infection Onset Date Last Indicated Resolved Time ESBL 11/24/2024 11/24/2024 documented as of this encounter Care Teams Cigar Head Piercer Relationship Specialty Start Date End Date Leona Alemndarez MD [address] PCP - General 07/03/18 documented as of this encounter
== END 2025-01-14 11:08 | disposition home or self-care (01) ==
LOC: HO.HOSX 11:07
PROVIDERS: Visit Provider Physician Assistant
DX: M25.551 Pain in right hip (principal); Z96.641 Presence of right artificial hip joint
CPT/HCPCS: 73502; 99212

== ENCOUNTER 2025-01-14 11:15 | Outpatient (AMB) | payer MEDICARE, MEDICAID, SELFPAY ==
--- NOTE | 2025-01-14 11:47 | A.OFFVIS_ITS ---
Intake Visit Reasons: PO Rt hip corrine 12/02/24 NE Intake Note: Daniel is a 79 year old male who presents today for a post operative RT hip corrine, DOS 12/02/[address] Santos. Allergies oxycodone Allergy (Severe, Verified 01/14/25 11:47) Blister haloperidol [From Haldol] Allergy (Verified 01/14/25 11:47) Agitated HPI HPI PO Rt hip corrine 12/02/24 NE: Details: 79-year-old gentleman returns to the office today 6 weeks status post right hip hemiarthroplasty on 12/02/[address] Santos. He presents today in a wheelchair accompanied by his significant other. He is still in a rehab facility and working with physical therapy with assistance for ambulation. He complains of pain around the buttock region. States this pain is more prominent when he goes to abduct the leg. [facility] Medical History 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 HTN (hypertension) TIA (transient ischemic attack) Raynauds disease Hyperlipidemia Arthritis Lumbar spondylosis Fatty liver Atrial fibrillation Surgical History History of hip replacement Family History Father Stroke Mother Heart failure Sister Breast cancer in female Social History Household Members: Other Housing: Group Home Do you presently have visiting nurse or other home services: No Alcohol intake: former Patient Tobacco Use Status: Never used Tobacco Advance Directives Date on File: 12/02/24 service: Yes Review of Systems Const All systems reviewed & are unremarkable except as noted in HPI and below Physical Exam Extrem Other: Right hip incision well healed no erythema or drainage, no pain with range of motion or hip flexion. neurovascularly intact. Results Reviewed Results Reviewed: X-rays of the right hip obtained in the office today show intact prosthesis Assessment & Plan Assessment & Plan (1) History of hemiarthroplasty of right hip: Code(s): Z96.641 - Presence of right artificial hip joint Category: Surgical Plan He will continue working with physical therapy and occupational therapy for gait training and strengthening exercises. I suggested a recliner to help with offsetting the pressure on the right side as it was described to me that he often leans to the left in a straight up chair. All see him back in 6 weeks with x-rays sooner if needed. Orders: Orders XR hip RT min 2V Today M25.551 - Pain in right hip Coding Level of Care Code Global (30012) Diagnoses History of hemiarthroplasty of right hip Z96.641
--- OUTSIDE RECORDS SUMMARY | 2025-01-14 13:37 | XMS_ITS | Encounter Summary ---
Author Organization [facility] [place] [address] Care Team Providers Care Spring Clipper Name Role Phone Leona Almendarez MD Primary Care Provider [phone] Encounter Details Date Type Department Care Team (Late st Contact Info) Description 10/14/2024 Lab Requisition [facility] - Main Lab 299 [facility] [place] [phone] Angel Adamson MD [address] [place] [address] Hematuria, unspecified Social History Tobacco Use Types Packs/Day Years Used Date Smoking Tobacco: Never Smokeless Tobacco: Never Alcohol Use Standard Drinks/Week Comments Not Currently 0 (1 standard drink = 0.6 oz pur e alcohol) Sex and Gender Information Value Date Recorded Sex Assigned at Not on file Legal Sex Male 2:10 AM EST Gender Identity Not on file Sexual Orientation [...] AM EST) WBC 7.6 4.8 - 10.8 K/mcL LAB HEMETOLOGY METHOD 10/16/2024 11:51 AM [facility] RBC 4.20(L) 4.50 - 5.50 M/mcL LAB HEMETOLOGY METHOD 10/16/2024 11:51 AM [facility] Hemoglobin 13.5 13.5 - 17.5 g/dL LAB HEMETOLOGY METHOD 10/16/2024 11:51 AM [facility] LAB Hematocrit 43.1 42.0 - 54.0 % LAB HEMETOLOGY METHOD 10/16/2024 11:51 AM [facility] MCV 101.7(H) 79.0 - 98.0 FL LAB HEMETOLOGY METHOD 10/16/2024 11:51 AM [facility] LAB MCH 31.8 27.0 - 32.0 pcg LAB HEMETOLOGY METHOD 10/16/2024 11:51 AM [facility] LAB MCHC 31.3(L) 32.0 - 37.0 g/dL LAB HEMETOLOGY METHOD 10/16/2024 11:51 AM [facility] RDW 13.2 11.0 - 15.0 % LAB HEMETOLOGY METHOD 10/16/2024 11:51 AM [facility] LAB Platelets 243 130 - 400 K/[facility] LAB HEMETOLOGY METHOD 10/16/2024 11:51 AM [facility] MPV 10.0 7.0 - 11.0 FL LAB HEMETOLOGY METHOD 10/16/2024 11:51 AM [facility] LAB NRBC 0.0 <1.0 % LAB HEMETOLOGY METHOD 10/16/2024 11:51 AM [facility] NRBC Absolute 0.00 <0.10 K/mcL LAB HEMETOLOGY METHOD 10/16/2024 11:51 AM [facility] Blood Venous blood specimen / Unknown Venipuncture / Unknown 10/16/2024 8:55 AM EST 10/16/2024 11:14 AM EST us Angel Adamson MD LAB BLOOD ORDERABLES Final Resul t [facility] [address] [place] [address], * (ABNORMAL) Basic metabolic panel (10/16/2024 8:55 AM EST) Sodium 140 133 - 145 mmol/L LAB CHEMISTRY METHOD 10/16/2024 12:09 PM [facility] Potassium 4.1 3.5 - 5.5 mmol/L LAB CHEMISTRY METHOD 10/16/2024 12:09 PM [facility] Chloride 106 96 - 110 mmol/L LAB CHEMISTRY METHOD 10/16/2024 12:09 PM [facility] CO2 28 21 - 32 mmol/L LAB CHEMISTRY METHOD 10/16/2024 12:09 PM [facility] Anion Gap 6 3 - 11 LAB CHEMISTRY METHOD 10/16/2024 12:09 PM [facility] Glucose 80 70 - 100 mg/dL LAB CHEMISTRY METHOD 10/16/2024 12:09 PM [facility] BUN 19 5 - 25 mg/dL LAB CHEMISTRY METHOD 10/16/2024 12:09 PM [facility] Creatinine 0.69(L) 0.70 - 1.30 mg/dL LAB CHEMISTRY METHOD 10/16/2024 12:09 PM [facility] eGFR 94 >=60 mL/min/1. 73m2 LAB CHEMISTRY METHOD 10/16/2024 12:09 PM [facility] Comment:Calculation based on the??Chronic Kidney Disease Epidemiology Collaboration (CKD-EPI) equation refit??without adjustment for race. BUN/Creatinine Ratio 27.5 LAB CHEMISTRY METHOD 10/16/2024 12:09 PM EST [facility] Calcium 9.3 8.5 - 10.5 mg/dL LAB CHEMISTRY METHOD 10/16/2024 12:09 PM EST [facility] Blood Venous blood specimen / Unknown Venipuncture / Unknown 10/16/2024 8:55 AM EST 10/16/2024 11:14 AM EST us Angel Adamson MD LAB BLOOD ORDERABLES Final Resul t [facility] [address] [place] [address], documented in this encounter Visit Diagnoses Diagnosis Hematuria, unspecified documented in this encounter Additional Health Concerns Infection Onset Date Last Indicated Resolved Time ESBL 11/24/2024 11/24/2024 documented as of this encounter Care Teams Spring Clipper Relationship Specialty Start Date End Date Leona Almendarez MD [address] PCP - General 07/03/18 documented as of this encounter
--- OUTSIDE RECORDS SUMMARY | 2025-01-14 13:37 | XMS_ITS | Encounter Summary ---
Author Organization [facility] [place] [address] Care Team Providers Care Refractory Mixer Name Role Phone Leona Almendarez MD Primary Care Provider [phone] Encounter Details Date Type Department Care Team (Late st Contact Info) Description 12/23/2024 Lab Requisition [facility] - Main Lab 299 [facility] [place] [phone] Angel Adamson MD [address] [place] [address] Parkinsonism, unspecified (CMS/HCC) Social History Tobacco Use [...] Associated Diagnosis Comments COMPLETE BLOOD COUNT Routine 12/24/2024 8:37 AM EST Parkinsonism, unspecified (CMS/HCC) BASIC METABOLIC PANEL Routine 12/24/2024 8:37 AM EST Parkinsonism, unspecified (CMS/HCC) documented in this encounter Results * (ABNORMAL) Basic metabolic panel (12/24/2024 8:37 AM EST) Sodium 140 133 - 145 mmol/L LAB CHEMISTRY METHOD 12/24/2024 11:08 AM [facility] Potassium 3.8 3.5 - 5.5 mmol/L LAB CHEMISTRY METHOD 12/24/2024 11:08 AM [facility] Chloride 105 96 - 110 mmol/L LAB CHEMISTRY METHOD 12/24/2024 11:08 AM [facility] CO2 30 21 - 32 mmol/L LAB CHEMISTRY METHOD 12/24/2024 11:08 AM [facility] Anion Gap 5 3 - 11 LAB CHEMISTRY METHOD 12/24/2024 11:08 AM [facility] Glucose 91 70 - 100 mg/dL LAB CHEMISTRY METHOD 12/24/2024 11:08 AM [facility] BUN 24 5 - 25 mg/dL LAB CHEMISTRY METHOD 12/24/2024 11:08 AM [facility] Creatinine 0.66(L) 0.70 - 1.30 mg/dL LAB CHEMISTRY METHOD 12/24/2024 11:08 AM [facility] LAB eGFR 95 >=60 mL/min/1. 73m2 LAB CHEMISTRY METHOD 12/24/2024 11:08 AM [facility] Comment:Calculation based on the??Chronic Kidney Disease Epidemiology Collaboration (CKD-EPI) equation refit??without adjustment for race. BUN/Creatinine Ratio 36.4 LAB CHEMISTRY METHOD 12/24/2024 11:08 AM [facility] Calcium 9.2 8.5 - 10.5 mg/dL LAB CHEMISTRY METHOD 12/24/2024 11:08 AM [facility] Blood Venous blood specimen / Unknown Venipuncture / Unknown 12/24/2024 8:37 AM EST 12/24/2024 11:08 AM EST Angel Adamson MD LAB BLOOD ORDERABLES Final Resul t [facility] [address] [place] [address], * (ABNORMAL) Complete blood count (12/24/2024 8:37 AM EST) [facility] Signature WBC 6.4 4.8 - 10.8 K/mcL LAB HEMETOLOGY METHOD 12/24/2024 11:37 AM EST [facility] RBC 3.50(L) 4.50 - 5.50 M/mcL LAB HEMETOLOGY METHOD 12/24/2024 11:37 AM [facility] Hemoglobin 11.4(L) 13.5 - 17.5 g/dL LAB HEMETOLOGY METHOD 12/24/2024 11:37 AM [facility] Hematocrit 36.2(L) 42.0 - 54.0 % LAB HEMETOLOGY METHOD 12/24/2024 11:37 AM [facility] MCV 102.5(H) 79.0 - 98.0 FL LAB HEMETOLOGY METHOD 12/24/2024 11:37 AM [facility] LAB MCH 32.3(H) 27.0 - 32.0 pcg LAB HEMETOLOGY METHOD 12/24/2024 11:37 AM [facility] MCHC 31.5(L) 32.0 - 37.0 g/dL LAB HEMETOLOGY METHOD 12/24/2024 11:37 AM [facility] RDW 15.2(H) 11.0 - 15.0 % LAB HEMETOLOGY METHOD 12/24/2024 11:37 AM [facility] LAB Platelets 271 130 - 400 K/mcL LAB HEMETOLOGY METHOD 12/24/2024 11:37 AM [facility] LAB MPV 9.5 7.0 - 11.0 FL LAB HEMETOLOGY METHOD 12/24/2024 11:37 AM EST [facility] NRBC 0.0 <1.0 % LAB HEMETOLOGY METHOD 12/24/2024 11:37 AM EST [facility] NRBC Absolute 0.00 <0.10 K/mcL LAB HEMETOLOGY METHOD 12/24/2024 11:37 AM EST [facility] Blood Venous blood specimen / Unknown Venipuncture / Unknown 12/24/2024 8:37 AM EST 12/24/2024 11:36 AM EST us Angel Adamson MD LAB BLOOD ORDERABLES Final Resul t [facility] [address] [place] [address], documented in this encounter Visit Diagnoses Diagnosis Parkinsonism, unspecified (CMS/HCC) documented in this encounter Additional Health Concerns Infection Onset Date Last Indicated Resolved Time ESBL 11/24/2024 11/24/2024 documented as of this encounter Care Teams Refractory Mixer Relationship Specialty Start Date End Date Leona Almendarez MD [address] [place], [place] PCP - General 07/03/18 documented as of this encounter
--- OUTSIDE RECORDS SUMMARY | 2025-01-14 13:37 | XMS_ITS | Encounter Summary ---
Author Organization [facility] [place] [address] Care Team Providers Care Senior Grants Officer Name Role Phone Leona Almendarez MD Primary Care Provider [phone] Encounter Details Date Type Department Care Team (Late st Contact Info) Description 11/21/2024 Lab Requisition [facility] - Main Lab 299 [facility] [place] [phone] Angel Adamson MD [address] [place] [address] Urinary tract infection, site not specified Social [...] culture tube (11/20/2024 12:00 AM EST) Pathologist [facility] Extra Tube Hold for add-ons. 11/21/2024 2:01 PM [facility] Comment:Auto resulted. Urine Urine specimen obtained by clean catch procedure / Unknown Non-blood Collection / Unknown 11/20/2024 11/21/2024 12:11 PM EST Angel Adamson MD LAB URINE ORDERABLES Final Resul t [facility] [address] [place] [address], [place] [phone] * (ABNORMAL) Urinalysis with reflex microscopic (11/20/2024 12:00 AM EST) [facility] Specific [place] Urine 1.019 1.003 - 1.030 LAB URINALYSIS [...] / Unknown 11/20/2024 11/21/2024 12:11 PM EST us Angel Adasmon MD LAB URINE ORDERABLES Final Resul t [facility] [address] [place] [address], documented in this encounter Visit Diagnoses Diagnosis Urinary tract infection, site not specified documented in this encounter Additional Health Concerns Infection Onset Date Last Indicated Resolved Time ESBL 11/24/2024 11/24/2024 documented as of this encounter Care Teams Senior Grants Officer Relationship Specialty Start Date End Date Leona Almendarez MD 1221 [facility] [address] [place], [place] PCP - General 07/03/18 documented as of this encounter
--- OUTSIDE RECORDS SUMMARY | 2025-01-14 13:37 | XMS_ITS | Encounter Summary ---
Author Organization [facility] [place] [address] Care Team Providers Care Admiralty Lawyer Name Role Phone Leona Almendarez MD Primary Care Provider [phone] Encounter Details Date Type Department Care Team (Late st Contact Info) Description 12/16/2024 Lab Requisition [facility] - Main Lab [address] [facility] [place] [phone] Angel Adamson MD [address] [place] [address] Parkinsonism, unspecified (CMS/HCC) Social History Tobacco Use [...] mmol/L LAB CHEMISTRY METHOD 12/17/2024 10:[address] [facility] Potassium 4.1 3.5 - 5.5 mmol/L LAB CHEMISTRY METHOD 12/17/2024 10:[address] [facility] Chloride 106 96 - 110 mmol/L LAB CHEMISTRY METHOD 12/17/2024 10:[address] [facility] LAB CO2 28 21 - 32 mmol/L LAB CHEMISTRY METHOD 12/17/2024 10:[address] [facility] LAB Anion Gap 6 3 - 11 LAB CHEMISTRY METHOD 12/17/2024 10:[address] [facility] LAB Glucose 84 70 - 100 mg/dL LAB CHEMISTRY METHOD 12/17/2024 10:[address] [facility] BUN 17 5 - 25 mg/dL LAB CHEMISTRY METHOD 12/17/2024 10:[address] [facility] LAB Creatinine 0.55(L) 0.70 - 1.30 mg/dL LAB CHEMISTRY METHOD 12/17/2024 10:[address] [facility] LAB eGFR 101 >=60 mL/min/1. 73m2 LAB CHEMISTRY METHOD 12/17/2024 10:[address] [facility] LAB Comment:Calculation based on the??Chronic Kidney Disease Epidemiology Collaboration (CKD-EPI) equation refit??without adjustment for race. BUN/Creatinine Ratio 30.9 LAB CHEMISTRY METHOD 12/17/2024 10:[address] [facility] Calcium 9.0 8.5 - 10.5 mg/dL LAB CHEMISTRY METHOD 12/17/2024 10:[address] [facility] Blood Venous blood specimen / Unknown Venipuncture / Unknown 12/17/2024 7:30 AM EST 12/17/2024 10:16 AM EST Angel Adamson MD LAB BLOOD ORDERABLES Final Resul t [facility] [address] [place] [address], * (ABNORMAL) Complete blood count (12/17/2024 7:30 AM EST) [facility] Signature WBC 6.8 4.8 - 10.8 K/mcL LAB HEMETOLOGY METHOD 12/17/2024 10:16 AM EST [facility] RBC 3.60(L) 4.50 - 5.50 M/mcL LAB HEMETOLOGY METHOD 12/17/2024 10:16 AM EST [facility] Hemoglobin 11.5(L) 13.5 - 17.5 g/dL LAB HEMETOLOGY METHOD 12/17/2024 10:[address] [facility] LAB Hematocrit 36.9(L) 42.0 - 54.0 % LAB HEMETOLOGY METHOD 12/17/2024 10:16 AM EST [facility] MCV 101.9(H) 79.0 - 98.0 FL LAB HEMETOLOGY METHOD 12/17/2024 10:16 AM EST [facility] MCH 31.8 27.0 - 32.0 pcg LAB HEMETOLOGY METHOD 12/17/2024 10:[address] [facility] MCHC 31.2(L) 32.0 - 37.0 g/dL LAB HEMETOLOGY METHOD 12/17/2024 10:16 AM EST [facility] RDW 14.7 11.0 - 15.0 % LAB HEMETOLOGY METHOD 12/17/2024 10:[address] [facility] Platelets 352 130 - 400 K/mcL LAB HEMETOLOGY METHOD 12/17/2024 10:[address] [facility] MPV 9.4 7.0 - 11.0 FL LAB HEMETOLOGY METHOD 12/17/2024 10:16 AM EST [facility] NRBC 0.0 <1.0 % LAB HEMETOLOGY METHOD 12/17/2024 10:16 AM EST [facility] NRBC Absolute 0.00 <0.10 K/mcL LAB HEMETOLOGY METHOD 12/17/2024 10:16 AM EST [facility] Blood Venous blood specimen / Unknown Venipuncture / Unknown 12/17/2024 7:30 AM EST 12/17/2024 10:16 AM EST us Angel Adamson MD LAB BLOOD ORDERABLES Final Resul t [facility] [address] [place] [address], documented in this encounter Visit Diagnoses Diagnosis Parkinsonism, unspecified (CMS/HCC) documented in this encounter Additional Health Concerns Infection Onset Date Last Indicated Resolved Time ESBL 11/24/2024 11/24/2024 documented as of this encounter Care Teams Admiralty Lawyer Relationship Specialty Start Date End Date Leona Almendarez MD 1221 [facility] [address] [place], [place] PCP - General 07/03/18 documented as of this encounter
--- OUTSIDE RECORDS SUMMARY | 2025-01-14 13:37 | XMS_ITS | Encounter Summary ---
Author Organization [facility] [place] [address] Care Team Providers Care Hazardous Waste Material Technician Name Role Phone Leona Almendarez MD Primary Care Provider [phone] Encounter Details Date Type Department Care Team (Late st Contact Info) Description 10/07/2024 Lab Requisition [facility] - Main Lab 299 [facility] [place] [phone] Angel Adamson MD [address] [place] [address] Hematuria, unspecified Social History Tobacco Use Types [...] 7:18 AM EST 10/08/2024 9:10 AM EST us Angel Adamson MD LAB BLOOD ORDERABLES Final Resul t [facility] [address] [place] [address], * (ABNORMAL) Complete blood count (10/08/2024 7:18 AM EST) [facility] WBC 7.0 4.8 - 10.8 K/mcL LAB HEMETOLOGY METHOD 10/08/2024 9:41 AM EST [facility] RBC 4.20(L) 4.50 - 5.50 M/mcL LAB HEMETOLOGY METHOD 10/08/2024 9:41 AM EST [facility] Hemoglobin 13.6 13.5 - 17.5 g/dL LAB HEMETOLOGY METHOD 10/08/2024 9:41 AM EST [facility] LAB Hematocrit 42.0 42.0 - 54.0 % LAB HEMETOLOGY METHOD 10/08/2024 9:41 AM [facility] LAB MCV 99.1(H) 79.0 - 98.0 FL LAB HEMETOLOGY METHOD 10/08/2024 9:41 AM [facility] LAB MCH 32.1(H) 27.0 - 32.0 pcg LAB HEMETOLOGY METHOD 10/08/2024 9:41 AM [facility] LAB MCHC 32.4 32.0 - 37.0 g/dL LAB HEMETOLOGY METHOD 10/08/2024 9:41 AM EST [facility] RDW 13.3 11.0 - 15.0 % LAB HEMETOLOGY METHOD 10/08/2024 9:41 AM [facility] LAB Platelets 255 130 - 400 K/mcL LAB HEMETOLOGY METHOD 10/08/2024 9:41 AM [facility] LAB MPV 9.9 7.0 - 11.0 FL LAB HEMETOLOGY METHOD 10/08/2024 9:41 AM [facility] LAB NRBC 0.0 <1.0 % LAB HEMETOLOGY METHOD 10/08/2024 9:41 AM EST [facility] NRBC Absolute 0.00 <0.10 K/mcL LAB HEMETOLOGY METHOD 10/08/2024 9:41 AM EST [facility] Blood Venous blood specimen / Unknown Venipuncture / Unknown 10/08/2024 7:18 AM EST 10/08/2024 9:10 AM EST us Angel Adamson MD LAB BLOOD ORDERABLES Final Resul t [facility] [address] [place] [address], documented in this encounter Visit Diagnoses Diagnosis Hematuria, unspecified documented in this encounter Additional Health Concerns Infection Onset Date Last Indicated Resolved Time ESBL 11/24/2024 11/24/2024 documented as of this encounter Care Teams Hazardous Waste Material Technician Relationship Specialty Start Date End Date Leona Almendarez MD [address] PCP - General 07/03/18 documented as of this encounter
--- OUTSIDE RECORDS SUMMARY | 2025-01-14 13:37 | XMS_ITS | Encounter Summary ---
Author Organization [facility] [place] [address] Care Team Providers Care Bath Attendant Name Role Phone Leona Almendarez MD Primary Care Provider [phone] Encounter Details Date Type Department Care Team (Late st Contact Info) Description 09/30/2024 Lab Requisition [facility] - Main Lab 299 [facility] [place] [phone] Angel Adamson MD [address] [place] [address] Hematuria, unspecified Social History Tobacco Use Types [...] AM EST) WBC 7.9 4.8 - 10.8 K/mcL LAB HEMETOLOGY METHOD 10/01/2024 10:12 AM [...] CENTER LAB Platelets 223 130 - 400 K/[facility] LAB HEMETOLOGY METHOD 10/01/2024 10:12 AM [...] 7:30 AM EST 10/01/2024 8:42 AM EST us Angel Adamson MD LAB BLOOD ORDERABLES Final Resul t [facility] [address] [place] [address], [place] [phone] * (ABNORMAL) Basic metabolic panel (10/01/2024 7:30 [...] LAB CHEMISTRY METHOD 10/01/2024 10:16 AM EST [facility] Calcium 9.0 8.5 - 10.5 mg/dL LAB CHEMISTRY METHOD 10/01/2024 10:16 AM EST [facility] Blood Venous blood specimen / Unknown Venipuncture / Unknown 10/01/2024 7:30 AM EST 10/01/2024 8:42 AM EST us Angel Adamson MD LAB BLOOD ORDERABLES Final Resul t [facility]) [facility] [address] [place] [address], documented in this encounter Visit Diagnoses Diagnosis Hematuria, unspecified documented in this encounter Additional Health Concerns Infection Onset Date Last Indicated Resolved Time ESBL 11/24/2024 11/24/2024 documented as of this encounter Care Teams Bath Attendant Relationship Specialty Start Date End Date Leona Almendarez MD 1221 [facility] [address] [place], [place] PCP - General 07/03/18 documented as of this encounter
--- OUTSIDE RECORDS SUMMARY | 2025-01-14 13:37 | XMS_ITS | Clinical Summary ---
Author Organization [facility] Address [address] [place] [address] Care Team Providers Care Motion Study Engineer Name Role Phone Leona Almendarez MD Primary Care Provider [phone] Allergies No known active allergies Medications Medication [...] age to complete this topic Care Teams Motion Study Engineer Relationship Specialty Start Date End Date Leona Almendarez MD [address] [phone] PCP - General Internal Medicine 05/11/19
--- OUTSIDE RECORDS SUMMARY | 2025-01-14 13:37 | XMS_ITS | Encounter Summary ---
Author Organization [facility] [place] [address] Care Team Providers Care Television Operator Name Role Phone Leona Almendarez MD Primary Care Provider [phone] Encounter Details Date Type Department Care Team (Late st Contact Info) Description 11/20/2024 Lab Requisition [facility] - Main Lab 299 [facility] [place] [phone] Maggie Parry PA [address] [place] [address] [facility] [place] [address] Essential (primary) hypertension Social History Tobacco Use [...] mmol/L LAB CHEMISTRY METHOD 11/20/2024 5:[address] [facility] Potassium 4.2 3.5 - 5.5 mmol/L LAB CHEMISTRY METHOD 11/20/2024 5:[address] [facility] Chloride 106 96 - 110 mmol/L LAB CHEMISTRY METHOD 11/20/2024 5:[address] [facility] CO2 30 21 - 32 mmol/L LAB CHEMISTRY METHOD 11/20/2024 5:[address] [facility] Anion Gap 5 3 - 11 LAB CHEMISTRY METHOD 11/20/2024 5:[address] [facility] Glucose 94 70 - 100 mg/dL LAB CHEMISTRY METHOD 11/20/2024 5:[address] [facility] BUN 19 5 - 25 mg/dL LAB CHEMISTRY METHOD 11/20/2024 5:[address] [facility] Creatinine 0.63(L) 0.70 - 1.30 mg/dL LAB CHEMISTRY METHOD 11/20/2024 5:[address] [facility] eGFR 97 >=60 mL/min/1. 73m2 LAB CHEMISTRY METHOD 11/20/2024 5:[address] [facility] Comment:Calculation based on the??Chronic Kidney Disease Epidemiology Collaboration (CKD-EPI) equation refit??without adjustment for race. BUN/Creatinine Ratio 30.2 LAB CHEMISTRY METHOD 11/20/2024 5:[address] [facility] Calcium 8.8 8.5 - 10.5 mg/dL LAB CHEMISTRY METHOD 11/20/2024 5:[address] [facility] Blood Venous blood specimen / Unknown Venipuncture / Unknown 11/20/2024 3:13 PM EST 11/20/2024 4:32 PM EST us Maggie YORK LAB BLOOD ORDERABLES Final Resu lt [facility] [address] [place] [address], * (ABNORMAL) Complete blood count (11/20/2024 3:13 PM EST) [facility] Signature WBC 7.9 4.8 - 10.8 K/mcL LAB HEMETOLOGY METHOD 11/20/2024 4:[address] [facility] RBC 4.10(L) 4.50 - 5.50 M/mcL LAB HEMETOLOGY METHOD 11/20/2024 4:[address] [facility] Hemoglobin 12.8(L) 13.5 - 17.5 g/dL LAB HEMETOLOGY METHOD 11/20/2024 4:[address] [facility] Hematocrit 39.5(L) 42.0 - 54.0 % LAB HEMETOLOGY METHOD 11/20/2024 4:[address] [facility] MCV 97.3 79.0 - 98.0 FL LAB HEMETOLOGY METHOD 11/20/2024 4:[address] [facility] MCH 31.5 27.0 - 32.0 pcg LAB HEMETOLOGY METHOD 11/20/2024 4:[address] [facility] MCHC 32.4 32.0 - 37.0 g/dL LAB HEMETOLOGY METHOD 11/20/2024 4:[address] [facility] RDW 13.5 11.0 - 15.0 % LAB HEMETOLOGY METHOD 11/20/2024 4:[address] [facility] Platelets 200 130 - 400 K/mcL LAB HEMETOLOGY METHOD 11/20/2024 4:[address] [facility] MPV 10.2 7.0 - 11.0 FL LAB HEMETOLOGY METHOD 11/20/2024 4:[address] [facility] NRBC 0.0 <1.0 % LAB HEMETOLOGY METHOD 11/20/2024 4:[address] [facility] NRBC Absolute 0.00 <0.10 K/mcL LAB HEMETOLOGY METHOD 11/20/2024 4:[address] [facility] Blood Venous blood specimen / Unknown Venipuncture / Unknown 11/20/2024 3:13 PM EST 11/20/2024 4:32 PM EST us Maggie YORK LAB BLOOD ORDERABLES Final Resu lt [facility] [address] [place] [address], documented in this encounter Visit Diagnoses Diagnosis Essential (primary) hypertension Unspecified essential hypertension documented in this encounter Additional Health Concerns Infection Onset Date Last Indicated Resolved Time ESBL 11/24/2024 11/24/2024 documented as of this encounter Care Teams Television Operator Relationship Specialty Start Date End Date Leona Almendarez MD [address] [facility] [address] [place], [place] PCP - General 07/03/18 documented as of this encounter
--- OUTSIDE RECORDS SUMMARY | 2025-01-14 13:37 | XMS_ITS | Clinical Summary ---
Author Organization [address] Address [address] [place] [address] Phone Care Team Providers Care Hvac Designer Name Role Phone Leona Almendarez MD Primary Care Provider [phone] Encounters Date Type Department Care Team Description 01/08/2025 Lab Requisition [facility] Lab [address] [place] [address] Angel Adamson MD Hematuria, unspecified 01/08/2025 Lab Requisition [facility] Lab [address] [place] [address] Angel Adamson MD Unspecified atrial fibrillation ([facility]) 12/23/2024 Lab Requisition [facility] Lab [address] [place] [address] Angel Adamson MD Parkinsonism, unspecified ([facility]) 12/16/2024 Lab Requisition [facility] Lab [address] [place] [address] Angel Adamson MD Parkinsonism, unspecified ([facility]) 12/15/2024 Lab Requisition [facility] [address] [place] [phone] Angel Adamson MD Altered mental status, unspecified; Confusional arousals 12/09/2024 Lab Requisition [facility] Lab [address] [place] [phone] Angel Adamson MD Parkinsonism, unspecified ([facility]) 11/26/2024 Lab Requisition [facility] Lab [address] [place] [phone] Angel Adamson MD Parkinsonism, unspecified ([facility]) 11/25/2024 Lab Requisition [facility] Lab [address] [place] [phone] Angel Adamson MD Altered mental status, unspecified; Chronic fatigue, unspecified 11/21/2024 Lab Requisition [facility] Lab [address] [place] [phone] Angel Adamson MD Urinary tract infection, site not specified 11/20/2024 Lab Requisition [facility] Lab [address] [place] [phone] Maggie Parry PA Essential (primary) hypertension 10/14/2024 Lab Requisition [facility] Lab [address] [place] [phone] Angel Adamson MD Hematuria, unspecified from Last [...] DTaP,Tdap,and Td Vaccines (1 - Tdap) 1964 Pneumococcal Vaccine: 50+ Years (1 of 1 - PCV) 1995 Zoster Vaccines (1 of 2) 1995 RSV Immunization Patients 60+ Years Old (1 - 1-dose 75+ series) 2020 Depression Screening 10/25/2022 Falls Risk Assessment 10/25/2022 Hepatitis C Screening 10/25/2022 Medicare Annual Wellness Visit 10/25/2022 Social Influencers of Health Screening 10/25/2022 COVID-19 Vaccine ( - season) 2024 Influenza Vaccine (#1) 2024 Hypertension/CHF/CAD Annual BMP Blood Test 01/08/2026 01/08/2025, 12/24/2024, 12/17/2024, Additional history exists Cholesterol Screening (Lipid Panel) [...] patient's age to complete this topic Meningococcal B Vacine Aged Out No lo nger eligible based on patient's age to complete this topic RSV Immunization Patients Under 20 months Aged Out No longer eligible based on patient's age to complete this topic Varicella Vaccines Aged Out No longer eligible based on patient's age to complete this topic Procedures Procedure Name Priority Date/Time Associated Diagnosis Comments BASIC METABOLIC PANEL STAT 01/08/2025 10:49 AM EST Unspecified atrial fibrillation (CMS/HCC) COMPLETE BLOOD COUNT STAT 01/08/2025 10:49 AM EST Unspecified atrial fibrillation (CMS/HCC) URINALYSIS WITH REFLEX MICROSCOPIC Routine 01/08/2025 12:00 AM EST Hematuria, unspecified URINALYSIS WITH REFLEX MICROSCOPIC Routine 01/08/2025 12:00 AM EST Hematuria, unspecified CULTURE URINE Routine 01/08/2025 12:00 AM EST Hematuria, unspecified BASIC METABOLIC PANEL Routine 12/24/2024 8:37 AM EST Parkinsonism, unspecified (CMS/HCC) COMPLETE BLOOD COUNT Routine 12/24/2024 8:37 AM [...] 11/20/2024 3:13 PM EST Essential (primary) hypertension AMBORCIO URINE CULTURE TUBE Routine 11/20/2024 12:00 AM [...] Routine 10/16/2024 8:55 AM EST Hematuria, unspecified from Last 3 Months Results * (ABNORMAL) Complete blood count (01/08/2025 10:49 AM EST) Only the most recent of7 resultswithin the time period is included. WBC 6.8 4.8 - 10.8 K/[facility] LAB HEMETOLOGY METHOD 01/08/2025 11:42 AM [facility] RBC 3.70(L) 4.50 - 5.50 M/mcL LAB HEMETOLOGY METHOD 01/08/2025 11:42 AM [facility] Hemoglobin 11.8(L) 13.5 - 17.5 g/dL LAB HEMETOLOGY METHOD 01/08/2025 11:42 AM [facility] Hematocrit 37.8(L) 42.0 - 54.0 % LAB HEMETOLOGY METHOD 01/08/2025 11:42 AM [facility] MCV 103.6(H) 79.0 - 98.0 FL LAB HEMETOLOGY METHOD 01/08/2025 11:42 AM [facility] MCH 32.3(H) 27.0 - 32.0 pcg LAB HEMETOLOGY METHOD 01/08/2025 11:42 AM [facility] MCHC 31.2(L) 32.0 - 37.0 g/dL LAB HEMETOLOGY METHOD 01/08/2025 11:42 AM [facility] RDW 14.0 11.0 - 15.0 % LAB HEMETOLOGY METHOD 01/08/2025 11:42 AM [facility] Platelets 221 130 - 400 K/mcL LAB HEMETOLOGY METHOD 01/08/2025 11:42 AM [facility] MPV 10.0 7.0 - 11.0 FL LAB HEMETOLOGY METHOD 01/08/2025 11:42 AM [facility] NRBC 0.0 <1.0 % LAB HEMETOLOGY METHOD 01/08/2025 11:42 AM [facility] NRBC Absolute 0.00 <0.10 K/mcL LAB HEMETOLOGY METHOD 01/08/2025 11:42 AM [facility] Blood Venous blood specimen / Unknown Venipuncture / Unknown 01/08/2025 10:49 AM EST 01/08/2025 11:28 AM EST us Angel Adamson MD LAB BLOOD ORDERABLES Final Resul t [facility] [address] [place] [address], [place] [phone] * (ABNORMAL) Basic metabolic panel (01/08/2025 10:49 AM EST) Only the most recent of7 resultswithin the time period is included. Sodium 142 133 - 145 mmol/L LAB CHEMISTRY METHOD 01/08/2025 11:57 AM [facility] Potassium 3.9 3.5 - 5.5 mmol/L LAB CHEMISTRY METHOD 01/08/2025 11:57 AM [facility] Chloride 108 96 - 110 mmol/L LAB CHEMISTRY METHOD 01/08/2025 11:57 AM [facility] CO2 27 21 - 32 mmol/L LAB CHEMISTRY METHOD 01/08/2025 11:57 AM [facility] Anion Gap 7 3 - 11 LAB CHEMISTRY METHOD 01/08/2025 11:57 AM [facility] Glucose 97 70 - 100 mg/dL LAB CHEMISTRY METHOD 01/08/2025 11:57 AM [facility] BUN 16 5 - 25 mg/dL LAB CHEMISTRY METHOD 01/08/2025 11:57 AM [facility] Creatinine 0.63(L) 0.70 - 1.30 mg/dL LAB CHEMISTRY METHOD 01/08/2025 11:57 AM [facility] eGFR 97 >=60 mL/min/1. 73m2 LAB CHEMISTRY METHOD 01/08/2025 11:57 AM [facility] Comment:Calculation based on the??Chronic Kidney Disease Epidemiology Collaboration (CKD-EPI) equation refit??without adjustment for race. BUN/Creatinine Ratio 25.4 LAB CHEMISTRY METHOD 01/08/2025 11:57 AM [facility] Calcium 8.8 8.5 - 10.5 mg/dL LAB CHEMISTRY METHOD 01/08/2025 11:57 AM [facility] Blood Venous blood specimen / Unknown Venipuncture / Unknown 01/08/2025 10:49 AM EST 01/08/2025 11:28 AM EST us Angel Adamson MD LAB BLOOD ORDERABLES Final Resul t [facility] [address] [place] [address], [place] [phone] * (ABNORMAL) Urinalysis with reflex microscopic (01/08/2025 12:00 AM EST) Only the most recent of3 resultswithin the time period is included. Specific Humphrey Urine 1.020 1.003 - 1.030 LAB URINALYSIS - AUTOMATED METHOD 01/08/2025 7:39 PM [facility] pH, Urine 6.5 5.0 - 8.0 pH LAB URINALYSIS - AUTOMATED METHOD 01/08/2025 7:39 PM [facility] Leukocytes, Urine Trace(A) Negative LAB URINALYSIS - AUTOMATED METHOD 01/08/2025 7:39 PM [facility] Nitrite, Urine Negative Negative LAB URINALYSIS - AUTOMATED METHOD 01/08/2025 7:39 PM [facility] Protein, Urine Negative <=Trace mg/dL LAB URINALYSIS - AUTOMATED METHOD 01/08/2025 7:39 PM [facility] Glucose, Urine Negative Negative mg/dL LAB URINALYSIS - AUTOMATED METHOD 01/08/2025 7:39 PM [facility] Ketones, Urine Negative Negative mg/dL LAB URINALYSIS - AUTOMATED METHOD 01/08/2025 7:39 PM [facility] Urobilinogen, Urine 1.0 0.2 - 1.0 mg/dL LAB URINALYSIS - AUTOMATED METHOD 01/08/2025 7:39 PM [facility] Bilirubin, Urine Negative Negative LAB URINALYSIS - AUTOMATED METHOD 01/08/2025 7:39 PM [facility] Blood, Urine Negative Negative LAB URINALYSIS - AUTOMATED METHOD 01/08/2025 7:39 PM [facility] RBC, Urine 3.6 0 - 4 /HPF LAB URINALYSIS - AUTOMATED METHOD 01/08/2025 7:39 PM [facility] WBC, Urine 1.6 0 - 4 /HPF LAB URINALYSIS - AUTOMATED METHOD 01/08/2025 7:39 PM [facility] Squamous Epithelial, Urine 4 0 - 60 /LPF LAB URINALYSIS - AUTOMATED METHOD 01/08/2025 7:39 PM [facility] Bacteria, Urine Negative Negative /HPF LAB URINALYSIS - AUTOMATED METHOD 01/08/2025 7:39 PM [facility] Hyaline Casts, Urine 0.8 0 - 3 /LPF LAB URINALYSIS - AUTOMATED METHOD 01/08/2025 7:39 PM [facility] Urine Urine specimen obtained by clean catch procedure / Unknown 01/08/2025 01/08/2025 7:01 PM EST us Angel Adamson MD LAB URINE ORDERABLES Final Resul t [facility] [address] [place] [address], * Culture urine (01/08/2025 12:00 AM EST) Only the most recent of3 resultswithin the time period is included. Culture, Urine No growth 01/09/2025 1:42 PM [facility] Urine Urine specimen obtained by clean catch procedure / Unknown 01/08/2025 01/08/2025 7:01 PM EST Angel Adamson MD LAB MICROBIOLOGY - GENERAL ORDER TABITHA Final Result Performing Organization Address [facility]/ZIP Co de Phone Number [facility] [address] [place] [address], [place] [phone] * (ABNORMAL) Urinalysis microscopic only (12/15/2024 10:30 AM EST) RBC, Urine 4.0 0 - 4 /HPF LAB URINALYSIS - AUTOMATED METHOD 12/15/2024 5:36 PM [facility] WBC, Urine 7.1(H) 0 - 4 /HPF LAB URINALYSIS - AUTOMATED METHOD 12/15/2024 5:36 PM [facility] Squamous Epithelial, Urine 27 0 - 60 /LPF LAB URINALYSIS - AUTOMATED METHOD 12/15/2024 5:36 PM [facility] Crystals, Urine ..Heavy Calcium Oxalate crystals. /LPF 12/15/2024 5:36 PM [facility] Bacteria, Urine Negative Negative /HPF LAB URINALYSIS - AUTOMATED METHOD 12/15/2024 5:36 PM [facility] Hyaline Casts, Urine 2.5 0 - 3 /LPF LAB URINALYSIS - AUTOMATED METHOD 12/15/2024 5:36 PM [facility] Urine Urine specimen obtained by clean catch procedure / Unknown 12/15/2024 10:30 AM EST 12/15/2024 4:02 PM EST us Angel Adamson MD LAB URINE ORDERABLES Final Resul t Performing Organization Address [facility]/ZIP Co de Phone Number [facility] [address] [place] [address], [place] [phone] * Ambrocio urine culture tube (11/20/2024 12:00 AM EST) Extra Tube Hold for add-ons. 11/21/2024 2:[address] [facility] Comment:Auto resulted. Urine Urine specimen obtained by clean catch procedure / Unknown Non-blood Collection / Unknown 11/20/2024 11/21/2024 12:11 PM EST us Angel Adamson MD LAB URINE ORDERABLES Final Resul t [facility] [address] [place] [address], [place] [phone] from Last 3 Months Additional Health Concerns Infection Onset Date Last Indicated ESBL 11/24/2024 11/24/2024 Insurance [place]ICA[place] - [place] MEDICARE Advance Directives Documents on File Type Date Recorded Patient Fish Smoker Expl anation Health Care Decision (hx) 06/25/2024 AD WILSON DIRECTIVE Health Care Decision (hx) 06/25/2024 AD WILSON DIRECTIVE Health Care Decision (hx) 06/20/2024 AD WILSON DIRECTIVE Health Care Decision (hx) 06/20/2024 AD WILSON DIRECTIVE Care Teams Hvac Designer Relationship Specialty Start Date End Date Leona Almendarez MD [facility] PCP - General 07/03/18
--- OUTSIDE RECORDS SUMMARY | 2025-01-14 13:37 | XMS_ITS | Encounter Summary ---
Author Organization [facility] [place] [address] Care Team Providers Care Cnp Name Role Phone Leona Almendarez MD Primary Care Provider [phone] Encounter Details Date Type Department Care Team (Late st Contact Info) Description 09/22/2024 Lab Requisition [facility] - Main Lab [address] [facility] [place] [phone] Angel Adamson MD [address] [place] [address] Hematuria, unspecified Social History Tobacco Use Types [...] AM EST) WBC 6.9 4.8 - 10.8 K/mcL LAB HEMETOLOGY METHOD 09/24/2024 9:58 AM [facility] RBC 4.20(L) 4.50 - 5.50 M/[facility] LAB HEMETOLOGY METHOD 09/24/2024 9:58 [...] HOSPITAL LAB Platelets 222 130 - 400 K/[facility] LAB HEMETOLOGY METHOD 09/24/2024 9:58 AM [facility] MPV 10.3 7.0 - 11.0 FL LAB HEMETOLOGY METHOD 09/24/2024 9:58 AM [facility] NRBC 0.0 <1.0 % LAB HEMETOLOGY METHOD 09/24/2024 9:58 AM [facility] NRBC Absolute 0.00 <0.10 K/[facility] LAB HEMETOLOGY METHOD 09/24/2024 9:58 AM [facility] Blood Venous blood specimen / Unknown Venipuncture / Unknown 09/24/2024 6:32 AM EST 09/24/2024 8:46 AM EST Angel Adamson MD LAB BLOOD ORDERABLES Final Resul t [facility] [address] [place] [address], [place] [phone] * (ABNORMAL) Basic metabolic panel (09/24/2024 6:32 [...] LAB CHEMISTRY METHOD 09/24/2024 10:21 AM EST [facility] Calcium 9.1 8.5 - 10.5 mg/dL LAB CHEMISTRY METHOD 09/24/2024 10:21 AM EST [facility] Blood Venous blood specimen / Unknown Venipuncture / Unknown 09/24/2024 6:32 AM EST 09/24/2024 8:46 AM EST us Angel Adamson MD LAB BLOOD ORDERABLES Final Resul t [facility] [address] [place] [address], documented in this encounter Visit Diagnoses Diagnosis Hematuria, unspecified documented in this encounter Additional Health Concerns Infection Onset Date Last Indicated Resolved Time ESBL 11/24/2024 11/24/2024 documented as of this encounter Care Teams Cnp Relationship Specialty Start Date End Date Leona Almendarez MD [address] [facility] [address] [place], [place] PCP - General 07/03/18 documented as of this encounter
--- OUTSIDE RECORDS SUMMARY | 2025-01-14 13:37 | XMS_ITS | Encounter Summary ---
Author Organization [facility] [place] [address] Care Team Providers Care Staging Technician Name Role Phone Leona Almendarez MD Primary Care Provider [phone] Encounter Details Date Type Department Care Team (Late st Contact Info) Description 01/08/2025 Lab Requisition [facility] - Main Lab [address] [facility] [place] [phone] Angel Adamson MD [address] [place] [address] Hematuria, unspecified Social History Tobacco Use Types [...] Diagnosis Comments URINALYSIS WITH REFLEX MICROSCOPIC Routine 01/08/2025 12:00 AM EST Hematuria, unspecified URINALYSIS WITH REFLEX MICROSCOPIC Routine 01/08/2025 12:00 AM EST Hematuria, unspecified CULTURE URINE Routine 01/08/2025 12:00 AM EST Hematuria, unspecified documented in this encounter Results * (ABNORMAL) Urinalysis with reflex microscopic (01/08/2025 12:00 AM EST) Specific [place] Urine 1.020 1.003 - 1.030 LAB URINALYSIS - AUTOMATED METHOD 01/08/2025 7:39 PM [facility] pH, Urine 6.5 5.0 - 8.0 pH LAB URINALYSIS - AUTOMATED METHOD 01/08/2025 7:39 PM [facility] Leukocytes, Urine Trace(A) Negative LAB URINALYSIS - AUTOMATED METHOD 01/08/2025 7:39 PM [facility] Nitrite, Urine Negative Negative LAB URINALYSIS - AUTOMATED METHOD 01/08/2025 7:39 PM [facility] Protein, Urine Negative <=Trace mg/dL LAB URINALYSIS - AUTOMATED METHOD 01/08/2025 7:39 PM [facility] Glucose, Urine Negative Negative mg/dL LAB URINALYSIS - AUTOMATED METHOD 01/08/2025 7:39 PM [facility] Ketones, Urine Negative Negative mg/dL LAB URINALYSIS - AUTOMATED METHOD 01/08/2025 7:39 PM [facility] Urobilinogen, Urine 1.0 0.2 - 1.0 mg/dL LAB URINALYSIS - AUTOMATED METHOD 01/08/2025 7:39 PM [facility] Bilirubin, Urine Negative Negative LAB URINALYSIS - AUTOMATED METHOD 01/08/2025 7:39 PM [facility] Blood, Urine Negative Negative LAB URINALYSIS - AUTOMATED METHOD 01/08/2025 7:39 PM [facility] RBC, Urine 3.6 0 - 4 /HPF LAB URINALYSIS - AUTOMATED METHOD 01/08/2025 7:39 PM [facility] WBC, Urine 1.6 0 - 4 /HPF LAB URINALYSIS - AUTOMATED METHOD 01/08/2025 7:39 PM [facility] Squamous Epithelial, Urine 4 0 - 60 /LPF LAB URINALYSIS - AUTOMATED METHOD 01/08/2025 7:39 PM [facility] Bacteria, Urine Negative Negative /HPF LAB URINALYSIS - AUTOMATED METHOD 01/08/2025 7:39 PM [facility] Hyaline Casts, Urine 0.8 0 - 3 /LPF LAB URINALYSIS - AUTOMATED METHOD 01/08/2025 7:39 PM [facility] Urine Urine specimen obtained by clean catch procedure / Unknown 01/08/2025 01/08/2025 7:01 PM EST us Angel Adamson MD LAB URINE ORDERABLES Final Resul t Performing Organization Address [facility]/ZIP Co de Phone Number [facility] [address] [place] [address], [place] [phone] * Culture urine (01/08/2025 12:00 AM EST) Culture, Urine No growth 01/09/2025 1:42 PM [facility] Urine Urine specimen obtained by clean catch procedure / Unknown 01/08/2025 01/08/2025 7:01 PM EST us Angel Adamson MD LAB MICROBIOLOGY - GENERAL ORDER TABITHA Final Result Performing Organization Address City/[facility]/ZIP Co de Phone Number [facility] [address] [place] [address], [place] [phone] documented in this encounter Visit Diagnoses Diagnosis Hematuria, unspecified documented in this encounter Additional Health Concerns Infection Onset Date Last Indicated Resolved Time ESBL 11/24/2024 11/24/2024 documented as of this encounter Care Teams Staging Technician Relationship Specialty Start Date End Date Leona Almendarez MD [address] PCP - General 07/03/18 documented as of this encounter
--- OUTSIDE RECORDS SUMMARY | 2025-01-14 13:37 | XMS_ITS | Encounter Summary ---
Author Organization [facility] [place] [address] Care Team Providers Care Dairy Bar Manager Name Role Phone Leona Almendarez MD Primary Care Provider [phone] Encounter Details Date Type Department Care Team (Late st Contact Info) Description 01/08/2025 Lab Requisition [facility] - Main Lab 299 [facility] [place] [phone] Angel Adamson MD [address] [place] [address] Unspecified atrial fibrillation (CMS/HCC) Social History Tobacco Use Types Packs/Day [...] Associated Diagnosis Comments COMPLETE BLOOD COUNT STAT 01/08/2025 10:49 AM EST Unspecified atrial fibrillation (CMS/HCC) BASIC METABOLIC PANEL STAT 01/08/2025 10:49 AM EST Unspecified atrial fibrillation (CMS/HCC) documented in this encounter Results * (ABNORMAL) Basic metabolic panel (01/08/2025 10:49 AM EST) Sodium 142 133 - 145 mmol/L LAB CHEMISTRY METHOD 01/08/2025 11:57 AM [facility] Potassium 3.9 3.5 - 5.5 mmol/L LAB CHEMISTRY METHOD 01/08/2025 11:57 AM [facility] Chloride 108 96 - 110 mmol/L LAB CHEMISTRY METHOD 01/08/2025 11:57 AM [facility] CO2 27 21 - 32 mmol/L LAB CHEMISTRY METHOD 01/08/2025 11:57 AM [facility] Anion Gap 7 3 - 11 LAB CHEMISTRY METHOD 01/08/2025 11:57 AM [facility] Glucose 97 70 - 100 mg/dL LAB CHEMISTRY METHOD 01/08/2025 11:57 AM [facility] BUN 16 5 - 25 mg/dL LAB CHEMISTRY METHOD 01/08/2025 11:57 AM [facility] Creatinine 0.63(L) 0.70 - 1.30 mg/dL LAB CHEMISTRY METHOD 01/08/2025 11:57 AM [facility] eGFR 97 >=60 mL/min/1. 73m2 LAB CHEMISTRY METHOD 01/08/2025 11:57 AM [facility] Comment:Calculation based on the??Chronic Kidney Disease Epidemiology Collaboration (CKD-EPI) equation refit??without adjustment for race. BUN/Creatinine Ratio 25.4 LAB CHEMISTRY METHOD 01/08/2025 11:57 AM [facility] Calcium 8.8 8.5 - 10.5 mg/dL LAB CHEMISTRY METHOD 01/08/2025 11:57 AM [facility] Blood Venous blood specimen / Unknown Venipuncture / Unknown 01/08/2025 10:49 AM EST 01/08/2025 11:28 AM EST Angel Adamson MD LAB BLOOD ORDERABLES Final Resul t [facility] [address] [place] [address], * (ABNORMAL) Complete blood count (01/08/2025 10:49 AM EST) [facility] Signature WBC 6.8 4.8 - 10.8 K/mcL LAB HEMETOLOGY METHOD 01/08/2025 11:42 AM [facility] RBC 3.70(L) 4.50 - 5.50 M/mcL LAB HEMETOLOGY METHOD 01/08/2025 11:42 AM [facility] Hemoglobin 11.8(L) 13.5 - 17.5 g/dL LAB HEMETOLOGY METHOD 01/08/2025 11:42 AM [facility] Hematocrit 37.8(L) 42.0 - 54.0 % LAB HEMETOLOGY METHOD 01/08/2025 11:42 AM [facility] MCV 103.6(H) 79.0 - 98.0 FL LAB HEMETOLOGY METHOD 01/08/2025 11:42 AM [facility] MCH 32.3(H) 27.0 - 32.0 pcg LAB HEMETOLOGY METHOD 01/08/2025 11:42 AM [facility] MCHC 31.2(L) 32.0 - 37.0 g/dL LAB HEMETOLOGY METHOD 01/08/2025 11:42 AM [facility] RDW 14.0 11.0 - 15.0 % LAB HEMETOLOGY METHOD 01/08/2025 11:42 AM [facility] Platelets 221 130 - 400 K/mcL LAB HEMETOLOGY METHOD 01/08/2025 11:42 AM [facility] MPV 10.0 7.0 - 11.0 FL LAB HEMETOLOGY METHOD 01/08/2025 11:42 AM [facility] NRBC 0.0 <1.0 % LAB HEMETOLOGY METHOD 01/08/2025 11:42 AM EST [facility] NRBC Absolute 0.00 <0.10 K/mcL LAB HEMETOLOGY METHOD 01/08/2025 11:42 AM EST [facility] Blood Venous blood specimen / Unknown Venipuncture / Unknown 01/08/2025 10:49 AM EST 01/08/2025 11:28 AM EST us Angel Adamson MD LAB BLOOD ORDERABLES Final Resul t [facility] [address] [place] [address], documented in this encounter Visit Diagnoses Diagnosis Unspecified atrial fibrillation (CMS/HCC) documented in this encounter Additional Health Concerns Infection Onset Date Last Indicated Resolved Time ESBL 11/24/2024 11/24/2024 documented as of this encounter Care Teams Dairy Bar Manager Relationship Specialty Start Date End Date Leona Almendarez MD [address] [place], [place] PCP - General 07/03/18 documented as of this encounter
--- OUTSIDE RECORDS SUMMARY | 2025-01-14 13:37 | XMS_ITS | Encounter Summary ---
Author Organization [facility] [place] [address] Care Team Providers Care Pcas Name Role Phone Leona Almendarez MD Primary Care Provider [phone] Encounter Details Date Type Department Care Team (Late st Contact Info) Description 11/25/2024 Lab Requisition [facility] - Main Lab 299 [facility] [place] [phone] Angel Adamson MD [address] [place] [address] Altered mental status, unspecified; Chronic fatigue, unspecified [...] reflex microscopic (11/24/2024 3:20 PM EST) Specific Julian Urine 1.012 1.003 - 1.030 LAB URINALYSIS - AUTOMATED METHOD 11/25/2024 10:19 AM [facility] pH, Urine 7.0 5.0 - 8.0 pH LAB URINALYSIS - AUTOMATED METHOD 11/25/2024 10:19 AM [facility] Leukocytes, Urine Large(A) Negative LAB URINALYSIS - AUTOMATED METHOD 11/25/2024 10:19 AM [facility] Nitrite, Urine Negative Negative LAB URINALYSIS - AUTOMATED METHOD 11/25/2024 10:19 AM [facility] Protein, Urine 30(A) <=Trace mg/dL LAB URINALYSIS - AUTOMATED METHOD 11/25/2024 10:19 AM [facility] Glucose, Urine Negative Negative mg/dL LAB URINALYSIS - AUTOMATED METHOD 11/25/2024 10:19 AM [facility] Ketones, Urine Negative Negative mg/dL LAB URINALYSIS - AUTOMATED METHOD 11/25/2024 10:19 AM [facility] Urobilinogen , Urine 0.2 0.2 - 1.0 mg/dL LAB URINALYSIS - AUTOMATED METHOD 11/25/2024 10:19 AM [facility] Bilirubin, Urine Negative Negative LAB URINALYSIS - AUTOMATED METHOD 11/25/2024 10:19 AM [facility] Blood, Urine Small(A) Negative LAB URINALYSIS - AUTOMATED METHOD 11/25/2024 10:19 AM [facility] RBC, Urine 9.2(H) 0 - 4 /HPF LAB URINALYSIS - AUTOMATED METHOD 11/25/2024 10:19 AM EST [facility] WBC, Urine 2,095.6(H) 0 - 4 /HPF LAB URINALYSIS - AUTOMATED METHOD 11/25/2024 10:19 AM [facility] Squamous Epithelial, Urine 64(H) 0 - 60 /LPF LAB URINALYSIS - AUTOMATED METHOD 11/25/2024 10:19 AM [facility] Bacteria, Urine Moderate(A) Negative /HPF LAB URINALYSIS - AUTOMATED METHOD 11/25/2024 10:19 AM [facility] Hyaline Casts, Urine 3.4(H) 0 - 3 /LPF LAB URINALYSIS - AUTOMATED METHOD 11/25/2024 10:19 AM [facility] Urine Urine specimen from urethra / Unknown 11/24/2024 3:20 PM EST 11/25/2024 9:19 AM EST Angel Adamson MD LAB URINE ORDERABLES Final Resul t [facility] [address] [place] [address], * (ABNORMAL) Culture urine (11/24/2024 3:20 PM EST) Culture, Urine 50,000-100,00 0 CFU/mL Klebsiella pneumoniae ESBL(A) ABNER 11/28/2024 9:40 AM [facility] Comment: TESTING SUGGESTS AN [...] ESBL Trimethoprim/Sulfamethoxazo le ABNER >=320 ug/ml: Resistant us Angel Adamson MD LAB MICROBIOLOGY - GENERAL ORDER TABITHA Final Result [facility] LAB [address] [place] [address], documented in this encounter Visit Diagnoses Diagnosis Altered mental status, unspecified Chronic fatigue, unspecified documented in this encounter Additional Health Concerns Infection Onset Date Last Indicated Resolved Time ESBL 11/24/2024 11/24/2024 documented as of this encounter Care Teams Pcas Relationship Specialty Start Date End Date Leona Almendarez MD [address] [facility] [address] [place], [place] PCP - General 07/03/18 documented as of this encounter
--- OUTSIDE RECORDS SUMMARY | 2025-01-14 13:37 | XMS_ITS | Encounter Summary ---
Author Organization [facility] [place] [address] Care Team Providers Care Inspector Structural Bonding Name Role Phone Leona Almendarez MD Primary Care Provider [phone] Encounter Details Date Type Department Care Team (Late st Contact Info) Description 12/15/2024 Lab Requisition [facility] - Main Lab 299 [facility] [place] [phone] Angel Adamson MD [address] [place] [address] Altered mental status, unspecified; Confusional arousals Social [...] MD LAB URINE ORDERABLES Final Resul t [facility] [address] [place] [address], [place] [phone] * Culture urine (12/15/2024 10:30 AM EST) Culture, Urine <10,000 CFU/mL gram positive cocci, insignificant count, no further workup 12/16/2024 7:56 AM EST [facility] Urine Urine specimen obtained by clean catch procedure / Unknown 12/15/2024 10:30 AM EST 12/15/2024 4:02 PM EST Angel Adamson MD LAB MICROBIOLOGY - GENERAL ORDER TABITHA Final Result [facility] [address] [place] [address], documented in this encounter Visit Diagnoses Diagnosis Altered mental status, unspecified Confusional arousals documented in this encounter Additional Health Concerns Infection Onset Date Last Indicated Resolved Time ESBL 11/24/2024 11/24/2024 documented as of this encounter Care Teams Inspector Structural Bonding Relationship Specialty Start Date End Date Leona Almendarez MD [address] [facility] [address] [place], [place] PCP - General 07/03/18 documented as of this encounter
--- OUTSIDE RECORDS SUMMARY | 2025-01-14 13:37 | XMS_ITS | Encounter Summary ---
Author Organization [facility] [place] [address] Care Team Providers Care Sheet Metal Apprentice Name Role Phone Leona Almendarez MD Primary Care Provider Encounter Details Date Type Department Care Team (Late st Contact Info) Description 12/09/2024 Lab Requisition [facility] - Main Lab 299 [facility] [place] [phone] Angel Adamson MD [address] [place] [address] Parkinsonism, unspecified (CMS/HCC) Social History Tobacco Use [...] mmol/L LAB CHEMISTRY METHOD 12/10/2024 8:57 AM [facility] Potassium 4.0 3.5 - 5.5 mmol/L LAB CHEMISTRY METHOD 12/10/2024 8:57 AM [facility] Chloride 104 96 - 110 mmol/L LAB CHEMISTRY METHOD 12/10/2024 8:57 AM [facility] CO2 27 21 - 32 mmol/L LAB CHEMISTRY METHOD 12/10/2024 8:57 AM [facility] Anion Gap 5 3 - 11 LAB CHEMISTRY METHOD 12/10/2024 8:57 AM [facility] Glucose 104(H) 70 - 100 mg/dL LAB CHEMISTRY METHOD 12/10/2024 8:57 AM [facility] BUN 22 5 - 25 mg/dL LAB CHEMISTRY METHOD 12/10/2024 8:57 AM [facility] Creatinine 0.63(L) 0.70 - 1.30 mg/dL LAB CHEMISTRY METHOD 12/10/2024 8:57 AM [facility] LAB eGFR 97 >=60 mL/min/1. 73m2 LAB CHEMISTRY METHOD 12/10/2024 8:57 AM [facility] Comment:Calculation based on the??Chronic Kidney Disease Epidemiology Collaboration (CKD-EPI) equation refit??without adjustment for race. BUN/Creatinine Ratio 34.9 LAB CHEMISTRY METHOD 12/10/2024 8:57 AM [facility] Calcium 8.5 8.5 - 10.5 mg/dL LAB CHEMISTRY METHOD 12/10/2024 8:57 AM [facility] Blood Venous blood specimen / Unknown Venipuncture / Unknown 12/10/2024 7:03 AM EST 12/10/2024 8:24 AM EST Angel Adamson MD LAB BLOOD ORDERABLES Final Resul t [facility] [address] [place] [address], * (ABNORMAL) Complete blood count (12/10/2024 7:03 AM EST) WBC 9.5 4.8 - 10.8 K/mcL LAB HEMETOLOGY METHOD 12/10/2024 8:32 AM [facility] RBC 3.20(L) 4.50 - 5.50 M/mcL LAB HEMETOLOGY METHOD 12/10/2024 8:32 AM [facility] Hemoglobin 10.4(L) 13.5 - 17.5 g/dL LAB HEMETOLOGY METHOD 12/10/2024 8:32 AM [facility] Hematocrit 32.5(L) 42.0 - 54.0 % LAB HEMETOLOGY METHOD 12/10/2024 8:32 AM [facility] MCV 100.6(H) 79.0 - 98.0 FL LAB HEMETOLOGY METHOD 12/10/2024 8:32 AM [facility] LAB MCH 32.2(H) 27.0 - 32.0 pcg LAB HEMETOLOGY METHOD 12/10/2024 8:32 AM [facility] LAB MCHC 32.0 32.0 - 37.0 g/dL LAB HEMETOLOGY METHOD 12/10/2024 8:32 AM [facility] RDW 14.2 11.0 - 15.0 % LAB HEMETOLOGY METHOD 12/10/2024 8:32 AM [facility] Platelets 356 130 - 400 K/mcL LAB HEMETOLOGY METHOD 12/10/2024 8:32 AM [facility] MPV 9.1 7.0 - 11.0 FL LAB HEMETOLOGY METHOD 12/10/2024 8:32 AM [facility] NRBC 0.0 <1.0 % LAB HEMETOLOGY METHOD 12/10/2024 8:32 AM EST [facility] NRBC Absolute 0.00 <0.10 K/mcL LAB HEMETOLOGY METHOD 12/10/2024 8:32 AM EST [facility] Blood Venous blood specimen / Unknown Venipuncture / Unknown 12/10/2024 7:03 AM EST 12/10/2024 8:24 AM EST us Angel Adamson MD LAB BLOOD ORDERABLES Final Resul t [facility] [address] [place] [address], documented in this encounter Visit Diagnoses Diagnosis Parkinsonism, unspecified (CMS/HCC) documented in this encounter Additional Health Concerns Infection Onset Date Last Indicated Resolved Time ESBL 11/24/2024 11/24/2024 documented as of this encounter Care Teams Sheet Metal Apprentice Relationship Specialty Start Date End Date Leona Almendarez MD [address] [place], [place] PCP - General 07/03/18 documented as of this encounter
--- OUTSIDE RECORDS SUMMARY | 2025-01-14 13:37 | XMS_ITS | Encounter Summary ---
Author Organization [facility] [place] [address] Care Team Providers Care Child Care Team Lead Name Role Phone Leona Almendarez MD Primary Care Provider [phone] Encounter Details Date Type Department Care Team (Late st Contact Info) Description 11/26/2024 Lab Requisition [facility] - Main Lab 299 [facility] [place] [phone] Angel Adamson MD [address] [place] [address] Parkinsonism, unspecified (CMS/HCC) Social History Tobacco Use [...] mmol/L LAB CHEMISTRY METHOD 11/27/2024 9:35 AM [facility] Potassium 4.0 3.5 - 5.5 mmol/L LAB CHEMISTRY METHOD 11/27/2024 9:35 AM [facility] Chloride 105 96 - 110 mmol/L LAB CHEMISTRY METHOD 11/27/2024 9:35 AM [facility] CO2 29 21 - 32 mmol/L LAB CHEMISTRY METHOD 11/27/2024 9:35 AM [facility] Anion Gap 4 3 - 11 LAB CHEMISTRY METHOD 11/27/2024 9:35 AM [facility] Glucose 81 70 - 100 mg/dL LAB CHEMISTRY METHOD 11/27/2024 9:35 AM [facility] BUN 20 5 - 25 mg/dL LAB CHEMISTRY METHOD 11/27/2024 9:35 AM [facility] Creatinine 0.73 0.70 - 1.30 mg/dL LAB CHEMISTRY METHOD 11/27/2024 9:35 AM [facility] eGFR 93 >=60 mL/min/1. 73m2 LAB CHEMISTRY METHOD 11/27/2024 9:35 AM [facility] Comment:Calculation based on the??Chronic Kidney Disease Epidemiology Collaboration (CKD-EPI) equation refit??without adjustment for race. BUN/Creatinine Ratio 27.4 LAB CHEMISTRY METHOD 11/27/2024 9:35 AM [facility] Calcium 9.2 8.5 - 10.5 mg/dL LAB CHEMISTRY METHOD 11/27/2024 9:35 AM [facility] Blood Venous blood specimen / Unknown Venipuncture / Unknown 11/27/2024 7:12 AM EST 11/27/2024 8:47 AM EST Angel Adamson MD LAB BLOOD ORDERABLES Final Resul t [facility] [address] [place] [address], * (ABNORMAL) Complete blood count (11/27/2024 7:12 AM EST) WBC 7.7 4.8 - 10.8 K/mcL LAB HEMETOLOGY METHOD 11/27/2024 9:13 AM EST [facility] RBC 4.30(L) 4.50 - 5.50 M/mcL LAB HEMETOLOGY METHOD 11/27/2024 9:13 AM EST [facility] Hemoglobin 13.8 13.5 - 17.5 g/dL LAB HEMETOLOGY METHOD 11/27/2024 9:13 AM [facility] Hematocrit 42.9 42.0 - 54.0 % LAB HEMETOLOGY METHOD 11/27/2024 9:13 AM EST [facility] MCV 100.5(H) 79.0 - 98.0 FL LAB HEMETOLOGY METHOD 11/27/2024 9:13 AM [facility] MCH 32.3(H) 27.0 - 32.0 pcg LAB HEMETOLOGY METHOD 11/27/2024 9:13 AM [facility] MCHC 32.2 32.0 - 37.0 g/dL LAB HEMETOLOGY METHOD 11/27/2024 9:13 AM EST [facility] RDW 13.7 11.0 - 15.0 % LAB HEMETOLOGY METHOD 11/27/2024 9:13 AM [facility] Platelets 214 130 - 400 K/mcL LAB HEMETOLOGY METHOD 11/27/2024 9:13 AM [facility] MPV 10.2 7.0 - 11.0 FL LAB HEMETOLOGY METHOD 11/27/2024 9:13 AM [facility] NRBC 0.0 <1.0 % LAB HEMETOLOGY METHOD 11/27/2024 9:13 AM EST [facility] NRBC Absolute 0.00 <0.10 K/mcL LAB HEMETOLOGY METHOD 11/27/2024 9:13 AM EST [facility] Blood Venous blood specimen / Unknown Venipuncture / Unknown 11/27/2024 7:12 AM EST 11/27/2024 8:47 AM EST us Angel Adamson MD LAB BLOOD ORDERABLES Final Resul t [facility] [address] [place] [address], documented in this encounter Visit Diagnoses Diagnosis Parkinsonism, unspecified (CMS/HCC) documented in this encounter Additional Health Concerns Infection Onset Date Last Indicated Resolved Time ESBL 11/24/2024 11/24/2024 documented as of this encounter Care Teams Child Care Team Lead Relationship Specialty Start Date End Date Leona Almendarez MD [address] [place], [place] PCP - General 07/03/18 documented as of this encounter
--- OUTSIDE RECORDS SUMMARY | 2025-01-14 13:37 | XMS_ITS | Data Portability ---
Author Organization [facility] PAIN OFFICE Address [address] [facility] [address] [place] [address] Care Team Providers Care Viscose Cellar Worker Name Role Phone CAPRI DUNAWAY Primary Care [...] booked for the same. He needs a tour bus driver on the day of the procedure. [...] By Organization Details Last Modified Time 05/12/2018 [id number] He was advised against bed rest lasting longer than four days and to continue activities as tolerated. [email or web address] Not available 05/12/2018 14:54:12 05/27/2018 [id number] He was advised against bed rest lasting longer than four days and to continue activities as tolerated. [email or web address] Not available 05/27/2018 13:41:18 Reason for Referral None Reported. Problems Name Problem SNOMED Code Status Onset Date Resolution Date Notes Provider Name and Address Organization Details Recorded Time Spinal stenosis of lumbar region 74044594 Active Davey enriquez MD [address] , [address], [facility] [place], [address], [place] [facility] 8 13:58:53 Degeneration of lumbar intervertebral disc 35288385 Active Davey enriquez MD [address] , [address], [place], [address], [place] [facility] 8 13:59:02 Lumbosacral radiculopathy 8410171 Active Davey enriquez MD [address] , [address], [facility] [place], [address], [place] [facility] 8 13:59:16 Lumbosacral spondylosis without myelopathy [id number] [place] enriquez MD [address] , [address], [place], [address], [place] [facility] 8 13:59:38 Problem Notes None recorded. Procedures Surgical History Date Name Laterality Status Provider Name and Address Organization Details Recorded Time 05/27/20 18 Lumbar Epidural steroid injection under fluoroscopic guidance completed Davey Auguste MD [address] [place] [address] , [address], [place], [address], [place] [facility] 05/27/2018 13:45:40 [...] Available Not Available Not Available Fluzone High-Dose 9304-5731 (PF) 180 mcg/0.5 mL intramuscular syringe ADM 0.5ML IM UTD 05/12 completed Not Available Not Available Not Available Vitals Date Recorded Heart rate Oxygen saturation Oxygen saturation in Arterial blood by Pulse oximetry Body weight Body mass index (BMI) Body height Systolic blood pressure Diastolic blood pressure Provider Name and Address Organization Details Last Updated DateTime 8 71 /min 95 % 95 % 012001. 05 g 34.6 kg/m2 182.88 cm 152 [...] 153 mm[Hg] 73 mm[Hg] Ashwini Tsang MA [facility] 8 13:18:29 Social History Question [...] SNOMED-CT Code Diagnosis ICD10 Code Diagnosis Note 17347 Davey Auguste MD PAIN OFFICE [address] [place] [address] 05/12/2018 13:27:49 05/12/2018 15:01:22 Lumbosacral radiculopathy 7562880 M54.17 Spinal marla nosis of lumbar region 99248893 M48.062 Degenerati on of lumbar intervertebral disc 07052370 M51.36 Lumbosacra l spondylosis without myelopathy 95086149 M47.817 73400 Davey Auguste MD PAIN OFFICE [address] [place] [address] 05/27/2018 13:15:35 05/27/2018 14:13:07 Lumbosacral radiculopathy 1227041 M54.17 Spinal marla nosis of lumbar region 93177587 M48.062 Degenerati on of lumbar intervertebral disc 11615064 M51.36 Lumbosacra l spondylosis without myelopathy 20705630 M47.817 Health Concerns Section Related Observation LastModified by Organization Detai ls LastModified Time None Recorded Concern Status LastModified by Organization Details LastModified Time None Recorded Advance Directives Directive None Recorded Payers Encounter Date Sequence Insurance Name Policy Number Policy Seymour Covered Member ID Seymour Member ID Guarantor Name 05/12/2018 1 [facility] - MEDICARE PREFERRED (MEDICARE REPLACEMENT HMO) TERRIE Daniel Smith [id number] Daniel Smith 05/27/2018 1 [facility] - MEDICARE PREFERRED (MEDICARE REPLACEMENT HMO) [facility] Daniel Smith [id number] Daniel Smith Notes Date Note Type [...] fat planes.He has trialed physical therapy at [facility] with aggravation of his symptoms. He had two steroid injections at [facility] [employer] [facility] and the injections did not help. He has seen Dr. miriam Thomas who did not recommend surgery at that time. Davey Auguste MD [address] [address], [place], [address], [facility] Management 05/27/2018 08:28:05 05/27/2018 text/html He is here today for a lumbar epidural steroid injection under fluroscopic guidance. Davey Auguste MD [address] [address] , [address], [place], [address], [facility] - Pain Management 05/30/2018 08:35:36
== END 2025-01-14 12:08 | disposition home or self-care (01) ==
PROVIDERS: PCP Internal Medicine; Visit Provider Physician Assistant
DX: Z96.641 Presence of right artificial hip joint (principal)
CPT/HCPCS: 99024

== ENCOUNTER → 2025-01-14 11:25 | Outpatient (BNV) | payer MEDICARE, MEDICAID, SELFPAY | PROVIDERS: Visit Provider Specialist | DX: M25.551 Pain in right hip (principal) | CPT/HCPCS: 73502 ==

== ENCOUNTER 2025-02-12 13:30 | Outpatient (AMB) | payer MEDICARE, MEDICAID, SELFPAY ==
--- NOTE | 2025-02-12 13:31 | MHC.OFFVIS ---
Intake Visit Reasons: 3M/US results Intake Note: Pt presents to the office today as a telehealth visit for a 3 month follow up/US results. Allergies oxycodone Allergy (Severe, Verified 02/12/25 13:31) Blister haloperidol [From Haldol] Allergy (Verified 02/12/25 13:31) Agitated HPI Comments Details: Daniel is a pleasant male. He is a patient of Dr. Almendarez. He is seen for the following urologic conditions - elevated PSA - nocturia Telemedicine Evaluation 15 min Consultation [employer] Danny Video Discussion with Prior admission to [facility] - 06/10 Prior attempted use of [place] catheter. Was uncomfortable for patient. 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 HTN (hypertension) TIA (transient ischemic attack) Raynauds disease Hyperlipidemia Arthritis Lumbar spondylosis Fatty liver Atrial fibrillation Surgical History History of hip replacement Family History Father Stroke Mother Heart failure Sister Breast cancer in female Social History Household Members: Other Housing: Detention Do you presently have visiting nurse or other home services: No Alcohol intake: former Patient Tobacco Use Status: Never used Tobacco Advance Directives Date on File: 12/02/24 service: Yes Review of Systems Const All systems reviewed & are unremarkable except as noted in HPI and below Reports no additional complaints Resp Reports no additional complaints GI Reports no additional complaints Reports as per HPI Musc Reports no additional complaints Physical Exam Telemedicine evaluation Appropriate responses Regular breathing rate and rhythm HEENT Head: Yes normal to inspection Ears: hearing grossly normal bilaterally Eyes General: appearance normal, both eyes and all related structures Neck Neck: Yes normal visual inspection Chest Chest palpation & inspection: normal inspection of the chest Resp Effort & Inspection: normal respiratory effort and able to speak in complete sentences Telehealth Telehealth Telehealth Platform: [employer] Location of provider rendering services: practice address Location of patient: address on file Patient Identification confirmed using: Name, : Yes Telehealth method: video Patient verbally consented to treatment: Yes Patient verbally consented to billing insurance company: Yes Patient informed of any privacy concerns related to visit: Yes Assessment & Plan Assessment & Plan (1) Elevated PSA: Code(s): R97.20 - Elevated prostate specific antigen [PSA] Category: Medical (2) BPH w urinary obs/LUTS: Code(s): N40.1 - Benign prostatic hyperplasia with lower urinary tract symptoms; N13.8 - Other obstructive and reflux uropathy Category: Medical (3) Incontinence of urine: Code(s): R32 - Unspecified urinary incontinence Category: Medical Plan P.r.n. follow-up Patient Instructions: This note is constructed using voice recognition software. While every effort has been made to ensure accuracy hair boiler errors may have been included. Imaging studies, laboratory and physical exam results were discussed and reviewed in detail. No major barriers to patient understanding were identified. An opportunity to ask questions regarding the treatment plan was provided. All questions were answered. The patient expressed understanding and agreement with the above treatment plan. The patient is aware they should contact our office by phone for worsening of their current condition or the appearance of new urologic symptoms. Compliance is encouraged with any medications and followup testing that is ordered. It is a privilege to participate in the urologic care of your patient. If you have any questions or concerns regarding treatment for the above conditions, or other urologic issues, please do not hesitate to contact me. The office telephone contact is [phone]. Sincerely, Dr Nathan Norris MD, [facility] - Urology Compassionate Specialist Care for the Genitourinary System Coding Level of Care Code Tele Est Pt Level 3 (44203) Complex EM visit Add On G2211 Diagnoses Elevated PSA R97.20 BPH w urinary obs/LUTS N40.1; N13.8 Incontinence of urine R32
== END 2025-02-12 15:06 | disposition home or self-care (01) ==
LOC: HO.HUSH 13:30
PROVIDERS: PCP Internal Medicine; Visit Provider Urology
DX: R97.20 Elevated prostate specific antigen [PSA] (principal); N40.1 Benign prostatic hyperplasia with lower urinary tract symptoms; N13.8 Other obstructive and reflux uropathy; R32 Unspecified urinary incontinence
CPT/HCPCS: 99213; G2211

== ENCOUNTER 2025-02-25 11:16 | Outpatient (AMB) | payer MEDICARE, MEDICAID, SELFPAY ==
--- NOTE | 2025-02-25 11:19 | MHC.OFFVIS ---
Intake Visit Reasons: PO Rt hip corrine 12/02/24 NE Intake Note: Daniel is a 79 year old male who presents today with his significant other for a post operative right hip corrine, DOS 12/02/24. Patient reports he is doing well, states pain now and there. He complains of discomfort at his groin. Patient spouse mentions that he [place] [facility] [place] and that she was told that patient is suppose to be working with PT 3 times a week. Allergies oxycodone Allergy (Severe, Verified 02/25/25 11:42) Blister haloperidol [From Haldol] Allergy (Verified 02/25/25 11:42) Agitated Medication List - Last Reconciled 02/25/25 by Reid Pryor PA-C acetaminophen 650 mg PO Q4H PRN apixaban (Eliquis) 5 mg PO BID carbidopa-levodopa 25-100 mg 1 tab PO TID docusate sodium (Colace) 100 mg PO BID polyethylene glycol 3350 (Miralax) 17 grams PO DAILY sennosides (senna) 17.2 mg PO BID thiamine HCl (vitamin B1) (Vitamin B-1) 100 mg PO DAILY HPI HPI PO Rt hip corrine 12/02/24 NE: Details: 79-year-old gentleman returns to the office today 3 months status post right hip hemiarthroplasty on 12/02/[address] Santos. 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 HTN (hypertension) TIA (transient ischemic attack) Raynauds disease Hyperlipidemia Arthritis Lumbar spondylosis Fatty liver Atrial fibrillation Surgical History History of hip replacement Family History Father Stroke Mother Heart failure Sister Breast cancer in female Social History Household Members: Other Housing: Long Term Do you presently have visiting nurse or other home services: No Alcohol intake: former Patient Tobacco Use Status: Never used Tobacco Advance Directives Date on File: 12/02/24 service: Yes Review of Systems Const All systems reviewed & are unremarkable except as noted in HPI and below Physical Exam Extrem Other: Right hip incision well healed no erythema or drainage, no pain with range of motion or hip flexion. neurovascularly intact. Results Reviewed Results Reviewed: X-rays of the right hip obtained in the office today show intact prosthesis Assessment & Plan Assessment & Plan (1) History of hemiarthroplasty of right hip: Code(s): Z96.641 - Presence of right artificial hip joint Category: Surgical Plan: Patient will continue working with therapy for upper and lower body conditioning. I explained to his significant other with the diagnosis of ?Parkinson's? he should have some daily therapy to maintain his motion and strength. I advised her to speak with his primary care physician about this going forward. As far as hip he is recovering well and does not need to follow up in the stairs any questions or concerns. Orders: Orders XR hip RT min 2V Today M25.551 - Pain in right hip Coding Level of Care Code Global (22580) Diagnoses History of hemiarthroplasty of right hip Z96.641
--- OUTSIDE RECORDS SUMMARY | 2025-02-25 13:42 | XMS_ITS | Data Portability ---
Author Organization [facility], PAIN OFFICE Address [address] [facility] [address] [place] [address] Care Team Providers Care Principal Security Architect Name Role Phone CAPRI DUNAWAY Primary Care [...] booked for the same. 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 [email or web address] Not available 05/12/2018 14:54:12 05/27/2018 48285 He was advised against bed rest lasting longer than four days and to continue activities as tolerated. [email or web address] Not available 05/27/2018 13:41:18 Reason for Referral None Reported. Problems Name Problem SNOMED Code Status Onset Date Resolution Date Notes Provider Name and Address Organization Details Recorded Time Spinal stenosis of lumbar region 01190723 Active Davey enriquez MD [email or web address] , [address], [facility] [place], [address], [place] [facility] 8 13:58:53 Degeneration of lumbar intervertebral disc 39615369 Active Davey enriquez MD [address] , [address], [facility] [place], [address], [place] [facility] 8 13:59:02 Lumbosacral radiculopathy 7583160 Active Davey enriquez MD [address] , [address], [facility] [place], [address], [place] [facility] 8 13:59:16 Lumbosacral spondylosis without myelopathy 61600149 Saul enriquez MD [address] , [address], [facility] [place], [address], [place] [facility] 8 13:59:38 Problem Notes None recorded. Procedures Surgical History Date Name Laterality Status Provider Name and Address Organization Details Recorded Time 05/27/20 18 Lumbar Epidural steroid injection under fluoroscopic guidance completed Davey Auguste MD [address] [place] [address] , [address], [place], [address], [place] [facility] 05/27/2018 13:45:40 [...] Available Not Available Not Available Fluzone High-Dose 6434-1064 (PF) 180 mcg/0.5 mL intramuscular syringe ADM 0.5ML IM UTD 05/12 completed Not Available Not Available Not Available Vitals Date Recorded Heart rate Oxygen saturation Oxygen saturation in Arterial blood by Pulse oximetry Body weight Body mass index (BMI) Body height Systolic blood pressure Diastolic blood pressure Provider Name and Address Organization Details Last Updated DateTime 8 71 /min 95 % 95 % 710174. 05 g 34.6 kg/m2 182.88 cm 152 [...] mm[Hg] 73 mm[Hg] Ashwini Tsang MA [facility] 8 13:18:29 Social History Question [...] SNOMED-CT Code Diagnosis ICD10 Code Diagnosis Note [id number] Davey Auguste MD PAIN OFFICE [address] [place] [address] 05/12/2018 13:27:49 05/12/2018 15:01:22 Lumbosacral radiculopathy 1418338 M54.17 Spinal marla nosis of lumbar region 40107779 M48.062 Degenerati on of lumbar intervertebral disc 10705639 M51.36 Lumbosacra l spondylosis without myelopathy 31618779 M47.817 96464 Davey Auguste MD PAIN OFFICE [address] [place] [address] 05/27/2018 13:15:35 05/27/2018 14:13:07 Lumbosacral radiculopathy 5981854 M54.17 Spinal marla nosis of lumbar region 64310015 M48.062 Degenerati on of lumbar intervertebral disc 97763493 M51.36 Lumbosacra l spondylosis without myelopathy 05143382 M47.817 Health Concerns Section Related Observation LastModified by Organization Detai ls LastModified Time None Recorded Concern Status LastModified by Organization Details LastModified Time None Recorded Advance Directives Directive None Recorded Payers Encounter Date Sequence Insurance Name Policy Number Policy Seymour Covered Member ID Seymour Member ID Guarantor Name 05/12/2018 1 [facility] - MEDICARE PREFERRED (MEDICARE REPLACEMENT HMO) [facility] Daniel Smith [id number] Daniel Smith 05/27/2018 1 [facility] - MEDICARE PREFERRED (MEDICARE REPLACEMENT HMO) [facility] Daniel Smith [id number] aDniel Smith Notes Date Note Type Note Provider [...] fat planes.He has trialed physical therapy at [facility] with aggravation of his symptoms. He had two steroid injections at [facility] and the injections did not help. He has seen Dr. miriam Thomas who did not recommend surgery at that time. Davey Auguste MD [address] [facility] , [address], [place], [address], [facility] 05/27/2018 08:28:05 05/27/2018 text/html He is here today for a lumbar epidural steroid injection under fluroscopic guidance. Davey Auguste MD [address] [facility] , [address], [place], [address], [facility] Pain Management 05/30/2018 08:35:36
--- OUTSIDE RECORDS SUMMARY | 2025-02-25 13:42 | XMS_ITS | Encounter Summary ---
Author Organization [facility] [place] [address] Care Team Providers Care Resolution Manager Name Role Phone Leona Almendarez MD Primary Care Provider [phone] Encounter Details Date Type Department Care Team (Late st Contact Info) Description 09/22/2024 Lab Requisition [facility] - Main Lab [address] [facility] [place] [phone] Angel Adamson MD [address] [place] [address] Hematuria, unspecified Social History Tobacco Use Types [...] K/mcL LAB HEMETOLOGY METHOD 09/24/2024 9:58 AM [facility] LAB RBC 4.20(L) 4.50 - 5.50 M/[facility] LAB HEMETOLOGY METHOD 09/24/2024 9:58 AM [facility] LAB Hemoglobin 13.3(L) 13.5 - 17.5 g/dL LAB HEMETOLOGY METHOD 09/24/2024 9:58 AM [facility] LAB Hematocrit 41.8(L) 42.0 - 54.0 % LAB HEMETOLOGY METHOD 09/24/2024 9:58 AM [facility] LAB MCV 100.7(H) 79.0 - 98.0 FL LAB HEMETOLOGY METHOD 09/24/2024 9:58 AM [facility] LAB MCH 32.0 27.0 - 32.0 pcg LAB HEMETOLOGY METHOD 09/24/2024 9:58 AM [facility] LAB MCHC 31.8(L) 32.0 - 37.0 g/dL LAB HEMETOLOGY METHOD 09/24/2024 9:58 AM [facility] LAB RDW 13.6 11.0 - 15.0 % LAB HEMETOLOGY METHOD 09/24/2024 9:58 AM [facility] LAB Platelets 222 130 - 400 K/[facility] LAB HEMETOLOGY METHOD 09/24/2024 9:58 AM [facility] LAB MPV 10.3 7.0 - 11.0 FL LAB HEMETOLOGY METHOD 09/24/2024 9:58 AM [facility] LAB NRBC 0.0 <1.0 % LAB HEMETOLOGY METHOD 09/24/2024 9:58 AM [facility] LAB NRBC Absolute 0.00 <0.10 K/[facility] LAB HEMETOLOGY METHOD 09/24/2024 9:58 AM [facility] LAB Blood Venous blood specimen / Unknown Venipuncture / Unknown 09/24/2024 6:32 AM EST 09/24/2024 8:46 AM EST Angel Adamson MD LAB BLOOD ORDERABLES Final Resul t [facility] [address] [place] [address], [place] [phone] * (ABNORMAL) Basic metabolic panel (09/24/2024 6:32 AM EST) Sodium 141 133 - 145 mmol/L LAB CHEMISTRY METHOD 09/24/2024 10:21 AM [facility] Potassium 3.8 3.5 - 5.5 mmol/L LAB CHEMISTRY METHOD 09/24/2024 10:21 AM [facility] Chloride 107 96 - 110 mmol/L LAB CHEMISTRY METHOD 09/24/2024 10:21 AM [facility] CO2 26 21 - 32 mmol/L LAB CHEMISTRY METHOD 09/24/2024 10:21 AM [facility] Anion Gap 8 3 - 11 LAB CHEMISTRY METHOD 09/24/2024 10:21 AM [facility] Glucose 63(L) 70 - 100 mg/dL LAB CHEMISTRY METHOD 09/24/2024 10:21 AM [facility] BUN 15 5 - 25 mg/dL LAB CHEMISTRY METHOD 09/24/2024 10:21 AM [facility] Creatinine 0.59(L) 0.70 - 1.30 mg/dL LAB CHEMISTRY METHOD 09/24/2024 10:21 AM [facility] LAB eGFR 99 >=60 mL/min/1. 73m2 LAB CHEMISTRY METHOD 09/24/2024 10:21 AM [facility] Comment:Calculation based on the??Chronic Kidney Disease Epidemiology Collaboration (CKD-EPI) equation refit??without adjustment for race. BUN/Creatinine Ratio 25.4 LAB CHEMISTRY METHOD 09/24/2024 10:21 AM EST [facility] Calcium 9.1 8.5 - 10.5 mg/dL LAB CHEMISTRY METHOD 09/24/2024 10:21 AM EST [facility] Blood Venous blood specimen / Unknown Venipuncture / Unknown 09/24/2024 6:32 AM EST 09/24/2024 8:46 AM EST us Angel Adamson MD LAB BLOOD ORDERABLES Final Resul t [facility] [address] [place] [address], documented in this encounter Visit Diagnoses Diagnosis Hematuria, unspecified documented in this encounter Additional Health Concerns Infection Onset Date Last Indicated Resolved Time ESBL 11/24/2024 11/24/2024 documented as of this encounter Care Teams Resolution Manager Relationship Specialty Start Date End Date Leona Almendarez MD [address] [facility] [address] [place], [place] PCP - General 07/03/18 documented as of this encounter
--- OUTSIDE RECORDS SUMMARY | 2025-02-25 13:42 | XMS_ITS | Encounter Summary ---
Author Organization [facility] [place] [address] Care Team Providers Care Edge Blacker Name Role Phone Leona Almendarez MD Primary Care Provider [phone] Encounter Details Date Type Department Care Team (Late st Contact Info) Description 01/08/2025 Lab Requisition [facility] - Main Lab [address] [facility] [place] [phone] Angel Adamson MD [address] [place] [address] Unspecified atrial fibrillation (CMS/HCC V24, CMS/HCC V28) Social History Tobacco Use Types Packs/Day Years [...] mmol/L LAB CHEMISTRY METHOD 01/08/2025 11:57 AM [facility] Potassium 3.9 3.5 - 5.5 mmol/L LAB CHEMISTRY METHOD 01/08/2025 11:57 AM [facility] Chloride 108 96 - 110 mmol/L LAB CHEMISTRY METHOD 01/08/2025 11:57 AM [facility] CO2 27 21 - 32 mmol/L LAB CHEMISTRY METHOD 01/08/2025 11:57 AM [facility] Anion Gap 7 3 - 11 LAB CHEMISTRY METHOD 01/08/2025 11:57 AM [facility] Glucose 97 70 - 100 mg/dL LAB CHEMISTRY METHOD 01/08/2025 11:57 AM [facility] BUN 16 5 - 25 mg/dL LAB CHEMISTRY METHOD 01/08/2025 11:57 AM [facility] Creatinine 0.63(L) 0.70 - 1.30 mg/dL LAB CHEMISTRY METHOD 01/08/2025 11:57 AM [facility] LAB eGFR 97 >=60 mL/min/1. 73m2 LAB CHEMISTRY METHOD 01/08/2025 11:57 AM [facility] LAB Comment:Calculation based on the??Chronic Kidney Disease Epidemiology Collaboration (CKD-EPI) equation refit??without adjustment for race. BUN/Creatinine Ratio 25.4 LAB CHEMISTRY METHOD 01/08/2025 11:57 AM [facility] Calcium 8.8 8.5 - 10.5 mg/dL LAB CHEMISTRY METHOD 01/08/2025 11:57 AM [facility] Blood Venous blood specimen / Unknown Venipuncture / Unknown 01/08/2025 10:49 AM EST 01/08/2025 11:28 AM EST Angel Adamson MD LAB BLOOD ORDERABLES Final Resul t [facility] [address] [place] [address], * (ABNORMAL) Complete blood count (01/08/2025 10:49 AM EST) WBC 6.8 4.8 - 10.8 K/mcL LAB HEMETOLOGY METHOD 01/08/2025 11:42 AM EST [facility] RBC 3.70(L) 4.50 - 5.50 M/mcL LAB HEMETOLOGY METHOD 01/08/2025 11:42 AM [facility] Hemoglobin 11.8(L) 13.5 - 17.5 g/dL LAB HEMETOLOGY METHOD 01/08/2025 11:42 AM [facility] Hematocrit 37.8(L) 42.0 - 54.0 % LAB HEMETOLOGY METHOD 01/08/2025 11:42 AM [facility] MCV 103.6(H) 79.0 - 98.0 FL LAB HEMETOLOGY METHOD 01/08/2025 11:42 AM [facility] MCH 32.3(H) 27.0 - 32.0 pcg LAB HEMETOLOGY METHOD 01/08/2025 11:42 AM [facility] MCHC 31.2(L) 32.0 - 37.0 g/dL LAB HEMETOLOGY METHOD 01/08/2025 11:42 AM [facility] RDW 14.0 11.0 - 15.0 % LAB HEMETOLOGY METHOD 01/08/2025 11:42 AM [facility] Platelets 221 130 - 400 K/mcL LAB HEMETOLOGY METHOD 01/08/2025 11:42 AM [facility] MPV 10.0 7.0 - 11.0 FL LAB HEMETOLOGY METHOD 01/08/2025 11:42 AM EST [facility] NRBC 0.0 <1.0 % LAB HEMETOLOGY METHOD 01/08/2025 11:42 AM EST [facility] NRBC Absolute 0.00 <0.10 K/mcL LAB HEMETOLOGY METHOD 01/08/2025 11:42 AM EST [facility] Blood Venous blood specimen / Unknown Venipuncture / Unknown 01/08/2025 10:49 AM EST 01/08/2025 11:28 AM EST us Angel Adamson MD LAB BLOOD ORDERABLES Final Resul t [facility] [address] [place] [address], documented in this encounter Visit Diagnoses Diagnosis Unspecified atrial fibrillation (CMS/HCC V24, CMS/HCC V28) documented in this encounter Additional Health Concerns Infection Onset Date Last Indicated Resolved Time ESBL 11/24/2024 11/24/2024 documented as of this encounter Care Teams Edge Blacker Relationship Specialty Start Date End Date Leona Almendarez MD [facility] [address] PCP - General 07/03/18 documented as of this encounter
--- OUTSIDE RECORDS SUMMARY | 2025-02-25 13:42 | XMS_ITS | Encounter Summary ---
Author Organization [facility] [place] [address] Care Team Providers Care Aerodynamicist Name Role Phone Leona Almendarez MD Primary Care Provider [phone] Encounter Details Date Type Department Care Team (Late st Contact Info) Description 10/07/2024 Lab Requisition [facility] - Main Lab 299 [facility] [place] [phone] Angel Adamson MD [address] [place] [address] Hematuria, unspecified Social History Tobacco Use Types [...] mmol/L LAB CHEMISTRY METHOD 10/08/2024 10:04 AM [facility] LAB Potassium 4.0 3.5 - 5.5 mmol/L LAB CHEMISTRY METHOD 10/08/2024 10:04 AM [facility] LAB Chloride 107 96 - 110 mmol/L LAB CHEMISTRY METHOD 10/08/2024 10:04 AM [facility] LAB CO2 26 21 - 32 mmol/L LAB CHEMISTRY METHOD 10/08/2024 10:04 AM [facility] LAB Anion Gap 6 3 - 11 LAB CHEMISTRY METHOD 10/08/2024 10:04 AM [facility] LAB Glucose 111(H) 70 - 100 mg/dL LAB CHEMISTRY METHOD 10/08/2024 10:04 AM [facility] LAB BUN 12 5 - 25 mg/dL LAB CHEMISTRY METHOD 10/08/2024 10:04 AM [facility] LAB Creatinine 0.65(L) 0.70 - 1.30 mg/dL LAB CHEMISTRY METHOD 10/08/2024 10:04 AM [facility] LAB eGFR 96 >=60 mL/min/1. 73m2 LAB CHEMISTRY METHOD 10/08/2024 10:04 AM [facility] LAB Comment:Calculation based on the??Chronic Kidney Disease Epidemiology Collaboration (CKD-EPI) equation refit??without adjustment for race. BUN/Creatinine Ratio 18.5 LAB CHEMISTRY METHOD 10/08/2024 10:04 AM [facility] LAB Calcium 9.2 8.5 - 10.5 mg/dL LAB CHEMISTRY METHOD 10/08/2024 10:04 AM [facility] LAB Blood Venous blood specimen / Unknown Venipuncture / Unknown 10/08/2024 7:18 AM EST 10/08/2024 9:10 AM EST us Angel Adamson MD LAB BLOOD ORDERABLES Final Resul t [facility] [address] [place] [address], * (ABNORMAL) Complete blood count (10/08/2024 7:18 AM EST) [facility] WBC 7.0 4.8 - 10.8 K/mcL LAB HEMETOLOGY METHOD 10/08/2024 9:41 AM EST [facility] RBC 4.20(L) 4.50 - 5.50 M/mcL LAB HEMETOLOGY METHOD 10/08/2024 9:41 AM EST [facility] Hemoglobin 13.6 13.5 - 17.5 g/dL LAB HEMETOLOGY METHOD 10/08/2024 9:41 AM EST [facility] Hematocrit 42.0 42.0 - 54.0 % LAB HEMETOLOGY METHOD 10/08/2024 9:41 AM [facility] LAB MCV 99.1(H) 79.0 - 98.0 FL LAB HEMETOLOGY METHOD 10/08/2024 9:41 AM [facility] LAB MCH 32.1(H) 27.0 - 32.0 pcg LAB HEMETOLOGY METHOD 10/08/2024 9:41 AM [facility] LAB MCHC 32.4 32.0 - 37.0 g/dL LAB HEMETOLOGY METHOD 10/08/2024 9:41 AM EST [facility] RDW 13.3 11.0 - 15.0 % LAB HEMETOLOGY METHOD 10/08/2024 9:41 AM [facility] LAB Platelets 255 130 - 400 K/mcL LAB HEMETOLOGY METHOD 10/08/2024 9:41 AM [facility] LAB MPV 9.9 7.0 - 11.0 FL LAB HEMETOLOGY METHOD 10/08/2024 9:41 AM [facility] LAB NRBC 0.0 <1.0 % LAB HEMETOLOGY METHOD 10/08/2024 9:41 AM EST [facility] LAB NRBC Absolute 0.00 <0.10 K/mcL LAB HEMETOLOGY METHOD 10/08/2024 9:41 AM EST [facility] Blood Venous blood specimen / Unknown Venipuncture / Unknown 10/08/2024 7:18 AM EST 10/08/2024 9:10 AM EST us Angel Adamson MD LAB BLOOD ORDERABLES Final Resul t [facility] [address] [place] [address], documented in this encounter Visit Diagnoses Diagnosis Hematuria, unspecified documented in this encounter Additional Health Concerns Infection Onset Date Last Indicated Resolved Time ESBL 11/24/2024 11/24/2024 documented as of this encounter Care Teams Aerodynamicist Relationship Specialty Start Date End Date Leona Almendarez MD [address] PCP - General 07/03/18 documented as of this encounter
--- OUTSIDE RECORDS SUMMARY | 2025-02-25 13:42 | XMS_ITS | Encounter Summary ---
Author Organization [facility] [place] [address] Care Team Providers Care Pals Specialist Name Role Phone Leona Almendarez MD Primary Care Provider [phone] Encounter Details Date Type Department Care Team (Late st Contact Info) Description 12/15/[address] [facility] - Main Lab 299 [facility] [place] [phone] Angel Adamson MD [address] [place] [address] Altered mental status, unspecified; Confusional arousals Social [...] MD LAB URINE ORDERABLES Final Resul t [facility] [address] [place] [address], [place] [phone] * Culture urine (12/15/2024 10:30 AM EST) Culture, Urine <10,000 CFU/mL gram positive cocci, insignificant count, no further workup 12/16/2024 7:56 AM EST [facility] Urine Urine specimen obtained by clean catch procedure / Unknown 12/15/2024 10:30 AM EST 12/15/2024 4:02 PM EST Angel Adamson MD LAB MICROBIOLOGY - GENERAL ORDER TABITHA Final Result [facility] [address] [place] [address], documented in this encounter Visit Diagnoses Diagnosis Altered mental status, unspecified Confusional arousals documented in this encounter Additional Health Concerns Infection Onset Date Last Indicated Resolved Time ESBL 11/24/2024 11/24/2024 documented as of this encounter Care Teams Pals Specialist Relationship Specialty Start Date End Date Leona Almendarez MD 1221 [facility] [address] [place], [place] PCP - General 07/03/18 documented as of this encounter
--- OUTSIDE RECORDS SUMMARY | 2025-02-25 13:42 | XMS_ITS | Encounter Summary ---
Author Organization [facility] [place] [address] Care Team Providers Care Crop Puller Name Role Phone Leona Almendarez MD Primary Care Provider [phone] Encounter Details Date Type Department Care Team (Late st Contact Info) Description 11/20/2024 Lab Requisition [facility] - Main Lab 299 [facility] [place] [phone] Maggie Parry PA [address] [place] 200 [facility] [place] [place] [address] Essential (primary) hypertension Social History Tobacco Use [...] mmol/L LAB CHEMISTRY METHOD 11/20/2024 5:10 PM [facility] LAB Potassium 4.2 3.5 - 5.5 mmol/L LAB CHEMISTRY METHOD 11/20/2024 5:10 PM [facility] Chloride 106 96 - 110 mmol/L LAB CHEMISTRY METHOD 11/20/2024 5:10 PM [facility] LAB CO2 30 21 - 32 mmol/L LAB CHEMISTRY METHOD 11/20/2024 5:10 PM [facility] LAB Anion Gap 5 3 - 11 LAB CHEMISTRY METHOD 11/20/2024 5:10 PM [facility] Glucose 94 70 - 100 mg/dL LAB CHEMISTRY METHOD 11/20/2024 5:10 PM [facility] BUN 19 5 - 25 mg/dL LAB CHEMISTRY METHOD 11/20/2024 5:10 PM [facility] Creatinine 0.63(L) 0.70 - 1.30 mg/dL LAB CHEMISTRY METHOD 11/20/2024 5:10 PM [facility] LAB eGFR 97 >=60 mL/min/1. 73m2 LAB CHEMISTRY METHOD 11/20/2024 5:10 PM [facility] LAB Comment:Calculation based on the??Chronic Kidney Disease Epidemiology Collaboration (CKD-EPI) equation refit??without adjustment for race. BUN/Creatinine Ratio 30.2 LAB CHEMISTRY METHOD 11/20/2024 5:10 PM [facility] Calcium 8.8 8.5 - 10.5 mg/dL LAB CHEMISTRY METHOD 11/20/2024 5:10 PM [facility] Blood Venous blood specimen / Unknown Venipuncture / Unknown 11/20/2024 3:13 PM EST 11/20/2024 4:32 PM EST us Maggie YORK LAB BLOOD ORDERABLES Final Resu lt [facility] [address] [place] [address], * (ABNORMAL) Complete blood count (11/20/2024 3:13 PM EST) [facility] Signature WBC 7.9 4.8 - 10.8 K/mcL LAB HEMETOLOGY METHOD 11/20/2024 4:51 PM EST [facility] RBC 4.10(L) 4.50 - 5.50 M/mcL LAB HEMETOLOGY METHOD 11/20/2024 4:51 PM EST [facility] Hemoglobin 12.8(L) 13.5 - 17.5 g/dL LAB HEMETOLOGY METHOD 11/20/2024 4:51 PM [facility] Hematocrit 39.5(L) 42.0 - 54.0 % LAB HEMETOLOGY METHOD 11/20/2024 4:51 PM EST [facility] MCV 97.3 79.0 - 98.0 FL LAB HEMETOLOGY METHOD 11/20/2024 4:51 PM EST [facility] MCH 31.5 27.0 - 32.0 pcg LAB HEMETOLOGY METHOD 11/20/2024 4:51 PM [facility] LAB MCHC 32.4 32.0 - 37.0 g/dL LAB HEMETOLOGY METHOD 11/20/2024 4:51 PM EST [facility] RDW 13.5 11.0 - 15.0 % LAB HEMETOLOGY METHOD 11/20/2024 4:51 PM [facility] LAB Platelets 200 130 - 400 K/mcL LAB HEMETOLOGY METHOD 11/20/2024 4:51 PM [facility] MPV 10.2 7.0 - 11.0 FL LAB HEMETOLOGY METHOD 11/20/2024 4:51 PM [facility] NRBC 0.0 <1.0 % LAB HEMETOLOGY METHOD 11/20/2024 4:51 PM EST [facility] NRBC Absolute 0.00 <0.10 K/mcL LAB HEMETOLOGY METHOD 11/20/2024 4:51 PM EST [facility] Blood Venous blood specimen / Unknown Venipuncture / Unknown 11/20/2024 3:13 PM EST 11/20/2024 4:32 PM EST us Maggie YORK LAB BLOOD ORDERABLES Final Resu lt [facility] [address] [place] [address], documented in this encounter Visit Diagnoses Diagnosis Essential (primary) hypertension Unspecified essential hypertension documented in this encounter Additional Health Concerns Infection Onset Date Last Indicated Resolved Time ESBL 11/24/2024 11/24/2024 documented as of this encounter Care Teams Crop Puller Relationship Specialty Start Date End Date Leona Almendarez MD 1221 [facility] [address] [place], [place] PCP - General 07/03/18 documented as of this encounter
--- OUTSIDE RECORDS SUMMARY | 2025-02-25 13:42 | XMS_ITS | Clinical Summary ---
Author Organization [facility] Address [address] [place] [address] Care Team Providers Care Logistics Engineer Name Role Phone Leona Almendarez MD Primary Care Provider [phone] Allergies No known active allergies Medications Medication [...] age to complete this topic Care Teams Logistics Engineer Relationship Specialty Start Date End Date Leona Almendarez MD [address] [phone] PCP - General Internal Medicine 05/11/19
--- OUTSIDE RECORDS SUMMARY | 2025-02-25 13:42 | XMS_ITS | Encounter Summary ---
Author Organization [facility] [place] [address] Care Team Providers Care Renewals Specialist Name Role Phone Leona Almendarez MD Primary Care Provider [phone] Encounter Details Date Type Department Care Team (Late st Contact Info) Description 11/25/2024 Lab Requisition [facility] - Main Lab 299 [facility] [place] [phone] Angel Adamson MD [address] [place] [address] Altered mental status, unspecified; Chronic fatigue, unspecified [...] reflex microscopic (11/24/2024 3:20 PM EST) Specific [facility] Urine 1.012 1.003 - 1.030 LAB URINALYSIS - AUTOMATED METHOD 11/25/2024 10:19 AM [facility] LAB pH, Urine 7.0 5.0 - 8.0 pH LAB URINALYSIS - AUTOMATED METHOD 11/25/2024 10:19 AM [facility] LAB Leukocytes, Urine Large(A) Negative LAB URINALYSIS - AUTOMATED METHOD 11/25/2024 10:19 AM [facility] Nitrite, Urine Negative Negative LAB URINALYSIS - AUTOMATED METHOD 11/25/2024 10:19 AM [facility] Protein, Urine 30(A) <=Trace mg/dL LAB URINALYSIS - AUTOMATED METHOD 11/25/2024 10:19 AM [facility] Glucose, Urine Negative Negative mg/dL LAB URINALYSIS - AUTOMATED METHOD 11/25/2024 10:19 AM [facility] Ketones, Urine Negative Negative mg/dL LAB URINALYSIS - AUTOMATED METHOD 11/25/2024 10:19 AM [facility] Urobilinogen , Urine 0.2 0.2 - 1.0 mg/dL LAB URINALYSIS - AUTOMATED METHOD 11/25/2024 10:19 AM [facility] LAB Bilirubin, Urine Negative Negative LAB URINALYSIS - AUTOMATED METHOD 11/25/2024 10:19 AM [facility] Blood, Urine Small(A) Negative LAB URINALYSIS - AUTOMATED METHOD 11/25/2024 10:19 AM [facility] LAB RBC, Urine 9.2(H) 0 - 4 /HPF LAB URINALYSIS - AUTOMATED METHOD 11/25/2024 10:19 AM EST [facility] WBC, Urine 2,095.6(H) 0 - 4 /HPF LAB URINALYSIS - AUTOMATED METHOD 11/25/2024 10:19 AM [facility] Squamous Epithelial, Urine 64(H) 0 - 60 /LPF LAB URINALYSIS - AUTOMATED METHOD 11/25/2024 10:19 AM [facility] Bacteria, Urine Moderate(A) Negative /HPF LAB URINALYSIS - AUTOMATED METHOD 11/25/2024 10:19 AM [facility] LAB Hyaline Casts, Urine 3.4(H) 0 - 3 /LPF LAB URINALYSIS - AUTOMATED METHOD 11/25/2024 10:19 AM [facility] Urine Urine specimen from urethra / Unknown 11/24/2024 3:20 PM EST 11/25/2024 9:19 AM EST Angel Adamson MD LAB URINE ORDERABLES Final Resul t [facility] [address] [place] [address], * (ABNORMAL) Culture urine (11/24/2024 3:20 PM EST) Culture, Urine 50,000-100,00 0 CFU/mL Klebsiella pneumoniae ESBL(A) ABNER 11/28/2024 9:40 AM [facility] LAB Comment: TESTING SUGGESTS AN ESBL(EXTENDED-SPECTRUM [...] <=1 ug/ml: Susceptible Klebsiella pneumoniae ESBL Ciprofloxacin ANBER >=4 ug/ml: Resistant Klebsiella pneumoniae ESBL Levofloxacin ABNER 1 ug/ml: Resistant Klebsiella pneumoniae ESBL Nitrofurantoin ABNER <=16 ug/ml: Susceptible Klebsiella pneumoniae ESBL Trimethoprim/Sulfamethoxazo le ABNER >=320 ug/ml: Resistant us Angel Adamson MD LAB MICROBIOLOGY - GENERAL ORDER TABITHA Final Result [facility] [address] [place] [address], documented in this encounter Visit Diagnoses Diagnosis Altered mental status, unspecified Chronic fatigue, unspecified documented in this encounter Additional Health Concerns Infection Onset Date Last Indicated Resolved Time ESBL 11/24/2024 11/24/2024 documented as of this encounter Care Teams Renewals Specialist Relationship Specialty Start Date End Date Leona Almendarez MD 1221 [facility] 216 [place], [place] PCP - General 07/03/18 documented as of this encounter
--- OUTSIDE RECORDS SUMMARY | 2025-02-25 13:42 | XMS_ITS | Encounter Summary ---
Author Organization [facility] [place] [address] Care Team Providers Care Chalk Cutter Name Role Phone Leona Almendarez MD Primary Care Provider [phone] Encounter Details Date Type Department Care Team (Late st Contact Info) Description 11/26/2024 Lab Requisition [facility] - Main Lab 299 [facility] [place] [phone] Angel Adamson MD [address] [place] [address] Parkinsonism, unspecified (CMS/HCC V24, CMS/HCC V28) Social History Tobacco [...] mmol/L LAB CHEMISTRY METHOD 11/27/2024 9:35 AM [facility] Potassium 4.0 3.5 - 5.5 mmol/L LAB CHEMISTRY METHOD 11/27/2024 9:35 AM [facility] Chloride 105 96 - 110 mmol/L LAB CHEMISTRY METHOD 11/27/2024 9:35 AM [facility] CO2 29 21 - 32 mmol/L LAB CHEMISTRY METHOD 11/27/2024 9:35 AM [facility] LAB Anion Gap 4 3 - 11 LAB CHEMISTRY METHOD 11/27/2024 9:35 AM [facility] Glucose 81 70 - 100 mg/dL LAB CHEMISTRY METHOD 11/27/2024 9:35 AM [facility] BUN 20 5 - 25 mg/dL LAB CHEMISTRY METHOD 11/27/2024 9:35 AM [facility] Creatinine 0.73 0.70 - 1.30 mg/dL LAB CHEMISTRY METHOD 11/27/2024 9:35 AM [facility] LAB eGFR 93 >=60 mL/min/1. 73m2 LAB CHEMISTRY METHOD 11/27/2024 9:35 AM [facility] LAB Comment:Calculation based on the??Chronic Kidney Disease Epidemiology Collaboration (CKD-EPI) equation refit??without adjustment for race. BUN/Creatinine Ratio 27.4 LAB CHEMISTRY METHOD 11/27/2024 9:35 AM [facility] Calcium 9.2 8.5 - 10.5 mg/dL LAB CHEMISTRY METHOD 11/27/2024 9:35 AM [facility] Blood Venous blood specimen / Unknown Venipuncture / Unknown 11/27/2024 7:12 AM EST 11/27/2024 8:47 AM EST Angel Adamson MD LAB BLOOD ORDERABLES Final Resul t [facility] [address] [place] [address], * (ABNORMAL) Complete blood count (11/27/2024 7:12 AM EST) WBC 7.7 4.8 - 10.8 K/mcL LAB HEMETOLOGY METHOD 11/27/2024 9:13 AM [facility] RBC 4.30(L) 4.50 - 5.50 M/mcL LAB HEMETOLOGY METHOD 11/27/2024 9:13 AM [facility] Hemoglobin 13.8 13.5 - 17.5 g/dL LAB HEMETOLOGY METHOD 11/27/2024 9:13 AM [facility] LAB Hematocrit 42.9 42.0 - 54.0 % LAB HEMETOLOGY METHOD 11/27/2024 9:13 AM [facility] LAB MCV 100.5(H) 79.0 - 98.0 FL LAB HEMETOLOGY METHOD 11/27/2024 9:13 AM [facility] LAB MCH 32.3(H) 27.0 - 32.0 pcg LAB HEMETOLOGY METHOD 11/27/2024 9:13 AM [facility] LAB MCHC 32.2 32.0 - 37.0 g/dL LAB HEMETOLOGY METHOD 11/27/2024 9:13 AM [facility] LAB RDW 13.7 11.0 - 15.0 % LAB HEMETOLOGY METHOD 11/27/2024 9:13 AM [facility] LAB Platelets 214 130 - 400 K/mcL LAB HEMETOLOGY METHOD 11/27/2024 9:13 AM [facility] LAB MPV 10.2 7.0 - 11.0 FL LAB HEMETOLOGY METHOD 11/27/2024 9:13 AM EST [facility] NRBC 0.0 <1.0 % LAB HEMETOLOGY METHOD 11/27/2024 9:13 AM EST [facility] NRBC Absolute 0.00 <0.10 K/mcL LAB HEMETOLOGY METHOD 11/27/2024 9:13 AM EST [facility] LAB Blood Venous blood specimen / Unknown Venipuncture / Unknown 11/27/2024 7:12 AM EST 11/27/2024 8:47 AM EST us Angel Adamson MD LAB BLOOD ORDERABLES Final Resul t [facility] [address] [place] [address], documented in this encounter Visit Diagnoses Diagnosis Parkinsonism, unspecified (CMS/HCC V24, CMS/HCC V28) documented in this encounter Additional Health Concerns Infection Onset Date Last Indicated Resolved Time ESBL 11/24/2024 11/24/2024 documented as of this encounter Care Teams Chalk Cutter Relationship Specialty Start Date End Date Leona Almendarez MD 1221 [facility] 216 [place], [place] PCP - General 07/03/18 documented as of this encounter
--- OUTSIDE RECORDS SUMMARY | 2025-02-25 13:42 | XMS_ITS | Encounter Summary ---
Author Organization [facility] [place] [address] Care Team Providers Care Chief Compliance Officer Name Role Phone Leona Almendarez MD Primary Care Provider [phone] Encounter Details Date Type Department Care Team (Late st Contact Info) Description 12/23/2024 Lab Requisition [facility] - Main Lab 299 [facility] [place] [phone] Angel Adamson MD [address] [place] [address] Parkinsonism, unspecified (CMS/HCC V24, CMS/HCC V28) Social [...] mmol/L LAB CHEMISTRY METHOD 12/24/2024 11:08 AM [facility] Potassium 3.8 3.5 - 5.5 mmol/L LAB CHEMISTRY METHOD 12/24/2024 11:08 AM [facility] LAB Chloride 105 96 - 110 mmol/L LAB CHEMISTRY METHOD 12/24/2024 11:08 AM [facility] LAB CO2 30 21 - 32 mmol/L LAB CHEMISTRY METHOD 12/24/2024 11:08 AM [facility] LAB Anion Gap 5 3 - 11 LAB CHEMISTRY METHOD 12/24/2024 11:08 AM [facility] LAB Glucose 91 70 - 100 mg/dL LAB CHEMISTRY METHOD 12/24/2024 11:08 AM [facility] LAB BUN 24 5 - 25 mg/dL LAB CHEMISTRY METHOD 12/24/2024 11:08 AM [facility] LAB Creatinine 0.66(L) 0.70 - 1.30 mg/dL LAB CHEMISTRY METHOD 12/24/2024 11:08 AM [facility] LAB eGFR 95 >=60 mL/min/1. 73m2 LAB CHEMISTRY METHOD 12/24/2024 11:08 AM [facility] LAB Comment:Calculation based on the??Chronic Kidney Disease Epidemiology Collaboration (CKD-EPI) equation refit??without adjustment for race. BUN/Creatinine Ratio 36.4 LAB CHEMISTRY METHOD 12/24/2024 11:08 AM [facility] Calcium 9.2 8.5 - 10.5 mg/dL LAB CHEMISTRY METHOD 12/24/2024 11:08 AM [facility] Blood Venous blood specimen / Unknown Venipuncture / Unknown 12/24/2024 8:37 AM EST 12/24/2024 11:08 AM EST Angel Adamson MD LAB BLOOD ORDERABLES Final Resul t [facility] [address] [place] [address], * (ABNORMAL) Complete blood count (12/24/2024 8:37 AM EST) WBC 6.4 4.8 - 10.8 K/mcL LAB HEMETOLOGY METHOD 12/24/2024 11:37 AM EST [facility] RBC 3.50(L) 4.50 - 5.50 M/mcL LAB HEMETOLOGY METHOD 12/24/2024 11:37 AM [facility] Hemoglobin 11.4(L) 13.5 - 17.5 g/dL LAB HEMETOLOGY METHOD 12/24/2024 11:37 AM [facility] LAB Hematocrit 36.2(L) 42.0 - 54.0 % LAB HEMETOLOGY METHOD 12/24/2024 11:37 AM [facility] LAB MCV 102.5(H) 79.0 - 98.0 FL LAB HEMETOLOGY METHOD 12/24/2024 11:37 AM [facility] LAB MCH 32.3(H) 27.0 - 32.0 pcg LAB HEMETOLOGY METHOD 12/24/2024 11:37 AM [facility] LAB MCHC 31.5(L) 32.0 - 37.0 g/dL LAB HEMETOLOGY METHOD 12/24/2024 11:37 AM [facility] LAB RDW 15.2(H) 11.0 - 15.0 % LAB HEMETOLOGY METHOD 12/24/2024 11:37 AM [facility] LAB Platelets 271 130 - 400 K/mcL LAB HEMETOLOGY METHOD 12/24/2024 11:37 AM [facility] LAB MPV 9.5 7.0 - 11.0 FL LAB HEMETOLOGY METHOD 12/24/2024 11:37 AM EST [facility] NRBC 0.0 <1.0 % LAB HEMETOLOGY METHOD 12/24/2024 11:37 AM EST [facility] NRBC Absolute 0.00 <0.10 K/mcL LAB HEMETOLOGY METHOD 12/24/2024 11:37 AM EST [facility] Blood Venous blood specimen / Unknown Venipuncture / Unknown 12/24/2024 8:37 AM EST 12/24/2024 11:36 AM EST us Angel Adamson MD LAB BLOOD ORDERABLES Final Resul t [facility] [address] [place] [address], documented in this encounter Visit Diagnoses Diagnosis Parkinsonism, unspecified (CMS/HCC V24, CMS/HCC V28) documented in this encounter Additional Health Concerns Infection Onset Date Last Indicated Resolved Time ESBL 11/24/2024 11/24/2024 documented as of this encounter Care Teams Chief Compliance Officer Relationship Specialty Start Date End Date Leona Almendarez MD [facility] [address] PCP - General 07/03/18 documented as of this encounter
--- OUTSIDE RECORDS SUMMARY | 2025-02-25 13:42 | XMS_ITS | Encounter Summary ---
Author Organization [facility] [place] [address] Care Team Providers Care Manufacturing Inspector Name Role Phone Leona Almendarez MD Primary Care Provider [phone] Encounter Details Date Type Department Care Team (Late st Contact Info) Description 10/14/2024 Lab Requisition [facility] - Main Lab [address] [facility] [place] [phone] Angel Adamson MD [address] [place] [address] Hematuria, unspecified Social History Tobacco Use Types [...] K/mcL LAB HEMETOLOGY METHOD 10/16/2024 11:51 AM [facility] RBC 4.20(L) 4.50 - 5.50 M/mcL LAB HEMETOLOGY METHOD 10/16/2024 11:51 AM [facility] Hemoglobin 13.5 13.5 - 17.5 g/dL LAB HEMETOLOGY METHOD 10/16/2024 11:51 AM [facility] Hematocrit 43.1 42.0 - 54.0 % LAB HEMETOLOGY METHOD 10/16/2024 11:51 AM [facility] MCV 101.7(H) 79.0 - 98.0 FL LAB HEMETOLOGY METHOD 10/16/2024 11:51 AM [facility] MCH 31.8 27.0 - 32.0 pcg LAB HEMETOLOGY METHOD 10/16/2024 11:51 AM [facility] MCHC 31.3(L) 32.0 - 37.0 g/dL LAB HEMETOLOGY METHOD 10/16/2024 11:51 AM [facility] RDW 13.2 11.0 - 15.0 % LAB HEMETOLOGY METHOD 10/16/2024 11:51 AM [facility] Platelets 243 130 - 400 K/[facility] LAB HEMETOLOGY METHOD 10/16/2024 11:51 AM [facility] MPV 10.0 7.0 - 11.0 FL LAB HEMETOLOGY METHOD 10/16/2024 11:51 AM [facility] NRBC 0.0 <1.0 % LAB HEMETOLOGY METHOD 10/16/2024 11:51 AM [facility] NRBC Absolute 0.00 <0.10 K/mcL LAB HEMETOLOGY METHOD 10/16/2024 11:51 AM [facility] Blood Venous blood specimen / Unknown Venipuncture / Unknown 10/16/2024 8:55 AM EST 10/16/2024 11:14 AM EST us Angel Adamson MD LAB BLOOD ORDERABLES Final Resul t [facility] [address] [place] [address], * (ABNORMAL) Basic metabolic panel (10/16/2024 8:55 AM EST) Sodium 140 133 - 145 mmol/L LAB CHEMISTRY METHOD 10/16/2024 12:09 PM [facility] Potassium 4.1 3.5 - 5.5 mmol/L LAB CHEMISTRY METHOD 10/16/2024 12:09 PM [facility] Chloride 106 96 - 110 mmol/L LAB CHEMISTRY METHOD 10/16/2024 12:09 PM [facility] CO2 28 21 - 32 mmol/L LAB CHEMISTRY METHOD 10/16/2024 12:09 PM [facility] Anion Gap 6 3 - 11 LAB CHEMISTRY METHOD 10/16/2024 12:09 PM [facility] Glucose 80 70 - 100 mg/dL LAB CHEMISTRY METHOD 10/16/2024 12:09 PM [facility] BUN 19 5 - 25 mg/dL LAB CHEMISTRY METHOD 10/16/2024 12:09 PM [facility] Creatinine 0.69(L) 0.70 - 1.30 mg/dL LAB CHEMISTRY METHOD 10/16/2024 12:09 PM [facility] eGFR 94 >=60 mL/min/1. 73m2 LAB CHEMISTRY METHOD 10/16/2024 12:09 PM [facility] Comment:Calculation based on the??Chronic Kidney Disease Epidemiology Collaboration (CKD-EPI) equation refit??without adjustment for race. BUN/Creatinine Ratio 27.5 LAB CHEMISTRY METHOD 10/16/2024 12:09 PM EST [facility] Calcium 9.3 8.5 - 10.5 mg/dL LAB CHEMISTRY METHOD 10/16/2024 12:09 PM EST [facility] Blood Venous blood specimen / Unknown Venipuncture / Unknown 10/16/2024 8:55 AM EST 10/16/2024 11:14 AM EST us Angel Adamson MD LAB BLOOD ORDERABLES Final Resul t [facility] [address] [place] [address], documented in this encounter Visit Diagnoses Diagnosis Hematuria, unspecified documented in this encounter Additional Health Concerns Infection Onset Date Last Indicated Resolved Time ESBL 11/24/2024 11/24/2024 documented as of this encounter Care Teams Manufacturing Inspector Relationship Specialty Start Date End Date Leona Almendarez MD [address] PCP - General 07/03/18 documented as of this encounter
--- OUTSIDE RECORDS SUMMARY | 2025-02-25 13:42 | XMS_ITS | Encounter Summary ---
Author Organization [facility] [place] [address] Care Team Providers Care Laser Machine Operator Name Role Phone Leona Almendarez MD Primary Care Provider [phone] Encounter Details Date Type Department Care Team (Late st Contact Info) Description 12/09/2024 Lab Requisition [facility] - Main Lab [address] [facility] [place] [phone] Angel Adamson MD [address] [place] [address] Parkinsonism, unspecified (CMS/HCC V24, CMS/HCC V28) Social [...] mmol/L LAB CHEMISTRY METHOD 12/10/2024 8:57 AM [facility] Potassium 4.0 3.5 - 5.5 mmol/L LAB CHEMISTRY METHOD 12/10/2024 8:57 AM [facility] Chloride 104 96 - 110 mmol/L LAB CHEMISTRY METHOD 12/10/2024 8:57 AM [facility] CO2 27 21 - 32 mmol/L LAB CHEMISTRY METHOD 12/10/2024 8:57 AM [facility] Anion Gap 5 3 - 11 LAB CHEMISTRY METHOD 12/10/2024 8:57 AM [facility] Glucose 104(H) 70 - 100 mg/dL LAB CHEMISTRY METHOD 12/10/2024 8:57 AM [facility] BUN 22 5 - 25 mg/dL LAB CHEMISTRY METHOD 12/10/2024 8:57 AM [facility] Creatinine 0.63(L) 0.70 - 1.30 mg/dL LAB CHEMISTRY METHOD 12/10/2024 8:57 AM [facility] eGFR 97 >=60 mL/min/1. 73m2 LAB CHEMISTRY METHOD 12/10/2024 8:57 AM [facility] Comment:Calculation based on the??Chronic Kidney Disease Epidemiology Collaboration (CKD-EPI) equation refit??without adjustment for race. BUN/Creatinine Ratio 34.9 LAB CHEMISTRY METHOD 12/10/2024 8:57 AM [facility] Calcium 8.5 8.5 - 10.5 mg/dL LAB CHEMISTRY METHOD 12/10/2024 8:57 AM [facility] Blood Venous blood specimen / Unknown Venipuncture / Unknown 12/10/2024 7:03 AM EST 12/10/2024 8:24 AM EST Angel Adamson MD LAB BLOOD ORDERABLES Final Resul t [facility] [address] [place] [address], * (ABNORMAL) Complete blood count (12/10/2024 7:03 AM EST) WBC 9.5 4.8 - 10.8 K/mcL LAB HEMETOLOGY METHOD 12/10/2024 8:32 AM [facility] RBC 3.20(L) 4.50 - 5.50 M/mcL LAB HEMETOLOGY METHOD 12/10/2024 8:32 AM [facility] Hemoglobin 10.4(L) 13.5 - 17.5 g/dL LAB HEMETOLOGY METHOD 12/10/2024 8:32 AM [facility] Hematocrit 32.5(L) 42.0 - 54.0 % LAB HEMETOLOGY METHOD 12/10/2024 8:32 AM [facility] MCV 100.6(H) 79.0 - 98.0 FL LAB HEMETOLOGY METHOD 12/10/2024 8:32 AM [facility] MCH 32.2(H) 27.0 - 32.0 pcg LAB HEMETOLOGY METHOD 12/10/2024 8:32 AM [facility] MCHC 32.0 32.0 - 37.0 g/dL LAB HEMETOLOGY METHOD 12/10/2024 8:32 AM [facility] RDW 14.2 11.0 - 15.0 % LAB HEMETOLOGY METHOD 12/10/2024 8:32 AM [facility] Platelets 356 130 - 400 K/mcL LAB HEMETOLOGY METHOD 12/10/2024 8:32 AM [facility] MPV 9.1 7.0 - 11.0 FL LAB HEMETOLOGY METHOD 12/10/2024 8:32 AM EST [facility] NRBC 0.0 <1.0 % LAB HEMETOLOGY METHOD 12/10/2024 8:32 AM EST [facility] NRBC Absolute 0.00 <0.10 K/mcL LAB HEMETOLOGY METHOD 12/10/2024 8:32 AM EST [facility] Blood Venous blood specimen / Unknown Venipuncture / Unknown 12/10/2024 7:03 AM EST 12/10/2024 8:24 AM EST us Angel Adamson MD LAB BLOOD ORDERABLES Final Resul t [facility] [address] [place] [address], documented in this encounter Visit Diagnoses Diagnosis Parkinsonism, unspecified (CMS/HCC V24, CMS/HCC V28) documented in this encounter Additional Health Concerns Infection Onset Date Last Indicated Resolved Time ESBL 11/24/2024 11/24/2024 documented as of this encounter Care Teams Laser Machine Operator Relationship Specialty Start Date End Date Leona Almendarez MD [facility] PCP - General 07/03/18 documented as of this encounter
--- OUTSIDE RECORDS SUMMARY | 2025-02-25 13:42 | XMS_ITS | Encounter Summary ---
Author Organization [facility] [place] [address] Care Team Providers Care J2Ee Application Developer Name Role Phone Leona Almendarez MD Primary Care Provider [phone] Encounter Details Date Type Department Care Team (Late st Contact Info) Description 11/21/2024 Lab Requisition [facility] - Main Lab [address] [facility] [place] [phone] Angel Adamson MD [address] [place] [address] Urinary tract infection, site not specified Social [...] culture tube (11/20/2024 12:00 AM EST) Pathologist [facility] Extra Tube Hold for add-ons. 11/21/2024 2:01 PM [facility] Comment:Auto resulted. Urine Urine specimen obtained by clean catch procedure / Unknown Non-blood Collection / Unknown 11/20/2024 11/21/2024 12:11 PM EST Angel Adamson MD LAB URINE ORDERABLES Final Resul t [facility] [address] [place] [address], [place] [phone] * (ABNORMAL) Urinalysis with reflex microscopic (11/20/2024 12:00 AM EST) [facility] Specific [place] Urine 1.019 1.003 - 1.030 LAB URINALYSIS - AUTOMATED METHOD 11/21/2024 1:26 PM [facility] pH, Urine >=9.0(A) 5.0 - 8.0 pH LAB URINALYSIS - AUTOMATED METHOD 11/21/2024 1:26 PM [facility] Leukocytes, Urine Large(A) Negative LAB URINALYSIS - AUTOMATED METHOD 11/21/2024 1:26 PM [facility] Nitrite, Urine Positive(A) Negative LAB URINALYSIS - AUTOMATED METHOD 11/21/2024 1:26 PM [facility] Protein, Urine 100(A) <=Trace mg/dL LAB URINALYSIS - AUTOMATED METHOD 11/21/2024 1:26 PM [facility] Glucose, Urine Negative Negative mg/dL LAB URINALYSIS - AUTOMATED METHOD 11/21/2024 1:26 PM [facility] Ketones, Urine Negative Negative mg/dL LAB URINALYSIS - AUTOMATED METHOD 11/21/2024 1:26 PM [facility] Urobilinogen , Urine 0.2 0.2 - 1.0 mg/dL LAB URINALYSIS - AUTOMATED METHOD 11/21/2024 1:26 PM [facility] Bilirubin, Urine Negative Negative LAB URINALYSIS - AUTOMATED METHOD 11/21/2024 1:26 PM [facility] Blood, Urine Negative Negative LAB URINALYSIS - AUTOMATED METHOD 11/21/2024 1:26 PM [facility] RBC, Urine 1.3 0 - 4 /HPF LAB URINALYSIS - AUTOMATED METHOD 11/21/2024 1:26 PM [facility] WBC, Urine 27.4(H) 0 - 4 /HPF LAB URINALYSIS - AUTOMATED METHOD 11/21/2024 1:26 PM [facility] Squamous Epithelial, Urine 10 0 - 60 /LPF LAB URINALYSIS - AUTOMATED METHOD 11/21/2024 1:26 PM [facility] Crystals, Urine HEAVY TRIPLE PHOS /LPF LAB URINALYSIS - AUTOMATED METHOD 11/21/2024 1:26 PM [facility] Bacteria, Urine Few(A) Negative /HPF LAB URINALYSIS - AUTOMATED METHOD 11/21/2024 1:26 PM [facility] Hyaline Casts, Urine 6.6(H) 0 - 3 /LPF LAB URINALYSIS - AUTOMATED METHOD 11/21/2024 1:26 PM [facility] Urine Urine specimen obtained by clean catch procedure / Unknown Non-blood Collection / Unknown 11/20/2024 11/21/2024 12:11 PM EST us Angel Adamson MD LAB URINE ORDERABLES Final Resul t [facility] [address] [place] [address], documented in this encounter Visit Diagnoses Diagnosis Urinary tract infection, site not specified documented in this encounter Additional Health Concerns Infection Onset Date Last Indicated Resolved Time ESBL 11/24/2024 11/24/2024 documented as of this encounter Care Teams J2Ee Application Developer Relationship Specialty Start Date End Date Leona Almendarez MD [address] [facility] [address] [place], [place] PCP - General 07/03/18 documented as of this encounter
--- OUTSIDE RECORDS SUMMARY | 2025-02-25 13:42 | XMS_ITS | Encounter Summary ---
Author Organization [facility] [place] [address] Care Team Providers Care Hose Tubing Backer Name Role Phone Leona Almendarez MD Primary Care Provider [phone] Encounter Details Date Type Department Care Team (Late st Contact Info) Description 12/16/2024 Lab Requisition [facility] - Main Lab [address] [facility] [place] [phone] Angel Adamson MD [address] [place] [address] Parkinsonism, unspecified (CMS/HCC V24, CMS/HCC V28) Social [...] mmol/L LAB CHEMISTRY METHOD 12/17/2024 10:16 AM [facility] Potassium 4.1 3.5 - 5.5 mmol/L LAB CHEMISTRY METHOD 12/17/2024 10:16 AM [facility] Chloride 106 96 - 110 mmol/L LAB CHEMISTRY METHOD 12/17/2024 10:16 AM [facility] CO2 28 21 - 32 mmol/L LAB CHEMISTRY METHOD 12/17/2024 10:16 AM [facility] Anion Gap 6 3 - 11 LAB CHEMISTRY METHOD 12/17/2024 10:16 AM [facility] Glucose 84 70 - 100 mg/dL LAB CHEMISTRY METHOD 12/17/2024 10:16 AM [facility] BUN 17 5 - 25 mg/dL LAB CHEMISTRY METHOD 12/17/2024 10:16 AM [facility] Creatinine 0.55(L) 0.70 - 1.30 mg/dL LAB CHEMISTRY METHOD 12/17/2024 10:16 AM [facility] eGFR 101 >=60 mL/min/1. 73m2 LAB CHEMISTRY METHOD 12/17/2024 10:16 AM [facility] Comment:Calculation based on the??Chronic Kidney Disease Epidemiology Collaboration (CKD-EPI) equation refit??without adjustment for race. BUN/Creatinine Ratio 30.9 LAB CHEMISTRY METHOD 12/17/2024 10:16 AM [facility] Calcium 9.0 8.5 - 10.5 mg/dL LAB CHEMISTRY METHOD 12/17/2024 10:16 AM [facility] Blood Venous blood specimen / Unknown Venipuncture / Unknown 12/17/2024 7:30 AM EST 12/17/2024 10:16 AM EST Angel Adamson MD LAB BLOOD ORDERABLES Final Resul t [facility] [address] [place] [address], * (ABNORMAL) Complete blood count (12/17/2024 7:30 AM EST) WBC 6.8 4.8 - 10.8 K/mcL LAB HEMETOLOGY METHOD 12/17/2024 10:16 AM EST [facility] RBC 3.60(L) 4.50 - 5.50 M/mcL LAB HEMETOLOGY METHOD 12/17/2024 10:16 AM EST [facility] Hemoglobin 11.5(L) 13.5 - 17.5 g/dL LAB HEMETOLOGY METHOD 12/17/2024 10:16 AM [facility] Hematocrit 36.9(L) 42.0 - 54.0 % LAB HEMETOLOGY METHOD 12/17/2024 10:16 AM [facility] MCV 101.9(H) 79.0 - 98.0 FL LAB HEMETOLOGY METHOD 12/17/2024 10:16 AM [facility] MCH 31.8 27.0 - 32.0 pcg LAB HEMETOLOGY METHOD 12/17/2024 10:16 AM [facility] MCHC 31.2(L) 32.0 - 37.0 g/dL LAB HEMETOLOGY METHOD 12/17/2024 10:16 AM [facility] RDW 14.7 11.0 - 15.0 % LAB HEMETOLOGY METHOD 12/17/2024 10:16 AM [facility] Platelets 352 130 - 400 K/mcL LAB HEMETOLOGY METHOD 12/17/2024 10:16 AM [facility] MPV 9.4 7.0 - 11.0 FL LAB HEMETOLOGY METHOD 12/17/2024 10:16 AM EST [facility] NRBC 0.0 <1.0 % LAB HEMETOLOGY METHOD 12/17/2024 10:16 AM EST [facility] NRBC Absolute 0.00 <0.10 K/mcL LAB HEMETOLOGY METHOD 12/17/2024 10:16 AM EST [facility] Blood Venous blood specimen / Unknown Venipuncture / Unknown 12/17/2024 7:30 AM EST 12/17/2024 10:16 AM EST us Angel Adamson MD LAB BLOOD ORDERABLES Final Resul t [facility] [address] [place] [address], documented in this encounter Visit Diagnoses Diagnosis Parkinsonism, unspecified (CMS/HCC V24, CMS/HCC V28) documented in this encounter Additional Health Concerns Infection Onset Date Last Indicated Resolved Time ESBL 11/24/2024 11/24/2024 documented as of this encounter Care Teams 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
--- OUTSIDE RECORDS SUMMARY | 2025-02-25 13:42 | XMS_ITS | Clinical Summary ---
Author Organization 299 [facility] Address [address] [place] [address] Phone Care Team Providers Care Concrete Mixer Operator Name Role Phone Leona Almendarez MD Primary Care Provider [phone] Encounters Date Type Department Care Team Description 01/16/[address] [facility] [address] [place] [phone] Angel Adamson MD Parkinsonism, unspecified (CMS/HCC V24, CMS/HCC V28) 01/15/[address] [facility] [address] [place] [phone] Angel Aadmson MD Other fatigue 01/08/[address] [facility] [address] [place] [phone] nAgel Adamson MD Hematuria, unspecified 01/08/[address] [facility] [address] [place] [phone] Angel Adamson MD Unspecified atrial fibrillation (CMS/HCC V24, CMS/HCC V28) 12/23/[address] [facility] [address] [place] [phone] Angel Adamson MD Parkinsonism, unspecified (CMS/HCC V24, CMS/HCC V28) 12/16/[address] [facility] [address] [place] [address] Angel Adamson MD Parkinsonism, unspecified ([facility] V24, [facility] V28) 12/15/[address] [facility] [address] [place] [address] Angel Adamson MD Altered mental status, unspecified; Confusional arousals 12/09/[address] [facility] [address] [place] [address] Angel Adamson MD Parkinsonism, unspecified ([facility] V24, [facility] V28) 11/26/[address] [facility] [address] [place] [address] Angel Adamson MD Parkinsonism, unspecified ([facility] V24, [facility] V28) from Last 3 Months Medical History Medical [...] Vaccines (1 of 2) 1995 RSV Immunization Adult Patients (1 - 1-dose 75+ series) 2020 Depression Screening 10/25/2022 Falls Risk Assessment 10/25/2022 Hepatitis C Screening 10/25/2022 Medicare Annual Wellness Visit 10/25/2022 Social Influencers of Health Screening 10/25/2022 COVID-19 Vaccine ( - season) 2024 Influenza Vaccine (Season Ended) 2025 Hypertension/CHF/CAD Annual BMP Blood Test 01/08/2026 01/08/2025, [...] age to complete this topic Meningococcal B Vaccine Aged Out No l onger eligible based on patient's age to complete this topic RSV Immunization Patients Under 20 months Aged Out No longer eligible based on patient's age to complete this topic Varicella Vaccines Aged Out No longer eligible based on patient's age to complete this topic Procedures Procedure Name Priority Date/Time Associated Diagnosis Comments VITAMIN B12 AND FOLATE Routine 01/18/2025 7:43 AM EST Parkinsonism, unspecified (CMS/HCC) HEMOGLOBIN AND HEMATOCRIT Routine 01/15/2025 8:18 AM [...] 11/27/2024 7:12 AM EST Parkinsonism, unspecified (CMS/HCC) from Last 3 Months Results * Vitamin B12 and folate (01/18/2025 7:43 AM EST) Vitamin B-12 582 250 - 900 pcg/mL LAB CHEMISTRY METHOD 01/18/2025 12:53 PM EST [facility] Folate 4.6 2.8 - 17.0 ng/ml LAB CHEMISTRY METHOD 01/18/2025 12:53 PM EST [facility] Blood Venous blood specimen / Unknown Venipuncture / Unknown 01/18/2025 7:43 AM EST 01/18/2025 11:26 AM EST us Angel Adamson MD LAB BLOOD ORDERABLES Final Resul t Performing Organization Address City/[facility]/ZIP Co de Phone Number [facility] [address] [place] [address], * (ABNORMAL) Hemoglobin and hematocrit (01/15/2025 8:18 AM EST) Pathologist [facility] Hemoglobin 13.3(L) 13.5 - 17.5 g/dL LAB HEMETOLOGY METHOD 01/15/2025 10:10 AM EST [facility] Hematocrit 41.9(L) 42.0 - 54.0 % LAB HEMETOLOGY METHOD 01/15/2025 10:10 AM EST [facility] Blood Venous blood specimen / Unknown Venipuncture / Unknown 01/15/2025 8:18 AM EST 01/15/2025 9:34 AM EST us Angel Adamson MD LAB BLOOD ORDERABLES Final Resul t [facility] [address] [place] [address], * (ABNORMAL) Complete blood count (01/08/2025 10:49 AM EST) Only the most recent of5 resultswithin the time period is included. [facility] Signature WBC 6.8 4.8 - 10.8 K/mcL LAB HEMETOLOGY METHOD 01/08/2025 11:42 AM [facility] RBC 3.70(L) 4.50 - 5.50 M/mcL LAB HEMETOLOGY METHOD 01/08/2025 11:42 AM [facility] Hemoglobin 11.8(L) 13.5 - 17.5 g/dL LAB HEMETOLOGY METHOD 01/08/2025 11:42 AM [facility] Hematocrit 37.8(L) 42.0 - 54.0 % LAB HEMETOLOGY METHOD 01/08/2025 11:42 AM [facility] MCV 103.6(H) 79.0 - 98.0 FL LAB HEMETOLOGY METHOD 01/08/2025 11:42 AM [facility] MCH 32.3(H) 27.0 - 32.0 pcg LAB HEMETOLOGY METHOD 01/08/2025 11:42 AM [facility] MCHC 31.2(L) 32.0 - 37.0 g/dL LAB HEMETOLOGY METHOD 01/08/2025 11:42 AM [facility] RDW 14.0 11.0 - 15.0 % LAB HEMETOLOGY METHOD 01/08/2025 11:42 AM [facility] Platelets 221 130 - 400 K/mcL LAB HEMETOLOGY METHOD 01/08/2025 11:42 AM [facility] MPV 10.0 7.0 - 11.0 FL LAB HEMETOLOGY METHOD 01/08/2025 11:42 AM [facility] NRBC 0.0 <1.0 % LAB HEMETOLOGY METHOD 01/08/2025 11:42 AM EST [facility] NRBC Absolute 0.00 <0.10 K/mcL LAB HEMETOLOGY METHOD 01/08/2025 11:42 AM EST [facility] Blood Venous blood specimen / Unknown Venipuncture / Unknown 01/08/2025 10:49 AM EST 01/08/2025 11:28 AM EST us Angel Adamson MD LAB BLOOD ORDERABLES Final Resul t [facility] [address] [place] [address], * (ABNORMAL) Basic metabolic panel (01/08/2025 10:49 AM EST) Only the most recent of5 resultswithin the time period is included. Sodium 142 133 - 145 mmol/L LAB CHEMISTRY METHOD 01/08/2025 11:57 AM [facility] Potassium 3.9 3.5 - 5.5 mmol/L LAB CHEMISTRY METHOD 01/08/2025 11:57 AM [facility] Chloride 108 96 - 110 mmol/L LAB CHEMISTRY METHOD 01/08/2025 11:57 AM [facility] CO2 27 21 - 32 mmol/L LAB CHEMISTRY METHOD 01/08/2025 11:57 AM [facility] Anion Gap 7 3 - 11 LAB CHEMISTRY METHOD 01/08/2025 11:57 AM [facility] Glucose 97 70 - 100 mg/dL LAB CHEMISTRY METHOD 01/08/2025 11:57 AM [facility] BUN 16 5 - 25 mg/dL LAB CHEMISTRY METHOD 01/08/2025 11:57 AM [facility] Creatinine 0.63(L) 0.70 - 1.30 mg/dL LAB CHEMISTRY METHOD 01/08/2025 11:57 AM [facility] eGFR 97 >=60 mL/min/1. 73m2 LAB CHEMISTRY METHOD 01/08/2025 11:57 AM [facility] Comment:Calculation based on the??Chronic Kidney Disease Epidemiology Collaboration (CKD-EPI) equation refit??without adjustment for race. BUN/Creatinine Ratio 25.4 LAB CHEMISTRY METHOD 01/08/2025 11:57 AM [facility] Calcium 8.8 8.5 - 10.5 mg/dL LAB CHEMISTRY METHOD 01/08/2025 11:57 AM [facility] Blood Venous blood specimen / Unknown Venipuncture / Unknown 01/08/2025 10:49 AM EST 01/08/2025 11:28 AM EST us Angel Adamson MD LAB BLOOD ORDERABLES Final Resul t [facility] [address] [place] [address], [place] [phone] * (ABNORMAL) Urinalysis with reflex microscopic (01/08/2025 12:00 AM EST) Specific [place] Urine 1.020 1.003 - 1.030 LAB URINALYSIS - AUTOMATED METHOD 01/08/2025 7:39 PM [facility] pH, Urine 6.5 5.0 - 8.0 pH LAB URINALYSIS - AUTOMATED METHOD 01/08/2025 7:39 PM [facility] Leukocytes, Urine Trace(A) Negative LAB URINALYSIS - AUTOMATED METHOD 01/08/2025 7:39 PM [facility] Nitrite, Urine Negative Negative LAB URINALYSIS - AUTOMATED METHOD 01/08/2025 7:39 PM [facility] Protein, Urine Negative <=Trace mg/dL LAB URINALYSIS - AUTOMATED METHOD 01/08/2025 7:39 PM [facility] Glucose, Urine Negative Negative mg/dL LAB URINALYSIS - AUTOMATED METHOD 01/08/2025 7:39 PM [facility] Ketones, Urine Negative Negative mg/dL LAB URINALYSIS - AUTOMATED METHOD 01/08/2025 7:39 PM [facility] Urobilinogen, Urine 1.0 0.2 - 1.0 mg/dL LAB URINALYSIS - AUTOMATED METHOD 01/08/2025 7:39 PM [facility] Bilirubin, Urine Negative Negative LAB URINALYSIS - AUTOMATED METHOD 01/08/2025 7:39 PM [facility] Blood, Urine Negative Negative LAB URINALYSIS - AUTOMATED METHOD 01/08/2025 7:39 PM [facility] RBC, Urine 3.6 0 - 4 /HPF LAB URINALYSIS - AUTOMATED METHOD 01/08/2025 7:39 PM [facility] WBC, Urine 1.6 0 - 4 /HPF LAB URINALYSIS - AUTOMATED METHOD 01/08/2025 7:39 PM [facility] Squamous Epithelial, Urine 4 0 - 60 /LPF LAB URINALYSIS - AUTOMATED METHOD 01/08/2025 7:39 PM [facility] Bacteria, Urine Negative Negative /HPF LAB URINALYSIS - AUTOMATED METHOD 01/08/2025 7:39 PM [facility] Hyaline Casts, Urine 0.8 0 - 3 /LPF LAB URINALYSIS - AUTOMATED METHOD 01/08/2025 7:39 PM [facility] Urine Urine specimen obtained by clean catch procedure / Unknown 01/08/2025 01/08/2025 7:01 PM EST us Angel Adamson MD LAB URINE ORDERABLES Final Resul t [facility] [address] [place] [address], [place] [phone] * Culture urine (01/08/2025 12:00 AM EST) Only the most recent of2 resultswithin the time period is included. Culture, Urine No growth 01/09/2025 1:42 PM [facility] Urine Urine specimen obtained by clean catch procedure / Unknown 01/08/2025 01/08/2025 7:01 PM EST Angel Adamson MD LAB MICROBIOLOGY - GENERAL ORDER TABITHA Final Result [facility] [address] [place] [address], [place] [phone] * (ABNORMAL) Urinalysis microscopic only (12/15/2024 10:30 AM EST) RBC, Urine 4.0 0 - 4 /HPF LAB URINALYSIS - AUTOMATED METHOD 12/15/2024 5:36 PM [facility] WBC, Urine 7.1(H) 0 - 4 /HPF LAB URINALYSIS - AUTOMATED METHOD 12/15/2024 5:36 PM [facility] Squamous Epithelial, Urine 27 0 - 60 /LPF LAB URINALYSIS - AUTOMATED METHOD 12/15/2024 5:36 PM [facility] Crystals, Urine ..Heavy Calcium Oxalate crystals. /LPF 12/15/2024 5:36 PM [facility] Bacteria, Urine Negative Negative /HPF LAB URINALYSIS - AUTOMATED METHOD 12/15/2024 5:36 PM [facility] Hyaline Casts, Urine 2.5 0 - 3 /LPF LAB URINALYSIS - AUTOMATED METHOD 12/15/2024 5:36 PM [facility] Urine Urine specimen obtained by clean catch procedure / Unknown 12/15/2024 10:30 AM EST 12/15/2024 4:02 PM EST us Angel Adamson MD LAB URINE ORDERABLES Final Resul t [facility] [address] [place] [address], from Last 3 Months Additional Health Concerns Infection Onset Date Last Indicated ESBL 11/24/2024 11/24/2024 Insurance [place]ICA[place] - [place] MEDICARE Advance Directives Documents on File Type Date Recorded Patient Cardiopulmonary Technologist Chief Expl anation Health Care Decision (hx) 06/25/2024 AD WILSON DIRECTIVE Health Care Decision (hx) 06/25/2024 AD WILSON DIRECTIVE Health Care Decision (hx) 06/20/2024 AD WILSON DIRECTIVE Health Care Decision (hx) 06/20/2024 AD WILSON DIRECTIVE Care Teams Concrete Mixer Operator Relationship Specialty Start Date End Date Leona Almendarez MD [address] [facility] [address] [place], [place] PCP - General 07/03/18
--- OUTSIDE RECORDS SUMMARY | 2025-02-25 13:42 | XMS_ITS | Encounter Summary ---
Author Organization [facility] [place] [address] Care Team Providers Care Yoga Teacher Name Role Phone Leona Almendarez MD Primary Care Provider Encounter Details Date Type Department Care Team (Late st Contact Info) Description 01/16/2025 Lab Requisition [facility] [address] [facility] [place] [phone] Angel Adamson MD [address] [place] [address] Parkinsonism, unspecified (CMS/HCC V24, CMS/HCC V28) Social [...] 01/18/2025 7:43 AM EST Parkinsonism, unspecified (CMS/HCC) documented in this encounter Results * Vitamin B12 and folate (01/18/2025 7:43 AM EST) Vitamin B-12 582 250 - 900 pcg/mL LAB CHEMISTRY METHOD 01/18/2025 12:53 PM EST [facility] Folate 4.6 2.8 - 17.0 ng/ml LAB CHEMISTRY METHOD 01/18/2025 12:53 PM EST [facility] Blood Venous blood specimen / Unknown Venipuncture / Unknown 01/18/2025 7:43 AM EST 01/18/2025 11:26 AM EST us Angel Adamson MD LAB BLOOD ORDERABLES Final Resul t [facility] [address] [place] [address], documented in this encounter Visit Diagnoses Diagnosis Parkinsonism, unspecified (CMS/HCC V24, CMS/HCC V28) documented in this encounter Additional Health Concerns Infection Onset Date Last Indicated Resolved Time ESBL 11/24/2024 11/24/2024 documented as of this encounter Care Teams Yoga Teacher Relationship Specialty Start Date End Date Leona Almendarez MD [address] PCP - General 07/03/18 documented as of this encounter
--- OUTSIDE RECORDS SUMMARY | 2025-02-25 13:42 | XMS_ITS | Encounter Summary ---
Author Organization [facility] [place] [address] Care Team Providers Care Data Management Name Role Phone Leona Almendarez MD Primary Care Provider Encounter Details Date Type Department Care Team (Late st Contact Info) Description 09/30/2024 Lab Requisition [facility] 299 [facility] [place] [phone] Angel Adamson MD [address] [place] [address] Hematuria, unspecified Social History Tobacco Use Types [...] K/mcL LAB HEMETOLOGY METHOD 10/01/2024 10:12 AM [facility] RBC 4.00(L) 4.50 - 5.50 M/mcL LAB HEMETOLOGY METHOD 10/01/2024 10:12 AM [facility] Hemoglobin 13.0(L) 13.5 - 17.5 g/dL LAB HEMETOLOGY METHOD 10/01/2024 10:12 AM [facility] Hematocrit 40.5(L) 42.0 - 54.0 % LAB HEMETOLOGY METHOD 10/01/2024 10:12 AM [facility] MCV 101.0(H) 79.0 - 98.0 FL LAB HEMETOLOGY METHOD 10/01/2024 10:12 AM [facility] MCH 32.4(H) 27.0 - 32.0 pcg LAB HEMETOLOGY METHOD 10/01/2024 10:12 AM [facility] MCHC 32.1 32.0 - 37.0 g/dL LAB HEMETOLOGY METHOD 10/01/2024 10:12 AM [facility] RDW 13.6 11.0 - 15.0 % LAB HEMETOLOGY METHOD 10/01/2024 10:12 AM [facility] Platelets 223 130 - 400 K/[facility] LAB HEMETOLOGY METHOD 10/01/2024 10:12 AM [facility] MPV 10.3 7.0 - 11.0 FL LAB HEMETOLOGY METHOD 10/01/2024 10:12 AM [facility] NRBC 0.0 <1.0 % LAB HEMETOLOGY METHOD 10/01/2024 10:12 AM [facility] NRBC Absolute 0.00 <0.10 K/mcL LAB HEMETOLOGY METHOD 10/01/2024 10:12 AM [facility] Blood Venous blood specimen / Unknown Venipuncture / Unknown 10/01/2024 7:30 AM EST 10/01/2024 8:42 AM EST us Angel Adamson MD LAB BLOOD ORDERABLES Final Resul t [facility] [address] [place] [address], [place] [phone] * (ABNORMAL) Basic metabolic panel (10/01/2024 7:30 AM EST) Sodium 140 133 - 145 mmol/L LAB CHEMISTRY METHOD 10/01/2024 10:16 AM [facility] Potassium 4.1 3.5 - 5.5 mmol/L LAB CHEMISTRY METHOD 10/01/2024 10:16 AM [facility] Chloride 108 96 - 110 mmol/L LAB CHEMISTRY METHOD 10/01/2024 10:16 AM [facility] CO2 26 21 - 32 mmol/L LAB CHEMISTRY METHOD 10/01/2024 10:16 AM [facility] Anion Gap 6 3 - 11 LAB CHEMISTRY METHOD 10/01/2024 10:16 AM [facility] Glucose 84 70 - 100 mg/dL LAB CHEMISTRY METHOD 10/01/2024 10:16 AM [facility] BUN 16 5 - 25 mg/dL LAB CHEMISTRY METHOD 10/01/2024 10:16 AM [facility] Creatinine 0.65(L) 0.70 - 1.30 mg/dL LAB CHEMISTRY METHOD 10/01/2024 10:16 AM [facility] eGFR 96 >=60 mL/min/1. 73m2 LAB CHEMISTRY METHOD 10/01/2024 10:16 AM [facility] Comment:Calculation based on the??Chronic Kidney Disease Epidemiology Collaboration (CKD-EPI) equation refit??without adjustment for race. BUN/Creatinine Ratio 24.6 LAB CHEMISTRY METHOD 10/01/2024 10:16 AM EST [facility] Calcium 9.0 8.5 - 10.5 mg/dL LAB CHEMISTRY METHOD 10/01/2024 10:16 AM EST [facility] Blood Venous blood specimen / Unknown Venipuncture / Unknown 10/01/2024 7:30 AM EST 10/01/2024 8:42 AM EST us Angel Adamson MD LAB BLOOD ORDERABLES Final Resul t [facility]) [facility] [address] [place] [address], documented in this encounter Visit Diagnoses Diagnosis Hematuria, unspecified documented in this encounter Additional Health Concerns Infection Onset Date Last Indicated Resolved Time ESBL 11/24/2024 11/24/2024 documented as of this encounter Care Teams Data Management Relationship Specialty Start Date End Date Leona Almendarez MD 1221 [facility] [address] [place], [place] PCP - General 07/03/18 documented as of this encounter
--- OUTSIDE RECORDS SUMMARY | 2025-02-25 13:42 | XMS_ITS | Encounter Summary ---
Author Organization [facility] [place] [address] Care Team Providers Care Cloth Measurer Machine Name Role Phone Leona Almendarez MD Primary Care Provider [phone] Encounter Details Date Type Department Care Team (Late st Contact Info) Description 01/08/[address] [facility] Lab [address] [facility] [place] [phone] Angel Adamson MD [address] [place] [address] Hematuria, unspecified Social History Tobacco Use Types [...] reflex microscopic (01/08/2025 12:00 AM EST) Specific [place] Urine 1.020 1.003 - 1.030 LAB URINALYSIS - AUTOMATED METHOD 01/08/2025 7:39 PM [facility] pH, Urine 6.5 5.0 - 8.0 pH LAB URINALYSIS - AUTOMATED METHOD 01/08/2025 7:39 PM [facility] Leukocytes, Urine Trace(A) Negative LAB URINALYSIS - AUTOMATED METHOD 01/08/2025 7:39 PM [facility] Nitrite, Urine Negative Negative LAB URINALYSIS - AUTOMATED METHOD 01/08/2025 7:39 PM [facility] Protein, Urine Negative <=Trace mg/dL LAB URINALYSIS - AUTOMATED METHOD 01/08/2025 7:39 PM [facility] Glucose, Urine Negative Negative mg/dL LAB URINALYSIS - AUTOMATED METHOD 01/08/2025 7:39 PM [facility] Ketones, Urine Negative Negative mg/dL LAB URINALYSIS - AUTOMATED METHOD 01/08/2025 7:39 PM [facility] Urobilinogen, Urine 1.0 0.2 - 1.0 mg/dL LAB URINALYSIS - AUTOMATED METHOD 01/08/2025 7:39 PM [facility] Bilirubin, Urine Negative Negative LAB URINALYSIS - AUTOMATED METHOD 01/08/2025 7:39 PM [facility] Blood, Urine Negative Negative LAB URINALYSIS - AUTOMATED METHOD 01/08/2025 7:39 PM [facility] RBC, Urine 3.6 0 - 4 /HPF LAB URINALYSIS - AUTOMATED METHOD 01/08/2025 7:39 PM [facility] WBC, Urine 1.6 0 - 4 /HPF LAB URINALYSIS - AUTOMATED METHOD 01/08/2025 7:39 PM [facility] Squamous Epithelial, Urine 4 0 - 60 /LPF LAB URINALYSIS - AUTOMATED METHOD 01/08/2025 7:39 PM [facility] Bacteria, Urine Negative Negative /HPF LAB URINALYSIS - AUTOMATED METHOD 01/08/2025 7:39 PM [facility] Hyaline Casts, Urine 0.8 0 - 3 /LPF LAB URINALYSIS - AUTOMATED METHOD 01/08/2025 7:39 PM [facility] Urine Urine specimen obtained by clean catch procedure / Unknown 01/08/2025 01/08/2025 7:01 PM EST us Angel Adamson MD LAB URINE ORDERABLES Final Resul t Performing Organization Address [facility]/ZIP Co de Phone Number [facility] [address] [place] [address], [place] [phone] * Culture urine (01/08/2025 12:00 AM EST) Culture, Urine No growth 01/09/2025 1:42 PM [facility] Urine Urine specimen obtained by clean catch procedure / Unknown 01/08/2025 01/08/2025 7:01 PM EST us Angel Adamson MD LAB MICROBIOLOGY - GENERAL ORDER TABITHA Final Result Performing Organization Address City/[facility]/ZIP Co de Phone Number [facility] [address] [place] [address], [place] [phone] documented in this encounter Visit Diagnoses Diagnosis Hematuria, unspecified documented in this encounter Additional Health Concerns Infection Onset Date Last Indicated Resolved Time ESBL 11/24/2024 11/24/2024 documented as of this encounter Care Teams Cloth Measurer Machine Relationship Specialty Start Date End Date Leona Almendarez MD [address] PCP - General 07/03/18 documented as of this encounter
--- OUTSIDE RECORDS SUMMARY | 2025-02-25 13:42 | XMS_ITS | Encounter Summary ---
Author Organization [facility] [place] [address] Care Team Providers Care Engineered Wood Designer Name Role Phone Leona Almendarez MD Primary Care Provider [phone] Encounter Details Date Type Department Care Team (Late st Contact Info) Description 01/15/2025 Lab Requisition [facility] - Main Lab 299 [facility] [employer] [place] [phone] Angel Adamson MD [address] [place] [address] Other fatigue Social History Tobacco Use Types [...] LAB HEMETOLOGY METHOD 01/15/2025 10:10 AM EST [facility] Hematocrit 41.9(L) 42.0 - 54.0 % LAB HEMETOLOGY METHOD 01/15/2025 10:10 AM EST [facility] Blood Venous blood specimen / Unknown Venipuncture / Unknown 01/15/2025 8:18 AM EST 01/15/2025 9:34 AM EST us Angel Adamson MD LAB BLOOD ORDERABLES Final Resul t [facility] [address] [place] [address], documented in this encounter Visit Diagnoses Diagnosis Other fatigue documented in this encounter Additional Health Concerns Infection Onset Date Last Indicated Resolved Time ESBL 11/24/2024 11/24/2024 documented as of this encounter Care Teams Engineered Wood Designer Relationship Specialty Start Date End Date Leona Almendarez MD 1221 [facility] [address] [place], [place] PCP - General 07/03/18 documented as of this encounter
== END 2025-02-25 11:51 | disposition home or self-care (01) ==
LOC: HO.HOS 11:17
PROVIDERS: Visit Provider Physician Assistant
DX: Z96.641 Presence of right artificial hip joint (principal)
CPT/HCPCS: 99024

== ENCOUNTER → 2025-02-25 11:19 | Outpatient (BNV) | payer MEDICARE, MEDICAID, SELFPAY | PROVIDERS: Visit Provider Radiology Diagnostic Radiology | DX: M25.551 Pain in right hip (principal); Z96.643 Presence of artificial hip joint, bilateral | CPT/HCPCS: 73502 ==

== ENCOUNTER 2025-02-25 13:51 | Outpatient (REF) | payer MEDICARE, MEDICAID, SELFPAY ==
--- NOTE | ~2025-02-25 | XR_ITS ---
EXAMINATION: XR HIP 2 OR MORE VIEWS RIGHT HISTORY: M25.551 - Pain in right hip COMPARISON: Comparison is made with the prior examination dated 01/14/2025. FINDINGS: Two AP views of the pelvis and two views of the right hip are submitted. The patient is again noted to be status post right total hip arthroplasty. The orthopedic elements are in anatomic alignment. There is no radiographic evidence of loosening. There is no fracture or dislocation. The patient is also status post left total hip arthroplasty. The soft tissues are unremarkable. XR/XR hip RT min 2V IMPRESSION: Status post right total hip arthroplasty. Electronically signed by: Basilio Killian MD 02/25/2025 11:43 AM EDT
--- OUTSIDE RECORDS SUMMARY | 2025-02-26 14:14 | XMS_ITS | Encounter Summary ---
Author Organization [facility] [place] [address] Care Team Providers Care Coremaker Experimental Name Role Phone Leona Almendarez MD Primary Care Provider [phone] Encounter Details Date Type Department Care Team (Late st Contact Info) Description 10/07/2024 Lab Requisition [facility] - Main Lab 299 [facility] [place] [phone] Angel Adamson MD [address] [place] [address] Hematuria, unspecified Social History Tobacco Use Types [...] mmol/L LAB CHEMISTRY METHOD 10/08/2024 10:04 AM [facility] Potassium 4.0 3.5 - 5.5 mmol/L LAB CHEMISTRY METHOD 10/08/2024 10:04 AM [facility] Chloride 107 96 - 110 mmol/L LAB CHEMISTRY METHOD 10/08/2024 10:04 AM [facility] LAB CO2 26 21 - 32 mmol/L LAB CHEMISTRY METHOD 10/08/2024 10:04 AM [facility] Anion Gap 6 3 - 11 LAB CHEMISTRY METHOD 10/08/2024 10:04 AM [facility] Glucose 111(H) 70 - 100 mg/dL LAB CHEMISTRY METHOD 10/08/2024 10:04 AM [facility] BUN 12 5 - 25 mg/dL LAB CHEMISTRY METHOD 10/08/2024 10:04 AM [facility] Creatinine 0.65(L) 0.70 - 1.30 mg/dL LAB CHEMISTRY METHOD 10/08/2024 10:04 AM [facility] eGFR 96 >=60 mL/min/1. 73m2 LAB CHEMISTRY METHOD 10/08/2024 10:04 AM [facility] LAB Comment:Calculation based on the??Chronic Kidney Disease Epidemiology Collaboration (CKD-EPI) equation refit??without adjustment for race. BUN/Creatinine Ratio 18.5 LAB CHEMISTRY METHOD 10/08/2024 10:04 AM [facility] Calcium 9.2 8.5 - 10.5 mg/dL LAB CHEMISTRY METHOD 10/08/2024 10:04 AM [facility] Blood Venous blood specimen / Unknown Venipuncture / Unknown 10/08/2024 7:18 AM EST 10/08/2024 9:10 AM EST us Angel Adamson MD LAB BLOOD ORDERABLES Final Resul t [facility] [address] [place] [address], * (ABNORMAL) Complete blood count (10/08/2024 7:18 AM EST) [facility] WBC 7.0 4.8 - 10.8 K/mcL LAB HEMETOLOGY METHOD 10/08/2024 9:41 AM EST [facility] RBC 4.20(L) 4.50 - 5.50 M/mcL LAB HEMETOLOGY METHOD 10/08/2024 9:41 AM EST [facility] Hemoglobin 13.6 13.5 - 17.5 g/dL LAB HEMETOLOGY METHOD 10/08/2024 9:41 AM EST [facility] Hematocrit 42.0 42.0 - 54.0 % LAB HEMETOLOGY METHOD 10/08/2024 9:41 AM [facility] MCV 99.1(H) 79.0 - 98.0 FL LAB HEMETOLOGY METHOD 10/08/2024 9:41 AM [facility] LAB MCH 32.1(H) 27.0 - 32.0 pcg LAB HEMETOLOGY METHOD 10/08/2024 9:41 AM [facility] LAB MCHC 32.4 32.0 - 37.0 g/dL LAB HEMETOLOGY METHOD 10/08/2024 9:41 AM EST [facility] RDW 13.3 11.0 - 15.0 % LAB HEMETOLOGY METHOD 10/08/2024 9:41 AM [facility] LAB Platelets 255 130 - 400 K/mcL LAB HEMETOLOGY METHOD 10/08/2024 9:41 AM [facility] LAB MPV 9.9 7.0 - 11.0 FL LAB HEMETOLOGY METHOD 10/08/2024 9:41 AM [facility] LAB NRBC 0.0 <1.0 % LAB HEMETOLOGY METHOD 10/08/2024 9:41 AM EST [facility] LAB NRBC Absolute 0.00 <0.10 K/mcL LAB HEMETOLOGY METHOD 10/08/2024 9:41 AM EST [facility] Blood Venous blood specimen / Unknown Venipuncture / Unknown 10/08/2024 7:18 AM EST 10/08/2024 9:10 AM EST us Angel Adamson MD LAB BLOOD ORDERABLES Final Resul t [facility] [address] [place] [address], documented in this encounter Visit Diagnoses Diagnosis Hematuria, unspecified documented in this encounter Additional Health Concerns Infection Onset Date Last Indicated Resolved Time ESBL 11/24/2024 11/24/2024 documented as of this encounter Care Teams Coremaker Experimental Relationship Specialty Start Date End Date Leona Almendarez MD [address] PCP - General 07/03/18 documented as of this encounter
--- OUTSIDE RECORDS SUMMARY | 2025-02-26 14:14 | XMS_ITS | Encounter Summary ---
Author Organization [facility] [place] [address] Care Team Providers Care Communication Center Coordinator Name Role Phone Leona Almendarez MD Primary Care Provider [phone] Encounter Details Date Type Department Care Team (Late st Contact Info) Description 01/08/2025 Lab Requisition [facility] - Main Lab 299 [facility] [place] [phone] Angel Adamson MD [address] [place] [address] Unspecified atrial fibrillation (CMS/HCC V24, CMS/HCC V28) [...] mmol/L LAB CHEMISTRY METHOD 01/08/2025 11:57 AM [facility] LAB Potassium 3.9 3.5 - 5.5 mmol/L LAB CHEMISTRY METHOD 01/08/2025 11:57 AM [facility] LAB Chloride 108 96 - 110 mmol/L LAB CHEMISTRY METHOD 01/08/2025 11:57 AM [facility] LAB CO2 27 21 - 32 mmol/L LAB CHEMISTRY METHOD 01/08/2025 11:57 AM [facility] LAB Anion Gap 7 3 - 11 LAB CHEMISTRY METHOD 01/08/2025 11:57 AM [facility] LAB Glucose 97 70 - 100 mg/dL LAB CHEMISTRY METHOD 01/08/2025 11:57 AM [facility] LAB BUN 16 5 - 25 mg/dL LAB CHEMISTRY METHOD 01/08/2025 11:57 AM [facility] LAB Creatinine 0.63(L) 0.70 - 1.30 mg/dL LAB CHEMISTRY METHOD 01/08/2025 11:57 AM [facility] LAB eGFR 97 >=60 mL/min/1. 73m2 LAB CHEMISTRY METHOD 01/08/2025 11:57 AM [facility] LAB Comment:Calculation based on the??Chronic Kidney Disease Epidemiology Collaboration (CKD-EPI) equation refit??without adjustment for race. BUN/Creatinine Ratio 25.4 LAB CHEMISTRY METHOD 01/08/2025 11:57 AM [facility] LAB Calcium 8.8 8.5 - 10.5 mg/dL LAB CHEMISTRY METHOD 01/08/2025 11:57 AM [facility] LAB Blood Venous blood specimen / Unknown Venipuncture / Unknown 01/08/2025 10:49 AM EST 01/08/2025 11:28 AM EST Angel Adamson MD LAB BLOOD ORDERABLES Final Resul t [facility] [address] [place] [address], * (ABNORMAL) Complete blood count (01/08/2025 10:49 AM EST) WBC 6.8 4.8 - 10.8 K/mcL LAB HEMETOLOGY METHOD 01/08/2025 11:42 AM EST [facility] LAB RBC 3.70(L) 4.50 - 5.50 M/mcL LAB HEMETOLOGY METHOD 01/08/2025 11:42 AM [facility] Hemoglobin 11.8(L) 13.5 - 17.5 g/dL LAB HEMETOLOGY METHOD 01/08/2025 11:42 AM [facility] LAB Hematocrit 37.8(L) 42.0 - 54.0 % LAB HEMETOLOGY METHOD 01/08/2025 11:42 AM [facility] LAB MCV 103.6(H) 79.0 - 98.0 FL LAB HEMETOLOGY METHOD 01/08/2025 11:42 AM [facility] LAB MCH 32.3(H) 27.0 - 32.0 pcg LAB HEMETOLOGY METHOD 01/08/2025 11:42 AM [facility] LAB MCHC 31.2(L) 32.0 - 37.0 g/dL LAB HEMETOLOGY METHOD 01/08/2025 11:42 AM [facility] LAB RDW 14.0 11.0 - 15.0 % LAB HEMETOLOGY METHOD 01/08/2025 11:42 AM [facility] LAB Platelets 221 130 - 400 K/mcL LAB HEMETOLOGY METHOD 01/08/2025 11:42 AM [facility] LAB MPV 10.0 7.0 - 11.0 FL LAB HEMETOLOGY METHOD 01/08/2025 11:42 AM EST [facility] LAB NRBC 0.0 <1.0 % LAB HEMETOLOGY METHOD 01/08/2025 11:42 AM EST [facility] LAB NRBC Absolute 0.00 <0.10 K/mcL LAB HEMETOLOGY METHOD 01/08/2025 11:42 AM EST [facility] LAB Blood Venous blood specimen / Unknown Venipuncture / Unknown 01/08/2025 10:49 AM EST 01/08/2025 11:28 AM EST us Angel Adamson MD LAB BLOOD ORDERABLES Final Resul t [facility] [address] [place] [address], documented in this encounter Visit Diagnoses Diagnosis Unspecified atrial fibrillation (CMS/HCC V24, CMS/HCC V28) documented in this encounter Additional Health Concerns Infection Onset Date Last Indicated Resolved Time ESBL 11/24/2024 11/24/2024 documented as of this encounter Care Teams Communication Center Coordinator Relationship Specialty Start Date End Date Leona Almendarez MD [facility] [address] PCP - General 07/03/18 documented as of this encounter
--- OUTSIDE RECORDS SUMMARY | 2025-02-26 14:14 | XMS_ITS | Encounter Summary ---
Author Organization [facility] [place] [address] Care Team Providers Care Carpet Or Rug Layer Helper Name Role Phone Leona Amlendarez MD Primary Care Provider [phone] Encounter Details Date Type Department Care Team (Late st Contact Info) Description 01/15/2025 Lab Requisition [facility] - Main Lab 299 [facility] [employer] [place] [phone] Angel Adamson MD [address] [place] [address] Other fatigue Social History Tobacco Use Types [...] LAB HEMETOLOGY METHOD 01/15/2025 10:10 AM EST [facility] Hematocrit 41.9(L) 42.0 - 54.0 % LAB HEMETOLOGY METHOD 01/15/2025 10:10 AM EST [facility] Blood Venous blood specimen / Unknown Venipuncture / Unknown 01/15/2025 8:18 AM EST 01/15/2025 9:34 AM EST us Angel Adamson MD LAB BLOOD ORDERABLES Final Resul t [facility] [address] [place] [address], documented in this encounter Visit Diagnoses Diagnosis Other fatigue documented in this encounter Additional Health Concerns Infection Onset Date Last Indicated Resolved Time ESBL 11/24/2024 11/24/2024 documented as of this encounter Care Teams Carpet Or Rug Layer Helper Relationship Specialty Start Date End Date Leona Almendarez MD 1221 [facility] [address] [place], [place] PCP - General 07/03/18 documented as of this encounter
--- OUTSIDE RECORDS SUMMARY | 2025-02-26 14:14 | XMS_ITS | Encounter Summary ---
Author Organization [facility] [place] [address] Care Team Providers Care Risk Control Manager Name Role Phone Leona Almendarez MD Primary Care Provider [phone] Encounter Details Date Type Department Care Team (Late st Contact Info) Description 12/23/2024 Lab Requisition [facility] - Main Lab 299 [facility] [place] [phone] Angel Adamson MD [address] [place] [address] Parkinsonism, unspecified (CMS/HCC V24, CMS/HCC V28) Social [...] mmol/L LAB CHEMISTRY METHOD 12/24/2024 11:[address] [facility] Potassium 3.8 3.5 - 5.5 mmol/L LAB CHEMISTRY METHOD 12/24/2024 11:[address] [facility] Chloride 105 96 - 110 mmol/L LAB CHEMISTRY METHOD 12/24/2024 11:[address] [facility] CO2 30 21 - 32 mmol/L LAB CHEMISTRY METHOD 12/24/2024 11:[address] [facility] LAB Anion Gap 5 3 - 11 LAB CHEMISTRY METHOD 12/24/2024 11:[address] [facility] Glucose 91 70 - 100 mg/dL LAB CHEMISTRY METHOD 12/24/2024 11:[address] [facility] BUN 24 5 - 25 mg/dL LAB CHEMISTRY METHOD 12/24/2024 11:[address] [facility] Creatinine 0.66(L) 0.70 - 1.30 mg/dL LAB CHEMISTRY METHOD 12/24/2024 11:[address] [facility] LAB eGFR 95 >=60 mL/min/1. 73m2 LAB CHEMISTRY METHOD 12/24/2024 11:[address] [facility] LAB Comment:Calculation based on the??Chronic Kidney Disease Epidemiology Collaboration (CKD-EPI) equation refit??without adjustment for race. BUN/Creatinine Ratio 36.4 LAB CHEMISTRY METHOD 12/24/2024 11:[address] [facility] Calcium 9.2 8.5 - 10.5 mg/dL LAB CHEMISTRY METHOD 12/24/2024 11:[address] [facility] Blood Venous blood specimen / Unknown Venipuncture / Unknown 12/24/2024 8:37 AM EST 12/24/2024 11:08 AM EST Angel Adamson MD LAB BLOOD ORDERABLES Final Resul t [facility] [address] [place] [address], * (ABNORMAL) Complete blood count (12/24/2024 8:37 AM EST) WBC 6.4 4.8 - 10.8 K/mcL LAB HEMETOLOGY METHOD 12/24/2024 11:37 AM EST [facility] RBC 3.50(L) 4.50 - 5.50 M/mcL LAB HEMETOLOGY METHOD 12/24/2024 11:[address] [facility] Hemoglobin 11.4(L) 13.5 - 17.5 g/dL LAB HEMETOLOGY METHOD 12/24/2024 11:[address] [facility] LAB Hematocrit 36.2(L) 42.0 - 54.0 % LAB HEMETOLOGY METHOD 12/24/2024 11:[address] [facility] LAB MCV 102.5(H) 79.0 - 98.0 FL LAB HEMETOLOGY METHOD 12/24/2024 11:[address] [facility] LAB MCH 32.3(H) 27.0 - 32.0 pcg LAB HEMETOLOGY METHOD 12/24/2024 11:[address] [facility] LAB MCHC 31.5(L) 32.0 - 37.0 g/dL LAB HEMETOLOGY METHOD 12/24/2024 11:[address] [facility] LAB RDW 15.2(H) 11.0 - 15.0 % LAB HEMETOLOGY METHOD 12/24/2024 11:[address] [facility] LAB Platelets 271 130 - 400 K/mcL LAB HEMETOLOGY METHOD 12/24/2024 11:[address] [facility] LAB MPV 9.5 7.0 - 11.0 FL LAB HEMETOLOGY METHOD 12/24/2024 11:37 AM EST [facility] NRBC 0.0 <1.0 % LAB HEMETOLOGY METHOD 12/24/2024 11:37 AM EST [facility] NRBC Absolute 0.00 <0.10 K/mcL LAB HEMETOLOGY METHOD 12/24/2024 11:37 AM EST [facility] Blood Venous blood specimen / Unknown Venipuncture / Unknown 12/24/2024 8:37 AM EST 12/24/2024 11:36 AM EST us Angel Adamson MD LAB BLOOD ORDERABLES Final Resul t [facility] [address] [place] [address], documented in this encounter Visit Diagnoses Diagnosis Parkinsonism, unspecified (CMS/HCC V24, CMS/HCC V28) documented in this encounter Additional Health Concerns Infection Onset Date Last Indicated Resolved Time ESBL 11/24/2024 11/24/2024 documented as of this encounter Care Teams Risk Control Manager Relationship Specialty Start Date End Date Leona Almendarez MD [facility] [address] PCP - General 07/03/18 documented as of this encounter
--- OUTSIDE RECORDS SUMMARY | 2025-02-26 14:14 | XMS_ITS | Encounter Summary ---
Author Organization [facility] [place] [address] Care Team Providers Care Soybean Specialties Cook Name Role Phone Leona Almendarez MD Primary Care Provider [phone] Encounter Details Date Type Department Care Team (Late st Contact Info) Description 11/26/2024 Lab Requisition [facility] - Main Lab 299 [facility] [place] [phone] Angel Adamson MD [address] [place] [address] Parkinsonism, unspecified (CMS/HCC V24, CMS/HCC V28) Social [...] mmol/L LAB CHEMISTRY METHOD 11/27/2024 9:35 AM [facility] Potassium 4.0 3.5 - 5.5 mmol/L LAB CHEMISTRY METHOD 11/27/2024 9:35 AM [facility] Chloride 105 96 - 110 mmol/L LAB CHEMISTRY METHOD 11/27/2024 9:35 AM [facility] CO2 29 21 - 32 mmol/L LAB CHEMISTRY METHOD 11/27/2024 9:35 AM [facility] Anion Gap 4 3 - 11 LAB CHEMISTRY METHOD 11/27/2024 9:35 AM [facility] Glucose 81 70 - 100 mg/dL LAB CHEMISTRY METHOD 11/27/2024 9:35 AM [facility] BUN 20 5 - 25 mg/dL LAB CHEMISTRY METHOD 11/27/2024 9:35 AM [facility] Creatinine 0.73 0.70 - 1.30 mg/dL LAB CHEMISTRY METHOD 11/27/2024 9:35 AM [facility] LAB eGFR 93 >=60 mL/min/1. 73m2 LAB CHEMISTRY METHOD 11/27/2024 9:35 AM [facility] LAB Comment:Calculation based on the??Chronic Kidney Disease Epidemiology Collaboration (CKD-EPI) equation refit??without adjustment for race. BUN/Creatinine Ratio 27.4 LAB CHEMISTRY METHOD 11/27/2024 9:35 AM [facility] Calcium 9.2 8.5 - 10.5 mg/dL LAB CHEMISTRY METHOD 11/27/2024 9:35 AM [facility] Blood Venous blood specimen / Unknown Venipuncture / Unknown 11/27/2024 7:12 AM EST 11/27/2024 8:47 AM EST Angel Adamson MD LAB BLOOD ORDERABLES Final Resul t [facility] [address] [place] [address], * (ABNORMAL) Complete blood count (11/27/2024 7:12 AM EST) WBC 7.7 4.8 - 10.8 K/mcL LAB HEMETOLOGY METHOD 11/27/2024 9:13 AM [facility] RBC 4.30(L) 4.50 - 5.50 M/mcL LAB HEMETOLOGY METHOD 11/27/2024 9:13 AM [facility] Hemoglobin 13.8 13.5 - 17.5 g/dL LAB HEMETOLOGY METHOD 11/27/2024 9:13 AM [facility] Hematocrit 42.9 42.0 - 54.0 % LAB HEMETOLOGY METHOD 11/27/2024 9:13 AM [facility] MCV 100.5(H) 79.0 - 98.0 FL LAB HEMETOLOGY METHOD 11/27/2024 9:13 AM [facility] LAB MCH 32.3(H) 27.0 - 32.0 pcg LAB HEMETOLOGY METHOD 11/27/2024 9:13 AM [facility] LAB MCHC 32.2 32.0 - 37.0 g/dL LAB HEMETOLOGY METHOD 11/27/2024 9:13 AM [facility] LAB RDW 13.7 11.0 - 15.0 % LAB HEMETOLOGY METHOD 11/27/2024 9:13 AM [facility] LAB Platelets 214 130 - 400 K/mcL LAB HEMETOLOGY METHOD 11/27/2024 9:13 AM [facility] MPV 10.2 7.0 - 11.0 FL LAB HEMETOLOGY METHOD 11/27/2024 9:13 AM EST [facility] NRBC 0.0 <1.0 % LAB HEMETOLOGY METHOD 11/27/2024 9:13 AM EST [facility] NRBC Absolute 0.00 <0.10 K/mcL LAB HEMETOLOGY METHOD 11/27/2024 9:13 AM EST [facility] LAB Blood Venous blood specimen / Unknown Venipuncture / Unknown 11/27/2024 7:12 AM EST 11/27/2024 8:47 AM EST us Angel Adamson MD LAB BLOOD ORDERABLES Final Resul t [facility] [address] [place] [address], documented in this encounter Visit Diagnoses Diagnosis Parkinsonism, unspecified (CMS/HCC V24, CMS/HCC V28) documented in this encounter Additional Health Concerns Infection Onset Date Last Indicated Resolved Time ESBL 11/24/2024 11/24/2024 documented as of this encounter Care Teams Soybean Specialties Cook Relationship Specialty Start Date End Date Leona Almendarez MD 1221 [facility] [address] [place], [place] PCP - General 07/03/18 documented as of this encounter
--- OUTSIDE RECORDS SUMMARY | 2025-02-26 14:14 | XMS_ITS | Encounter Summary ---
Author Organization [facility] [place] [address] Care Team Providers Care Senior Benefits Specialist Name Role Phone Leona Almendarez MD Primary Care Provider [phone] Encounter Details Date Type Department Care Team (Late st Contact Info) Description 12/09/2024 Lab Requisition [facility] - Main Lab 299 [facility] [place] [phone] Angel Adamson MD [address] [place] [address] Parkinsonism, unspecified (CMS/HCC V24, CMS/HCC V28) Social [...] t [facility] [address] [place] [address], * (ABNORMAL) Complete blood count (12/10/2024 7:03 AM EST) WBC 9.5 4.8 - 10.8 K/mcL LAB HEMETOLOGY METHOD 12/10/2024 8:32 AM [facility] RBC 3.20(L) 4.50 - 5.50 [...] LAB HEMETOLOGY METHOD 12/10/2024 8:32 AM EST [facility] LAB NRBC 0.0 <1.0 % LAB HEMETOLOGY METHOD 12/10/2024 8:32 AM EST [facility] LAB NRBC Absolute 0.00 <0.10 K/mcL LAB HEMETOLOGY METHOD 12/10/2024 8:32 AM EST [facility] LAB Blood Venous blood specimen / Unknown Venipuncture / Unknown 12/10/2024 7:03 AM EST 12/10/2024 8:24 AM EST us Angel Adamson MD LAB BLOOD ORDERABLES Final Resul t [facility] [address] [place] [address], documented in this encounter Visit Diagnoses Diagnosis Parkinsonism, unspecified (CMS/HCC V24, CMS/HCC V28) documented in this encounter Additional Health Concerns Infection Onset Date Last Indicated Resolved Time ESBL 11/24/2024 11/24/2024 documented as of this encounter Care Teams Senior Benefits Specialist Relationship Specialty Start Date End Date Leona Almendarez MD [facility] [address] PCP - General 07/03/18 documented as of this encounter
--- OUTSIDE RECORDS SUMMARY | 2025-02-26 14:14 | XMS_ITS | Encounter Summary ---
Author Organization [facility] [place] [address] Care Team Providers Care Director Internal Control Name Role Phone Leona Almendarez MD Primary Care Provider [phone] Encounter Details Date Type Department Care Team (Late st Contact Info) Description 09/30/2024 Lab Requisition [facility] - Main Lab 299 [facility] [place] [phone] Angel Adamson MD [address] [place] [address] Hematuria, unspecified Social History Tobacco Use Types [...] K/mcL LAB HEMETOLOGY METHOD 10/01/2024 10:12 AM [facility] LAB RBC 4.00(L) 4.50 - 5.50 M/mcL LAB HEMETOLOGY METHOD 10/01/2024 10:12 AM [facility] LAB Hemoglobin 13.0(L) 13.5 - 17.5 g/dL LAB HEMETOLOGY METHOD 10/01/2024 10:12 AM [facility] LAB Hematocrit 40.5(L) 42.0 - 54.0 % LAB HEMETOLOGY METHOD 10/01/2024 10:12 AM [facility] LAB MCV 101.0(H) 79.0 - 98.0 FL LAB HEMETOLOGY METHOD 10/01/2024 10:12 AM [facility] LAB MCH 32.4(H) 27.0 - 32.0 pcg LAB HEMETOLOGY METHOD 10/01/2024 10:12 AM [facility] LAB MCHC 32.1 32.0 - 37.0 g/dL LAB HEMETOLOGY METHOD 10/01/2024 10:12 AM [facility] LAB RDW 13.6 11.0 - 15.0 % LAB HEMETOLOGY METHOD 10/01/2024 10:12 AM [facility] LAB Platelets 223 130 - 400 K/[facility] LAB HEMETOLOGY METHOD 10/01/2024 10:12 AM [facility] LAB MPV 10.3 7.0 - 11.0 FL LAB HEMETOLOGY METHOD 10/01/2024 10:12 AM [facility] LAB NRBC 0.0 <1.0 % LAB HEMETOLOGY METHOD 10/01/2024 10:12 AM [facility] LAB NRBC Absolute 0.00 <0.10 K/mcL LAB HEMETOLOGY METHOD 10/01/2024 10:12 AM [facility] LAB Blood Venous blood specimen / Unknown Venipuncture / Unknown 10/01/2024 7:30 AM EST 10/01/2024 8:42 AM EST us Angel Adamson MD LAB BLOOD ORDERABLES Final Resul t [facility] [address] [place] [address], [place] [phone] * (ABNORMAL) Basic metabolic panel (10/01/2024 7:30 AM EST) Sodium 140 133 - 145 mmol/L LAB CHEMISTRY METHOD 10/01/2024 10:16 AM [facility] LAB Potassium 4.1 3.5 - 5.5 mmol/L LAB CHEMISTRY METHOD 10/01/2024 10:16 AM [facility] LAB Chloride 108 96 - 110 mmol/L LAB CHEMISTRY METHOD 10/01/2024 10:16 AM [facility] LAB CO2 26 21 - 32 mmol/L LAB CHEMISTRY METHOD 10/01/2024 10:16 AM [facility] LAB Anion Gap 6 3 - 11 LAB CHEMISTRY METHOD 10/01/2024 10:16 AM [facility] LAB Glucose 84 70 - 100 mg/dL LAB CHEMISTRY METHOD 10/01/2024 10:16 AM [facility] LAB BUN 16 5 - 25 mg/dL LAB CHEMISTRY METHOD 10/01/2024 10:16 AM [facility] LAB Creatinine 0.65(L) 0.70 - 1.30 mg/dL LAB CHEMISTRY METHOD 10/01/2024 10:16 AM [facility] LAB eGFR 96 >=60 mL/min/1. 73m2 LAB CHEMISTRY METHOD 10/01/2024 10:16 AM [facility] LAB Comment:Calculation based on the??Chronic Kidney Disease Epidemiology Collaboration (CKD-EPI) equation refit??without adjustment for race. BUN/Creatinine Ratio 24.6 LAB CHEMISTRY METHOD 10/01/2024 10:16 AM EST [facility] LAB Calcium 9.0 8.5 - 10.5 mg/dL LAB CHEMISTRY METHOD 10/01/2024 10:16 AM EST [facility] Blood Venous blood specimen / Unknown Venipuncture / Unknown 10/01/2024 7:30 AM EST 10/01/2024 8:42 AM EST us Angel Adamson MD LAB BLOOD ORDERABLES Final Resul t [facility]) [facility] [address] [place] [address], documented in this encounter Visit Diagnoses Diagnosis Hematuria, unspecified documented in this encounter Additional Health Concerns Infection Onset Date Last Indicated Resolved Time ESBL 11/24/2024 11/24/2024 documented as of this encounter Care Teams Director Internal Control Relationship Specialty Start Date End Date Leona Almendarez MD 1221 [facility] [address] [place], [place] PCP - General 07/03/18 documented as of this encounter
--- OUTSIDE RECORDS SUMMARY | 2025-02-26 14:14 | XMS_ITS | Clinical Summary ---
Author Organization [facility] Address [address] [place] [address] Care Team Providers Care Self Pay Collector Name Role Phone Leona Almendarez MD Primary Care Provider [phone] Allergies No known active allergies Medications Medication [...] age to complete this topic Care Teams Self Pay Collector Relationship Specialty Start Date End Date Leona Almendarez MD [address] [phone] PCP - General Internal Medicine 05/11/19
--- OUTSIDE RECORDS SUMMARY | 2025-02-26 14:14 | XMS_ITS | Encounter Summary ---
Author Organization [facility] [place] [address] Care Team Providers Care Science Technicians Name Role Phone Leona Almendarez MD Primary Care Provider [phone] Encounter Details Date Type Department Care Team (Late st Contact Info) Description 11/21/2024 Lab Requisition [facility] - Main Lab [address] [facility] [place] [phone] Angel Adamson MD [address] [place] [address] Urinary tract infection, site not specified Social [...] tube (11/20/2024 12:00 AM EST) Pathologist [facility] Extra Tube Hold for add-ons. 11/21/2024 2:01 PM [facility] Comment:Auto resulted. Urine Urine specimen obtained by clean catch procedure / Unknown Non-blood Collection / Unknown 11/20/2024 11/21/2024 12:11 PM EST Angel Adamson MD LAB URINE ORDERABLES Final Resul t [facility] [address] [place] [address], [place] [phone] * (ABNORMAL) Urinalysis with reflex microscopic (11/20/2024 12:00 AM EST) [facility] Specific [place] Urine 1.019 1.003 - 1.030 LAB URINALYSIS - AUTOMATED METHOD 11/21/2024 1:26 PM [facility] pH, Urine >=9.0(A) 5.0 - 8.0 pH LAB URINALYSIS - AUTOMATED METHOD 11/21/2024 1:26 PM [facility] Leukocytes, Urine Large(A) Negative LAB URINALYSIS - AUTOMATED METHOD 11/21/2024 1:26 PM [facility] Nitrite, Urine Positive(A) Negative LAB URINALYSIS - AUTOMATED METHOD 11/21/2024 1:26 PM [facility] Protein, Urine 100(A) <=Trace mg/dL LAB URINALYSIS - AUTOMATED METHOD 11/21/2024 1:26 PM [facility] Glucose, Urine Negative Negative mg/dL LAB URINALYSIS - AUTOMATED METHOD 11/21/2024 1:26 PM [facility] Ketones, Urine Negative Negative mg/dL LAB URINALYSIS - AUTOMATED METHOD 11/21/2024 1:26 PM [facility] Urobilinogen , Urine 0.2 0.2 - 1.0 mg/dL LAB URINALYSIS - AUTOMATED METHOD 11/21/2024 1:26 PM [facility] Bilirubin, Urine Negative Negative LAB URINALYSIS - AUTOMATED METHOD 11/21/2024 1:26 PM [facility] Blood, Urine Negative Negative LAB URINALYSIS - AUTOMATED METHOD 11/21/2024 1:26 PM [facility] RBC, Urine 1.3 0 - 4 /HPF LAB URINALYSIS - AUTOMATED METHOD 11/21/2024 1:26 PM [facility] WBC, Urine 27.4(H) 0 - 4 /HPF LAB URINALYSIS - AUTOMATED METHOD 11/21/2024 1:26 PM [facility] Squamous Epithelial, Urine 10 0 - 60 /LPF LAB URINALYSIS - AUTOMATED METHOD 11/21/2024 1:26 PM [facility] Crystals, Urine HEAVY TRIPLE PHOS /LPF LAB URINALYSIS - AUTOMATED METHOD 11/21/2024 1:26 PM [facility] Bacteria, Urine Few(A) Negative /HPF LAB URINALYSIS - AUTOMATED METHOD 11/21/2024 1:26 PM [facility] Hyaline Casts, Urine 6.6(H) 0 - 3 /LPF LAB URINALYSIS - AUTOMATED METHOD 11/21/2024 1:26 PM [facility] Urine Urine specimen obtained by clean catch procedure / Unknown Non-blood Collection / Unknown 11/20/2024 11/21/2024 12:11 PM EST us Angel Adamson MD LAB URINE ORDERABLES Final Resul t [facility] [address] [place] [address], documented in this encounter Visit Diagnoses Diagnosis Urinary tract infection, site not specified documented in this encounter Additional Health Concerns Infection Onset Date Last Indicated Resolved Time ESBL 11/24/2024 11/24/2024 documented as of this encounter Care Teams Science Technicians Relationship Specialty Start Date End Date Leona Almendarez MD 1221 [facility] [address] [place], [place] PCP - General 07/03/18 documented as of this encounter
--- OUTSIDE RECORDS SUMMARY | 2025-02-26 14:14 | XMS_ITS | Encounter Summary ---
Author Organization [facility] [place] [address] Care Team Providers Care Retort Setter Name Role Phone Leona Almendarez MD Primary Care Provider [phone] Encounter Details Date Type Department Care Team (Late st Contact Info) Description 01/08/[address] [facility] - Main Lab 299 [facility] [place] [phone] Angel Adamson MD [address] [place] [address] Hematuria, unspecified Social History Tobacco Use Types [...] reflex microscopic (01/08/2025 12:00 AM EST) Specific [place] Urine 1.020 1.003 - 1.030 LAB URINALYSIS - AUTOMATED METHOD 01/08/2025 7:39 PM [facility] pH, Urine 6.5 5.0 - 8.0 pH LAB URINALYSIS - AUTOMATED METHOD 01/08/2025 7:39 PM [facility] Leukocytes, Urine Trace(A) Negative LAB URINALYSIS - AUTOMATED METHOD 01/08/2025 7:39 PM [facility] Nitrite, Urine Negative Negative LAB URINALYSIS - AUTOMATED METHOD 01/08/2025 7:39 PM [facility] Protein, Urine Negative <=Trace mg/dL LAB URINALYSIS - AUTOMATED METHOD 01/08/2025 7:39 PM [facility] Glucose, Urine Negative Negative mg/dL LAB URINALYSIS - AUTOMATED METHOD 01/08/2025 7:39 PM [facility] Ketones, Urine Negative Negative mg/dL LAB URINALYSIS - AUTOMATED METHOD 01/08/2025 7:39 PM [facility] Urobilinogen, Urine 1.0 0.2 - 1.0 mg/dL LAB URINALYSIS - AUTOMATED METHOD 01/08/2025 7:39 PM [facility] Bilirubin, Urine Negative Negative LAB URINALYSIS - AUTOMATED METHOD 01/08/2025 7:39 PM [facility] Blood, Urine Negative Negative LAB URINALYSIS - AUTOMATED METHOD 01/08/2025 7:39 PM [facility] RBC, Urine 3.6 0 - 4 /HPF LAB URINALYSIS - AUTOMATED METHOD 01/08/2025 7:39 PM [facility] WBC, Urine 1.6 0 - 4 /HPF LAB URINALYSIS - AUTOMATED METHOD 01/08/2025 7:39 PM [facility] Squamous Epithelial, Urine 4 0 - 60 /LPF LAB URINALYSIS - AUTOMATED METHOD 01/08/2025 7:39 PM [facility] Bacteria, Urine Negative Negative /HPF LAB URINALYSIS - AUTOMATED METHOD 01/08/2025 7:39 PM [facility] Hyaline Casts, Urine 0.8 0 - 3 /LPF LAB URINALYSIS - AUTOMATED METHOD 01/08/2025 7:39 PM [facility] Urine Urine specimen obtained by clean catch procedure / Unknown 01/08/2025 01/08/2025 7:01 PM EST us Angel Adamson MD LAB URINE ORDERABLES Final Resul t Performing Organization Address [facility]/ZIP Co de Phone Number [facility] [address] [place] [address], [place] [phone] * Culture urine (01/08/2025 12:00 AM EST) Culture, Urine No growth 01/09/2025 1:42 PM [facility] Urine Urine specimen obtained by clean catch procedure / Unknown 01/08/2025 01/08/2025 7:01 PM EST us Angel Adamson MD LAB MICROBIOLOGY - GENERAL ORDER TABITHA Final Result Performing Organization Address City/[facility]/ZIP Co de Phone Number [facility] [address] [place] [address], [place] [phone] documented in this encounter Visit Diagnoses Diagnosis Hematuria, unspecified documented in this encounter Additional Health Concerns Infection Onset Date Last Indicated Resolved Time ESBL 11/24/2024 11/24/2024 documented as of this encounter Care Teams Retort Setter Relationship Specialty Start Date End Date Leona Almendarez MD [address] PCP - General 07/03/18 documented as of this encounter
--- OUTSIDE RECORDS SUMMARY | 2025-02-26 14:14 | XMS_ITS | Encounter Summary ---
Author Organization [facility] [place] [address] Care Team Providers Care Circuit Recorder Name Role Phone Leona Almendarez MD Primary Care Provider [phone] Encounter Details Date Type Department Care Team (Late st Contact Info) Description 01/16/2025 Lab Requisition [facility] - Main Lab 299 [facility] [place] [phone] Angel Adamson MD [address] [place] [address] Parkinsonism, unspecified (CMS/HCC V24, CMS/HCC V28) Social [...] LAB CHEMISTRY METHOD 01/18/2025 12:53 PM EST [facility] Folate 4.6 2.8 - 17.0 ng/ml LAB CHEMISTRY METHOD 01/18/2025 12:53 PM EST [facility] Blood Venous blood specimen / Unknown Venipuncture / Unknown 01/18/2025 7:43 AM EST 01/18/2025 11:26 AM EST us Angel Adamson MD LAB BLOOD ORDERABLES Final Resul t [facility] ([facility] [address] [place] [address], documented in this encounter Visit Diagnoses Diagnosis Parkinsonism, unspecified (CMS/HCC V24, CMS/HCC V28) documented in this encounter Additional Health Concerns Infection Onset Date Last Indicated Resolved Time ESBL 11/24/2024 11/24/2024 documented as of this encounter Care Teams Circuit Recorder Relationship Specialty Start Date End Date Leona Almendarez MD [address] PCP - General 07/03/18 documented as of this encounter
--- OUTSIDE RECORDS SUMMARY | 2025-02-26 14:14 | XMS_ITS | Clinical Summary ---
Author Organization [address] [facility] Address [address] [place] [address] Phone Care Team Providers Care Industrial Sewer Name Role Phone Leona Almendarez MD Primary Care Provider [phone] Encounters Date Type Department Care Team Description 01/16/2025 Lab Requisition [facility] [address] [place] [phone] Angel Adamson MD Parkinsonism, unspecified (CMS/HCC V24, CMS/HCC V28) 01/15/2025 Lab Requisition [facility] [address] [place] [phone] Angel Adamson MD Other fatigue 01/08/2025 Lab Requisition [facility] [address] [place] [phone] Angel Adamson MD Hematuria, unspecified 01/08/2025 Lab Requisition [facility] [address] [place] [phone] Angel Adamson MD Unspecified atrial fibrillation (CMS/HCC V24, CMS/HCC V28) 12/23/2024 Lab Requisition [facility] [address] [place] [phone] Angel Adamson MD Parkinsonism, unspecified (CMS/HCC V24, CMS/HCC V28) 12/16/2024 Lab Requisition [facility] [address] [place] [address] Angel Adamson MD Parkinsonism, unspecified ([facility] V24, [facility] V28) 12/15/2024 Lab Requisition [facility] [address] [place] [address] Angel Adamson MD Altered mental status, unspecified; Confusional arousals 12/09/2024 Lab Requisition [facility] [address] [place] [address] Angel Adamson MD Parkinsonism, unspecified ([facility] V24, [facility] V28) from Last 3 Months Medical History [...] COVID-19 Vaccine ( season) 2024 Influenza Vaccine (Season Ended) 2025 [...] 12/10/2024 7:03 AM EST Parkinsonism, unspecified (CMS/HCC) from Last 3 Months Results * Vitamin B12 and folate (01/18/2025 7:43 AM EST) [facility] Vitamin B-12 582 250 - 900 pcg/mL LAB CHEMISTRY METHOD 01/18/2025 12:53 PM EST [facility] Folate 4.6 2.8 - 17.0 ng/ml LAB CHEMISTRY METHOD 01/18/2025 12:53 PM EST [facility] Blood Venous blood specimen / Unknown Venipuncture / Unknown 01/18/2025 7:43 AM EST 01/18/2025 11:26 AM EST Angel Adamson MD LAB BLOOD ORDERABLES Final Resul t Performing Organization Address [facility] de Phone Number [facility] [address] [place] [address], [place] [phone] * (ABNORMAL) Hemoglobin and hematocrit (01/15/2025 8:18 AM EST) Hemoglobin 13.3(L) 13.5 - 17.5 g/dL LAB HEMETOLOGY METHOD 01/15/2025 10:10 AM EST [facility] Hematocrit 41.9(L) 42.0 - 54.0 % LAB HEMETOLOGY METHOD 01/15/2025 10:10 AM EST [facility] Blood Venous blood specimen / Unknown Venipuncture / Unknown 01/15/2025 8:18 AM EST 01/15/2025 9:34 AM EST us Angel Adamson MD LAB BLOOD ORDERABLES Final Resul t Performing Organization Address City/[facility]/ZIP Co de Phone Number [facility] [address] [place] [address], [place] [phone] * (ABNORMAL) Complete blood count (01/08/2025 10:49 AM EST) Only the most recent of4 resultswithin the time period is included. WBC 6.8 4.8 - 10.8 K/mcL LAB HEMETOLOGY METHOD 01/08/2025 11:42 AM EST [facility] RBC 3.70(L) 4.50 - 5.50 M/mcL LAB HEMETOLOGY METHOD 01/08/2025 11:42 AM [facility] Hemoglobin 11.8(L) 13.5 - 17.5 g/dL LAB HEMETOLOGY METHOD 01/08/2025 11:42 AM [facility] Hematocrit 37.8(L) 42.0 - 54.0 % LAB HEMETOLOGY METHOD 01/08/2025 11:42 AM [facility] MCV 103.6(H) 79.0 - 98.0 FL LAB HEMETOLOGY METHOD 01/08/2025 11:42 AM [facility] MCH 32.3(H) 27.0 - 32.0 pcg LAB HEMETOLOGY METHOD 01/08/2025 11:42 AM [facility] MCHC 31.2(L) 32.0 - 37.0 g/dL LAB HEMETOLOGY METHOD 01/08/2025 11:42 AM [facility] RDW 14.0 11.0 - 15.0 % LAB HEMETOLOGY METHOD 01/08/2025 11:42 AM [facility] Platelets 221 130 - 400 K/mcL LAB HEMETOLOGY METHOD 01/08/2025 11:42 AM [facility] MPV 10.0 7.0 - 11.0 FL LAB HEMETOLOGY METHOD 01/08/2025 11:42 AM [facility] NRBC 0.0 <1.0 % LAB HEMETOLOGY METHOD 01/08/2025 11:42 AM [facility] NRBC Absolute 0.00 <0.10 K/mcL LAB HEMETOLOGY METHOD 01/08/2025 11:42 AM [facility] Blood Venous blood specimen / Unknown Venipuncture / Unknown 01/08/2025 10:49 AM EST 01/08/2025 11:28 AM EST Angel Adamson MD LAB BLOOD ORDERABLES Final Resul t [facility] [address] [place] [address], * (ABNORMAL) Basic metabolic panel (01/08/2025 10:49 AM EST) Only the most recent of4 resultswithin the time period is included. Sodium 142 133 - 145 mmol/L LAB CHEMISTRY METHOD 01/08/2025 11:57 AM [facility] Potassium 3.9 3.5 - 5.5 mmol/L LAB CHEMISTRY METHOD 01/08/2025 11:57 AM [facility] Chloride 108 96 - 110 mmol/L LAB CHEMISTRY METHOD 01/08/2025 11:57 AM [facility] CO2 27 21 - 32 mmol/L LAB CHEMISTRY METHOD 01/08/2025 11:57 AM [facility] Anion Gap 7 3 - 11 LAB CHEMISTRY METHOD 01/08/2025 11:57 AM [facility] Glucose 97 70 - 100 mg/dL LAB CHEMISTRY METHOD 01/08/2025 11:57 AM [facility] BUN 16 5 - 25 mg/dL LAB CHEMISTRY METHOD 01/08/2025 11:57 AM [facility] Creatinine 0.63(L) 0.70 - 1.30 mg/dL LAB CHEMISTRY METHOD 01/08/2025 11:57 AM [facility] eGFR 97 >=60 mL/min/1. 73m2 LAB CHEMISTRY METHOD 01/08/2025 11:57 AM [facility] Comment:Calculation based on the??Chronic Kidney Disease Epidemiology Collaboration (CKD-EPI) equation refit??without adjustment for race. BUN/Creatinine Ratio 25.4 LAB CHEMISTRY METHOD 01/08/2025 11:57 AM [facility] Calcium 8.8 8.5 - 10.5 mg/dL LAB CHEMISTRY METHOD 01/08/2025 11:57 AM [facility] Blood Venous blood specimen / Unknown Venipuncture / Unknown 01/08/2025 10:49 AM EST 01/08/2025 11:28 AM EST us Angel Adamson MD LAB BLOOD ORDERABLES Final Resul t [facility] [address] [place] [address], [place] [phone] * (ABNORMAL) Urinalysis with reflex microscopic (01/08/2025 12:00 AM EST) Specific [place] Urine 1.020 1.003 - 1.030 LAB URINALYSIS - AUTOMATED METHOD 01/08/2025 7:39 PM [facility] pH, Urine 6.5 5.0 - 8.0 pH LAB URINALYSIS - AUTOMATED METHOD 01/08/2025 7:39 PM [facility] Leukocytes, Urine Trace(A) Negative LAB URINALYSIS - AUTOMATED METHOD 01/08/2025 7:39 PM [facility] Nitrite, Urine Negative Negative LAB URINALYSIS - AUTOMATED METHOD 01/08/2025 7:39 PM [facility] Protein, Urine Negative <=Trace mg/dL LAB URINALYSIS - AUTOMATED METHOD 01/08/2025 7:39 PM [facility] Glucose, Urine Negative Negative mg/dL LAB URINALYSIS - AUTOMATED METHOD 01/08/2025 7:39 PM [facility] Ketones, Urine Negative Negative mg/dL LAB URINALYSIS - AUTOMATED METHOD 01/08/2025 7:39 PM [facility] Urobilinogen, Urine 1.0 0.2 - 1.0 mg/dL LAB URINALYSIS - AUTOMATED METHOD 01/08/2025 7:39 PM [facility] Bilirubin, Urine Negative Negative LAB URINALYSIS - AUTOMATED METHOD 01/08/2025 7:39 PM [facility] Blood, Urine Negative Negative LAB URINALYSIS - AUTOMATED METHOD 01/08/2025 7:39 PM [facility] RBC, Urine 3.6 0 - 4 /HPF LAB URINALYSIS - AUTOMATED METHOD 01/08/2025 7:39 PM [facility] WBC, Urine 1.6 0 - 4 /HPF LAB URINALYSIS - AUTOMATED METHOD 01/08/2025 7:39 PM [facility] Squamous Epithelial, Urine 4 0 - 60 /LPF LAB URINALYSIS - AUTOMATED METHOD 01/08/2025 7:39 PM [facility] Bacteria, Urine Negative Negative /HPF LAB URINALYSIS - AUTOMATED METHOD 01/08/2025 7:39 PM [facility] Hyaline Casts, Urine 0.8 0 - 3 /LPF LAB URINALYSIS - AUTOMATED METHOD 01/08/2025 7:39 PM [facility] Urine Urine specimen obtained by clean catch procedure / Unknown 01/08/2025 01/08/2025 7:01 PM EST us Angel Adamson MD LAB URINE ORDERABLES Final Resul t [facility] [address] [place] [address], [place] [phone] * Culture urine (01/08/2025 12:00 AM EST) Only the most recent of2 resultswithin the time period is included. Culture, Urine No growth 01/09/2025 1:42 PM [facility] Urine Urine specimen obtained by clean catch procedure / Unknown 01/08/2025 01/08/2025 7:01 PM EST us Angel Adamson MD LAB MICROBIOLOGY - GENERAL ORDER TABITHA Final Result Performing Organization Address [facility]/ZIP Co de Phone Number [facility] [address] [place] [address], * (ABNORMAL) Urinalysis microscopic only (12/15/2024 10:30 AM EST) RBC, Urine 4.0 0 - 4 /HPF LAB URINALYSIS - AUTOMATED METHOD 12/15/2024 5:36 PM EST [facility] WBC, Urine 7.1(H) 0 - 4 /HPF LAB URINALYSIS - AUTOMATED METHOD 12/15/2024 5:36 PM [facility] Squamous Epithelial, Urine 27 0 - 60 /LPF LAB URINALYSIS - AUTOMATED METHOD 12/15/2024 5:36 PM [facility] Crystals, Urine ..Heavy Calcium Oxalate crystals. /LPF 12/15/2024 5:36 PM EST [facility] Bacteria, Urine Negative Negative /HPF LAB URINALYSIS - AUTOMATED METHOD 12/15/2024 5:36 PM [facility] Hyaline Casts, Urine 2.5 0 - 3 /LPF LAB URINALYSIS - AUTOMATED METHOD 12/15/2024 5:36 PM [facility] Urine Urine specimen obtained by clean catch procedure / Unknown 12/15/2024 10:30 AM EST 12/15/2024 4:02 PM EST Angel Adamson MD LAB URINE ORDERABLES Final Resul t Performing Organization Address [facility]/ZIP Co de Phone Number [facility] [address] [place] [address], [place] [phone] from Last 3 Months Additional Health Concerns Infection Onset Date Last Indicated ESBL 11/24/2024 11/24/2024 Insurance MEDICA[place] - [place] MEDICARE Advance Directives Documents on File Type Date Recorded 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
--- OUTSIDE RECORDS SUMMARY | 2025-02-26 14:14 | XMS_ITS | Encounter Summary ---
Author Organization [facility] [place] [address] Care Team Providers Care Contract Officer Name Role Phone Leona Almendarez MD Primary Care Provider [phone] Encounter Details Date Type Department Care Team (Late st Contact Info) Description 11/25/2024 Lab Requisition [facility] - Main Lab 299 [facility] [place] [place] [phone] Angel Adamson MD [address] [place] [address] Altered mental status, unspecified; Chronic fatigue, unspecified [...] reflex microscopic (11/24/2024 3:20 PM EST) Specific [place] Urine 1.012 1.003 - 1.030 LAB URINALYSIS [...] - AUTOMATED METHOD 11/25/2024 10:19 AM EST [facility] WBC, Urine 2,095.6(H) 0 [...] MD LAB URINE ORDERABLES Final Resul t [facility] [address] [place] [address], * (ABNORMAL) Culture urine (11/24/2024 3:20 PM EST) Culture, Urine 50,000-100,00 0 CFU/mL Klebsiella pneumoniae ESBL(A) ABNER 11/28/2024 9:40 AM [facility] Comment: TESTING SUGGESTS AN ESBL(EXTENDED-SPECTRUM [...] <=4 ug/ml: Susceptible Klebsiella pneumoniae ESBL Ceftazidime ABNRE >=32 ug/ml: Resistant Klebsiella pneumoniae ESBL Ceftriaxone [...] MICROBIOLOGY - GENERAL ORDER TABITHA Final Result [facility] [address] [place] [address], documented in this encounter Visit Diagnoses Diagnosis Altered mental status, unspecified Chronic fatigue, unspecified documented in this encounter Additional Health Concerns Infection Onset Date Last Indicated Resolved Time ESBL 11/24/2024 11/24/2024 documented as of this encounter Care Teams Contract Officer Relationship Specialty Start Date End Date Leona Almendarez MD [address] [facility] [address] [place], [place] PCP - General 07/03/18 documented as of this encounter
--- OUTSIDE RECORDS SUMMARY | 2025-02-26 14:14 | XMS_ITS | Encounter Summary ---
Author Organization [facility] [place] [address] Care Team Providers Care Command Center Analyst Name Role Phone Leona Almendarez MD Primary Care Provider [phone] Encounter Details Date Type Department Care Team (Late st Contact Info) Description 12/16/2024 Lab Requisition [facility] - Main Lab 299 [facility] [place] [phone] Angel Adamson MD [address] [place] [address] Parkinsonism, unspecified (CMS/HCC V24, CMS/HCC V28) Social [...] mmol/L LAB CHEMISTRY METHOD 12/17/2024 10:16 AM [facility] Potassium 4.1 3.5 - 5.5 mmol/L LAB CHEMISTRY METHOD 12/17/2024 10:16 AM [facility] Chloride 106 96 - 110 mmol/L LAB CHEMISTRY METHOD 12/17/2024 10:16 AM [facility] CO2 28 21 - 32 mmol/L LAB CHEMISTRY METHOD 12/17/2024 10:16 AM [facility] Anion Gap 6 3 - 11 LAB CHEMISTRY METHOD 12/17/2024 10:16 AM [facility] Glucose 84 70 - 100 mg/dL LAB CHEMISTRY METHOD 12/17/2024 10:16 AM [facility] BUN 17 5 - 25 mg/dL LAB CHEMISTRY METHOD 12/17/2024 10:16 AM [facility] Creatinine 0.55(L) 0.70 - 1.30 mg/dL LAB CHEMISTRY METHOD 12/17/2024 10:16 AM [facility] eGFR 101 >=60 mL/min/1. 73m2 LAB CHEMISTRY METHOD 12/17/2024 10:16 AM [facility] Comment:Calculation based on the??Chronic Kidney Disease Epidemiology Collaboration (CKD-EPI) equation refit??without adjustment for race. BUN/Creatinine Ratio 30.9 LAB CHEMISTRY METHOD 12/17/2024 10:16 AM [facility] Calcium 9.0 8.5 - 10.5 mg/dL LAB CHEMISTRY METHOD 12/17/2024 10:16 AM [facility] Blood Venous blood specimen / Unknown Venipuncture / Unknown 12/17/2024 7:30 AM EST 12/17/2024 10:16 AM EST Angel Adamson MD LAB BLOOD ORDERABLES Final Resul t [facility] [address] [place] [address], * (ABNORMAL) Complete blood count (12/17/2024 7:30 AM EST) WBC 6.8 4.8 - 10.8 K/mcL LAB HEMETOLOGY METHOD 12/17/2024 10:16 AM EST [facility] RBC 3.60(L) 4.50 - 5.50 M/mcL LAB HEMETOLOGY METHOD 12/17/2024 10:16 AM EST [facility] Hemoglobin 11.5(L) 13.5 - 17.5 g/dL LAB HEMETOLOGY METHOD 12/17/2024 10:16 AM [facility] Hematocrit 36.9(L) 42.0 - 54.0 % LAB HEMETOLOGY METHOD 12/17/2024 10:16 AM [facility] MCV 101.9(H) 79.0 - 98.0 FL LAB HEMETOLOGY METHOD 12/17/2024 10:16 AM [facility] MCH 31.8 27.0 - 32.0 pcg LAB HEMETOLOGY METHOD 12/17/2024 10:16 AM [facility] MCHC 31.2(L) 32.0 - 37.0 g/dL LAB HEMETOLOGY METHOD 12/17/2024 10:16 AM [facility] RDW 14.7 11.0 - 15.0 % LAB HEMETOLOGY METHOD 12/17/2024 10:16 AM [facility] Platelets 352 130 - 400 K/mcL LAB HEMETOLOGY METHOD 12/17/2024 10:16 AM [facility] MPV 9.4 7.0 - 11.0 [...] t [facility] [address] [place] [address], documented in this encounter Visit Diagnoses Diagnosis Parkinsonism, unspecified (CMS/HCC V24, CMS/HCC V28) documented in this encounter Additional Health Concerns Infection Onset Date Last Indicated Resolved Time ESBL 11/24/2024 11/24/2024 documented as of this encounter Care Teams Command Center Analyst Relationship Specialty Start Date End Date Leona Almendarez MD [facility] PCP - General 07/03/18 documented as of this encounter
--- OUTSIDE RECORDS SUMMARY | 2025-02-26 14:14 | XMS_ITS | Encounter Summary ---
Author Organization [facility] [place] [address] Care Team Providers Care Typewriter Assembler Name Role Phone Leona Almendarez MD Primary Care Provider [phone] Encounter Details Date Type Department Care Team (Late st Contact Info) Description 09/22/2024 Lab Requisition [facility] - Main Lab 299 [facility] [place] [phone] Angel Adamson MD [address] [place] [address] Hematuria, unspecified Social History Tobacco Use Types [...] CENTER LAB RBC 4.20(L) 4.50 - 5.50 M/[facility] LAB HEMETOLOGY METHOD 09/24/2024 9:58 AM [...] CENTER LAB Platelets 222 130 - 400 K/[facility] LAB HEMETOLOGY METHOD 09/24/2024 9:58 AM [facility] LAB MPV 10.3 7.0 - 11.0 FL LAB HEMETOLOGY METHOD 09/24/2024 9:58 AM [facility] LAB NRBC 0.0 <1.0 % LAB HEMETOLOGY METHOD 09/24/2024 9:58 AM [facility] LAB NRBC Absolute 0.00 <0.10 K/[facility] LAB HEMETOLOGY METHOD 09/24/2024 9:58 AM [facility] LAB Blood Venous blood specimen / Unknown Venipuncture / Unknown 09/24/2024 6:32 AM EST 09/24/2024 8:46 AM EST Angel Adamson MD LAB BLOOD ORDERABLES Final Resul t [facility] [address] [place] [address], [place] [phone] * (ABNORMAL) Basic metabolic panel (09/24/2024 6:32 [...] LAB CHEMISTRY METHOD 09/24/2024 10:21 AM EST [facility] Calcium 9.1 8.5 - 10.5 mg/dL LAB CHEMISTRY METHOD 09/24/2024 10:21 AM EST [facility] Blood Venous blood specimen / Unknown Venipuncture / Unknown 09/24/2024 6:32 AM EST 09/24/2024 8:46 AM EST us Angel Adamson MD LAB BLOOD ORDERABLES Final Resul t [facility] [address] [place] [address], documented in this encounter Visit Diagnoses Diagnosis Hematuria, unspecified documented in this encounter Additional Health Concerns Infection Onset Date Last Indicated Resolved Time ESBL 11/24/2024 11/24/2024 documented as of this encounter Care Teams Typewriter Assembler Relationship Specialty Start Date End Date Leona Almendarez MD 12[address] [facility] [address] [place], [place] PCP - General 07/03/18 documented as of this encounter
--- OUTSIDE RECORDS SUMMARY | 2025-02-26 14:14 | XMS_ITS | Encounter Summary ---
Author Organization [facility] [place] [address] Care Team Providers Care Weblogic Developer Name Role Phone Leona Almendarez MD Primary Care Provider [phone] Encounter Details Date Type Department Care Team (Late st Contact Info) Description 10/14/2024 Lab Requisition [facility] - Main Lab 299 [facility] [place] [phone] Angel Adamson MD [address] [place] [address] Hematuria, unspecified Social History Tobacco Use Types [...] K/mcL LAB HEMETOLOGY METHOD 10/16/2024 11:51 AM [facility] RBC 4.20(L) 4.50 - 5.50 M/mcL LAB HEMETOLOGY METHOD 10/16/2024 11:51 AM [facility] Hemoglobin 13.5 13.5 - 17.5 g/dL LAB HEMETOLOGY METHOD 10/16/2024 11:51 AM [facility] LAB Hematocrit 43.1 42.0 - 54.0 % LAB HEMETOLOGY METHOD 10/16/2024 11:51 AM [facility] LAB MCV 101.7(H) 79.0 - 98.0 FL LAB HEMETOLOGY METHOD 10/16/2024 11:51 AM [facility] LAB MCH 31.8 27.0 - 32.0 pcg LAB HEMETOLOGY METHOD 10/16/2024 11:51 AM [facility] LAB MCHC 31.3(L) 32.0 - 37.0 g/dL LAB HEMETOLOGY METHOD 10/16/2024 11:51 AM [facility] LAB RDW 13.2 11.0 - 15.0 % LAB HEMETOLOGY METHOD 10/16/2024 11:51 AM [facility] LAB Platelets 243 130 - 400 K/[facility] LAB HEMETOLOGY METHOD 10/16/2024 11:51 AM [facility] LAB MPV 10.0 7.0 - 11.0 FL LAB HEMETOLOGY METHOD 10/16/2024 11:51 AM [facility] LAB NRBC 0.0 <1.0 % LAB HEMETOLOGY METHOD 10/16/2024 11:51 AM [facility] LAB NRBC Absolute 0.00 <0.10 K/mcL LAB HEMETOLOGY METHOD 10/16/2024 11:51 AM [facility] Blood Venous blood specimen / Unknown Venipuncture / Unknown 10/16/2024 8:55 AM EST 10/16/2024 11:14 AM EST us Angel Adamson MD LAB BLOOD ORDERABLES Final Resul t [facility] [address] [place] [address], * (ABNORMAL) Basic metabolic panel (10/16/2024 8:55 AM EST) Sodium 140 133 - 145 mmol/L LAB CHEMISTRY METHOD 10/16/2024 12:09 PM [facility] Potassium 4.1 3.5 - 5.5 mmol/L LAB CHEMISTRY METHOD 10/16/2024 12:09 PM [facility] Chloride 106 96 - 110 mmol/L LAB CHEMISTRY METHOD 10/16/2024 12:09 PM [facility] CO2 28 21 - 32 mmol/L LAB CHEMISTRY METHOD 10/16/2024 12:09 PM [facility] Anion Gap 6 3 - 11 LAB CHEMISTRY METHOD 10/16/2024 12:09 PM [facility] Glucose 80 70 - 100 mg/dL LAB CHEMISTRY METHOD 10/16/2024 12:09 PM [facility] BUN 19 5 - 25 mg/dL LAB CHEMISTRY METHOD 10/16/2024 12:09 PM [facility] Creatinine 0.69(L) 0.70 - 1.30 mg/dL LAB CHEMISTRY METHOD 10/16/2024 12:09 PM [facility] eGFR 94 >=60 mL/min/1. 73m2 LAB CHEMISTRY METHOD 10/16/2024 12:09 PM [facility] Comment:Calculation based on the??Chronic Kidney Disease Epidemiology Collaboration (CKD-EPI) equation refit??without adjustment for race. BUN/Creatinine Ratio 27.5 LAB CHEMISTRY METHOD 10/16/2024 12:09 PM EST [facility] Calcium 9.3 8.5 - 10.5 mg/dL LAB CHEMISTRY METHOD 10/16/2024 12:09 PM EST [facility] Blood Venous blood specimen / Unknown Venipuncture / Unknown 10/16/2024 8:55 AM EST 10/16/2024 11:14 AM EST us Angel Adamson MD LAB BLOOD ORDERABLES Final Resul t [facility] [address] [place] [address], documented in this encounter Visit Diagnoses Diagnosis Hematuria, unspecified documented in this encounter Additional Health Concerns Infection Onset Date Last Indicated Resolved Time ESBL 11/24/2024 11/24/2024 documented as of this encounter Care Teams Weblogic Developer Relationship Specialty Start Date End Date Leona Almendarez MD [address] PCP - General 07/03/18 documented as of this encounter
--- OUTSIDE RECORDS SUMMARY | 2025-02-26 14:14 | XMS_ITS | Encounter Summary ---
Author Organization [facility] [place] [address] Care Team Providers Care Ice Cutter Name Role Phone Leona Almendarez MD Primary Care Provider [phone] Encounter Details Date Type Department Care Team (Late st Contact Info) Description 11/20/2024 Lab Requisition [facility] - Main Lab 299 [facility] [place] [phone] Maggie Parry PA [address] [place] [address] [facility] [place] [address] Essential (primary) hypertension Social History Tobacco Use [...] mmol/L LAB CHEMISTRY METHOD 11/20/2024 5:10 PM [facility] Potassium 4.2 3.5 - 5.5 mmol/L LAB CHEMISTRY METHOD 11/20/2024 5:10 PM [facility] Chloride 106 96 - 110 mmol/L LAB CHEMISTRY METHOD 11/20/2024 5:10 PM [facility] CO2 30 21 - 32 mmol/L LAB CHEMISTRY METHOD 11/20/2024 5:10 PM [facility] Anion Gap 5 3 - 11 LAB CHEMISTRY METHOD 11/20/2024 5:10 PM [facility] Glucose 94 70 - 100 mg/dL LAB CHEMISTRY METHOD 11/20/2024 5:10 PM [facility] BUN 19 5 - 25 mg/dL LAB CHEMISTRY METHOD 11/20/2024 5:10 PM [facility] Creatinine 0.63(L) 0.70 - 1.30 mg/dL LAB CHEMISTRY METHOD 11/20/2024 5:10 PM [facility] eGFR 97 >=60 mL/min/1. 73m2 LAB CHEMISTRY METHOD 11/20/2024 5:10 PM [facility] Comment:Calculation based on the??Chronic Kidney Disease Epidemiology Collaboration (CKD-EPI) equation refit??without adjustment for race. BUN/Creatinine Ratio 30.2 LAB CHEMISTRY METHOD 11/20/2024 5:10 PM [facility] Calcium 8.8 8.5 - 10.5 mg/dL LAB CHEMISTRY METHOD 11/20/2024 5:10 PM [facility] Blood Venous blood specimen / Unknown Venipuncture / Unknown 11/20/2024 3:13 PM EST 11/20/2024 4:32 PM EST us Maggie YORK LAB BLOOD ORDERABLES Final Resu lt [facility] [address] [place] [address], * (ABNORMAL) Complete blood count (11/20/2024 3:13 PM EST) [facility] Signature WBC 7.9 4.8 - 10.8 K/mcL LAB HEMETOLOGY METHOD 11/20/2024 4:51 PM EST [facility] RBC 4.10(L) 4.50 - 5.50 M/mcL LAB HEMETOLOGY METHOD 11/20/2024 4:51 PM EST [facility] Hemoglobin 12.8(L) 13.5 - 17.5 g/dL LAB HEMETOLOGY METHOD 11/20/2024 4:51 PM [facility] Hematocrit 39.5(L) 42.0 - 54.0 % LAB HEMETOLOGY METHOD 11/20/2024 4:51 PM EST [facility] MCV 97.3 79.0 - 98.0 FL LAB HEMETOLOGY METHOD 11/20/2024 4:51 PM EST [facility] MCH 31.5 27.0 - 32.0 pcg LAB HEMETOLOGY METHOD 11/20/2024 4:51 PM [facility] LAB MCHC 32.4 32.0 - 37.0 g/dL LAB HEMETOLOGY METHOD 11/20/2024 4:51 PM EST [facility] RDW 13.5 11.0 - 15.0 % LAB HEMETOLOGY METHOD 11/20/2024 4:51 PM [facility] LAB Platelets 200 130 - 400 K/mcL LAB HEMETOLOGY METHOD 11/20/2024 4:51 PM [facility] LAB MPV 10.2 7.0 - 11.0 FL LAB HEMETOLOGY METHOD 11/20/2024 4:51 PM [facility] NRBC 0.0 <1.0 % LAB HEMETOLOGY METHOD 11/20/2024 4:51 PM EST [facility] NRBC Absolute 0.00 <0.10 K/mcL LAB HEMETOLOGY METHOD 11/20/2024 4:51 PM EST [facility] Blood Venous blood specimen / Unknown Venipuncture / Unknown 11/20/2024 3:13 PM EST 11/20/2024 4:32 PM EST us Maggie YORK LAB BLOOD ORDERABLES Final Resu lt [facility] [address] [place] [address], documented in this encounter Visit Diagnoses Diagnosis Essential (primary) hypertension Unspecified essential hypertension documented in this encounter Additional Health Concerns Infection Onset Date Last Indicated Resolved Time ESBL 11/24/2024 11/24/2024 documented as of this encounter Care Teams Ice Cutter Relationship Specialty Start Date End Date Leona Almendarez MD 1221 [facility] [address] [place], [place] PCP - General 07/03/18 documented as of this encounter
--- OUTSIDE RECORDS SUMMARY | 2025-02-26 14:14 | XMS_ITS | Data Portability ---
Author Organization [facility], PAIN OFFICE Address [address] [facility] [address] [place] [address] Care Team Providers Care Storage Garage Manager Name Role Phone CAPRI DUNAWAY Primary Care [...] for the same. 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 [email or web address] Not available 05/12/2018 14:54:12 05/27/2018 [id number] He was advised against bed rest lasting longer than four days and to continue activities as tolerated. [email or web address] Not available 05/27/2018 13:41:18 Reason for Referral None Reported. Problems Name Problem SNOMED Code Status Onset Date Resolution Date Notes Provider Name and Address Organization Details Recorded Time Spinal stenosis of lumbar region 34960736 Active Davey enriquez MD [address] , [address], [facility] [place], [address], [place] [facility] 8 13:58:53 Degeneration of lumbar intervertebral disc 88154652 Active Davey enriquez MD [address] , [address], [facility] [place], [address], [place] [facility] 8 13:59:02 Lumbosacral radiculopathy 5529427 Active Davey enriquez MD [address] , [address], [facility] [place], [address], [place] [facility] 8 13:59:16 Lumbosacral spondylosis without myelopathy 94806875 [place] enriquez MD [address] , [address], [facility] [place], [address], [place] [facility] 8 13:59:38 Problem Notes None recorded. Procedures Surgical History Date Name Laterality Status Provider Name and Address Organization Details Recorded Time 05/27/20 18 Lumbar Epidural steroid injection under fluoroscopic guidance completed Davey Auguste MD [address] [place] [address] , [address], [place], [address], [place] [facility] 05/27/2018 13:45:40 [...] Available Not Available Not Available Fluzone High-Dose 7058-9841 (PF) 180 mcg/0.5 mL intramuscular syringe ADM 0.5ML IM UTD 05/12 completed Not Available Not Available Not Available Vitals Date Recorded Heart rate Oxygen saturation Oxygen saturation in Arterial blood by Pulse oximetry Body weight Body mass index (BMI) Body height Systolic blood pressure Diastolic blood pressure Provider Name and Address Organization Details Last Updated DateTime 8 71 /min 95 % 95 % 319001. 05 g 34.6 kg/m2 182.88 cm 152 [...] mm[Hg] 73 mm[Hg] Ashwini Tsang MA [facility] 8 13:18:29 Social History Question [...] SNOMED-CT Code Diagnosis ICD10 Code Diagnosis Note [id number] Davey Auguste MD PAIN OFFICE [address] [place] [address] 05/12/2018 13:27:49 05/12/2018 15:01:22 Lumbosacral radiculopathy 8658795 M54.17 Spinal marla nosis of lumbar region 48477710 M48.062 Degenerati on of lumbar intervertebral disc 88465248 M51.36 Lumbosacra l spondylosis without myelopathy 00779913 M47.817 85056 Davey Auguste MD PAIN OFFICE [address] [place] [address] 05/27/2018 13:15:35 05/27/2018 14:13:07 Lumbosacral radiculopathy 0362338 M54.17 Spinal marla nosis of lumbar region 62272152 M48.062 Degenerati on of lumbar intervertebral disc 48257367 M51.36 Lumbosacra l spondylosis without myelopathy 04693817 M47.817 Health Concerns Section Related Observation LastModified by Organization Detai ls LastModified Time None Recorded Concern Status LastModified by Organization Details LastModified Time None Recorded Advance Directives Directive None Recorded Payers Encounter Date Sequence Insurance Name Policy Number Policy Seymour Covered Member ID Seymour Member ID Guarantor Name 05/12/2018 1 [facility] - MEDICARE PREFERRED (MEDICARE REPLACEMENT HMO) [facility] Daniel Smith [id number] Daniel Smith 05/27/2018 1 [facility] - MEDICARE PREFERRED (MEDICARE REPLACEMENT HMO) [facility] Daniel Smith [id number] Daniel Smith Notes Date Note Type Note [...] fat planes.He has trialed physical therapy at [facility] with aggravation of his symptoms. He had two steroid injections at [facility] and the injections did not help. He has seen Dr. miriam Thomas who did not recommend surgery at that time. Davey Auguste MD [address] [facility] , [address], [place], [address], [facility] Pain Management 05/27/2018 08:28:05 05/27/2018 text/html He is here today for a lumbar epidural steroid injection under fluroscopic guidance. Davey Auguste MD [address] [facility] [address], [place], [address], [facility] Pain Management 05/30/2018 08:35:36
--- OUTSIDE RECORDS SUMMARY | 2025-02-26 14:14 | XMS_ITS | Encounter Summary ---
Author Organization [facility] [place] [address] Care Team Providers Care Laborer Fryer Farm Name Role Phone Leona Almendarez MD Primary Care Provider [phone] Encounter Details Date Type Department Care Team (Late st Contact Info) Description 12/15/2024 Lab Requisition [facility] - Main Lab 299 [facility] [place] [phone] Angel Adamson MD [address] [place] [address] Altered mental status, unspecified; Confusional arousals Social [...] URINALYSIS - AUTOMATED METHOD 12/15/2024 5:36 PM [facility] WBC, Urine 7.1(H) 0 - 4 /HPF LAB URINALYSIS - AUTOMATED METHOD 12/15/2024 5:36 PM [facility] Squamous Epithelial, Urine 27 0 - 60 /LPF LAB URINALYSIS - AUTOMATED METHOD 12/15/2024 5:36 PM [facility] Crystals, Urine ..Heavy Calcium Oxalate crystals. /LPF 12/15/2024 5:36 PM [facility] Bacteria, Urine Negative Negative /HPF LAB URINALYSIS - AUTOMATED METHOD 12/15/2024 5:36 PM [facility] Hyaline Casts, Urine 2.5 0 - 3 /LPF LAB URINALYSIS - AUTOMATED METHOD 12/15/2024 5:36 PM [facility] Urine Urine specimen obtained by clean catch procedure / Unknown 12/15/2024 10:30 AM EST 12/15/2024 4:02 PM EST us Angel Adamson MD LAB URINE ORDERABLES Final Resul t [facility] [address] [place] [address], [place] [phone] * Culture urine (12/15/2024 10:30 AM EST) Culture, Urine <10,000 CFU/mL gram positive cocci, insignificant count, no further workup 12/16/2024 7:56 AM EST [facility] Urine Urine specimen obtained by clean catch procedure / Unknown 12/15/2024 10:30 AM EST 12/15/2024 4:02 PM EST Angel Adamson MD LAB MICROBIOLOGY - GENERAL ORDER TABITHA Final Result [facility] [address] [place] [address], documented in this encounter Visit Diagnoses Diagnosis Altered mental status, unspecified Confusional arousals documented in this encounter Additional Health Concerns Infection Onset Date Last Indicated Resolved Time ESBL 11/24/2024 11/24/2024 documented as of this encounter Care Teams Laborer [employer]er [employer] Relationship Specialty Start Date End Date Leona Almendarez MD 1221 [facility] [address] [place], [place] PCP - General 07/03/18 documented as of this encounter
== END 2025-02-25 13:52 | disposition home or self-care (01) ==
LOC: HO.HOSX 13:51
PROVIDERS: Visit Provider Physician Assistant
DX: M25.551 Pain in right hip (principal); Z96.641 Presence of right artificial hip joint
CPT/HCPCS: 73502; 99212

== ENCOUNTER 2025-03-16 10:07 | Outpatient (AMB) | payer MEDICARE, MEDICAID, SELFPAY ==
--- NOTE | 2025-03-16 10:21 | MHC.OFFVIS ---
Vital Signs 03/16/25 10:30 BP 102/70 Blood Pressure Location Rt brachial Position Sitting Pulse 68 Pulse Source Pulse Oximeter Pulse Oximetry (%) 98 Oxygen Delivery Method Room Air Intake Visit Reasons: Follow Up Intake Note: Patient presents follow up Parkinson's Allergies oxycodone Allergy (Severe, Verified 03/16/25 10:28) Blister haloperidol [From Haldol] Allergy (Verified 03/16/25 10:28) Agitated HPI Comments Details: 79 year old male here for a 6 month f/u of Parkinsons Disorder with Dementia and urological difficulties. Sarah his partner is here to help with history today. CD/LD 25/100mg PO TID with crackers. 30 min prior to meal time or two hours after meals, not to combine with protein or dairy. He says he has a rough time getting around, Sarah says his feet become swollen so he must elevate his feet through the day. He uses a reclining wheel chair per the orthopedic doctor's order since the R. hip replacement in Nov 2024 due to a fall. His L. hip was replaced in 2020. Now he is walking daily as tolerable with a rolling walker [facility]. He is motivated to do PT / OT with the staff at [facility]. He has help with all his ADLs, he has difficulty holding the spoon or fork due to tremors. He has no difficulty chewing and swallowing, his food, he denies drooling, his speech is softer, raspier than his usual, he, yet he is on a regular diet. He denies constipation, has a stool softener, M.O.M daily and suppositories as needed. STM is poor at baseline, some days are better than others, and he can remember details from High School and when Sarah does not show up for the visits. His mood anxious. He sleeps well, and gets up at 3am, or 7am per the staff. He has insomnia and wanders from room to room at night, he denies auditory or visual hallucinations, and or Parasomnias. He is a patient of Dr. Almendarez. He is seen for the following urologic conditions by Dr. Norris elevated PSA, and nocturia, he wears adult diapers and occasionally 2-4 times a night or during the day has urinary incontinence, will require help from nursing staff to change him periodically through the day. Sarah says he is fine without the Finasteride and declines the medication. He doesn't hear well, he needs constant reminding, cuing and visual orientation, when he gets confused. He used to have hearing aids years ago and would like to be evaluated for hearing deficits. 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 HTN (hypertension) TIA (transient ischemic attack) Raynauds disease Hyperlipidemia Arthritis Lumbar spondylosis Fatty liver Atrial fibrillation Surgical History History of hip replacement Family History Father Stroke Mother Heart failure Sister Breast cancer in female Social History Household Members: Other Housing: Residential Do you presently have visiting nurse or other home services: No Alcohol intake: former Patient Tobacco Use Status: Never used Tobacco Advance Directives Date on File: 12/02/24 service: Yes Physical Exam Vital Signs: Last Vital Signs Pulse 68 03/16/25 10:30 BP 102/70 03/16/25 10:30 Pulse Ox 98 03/16/25 10:30 Oxygen Delivery Method Room Air 03/16/25 10:30 Const General: cooperative and comfortable Nutritional Appearance: average body habitus Orientation/consciousness: oriented to person and oriented to place HEENT Head: Yes normal to inspection Neck Other: mild antecollis and restricted range of motion Neuro Other: severe decreased blink and facial expression, blunted mild- moderate tongue tremors , slow tongue movements Voice-severe hypophonia , whispering, raspy, quality with word finding difficulties Right UE high amplitude rest tremors , right leg rest tremors Fine Finger movements - severely decreased hu R>L Alternating hand movements - decreased hu Hand movements - decreased hu Foot taps- decreased hu Hu cog wheel rigidity gait -unable to assess due to wheel chair bound General: oriented to person and oriented to place Cranial nerves: Yes CN's II-XII intact bilaterally, Yes Bilaterally intact EOM present, Yes Normal facial strength present and Yes Midline tongue present Cognition (Neuro): abnormal cognition (repeats questions frequently) Gait exam (Neuro): Other gait observations present (wheel chair) Motor exam (neuro): 5/5 motor strength present throughout and Normal motor muscle tone present throughout Psych Appearance: well kempt Speech and movement: Other speech and movement exam findings present (Psych) (scartchy voice, hypophonia barely audible) Affect: Blunted affect present Insight: Limited insight present (Psych) Judgement: Limited judgement present (Psych) Results Reviewed Results Reviewed: 2023 Retropertioneum US US/US retroperitoneal comp IMPRESSION: 1. No hydronephrosis. No renal calculi. 2. Diffuse trabeculation of bladder wall with mural thickness of 0.4 cm bladder is moderately well distended. Prostate enlarged with volume approximately 254 mL. Per roaster operator statement exam of bladder significantly limited; question mass effect from prostate. Discussed this with [facility] urology and okayed. 3. Further management should be based on urology consultation. Assessment & Plan Assessment & Plan (1) Hypophonia: Code(s): R49.8 - Other voice and resonance disorders Category: Medical (2) Closed fracture of right hip: Code(s): S72.001A - Fracture of unspecified part of neck of right femur, initial encounter for closed fracture Category: Medical Qualifiers: Encounter type: sequela Qualified Code(s): S72.001S - Fracture of unspecified part of neck of right femur, sequela (3) Parkinson's disease without dyskinesia: Code(s): G20.A1 - Parkinson's disease without dyskinesia, without mention of fluctuations Category: Medical Qualifiers: Fluctuating manifestations: without fluctuating manifestations Qualified Code(s): G20.A1 - Parkinson's disease without dyskinesia, without mention of fluctuations (4) Cognitive disorder: Comment: ? vascular ? DLBD Code(s): F09 - Unspecified mental disorder due to known physiological condition Category: Medical (5) Hallucinations: Code(s): R44.3 - Hallucinations, unspecified Category: Medical (6) REM behavioral disorder: Code(s): G47.52 - REM sleep behavior disorder Category: Medical Plan The disease state prognosis and management options were discussed with patient. Continue carbidopa/levodopa 25/100 tid ( 8AM , 12 noon, 5pm )monitor for hallucinations , orthostatic hypotension. Interactions with protein discussed in detail. MAINTAIN time frame within 30 minutes when medications are given to avoid side effects Patient should walk with walker gait belt and with supervision 2 times a day on days without PT Patients partner Sarah was disappointed and stressed with patients prognosis and his director long term care care placement. Suggested a caregiver support group which she declined. Discussed about long acting sinemet and rytary and crexont may not be a good option due to his sensitivity and different pharmacokinetics, refused on demand pumps for CD/LD today. Orders: Orders OT Evaluation and Treatment Today R49.8 - Other voice and resonance disorders PT Evaluation and Treatment Today S72.001A - Fracture of unspecified part of neck of right femur, initial encounter for closed fracture Coding Level of Care Code Est Pt Level 4 (07880) Diagnoses Hypophonia R49.8 Closed fracture of right hip, sequela S72.001S Encounter type: sequela Parkinson's disease without dyskinesia or fluctuating manifestations G20.A1 Fluctuating manifestations: without fluctuating manifestations Cognitive disorder F09 Hallucinations R44.3 REM behavioral disorder G47.52 Time Spent (min) 30
[2025-03-16 10:30] VITALS: BP 102/70; PULSE 68; O2SAT 98
--- OUTSIDE RECORDS SUMMARY | 2025-03-16 11:32 | XMS_ITS | Encounter Summary ---
Author Organization [facility] [place] [address] Care Team Providers Care Printing Plate Setter Name Role Phone Leona Almendarez MD Primary Care Provider [phone] Encounter Details Date Type Department Care Team (Late st Contact Info) Description 01/08/2025 Lab Requisition [facility] - Main Lab [address] [facility] [place] [phone] Angel Adamson MD [address] [place] [address] Hematuria, unspecified Social History Tobacco Use Types [...] reflex microscopic (01/08/2025 12:00 AM EST) Specific [place] Urine 1.020 1.003 - 1.030 LAB URINALYSIS [...] ORDERABLES Final Resul t Performing Organization Address [facility]/ZIP Co de Phone Number [facility] [address] [place] [address], [place] [phone] * Culture urine (01/08/2025 12:00 AM EST) Culture, Urine No growth 01/09/2025 1:42 PM [facility] Urine Urine specimen obtained by clean catch procedure / Unknown 01/08/2025 01/08/2025 7:01 PM EST us Angel Adamson MD LAB MICROBIOLOGY - GENERAL ORDER TABITHA Final Result Performing Organization Address City/[facility]/ZIP Co de Phone Number [facility] [address] [place] [address], [place] [phone] documented in this encounter Visit Diagnoses Diagnosis Hematuria, unspecified documented in this encounter Additional Health Concerns Infection Onset Date Last Indicated Resolved Time ESBL 11/24/2024 11/24/2024 documented as of this encounter Care Teams Printing Plate Setter Relationship Specialty Start Date End Date Leona Almendarez MD [address] PCP - General 07/03/18 documented as of this encounter
--- OUTSIDE RECORDS SUMMARY | 2025-03-16 11:32 | XMS_ITS | Encounter Summary ---
Author Organization [facility] [place] [address] Care Team Providers Care Consultant Rn Name Role Phone Leona Almendarez MD Primary Care Provider [phone] Encounter Details Date Type Department Care Team (Late st Contact Info) Description 01/15/2025 Lab Requisition [facility] - Main Lab [address] [facility] [place] [phone] Angel Adamson MD [address] [place] [address] Other fatigue Social History Tobacco Use Types [...] LAB HEMETOLOGY METHOD 01/15/2025 10:10 AM EST [facility] Hematocrit 41.9(L) 42.0 - 54.0 % LAB HEMETOLOGY METHOD 01/15/2025 10:10 AM EST [facility] Blood Venous blood specimen / Unknown Venipuncture / Unknown 01/15/2025 8:18 AM EST 01/15/2025 9:34 AM EST us Angel Adamson MD LAB BLOOD ORDERABLES Final Resul t [facility] [address] [place] [address], documented in this encounter Visit Diagnoses Diagnosis Other fatigue documented in this encounter Additional Health Concerns Infection Onset Date Last Indicated Resolved Time ESBL 11/24/2024 11/24/2024 documented as of this encounter Care Teams Consultant Rn Relationship Specialty Start Date End Date Leona Almendarez MD 12[address] [facility] [address] [place], [place] PCP - General 07/03/18 documented as of this encounter
--- OUTSIDE RECORDS SUMMARY | 2025-03-16 11:32 | XMS_ITS | Encounter Summary ---
Author Organization [facility] [place] [address] Care Team Providers Care Washer Engineer Helper Name Role Phone Leona Almendarez MD Primary Care Provider [phone] Encounter Details Date Type Department Care Team (Late st Contact Info) Description 10/14/2024 Lab Requisition [facility] - Main Lab 299 [facility] [place] [phone] Angel Adamson MD [address] [place] [address] Hematuria, unspecified Social History Tobacco Use Types [...] K/mcL LAB HEMETOLOGY METHOD 10/16/2024 11:51 AM [facility] RBC 4.20(L) 4.50 - 5.50 M/mcL LAB HEMETOLOGY METHOD 10/16/2024 11:51 AM [facility] Hemoglobin 13.5 13.5 - 17.5 g/dL LAB HEMETOLOGY METHOD 10/16/2024 11:51 AM [facility] Hematocrit 43.1 42.0 - 54.0 % LAB HEMETOLOGY METHOD 10/16/2024 11:51 AM [facility] MCV 101.7(H) 79.0 - 98.0 FL LAB HEMETOLOGY METHOD 10/16/2024 11:51 AM [facility] MCH 31.8 27.0 - 32.0 pcg LAB HEMETOLOGY METHOD 10/16/2024 11:51 AM [facility] MCHC 31.3(L) 32.0 - 37.0 g/dL LAB HEMETOLOGY METHOD 10/16/2024 11:51 AM [facility] RDW 13.2 11.0 - 15.0 % LAB HEMETOLOGY METHOD 10/16/2024 11:51 AM [facility] Platelets 243 130 - 400 K/[facility] LAB HEMETOLOGY METHOD 10/16/2024 11:51 AM [facility] MPV 10.0 7.0 - 11.0 FL LAB HEMETOLOGY METHOD 10/16/2024 11:51 AM [facility] NRBC 0.0 <1.0 % LAB HEMETOLOGY METHOD 10/16/2024 11:51 AM [facility] NRBC Absolute 0.00 <0.10 K/mcL LAB HEMETOLOGY METHOD 10/16/2024 11:51 AM [facility] Blood Venous blood specimen / Unknown Venipuncture / Unknown 10/16/2024 8:55 AM EST 10/16/2024 11:14 AM EST us Angel Adamson MD LAB BLOOD ORDERABLES Final Resul t [facility] [address] [place] [address], * (ABNORMAL) Basic metabolic panel (10/16/2024 8:55 AM EST) Sodium 140 133 - 145 mmol/L LAB CHEMISTRY METHOD 10/16/2024 12:09 PM [facility] Potassium 4.1 3.5 - 5.5 mmol/L LAB CHEMISTRY METHOD 10/16/2024 12:09 PM [facility] Chloride 106 96 - 110 mmol/L LAB CHEMISTRY METHOD 10/16/2024 12:09 PM [facility] CO2 28 21 - 32 mmol/L LAB CHEMISTRY METHOD 10/16/2024 12:09 PM [facility] Anion Gap 6 3 - 11 LAB CHEMISTRY METHOD 10/16/2024 12:09 PM [facility] Glucose 80 70 - 100 mg/dL LAB CHEMISTRY METHOD 10/16/2024 12:09 PM [facility] BUN 19 5 - 25 mg/dL LAB CHEMISTRY METHOD 10/16/2024 12:09 PM [facility] Creatinine 0.69(L) 0.70 - 1.30 mg/dL LAB CHEMISTRY METHOD 10/16/2024 12:09 PM [facility] eGFR 94 >=60 mL/min/1. 73m2 LAB CHEMISTRY METHOD 10/16/2024 12:09 PM [facility] Comment:Calculation based on the??Chronic Kidney Disease Epidemiology Collaboration (CKD-EPI) equation refit??without adjustment for race. BUN/Creatinine Ratio 27.5 LAB CHEMISTRY METHOD 10/16/2024 12:09 PM EST [facility] Calcium 9.3 8.5 - 10.5 mg/dL LAB CHEMISTRY METHOD 10/16/2024 12:09 PM EST [facility] Blood Venous blood specimen / Unknown Venipuncture / Unknown 10/16/2024 8:55 AM EST 10/16/2024 11:14 AM EST us Angel Adamson MD LAB BLOOD ORDERABLES Final Resul t [facility] [address] [place] [address], documented in this encounter Visit Diagnoses Diagnosis Hematuria, unspecified documented in this encounter Additional Health Concerns Infection Onset Date Last Indicated Resolved Time ESBL 11/24/2024 11/24/2024 documented as of this encounter Care Teams Washer Engineer Helper Relationship Specialty Start Date End Date Leona Almendarez MD [address] PCP - General 07/03/18 documented as of this encounter
--- OUTSIDE RECORDS SUMMARY | 2025-03-16 11:32 | XMS_ITS | Clinical Summary ---
Author Organization [facility] Address [address] [place] [address] Care Team Providers Care Medical Receptionist Medical Assistant Name Role Phone Leona Almendarez MD Primary Care Provider [phone] Allergies No known active allergies Medications Medication [...] age to complete this topic Care Teams Medical Receptionist Medical Assistant Relationship Specialty Start Date End Date Leona Almendarez MD [address] [phone] PCP - General Internal Medicine 05/11/19
--- OUTSIDE RECORDS SUMMARY | 2025-03-16 11:32 | XMS_ITS | Clinical Summary ---
Author Organization [address] [facility] Address [address] [place] [address] Phone Care Team Providers Care Automatic Corn Grinder Operator Name Role Phone Leona Almendarez MD Primary Care Provider [phone] Encounters Date Type Department Care Team Description 01/16/2025 Lab Requisition [facility] [address] [place] [phone] Angel Adamson MD Parkinsonism, unspecified (CMS/HCC V24, CMS/HCC V28) 01/15/2025 Lab Requisition [facility] [address] [place] [phone] Angel Adamson MD Other fatigue 01/08/2025 Lab Requisition [facility] [address] [place] [phone] Angel Adamson MD Hematuria, unspecified 01/08/2025 Lab Requisition [facility] [address] [place] [phone] Angel Adamson MD Unspecified atrial fibrillation (CMS/HCC V24, CMS/HCC V28) 12/23/2024 Lab Requisition [facility] [address] [place] [phone] Angel Adamson MD Parkinsonism, unspecified (CMS/HCC V24, CMS/HCC V28) 12/16/2024 Lab Requisition [facility] - Main Lab [address] [place] [address] Angel Adamson MD Parkinsonism, unspecified ([facility] V24, [facility] V28) from Last 3 Months Medical History [...] 12/17/2024 7:30 AM EST Parkinsonism, unspecified (CMS/HCC) from Last 3 Months Results * Vitamin B12 and folate (01/18/2025 7:43 AM EST) Vitamin B-12 582 250 - 900 pcg/mL LAB CHEMISTRY METHOD 01/18/2025 12:53 PM EST [facility] Folate 4.6 2.8 - 17.0 ng/ml LAB CHEMISTRY METHOD 01/18/2025 12:53 PM EST [facility] Blood Venous blood specimen / Unknown Venipuncture / Unknown 01/18/2025 7:43 AM EST 01/18/2025 11:26 AM EST us Angel Adamson MD LAB BLOOD ORDERABLES Final Resul t [facility] [address] [place] [address], * (ABNORMAL) Hemoglobin and hematocrit (01/15/2025 8:18 AM EST) Hemoglobin 13.3(L) 13.5 - 17.5 g/dL LAB HEMETOLOGY METHOD 01/15/2025 10:10 AM EST [facility] Hematocrit 41.9(L) 42.0 - 54.0 % LAB HEMETOLOGY METHOD 01/15/2025 10:10 AM EST [facility] Blood Venous blood specimen / Unknown Venipuncture / Unknown 01/15/2025 8:18 AM EST 01/15/2025 9:34 AM EST us Angel Adamson MD LAB BLOOD ORDERABLES Final Resul t [facility] [address] [place] [address], [place] [phone] * (ABNORMAL) Complete blood count (01/08/2025 10:49 AM EST) Only the most recent of3 resultswithin the time period is included. [facility] WBC 6.8 4.8 - 10.8 K/mcL LAB [...] pcg LAB HEMETOLOGY METHOD 01/08/2025 11:42 AM [facility] MCHC 31.2(L) 32.0 - 37.0 g/dL LAB HEMETOLOGY METHOD 01/08/2025 11:42 AM [facility] RDW 14.0 11.0 - 15.0 % LAB HEMETOLOGY METHOD 01/08/2025 11:42 AM [facility] Platelets 221 130 - 400 K/mcL LAB HEMETOLOGY METHOD 01/08/2025 11:42 AM EST [facility] MPV 10.0 7.0 - 11.0 FL LAB HEMETOLOGY METHOD 01/08/2025 11:42 AM EST [facility] NRBC 0.0 <1.0 % LAB HEMETOLOGY METHOD 01/08/2025 11:42 AM EST [facility] NRBC Absolute 0.00 <0.10 K/mcL LAB HEMETOLOGY METHOD 01/08/2025 11:42 AM EST [facility] Blood Venous blood specimen / Unknown Venipuncture / Unknown 01/08/2025 10:49 AM EST 01/08/2025 11:28 AM EST us Angel Adamson MD LAB BLOOD ORDERABLES Final Resul t [facility] [address] [place] [address], * (ABNORMAL) Basic metabolic panel (01/08/2025 10:49 AM EST) Only the most recent of3 resultswithin the time period is included. Sodium [...] [facility] [address] [place] [address], [place] [phone] * (ABNORMAL) Urinalysis with reflex microscopic (01/08/2025 12:00 AM EST) Specific [place] Urine 1.020 1.003 - 1.030 LAB URINALYSIS [...] ORDERABLES Final Resul t Performing Organization Address City/[facility]/ZIP Co de Phone Number [facility] [address] [place] [address], [place] [phone] * Culture urine (01/08/2025 12:00 AM EST) Culture, Urine No growth 01/09/2025 1:42 PM EST [facility] Urine Urine specimen obtained by clean catch procedure / Unknown 01/08/2025 01/08/2025 7:01 PM EST Angel Adamson MD LAB MICROBIOLOGY - GENERAL ORDER TABITHA Final Result Performing Organization Address [facility] Co de Phone Number [facility] [address] [place] [address], [place] [phone] from Last 3 Months Additional Health Concerns Infection Onset Date Last Indicated ESBL 11/24/2024 11/24/2024 Insurance [place]ICA[place] - [place] MEDICARE Advance Directives Documents on File Type Date Recorded Patient Integration Software Developer Expl anation Health Care Decision (hx) 06/25/2024 AD WILSON DIRECTIVE Health Care Decision (hx) 06/25/2024 AD WILSON DIRECTIVE Health Care Decision (hx) 06/20/2024 AD WILSON DIRECTIVE Health Care Decision (hx) 06/20/2024 AD WILSON DIRECTIVE Care Teams Automatic Corn Grinder Operator Relationship Specialty Start Date End Date Leona Almendarez MD [facility] [address] PCP - General 07/03/18
--- OUTSIDE RECORDS SUMMARY | 2025-03-16 11:33 | XMS_ITS | Encounter Summary ---
Author Organization [facility] [place] [address] Care Team Providers Care Office Automation Clerk Name Role Phone Leona Almendarez MD Primary Care Provider [phone] Encounter Details Date Type Department Care Team (Late st Contact Info) Description 10/07/2024 Lab Requisition [facility] - Main Lab 299 [facility] [place] [phone] Angel Adamson MD [address] [place] [address] Hematuria, unspecified Social History Tobacco Use Types [...] mmol/L LAB CHEMISTRY METHOD 10/08/2024 10:04 AM [facility] Potassium 4.0 3.5 - 5.5 mmol/L LAB CHEMISTRY METHOD 10/08/2024 10:04 AM [facility] Chloride 107 96 - 110 mmol/L LAB CHEMISTRY METHOD 10/08/2024 10:04 AM [facility] CO2 26 21 - 32 mmol/L LAB CHEMISTRY METHOD 10/08/2024 10:04 AM [facility] Anion Gap 6 3 - 11 LAB CHEMISTRY METHOD 10/08/2024 10:04 AM [facility] Glucose 111(H) 70 - 100 mg/dL LAB CHEMISTRY METHOD 10/08/2024 10:04 AM [facility] BUN 12 5 - 25 mg/dL LAB CHEMISTRY METHOD 10/08/2024 10:04 AM [facility] Creatinine 0.65(L) 0.70 - 1.30 mg/dL LAB CHEMISTRY METHOD 10/08/2024 10:04 AM [facility] eGFR 96 >=60 mL/min/1. 73m2 LAB CHEMISTRY METHOD 10/08/2024 10:04 AM [facility] Comment:Calculation based on the??Chronic Kidney Disease Epidemiology Collaboration (CKD-EPI) equation refit??without adjustment for race. BUN/Creatinine Ratio 18.5 LAB CHEMISTRY METHOD 10/08/2024 10:04 AM [facility] Calcium 9.2 8.5 - 10.5 mg/dL LAB CHEMISTRY METHOD 10/08/2024 10:04 AM [facility] Blood Venous blood specimen / Unknown Venipuncture / Unknown 10/08/2024 7:18 AM EST 10/08/2024 9:10 AM EST us Angel Adamson MD LAB BLOOD ORDERABLES Final Resul t [facility] [address] [place] [address], * (ABNORMAL) Complete blood count (10/08/2024 7:18 AM EST) [facility] WBC 7.0 4.8 - 10.8 K/mcL LAB HEMETOLOGY METHOD 10/08/2024 9:41 AM EST [facility] RBC 4.20(L) 4.50 - 5.50 M/mcL LAB HEMETOLOGY METHOD 10/08/2024 9:41 AM EST [facility] Hemoglobin 13.6 13.5 - 17.5 g/dL LAB HEMETOLOGY METHOD 10/08/2024 9:41 AM EST [facility] Hematocrit 42.0 42.0 - 54.0 % LAB HEMETOLOGY METHOD 10/08/2024 9:41 AM [facility] MCV 99.1(H) 79.0 - 98.0 FL LAB HEMETOLOGY METHOD 10/08/2024 9:41 AM [facility] MCH 32.1(H) 27.0 - 32.0 pcg LAB HEMETOLOGY METHOD 10/08/2024 9:41 AM [facility] MCHC 32.4 32.0 - 37.0 g/dL LAB HEMETOLOGY METHOD 10/08/2024 9:41 AM EST [facility] RDW 13.3 11.0 - 15.0 % LAB HEMETOLOGY METHOD 10/08/2024 9:41 AM [facility] Platelets 255 130 - 400 K/mcL LAB HEMETOLOGY METHOD 10/08/2024 9:41 AM [facility] MPV 9.9 7.0 - 11.0 FL LAB HEMETOLOGY METHOD 10/08/2024 9:41 AM [facility] NRBC 0.0 <1.0 % LAB HEMETOLOGY METHOD 10/08/2024 9:41 AM EST [facility] NRBC Absolute 0.00 <0.10 K/mcL LAB HEMETOLOGY METHOD 10/08/2024 9:41 AM EST [facility] Blood Venous blood specimen / Unknown Venipuncture / Unknown 10/08/2024 7:18 AM EST 10/08/2024 9:10 AM EST us Angel Adamson MD LAB BLOOD ORDERABLES Final Resul t [facility] [address] [place] [address], documented in this encounter Visit Diagnoses Diagnosis Hematuria, unspecified documented in this encounter Additional Health Concerns Infection Onset Date Last Indicated Resolved Time ESBL 11/24/2024 11/24/2024 documented as of this encounter Care Teams Office Automation Clerk Relationship Specialty Start Date End Date Leona Almendarez MD [address] PCP - General 07/03/18 documented as of this encounter
--- OUTSIDE RECORDS SUMMARY | 2025-03-16 11:33 | XMS_ITS | Encounter Summary ---
Author Organization [facility] [place] [address] Care Team Providers Care Fiscal Accounting Clerk Name Role Phone Leona Almendarez MD Primary Care Provider [phone] Encounter Details Date Type Department Care Team (Late st Contact Info) Description 11/20/2024 Lab Requisition [facility] - Main Lab 299 [facility] [place] [phone] Maggie Parry PA [address] [place] [address] [facility] [place] [address] Essential (primary) hypertension Social History Tobacco Use [...] YORK LAB BLOOD ORDERABLES Final Resu lt [facility] [address] [place] [address], * (ABNORMAL) Complete blood count (11/20/2024 3:13 PM EST) [facility] Signature WBC 7.9 4.8 - 10.8 K/mcL LAB HEMETOLOGY METHOD 11/20/2024 4:51 PM EST [facility] RBC 4.10(L) 4.50 - 5.50 M/mcL LAB HEMETOLOGY METHOD 11/20/2024 4:51 PM EST [facility] Hemoglobin 12.8(L) 13.5 - 17.5 g/dL LAB HEMETOLOGY METHOD 11/20/2024 4:51 PM [facility] Hematocrit 39.5(L) 42.0 - 54.0 % LAB HEMETOLOGY METHOD 11/20/2024 4:51 PM EST [facility] MCV 97.3 79.0 - 98.0 FL LAB HEMETOLOGY METHOD 11/20/2024 4:51 PM EST [facility] MCH 31.5 27.0 - 32.0 pcg LAB HEMETOLOGY METHOD 11/20/2024 4:51 PM [facility] MCHC 32.4 32.0 - 37.0 g/dL LAB HEMETOLOGY METHOD 11/20/2024 4:51 PM EST [facility] RDW 13.5 11.0 - 15.0 % LAB HEMETOLOGY METHOD 11/20/2024 4:51 PM [facility] Platelets 200 130 - 400 K/mcL LAB HEMETOLOGY METHOD 11/20/2024 4:51 PM [facility] MPV 10.2 7.0 - 11.0 FL LAB HEMETOLOGY METHOD 11/20/2024 4:51 PM [facility] NRBC 0.0 <1.0 % LAB HEMETOLOGY METHOD 11/20/2024 4:51 PM EST [facility] NRBC Absolute 0.00 <0.10 K/mcL LAB HEMETOLOGY METHOD 11/20/2024 4:51 PM EST [facility] Blood Venous blood specimen / Unknown Venipuncture / Unknown 11/20/2024 3:13 PM EST 11/20/2024 4:32 PM EST us Maggie [place] LAB BLOOD ORDERABLES Final Resu lt [facility] [address] [place] [address], documented in this encounter Visit Diagnoses Diagnosis Essential (primary) hypertension Unspecified essential hypertension documented in this encounter Additional Health Concerns Infection Onset Date Last Indicated Resolved Time ESBL 11/24/2024 11/24/2024 documented as of this encounter Care Teams Fiscal Accounting Clerk Relationship Specialty Start Date End Date Leona Almendarez MD 12[address] [facility] [address] [place], [place] PCP - General 07/03/18 documented as of this encounter
--- OUTSIDE RECORDS SUMMARY | 2025-03-16 11:33 | XMS_ITS | Encounter Summary ---
Author Organization [facility] [place] [address] Care Team Providers Care Manager Support Services Name Role Phone Leona Almendarez MD Primary Care Provider [phone] Encounter Details Date Type Department Care Team (Late st Contact Info) Description 09/30/2024 Lab Requisition [facility] - Main Lab 299 [facility] [place] [phone] Angel Adamson MD [address] [place] [address] Hematuria, unspecified Social History Tobacco Use Types [...] CENTER LAB Platelets 223 130 - 400 K/[facility] LAB HEMETOLOGY METHOD 10/01/2024 10:12 AM [...] Final Resul t [facility] [address] [place] [address], [place] [phone] * (ABNORMAL) Basic metabolic panel (10/01/2024 7:30 [...] LAB CHEMISTRY METHOD 10/01/2024 10:16 AM EST [facility] Calcium 9.0 8.5 - 10.5 mg/dL LAB CHEMISTRY METHOD 10/01/2024 10:16 AM EST [facility] Blood Venous blood specimen / Unknown Venipuncture / Unknown 10/01/2024 7:30 AM EST 10/01/2024 8:42 AM EST us Angel Adamson MD LAB BLOOD ORDERABLES Final Resul t [facility] [address] [place] [address], documented in this encounter Visit Diagnoses Diagnosis Hematuria, unspecified documented in this encounter Additional Health Concerns Infection Onset Date Last Indicated Resolved Time ESBL 11/24/2024 11/24/2024 documented as of this encounter Care Teams Manager Support Services Relationship Specialty Start Date End Date Leona Almendarez MD 1221 [facility] [address] [place], [place] PCP - General 07/03/18 documented as of this encounter
--- OUTSIDE RECORDS SUMMARY | 2025-03-16 11:33 | XMS_ITS | Data Portability ---
Author Organization [facility] Address [address] [facility] [address] [place] [address] Care Team Providers Care Snowmaker Name Role Phone CAPRI DUNAWAY Primary Care [...] booked for the same. He needs a recycle driver on the day of the procedure. [...] By Organization Details Last Modified Time 05/12/2018 [id number] He was advised against bed rest lasting longer than four days and to continue activities as tolerated. [email or web address] Not available 05/12/2018 14:54:12 05/27/2018 [id number] He was advised against bed rest lasting longer than four days and to continue activities as tolerated. [email or web address] Not available 05/27/2018 13:41:18 Reason for Referral None Reported. Problems Name Problem SNOMED Code Status Onset Date Resolution Date Notes Provider Name and Address Organization Details Recorded Time Spinal stenosis of lumbar region 46997319 Active Davey enriquez MD [address] , [address], [facility] [place], [address], [place] [facility] 8 13:58:53 Degeneration of lumbar intervertebral disc 13518546 Active Davey enriquez MD [address] , [address], [facility] [place], [address], [place] [facility] 8 13:59:02 Lumbosacral radiculopathy 3021220 Active Davey enriquez MD [address] , [address], [facility] [place], [address], [place] [facility] 8 13:59:16 Lumbosacral spondylosis without myelopathy 54967421 [place] enriquez MD [address] , [address], [facility] [place], [address], [place] [facility] 8 13:59:38 Problem Notes None recorded. Procedures Surgical History Date Name Laterality Status Provider Name and Address Organization Details Recorded Time 05/27/20 18 Lumbar Epidural steroid injection under fluoroscopic guidance completed Davey Auguste MD [address] [place] [address] , [address], [place], [address], [place] [facility] 05/27/2018 13:45:40 [...] Available Not Available Not Available Fluzone High-Dose 7599-9699 (PF) 180 mcg/0.5 mL intramuscular syringe ADM 0.5ML IM UTD 05/12 completed Not Available Not Available Not Available Vitals Date Recorded Heart rate Oxygen saturation Oxygen saturation in Arterial blood by Pulse oximetry Body weight Body mass index (BMI) Body height Systolic blood pressure Diastolic blood pressure Provider Name and Address Organization Details Last Updated DateTime 8 71 /min 95 % 95 % 869621. 05 g 34.6 kg/m2 182.88 cm 152 [...] 153 mm[Hg] 73 mm[Hg] Ashwini Tsang MA [facility] Pain Management 8 13:18:29 Social History [...] SNOMED-CT Code Diagnosis ICD10 Code Diagnosis Note [id number] Davey Auguste MD PAIN OFFICE [address] [place] [address] 05/12/2018 13:27:49 05/12/2018 15:01:22 Lumbosacral radiculopathy 3591201 M54.17 Spinal marla nosis of lumbar region 60377687 M48.062 Degenerati on of lumbar intervertebral disc 42477414 M51.36 Lumbosacra l spondylosis without myelopathy 24589118 M47.817 42512 Davey Auguste MD PAIN OFFICE [address] [place] [address] 05/27/2018 13:15:35 05/27/2018 14:13:07 Lumbosacral radiculopathy 1168745 M54.17 Spinal marla nosis of lumbar region 05671411 M48.062 Degenerati on of lumbar intervertebral disc 98513981 M51.36 Lumbosacra l spondylosis without myelopathy 85772354 M47.817 Health Concerns Section Related Observation LastModified by Organization Detai ls LastModified Time None Recorded Concern Status LastModified by Organization Details LastModified Time None Recorded Advance Directives Directive None Recorded Payers Encounter Date Sequence Insurance Name Policy Number Policy Seymour Covered Member ID Seymour Member ID Guarantor Name 05/12/2018 1 [facility] - MEDICARE PREFERRED (MEDICARE REPLACEMENT HMO) [facility] Daniel Smith [id number] Daniel Smith 05/27/2018 1 [facility] - MEDICARE PREFERRED (MEDICARE REPLACEMENT HMO) [facility] Daniel Smith [id number] Daniel Smith Notes Date Note Type [...] fat planes.He has trialed physical therapy at [facility] with aggravation of his symptoms. He had two steroid injections at [facility] and the injections did not help. He has seen Dr. miriam Thomas who did not recommend surgery at that time. Davey Auguste MD [address] [facility] , [address], [place], [address], [facility] 05/27/2018 08:28:05 05/27/2018 text/html He is here today for a lumbar epidural steroid injection under fluroscopic guidance. Davey Auguste MD [address] [facility] , [address], [place], [address], [facility] 05/30/2018 08:35:36
--- OUTSIDE RECORDS SUMMARY | 2025-03-16 11:33 | XMS_ITS | Encounter Summary ---
Author Organization [facility] [place] [address] Care Team Providers Care Resident Services Supervisor Name Role Phone Leona Almendarez MD Primary Care Provider [phone] Encounter Details Date Type Department Care Team (Late st Contact Info) Description 11/25/2024 Lab Requisition [facility] - Main Lab 299 [facility] [place] [phone] Angel Adamson MD [address] [place] [address] Altered mental status, unspecified; Chronic fatigue, unspecified [...] reflex microscopic (11/24/2024 3:20 PM EST) Specific [place] Urine 1.012 1.003 - 1.030 LAB URINALYSIS - AUTOMATED METHOD 11/25/2024 10:19 AM [facility] pH, Urine 7.0 5.0 - 8.0 pH LAB URINALYSIS - AUTOMATED METHOD 11/25/2024 10:19 AM [facility] Leukocytes, Urine Large(A) Negative LAB URINALYSIS - AUTOMATED METHOD 11/25/2024 10:19 AM [facility] Nitrite, Urine Negative Negative LAB URINALYSIS - AUTOMATED METHOD 11/25/2024 10:19 AM [facility] Protein, Urine 30(A) <=Trace mg/dL LAB URINALYSIS - AUTOMATED METHOD 11/25/2024 10:19 AM [facility] Glucose, Urine Negative Negative mg/dL LAB URINALYSIS - AUTOMATED METHOD 11/25/2024 10:19 AM [facility] Ketones, Urine Negative Negative mg/dL LAB URINALYSIS - AUTOMATED METHOD 11/25/2024 10:19 AM [facility] Urobilinogen , Urine 0.2 0.2 - 1.0 mg/dL LAB URINALYSIS - AUTOMATED METHOD 11/25/2024 10:19 AM [facility] Bilirubin, Urine Negative Negative LAB URINALYSIS - AUTOMATED METHOD 11/25/2024 10:19 AM [facility] Blood, Urine Small(A) Negative LAB URINALYSIS - AUTOMATED METHOD 11/25/2024 10:19 AM [facility] RBC, Urine 9.2(H) 0 - 4 /HPF LAB URINALYSIS - AUTOMATED METHOD 11/25/2024 10:19 AM EST [facility] WBC, Urine 2,095.6(H) 0 - 4 /HPF LAB URINALYSIS - AUTOMATED METHOD 11/25/2024 10:19 AM [facility] Squamous Epithelial, Urine 64(H) 0 - 60 /LPF LAB URINALYSIS - AUTOMATED METHOD 11/25/2024 10:19 AM [facility] Bacteria, Urine Moderate(A) Negative /HPF LAB URINALYSIS - AUTOMATED METHOD 11/25/2024 10:19 AM [facility] Hyaline Casts, Urine 3.4(H) 0 - 3 /LPF LAB URINALYSIS - AUTOMATED METHOD 11/25/2024 10:19 AM [facility] Urine Urine specimen from urethra / Unknown 11/24/2024 3:20 PM EST 11/25/2024 9:19 AM EST Angel Adamson MD LAB URINE ORDERABLES Final Resul t [facility] [address] [place] [address], * (ABNORMAL) Culture urine (11/24/2024 3:20 PM EST) Culture, Urine 50,000-100,00 0 CFU/mL Klebsiella pneumoniae ESBL(A) ABNER 11/28/2024 9:40 AM [facility] Comment: TESTING SUGGESTS AN [...] MICROBIOLOGY - GENERAL ORDER TABITHA Final Result [facility] LAB [address] [place] [address], documented in this encounter Visit Diagnoses Diagnosis Altered mental status, unspecified Chronic fatigue, unspecified documented in this encounter Additional Health Concerns Infection Onset Date Last Indicated Resolved Time ESBL 11/24/2024 11/24/2024 documented as of this encounter Care Teams Resident Services Supervisor Relationship Specialty Start Date End Date Leona Almendarez MD 1221 [facility] [address] [place], [place] PCP - General 07/03/18 documented as of this encounter
--- OUTSIDE RECORDS SUMMARY | 2025-03-16 11:33 | XMS_ITS | Encounter Summary ---
Author Organization [facility] [place] [address] Care Team Providers Care Cook Enchilada Name Role Phone Leona Almendarez MD Primary Care Provider [phone] Encounter Details Date Type Department Care Team (Late st Contact Info) Description 01/08/2025 Lab Requisition [facility] - Main Lab 299 [facility] [place] [phone] Angel Adamson MD [address] [place] [address] Unspecified atrial fibrillation (CMS/HCC V24, CMS/HCC V28) [...] mmol/L LAB CHEMISTRY METHOD 01/08/2025 11:57 AM [facility] Potassium 3.9 3.5 - 5.5 mmol/L LAB CHEMISTRY METHOD 01/08/2025 11:57 AM [facility] Chloride 108 96 - 110 mmol/L LAB CHEMISTRY METHOD 01/08/2025 11:57 AM [facility] CO2 27 21 - 32 mmol/L LAB CHEMISTRY METHOD 01/08/2025 11:57 AM [facility] Anion Gap 7 3 - 11 LAB CHEMISTRY METHOD 01/08/2025 11:57 AM [facility] Glucose 97 70 - 100 mg/dL LAB CHEMISTRY METHOD 01/08/2025 11:57 AM [facility] BUN 16 5 - 25 mg/dL LAB CHEMISTRY METHOD 01/08/2025 11:57 AM [facility] Creatinine 0.63(L) 0.70 - 1.30 mg/dL LAB CHEMISTRY METHOD 01/08/2025 11:57 AM [facility] eGFR 97 >=60 mL/min/1. 73m2 LAB CHEMISTRY METHOD 01/08/2025 11:57 AM [facility] Comment:Calculation based on the??Chronic Kidney Disease Epidemiology Collaboration (CKD-EPI) equation refit??without adjustment for race. BUN/Creatinine Ratio 25.4 LAB CHEMISTRY METHOD 01/08/2025 11:57 AM [facility] Calcium 8.8 8.5 - 10.5 mg/dL LAB CHEMISTRY METHOD 01/08/2025 11:57 AM [facility] Blood Venous blood specimen / Unknown Venipuncture / Unknown 01/08/2025 10:49 AM EST 01/08/2025 11:28 AM EST Angel Adamson MD LAB BLOOD ORDERABLES Final Resul t [facility] [address] [place] [address], * (ABNORMAL) Complete blood count (01/08/2025 10:49 AM EST) WBC 6.8 4.8 - 10.8 K/mcL LAB HEMETOLOGY METHOD 01/08/2025 11:42 AM EST [facility] RBC 3.70(L) 4.50 - 5.50 M/mcL LAB HEMETOLOGY METHOD 01/08/2025 11:42 AM [facility] Hemoglobin 11.8(L) 13.5 - 17.5 g/dL LAB HEMETOLOGY METHOD 01/08/2025 11:42 AM [facility] Hematocrit 37.8(L) 42.0 - 54.0 % LAB HEMETOLOGY METHOD 01/08/2025 11:42 AM [facility] MCV 103.6(H) 79.0 - 98.0 FL LAB HEMETOLOGY METHOD 01/08/2025 11:42 AM [facility] MCH 32.3(H) 27.0 - 32.0 pcg LAB HEMETOLOGY METHOD 01/08/2025 11:42 AM [facility] MCHC 31.2(L) 32.0 - 37.0 g/dL LAB HEMETOLOGY METHOD 01/08/2025 11:42 AM [facility] RDW 14.0 11.0 - 15.0 % LAB HEMETOLOGY METHOD 01/08/2025 11:42 AM [facility] Platelets 221 130 - 400 K/mcL LAB HEMETOLOGY METHOD 01/08/2025 11:42 AM [facility] MPV 10.0 7.0 - 11.0 FL LAB HEMETOLOGY METHOD 01/08/2025 11:42 AM EST [facility] NRBC 0.0 <1.0 % LAB HEMETOLOGY METHOD 01/08/2025 11:42 AM EST [facility] NRBC Absolute 0.00 <0.10 K/mcL LAB HEMETOLOGY METHOD 01/08/2025 11:42 AM EST [facility] Blood Venous blood specimen / Unknown Venipuncture / Unknown 01/08/2025 10:49 AM EST 01/08/2025 11:28 AM EST us Angel Adamson MD LAB BLOOD ORDERABLES Final Resul t [facility] [address] [place] [address], documented in this encounter Visit Diagnoses Diagnosis Unspecified atrial fibrillation (CMS/HCC V24, CMS/HCC V28) documented in this encounter Additional Health Concerns Infection Onset Date Last Indicated Resolved Time ESBL 11/24/2024 11/24/2024 documented as of this encounter Care Teams Cook Enchilada Relationship Specialty Start Date End Date Leona Almendarez MD [facility] [address] PCP - General 07/03/18 documented as of this encounter
--- OUTSIDE RECORDS SUMMARY | 2025-03-16 11:33 | XMS_ITS | Encounter Summary ---
Author Organization [facility] [address] [place] [address] Care Team Providers Care Sales And Service Specialist Name Role Phone Leona Almendarez MD Primary Care Provider [phone] Encounter Details Date Type Department Care Team (Late st Contact Info) Description 12/15/2024 Lab Requisition [facility] - Main Lab 299 [facility] [place] [phone] Angel Adamson MD [address] [place] [address] Altered mental status, unspecified; Confusional arousals Social [...] 12/15/2024 5:36 PM [facility] WBC, Urine 7.1(H) 0 - 4 /HPF LAB URINALYSIS - AUTOMATED METHOD 12/15/2024 5:36 PM [facility] Squamous Epithelial, Urine 27 0 - 60 /LPF LAB URINALYSIS - AUTOMATED METHOD 12/15/2024 5:36 PM [facility] Crystals, Urine ..Heavy Calcium Oxalate crystals. /LPF 12/15/2024 5:36 PM [facility] Bacteria, Urine Negative Negative /HPF LAB URINALYSIS - AUTOMATED METHOD 12/15/2024 5:36 PM [facility] Hyaline Casts, Urine 2.5 0 - 3 /LPF LAB URINALYSIS - AUTOMATED METHOD 12/15/2024 5:36 PM [facility] Urine Urine specimen obtained by clean catch procedure / Unknown 12/15/2024 10:30 AM EST 12/15/2024 4:02 PM EST us Angel Adamson MD LAB URINE ORDERABLES Final Resul t [facility] [address] [place] [address], [place] [phone] * Culture urine (12/15/2024 10:30 AM EST) Culture, Urine <10,000 CFU/mL gram positive cocci, insignificant count, no further workup 12/16/2024 7:56 AM EST [facility] Urine Urine specimen obtained by clean catch procedure / Unknown 12/15/2024 10:30 AM EST 12/15/2024 4:02 PM EST Angel Adamson MD LAB MICROBIOLOGY - GENERAL ORDER TABITHA Final Result [facility] [address] [place] [address], documented in this encounter Visit Diagnoses Diagnosis Altered mental status, unspecified Confusional arousals documented in this encounter Additional Health Concerns Infection Onset Date Last Indicated Resolved Time ESBL 11/24/2024 11/24/2024 documented as of this encounter Care Teams Sales And Service Specialist Relationship Specialty Start Date End Date Leona Almendarez MD 1221 [facility] [address] [place], [place] PCP - General 07/03/18 documented as of this encounter
--- OUTSIDE RECORDS SUMMARY | 2025-03-16 11:33 | XMS_ITS | Encounter Summary ---
Author Organization [facility] [place] [address] Care Team Providers Care Icer Air Conditioning Name Role Phone Leona Almendarez MD Primary Care Provider [phone] Encounter Details Date Type Department Care Team (Late st Contact Info) Description 11/21/2024 Lab Requisition [facility] - Main Lab 299 [facility] [place] [phone] Angel Adamson MD [address] [place] [address] Urinary tract infection, site not specified Social [...] culture tube (11/20/2024 12:00 AM EST) Pathologist [facility] Extra Tube Hold for add-ons. 11/21/2024 2:01 PM [facility] Comment:Auto resulted. Urine Urine specimen obtained by clean catch procedure / Unknown Non-blood Collection / Unknown 11/20/2024 11/21/2024 12:11 PM EST Angel Adamson MD LAB URINE ORDERABLES Final Resul t [facility] [address] [place] [address], [place] [phone] * (ABNORMAL) Urinalysis with reflex microscopic (11/20/2024 12:00 AM EST) [facility] Specific [place] Urine 1.019 1.003 - 1.030 LAB URINALYSIS - AUTOMATED METHOD 11/21/2024 1:26 PM [facility] pH, Urine >=9.0(A) 5.0 - 8.0 pH LAB URINALYSIS - AUTOMATED METHOD 11/21/2024 1:26 PM [facility] Leukocytes, Urine Large(A) Negative LAB URINALYSIS - AUTOMATED METHOD 11/21/2024 1:26 PM [facility] Nitrite, Urine Positive(A) Negative LAB URINALYSIS - AUTOMATED METHOD 11/21/2024 1:26 PM [facility] Protein, Urine 100(A) <=Trace mg/dL LAB URINALYSIS - AUTOMATED METHOD 11/21/2024 1:26 PM [facility] Glucose, Urine Negative Negative mg/dL LAB URINALYSIS - AUTOMATED METHOD 11/21/2024 1:26 PM [facility] Ketones, Urine Negative Negative mg/dL LAB URINALYSIS - AUTOMATED METHOD 11/21/2024 1:26 PM [facility] Urobilinogen , Urine 0.2 0.2 - 1.0 mg/dL LAB URINALYSIS - AUTOMATED METHOD 11/21/2024 1:26 PM [facility] Bilirubin, Urine Negative Negative LAB URINALYSIS - AUTOMATED METHOD 11/21/2024 1:26 PM [facility] Blood, Urine Negative Negative LAB URINALYSIS - AUTOMATED METHOD 11/21/2024 1:26 PM [facility] RBC, Urine 1.3 0 - 4 /HPF LAB URINALYSIS - AUTOMATED METHOD 11/21/2024 1:26 PM [facility] WBC, Urine 27.4(H) 0 - 4 /HPF LAB URINALYSIS - AUTOMATED METHOD 11/21/2024 1:26 PM [facility] Squamous Epithelial, Urine 10 0 - 60 /LPF LAB URINALYSIS - AUTOMATED METHOD 11/21/2024 1:26 PM [facility] Crystals, Urine HEAVY TRIPLE PHOS /LPF LAB URINALYSIS - AUTOMATED METHOD 11/21/2024 1:26 PM [facility] Bacteria, Urine Few(A) Negative /HPF LAB URINALYSIS - AUTOMATED METHOD 11/21/2024 1:26 PM [facility] Hyaline Casts, Urine 6.6(H) 0 - 3 /LPF LAB URINALYSIS - AUTOMATED METHOD 11/21/2024 1:26 PM [facility] Urine Urine specimen obtained by clean catch procedure / Unknown Non-blood Collection / Unknown 11/20/2024 11/21/2024 12:11 PM EST us Angel Adamson MD LAB URINE ORDERABLES Final Resul t [facility] [address] [place] [address], documented in this encounter Visit Diagnoses Diagnosis Urinary tract infection, site not specified documented in this encounter Additional Health Concerns Infection Onset Date Last Indicated Resolved Time ESBL 11/24/2024 11/24/2024 documented as of this encounter Care Teams Icer Air Conditioning Relationship Specialty Start Date End Date Leona Almendarez MD 1221 [facility] [address] [place], [place] PCP - General 07/03/18 documented as of this encounter
--- OUTSIDE RECORDS SUMMARY | 2025-03-16 11:33 | XMS_ITS | Encounter Summary ---
Author Organization [facility] [place] [address] Care Team Providers Care Airport Operations Crew Member Name Role Phone Leona Almendarez MD Primary Care Provider [phone] Encounter Details Date Type Department Care Team (Late st Contact Info) Description 09/22/2024 Lab Requisition [facility] - Main Lab 299 [facility] [place] [phone] Angel Adamson MD [address] [place] [address] Hematuria, unspecified Social History Tobacco Use Types [...] K/mcL LAB HEMETOLOGY METHOD 09/24/2024 9:58 AM [facility] RBC 4.20(L) 4.50 - 5.50 M/[facility] LAB HEMETOLOGY METHOD 09/24/2024 9:58 AM [facility] Hemoglobin 13.3(L) 13.5 - 17.5 g/dL LAB HEMETOLOGY METHOD 09/24/2024 9:58 AM [facility] Hematocrit 41.8(L) 42.0 - 54.0 % LAB HEMETOLOGY METHOD 09/24/2024 9:58 AM [facility] MCV 100.7(H) 79.0 - 98.0 FL LAB HEMETOLOGY METHOD 09/24/2024 9:58 AM [facility] MCH 32.0 27.0 - 32.0 pcg LAB HEMETOLOGY METHOD 09/24/2024 9:58 AM [facility] MCHC 31.8(L) 32.0 - 37.0 g/dL LAB HEMETOLOGY METHOD 09/24/2024 9:58 AM [facility] RDW 13.6 11.0 - 15.0 % LAB HEMETOLOGY METHOD 09/24/2024 9:58 AM [facility] Platelets 222 130 - 400 K/[facility] LAB HEMETOLOGY METHOD 09/24/2024 9:58 AM [facility] MPV 10.3 7.0 - 11.0 FL LAB HEMETOLOGY METHOD 09/24/2024 9:58 AM [facility] NRBC 0.0 <1.0 % LAB HEMETOLOGY METHOD 09/24/2024 9:58 AM [facility] NRBC Absolute 0.00 <0.10 K/[facility] LAB HEMETOLOGY METHOD 09/24/2024 9:58 AM [facility] Blood Venous blood specimen / Unknown Venipuncture / Unknown 09/24/2024 6:32 AM EST 09/24/2024 8:46 AM EST Angel Adamson MD LAB BLOOD ORDERABLES Final Resul t [facility] [address] [place] [address], [place] [phone] * (ABNORMAL) Basic metabolic panel (09/24/2024 6:32 AM EST) Sodium 141 133 - 145 mmol/L LAB CHEMISTRY METHOD 09/24/2024 10:21 AM [facility] Potassium 3.8 3.5 - 5.5 mmol/L LAB CHEMISTRY METHOD 09/24/2024 10:21 AM [facility] Chloride 107 96 - 110 mmol/L LAB CHEMISTRY METHOD 09/24/2024 10:21 AM [facility] CO2 26 21 - 32 mmol/L LAB CHEMISTRY METHOD 09/24/2024 10:21 AM [facility] Anion Gap 8 3 - 11 LAB CHEMISTRY METHOD 09/24/2024 10:21 AM [facility] Glucose 63(L) 70 - 100 mg/dL LAB CHEMISTRY METHOD 09/24/2024 10:21 AM [facility] BUN 15 5 - 25 mg/dL LAB CHEMISTRY METHOD 09/24/2024 10:21 AM [facility] Creatinine 0.59(L) 0.70 - 1.30 mg/dL LAB CHEMISTRY METHOD 09/24/2024 10:21 AM [facility] eGFR 99 >=60 mL/min/1. 73m2 LAB CHEMISTRY METHOD 09/24/2024 10:21 AM [facility] Comment:Calculation based on the??Chronic Kidney Disease Epidemiology Collaboration (CKD-EPI) equation refit??without adjustment for race. BUN/Creatinine Ratio 25.4 LAB CHEMISTRY METHOD 09/24/2024 10:21 AM EST [facility] Calcium 9.1 8.5 - 10.5 mg/dL LAB CHEMISTRY METHOD 09/24/2024 10:21 AM EST [facility] Blood Venous blood specimen / Unknown Venipuncture / Unknown 09/24/2024 6:32 AM EST 09/24/2024 8:46 AM EST us Angel Adamson MD LAB BLOOD ORDERABLES Final Resul t [facility] [address] [place] [address], documented in this encounter Visit Diagnoses Diagnosis Hematuria, unspecified documented in this encounter Additional Health Concerns Infection Onset Date Last Indicated Resolved Time ESBL 11/24/2024 11/24/2024 documented as of this encounter Care Teams Airport Operations Crew Member Relationship Specialty Start Date End Date Leona Almendarez MD 1221 [facility] [address] [place], [place] PCP - General 07/03/18 documented as of this encounter
--- OUTSIDE RECORDS SUMMARY | 2025-03-16 11:33 | XMS_ITS | Encounter Summary ---
Author Organization [facility] [place] [address] Care Team Providers Care Speech Language Specialist Name Role Phone Leona Almendarez MD Primary Care Provider Encounter Details Date Type Department Care Team (Late st Contact Info) Description 12/23/[address] [facility] - Main Lab 299 [facility] [place] [phone] Angel Adamson MD [address] [place] [address] Parkinsonism, unspecified (CMS/HCC V24, CMS/HCC V28) Social [...] mmol/L LAB CHEMISTRY METHOD 12/24/2024 11:08 AM [facility] Potassium 3.8 3.5 - 5.5 mmol/L LAB CHEMISTRY METHOD 12/24/2024 11:08 AM [facility] Chloride 105 96 - 110 mmol/L LAB CHEMISTRY METHOD 12/24/2024 11:08 AM [facility] CO2 30 21 - 32 mmol/L LAB CHEMISTRY METHOD 12/24/2024 11:08 AM [facility] Anion Gap 5 3 - 11 LAB CHEMISTRY METHOD 12/24/2024 11:08 AM [facility] Glucose 91 70 - 100 mg/dL LAB CHEMISTRY METHOD 12/24/2024 11:08 AM [facility] BUN 24 5 - 25 mg/dL LAB CHEMISTRY METHOD 12/24/2024 11:08 AM [facility] Creatinine 0.66(L) 0.70 - 1.30 mg/dL LAB CHEMISTRY METHOD 12/24/2024 11:08 AM [facility] eGFR 95 >=60 mL/min/1. 73m2 LAB CHEMISTRY METHOD 12/24/2024 11:08 AM [facility] Comment:Calculation based on the??Chronic Kidney Disease Epidemiology Collaboration (CKD-EPI) equation refit??without adjustment for race. BUN/Creatinine Ratio 36.4 LAB CHEMISTRY METHOD 12/24/2024 11:08 AM [facility] Calcium 9.2 8.5 - 10.5 mg/dL LAB CHEMISTRY METHOD 12/24/2024 11:08 AM [facility] Blood Venous blood specimen / Unknown Venipuncture / Unknown 12/24/2024 8:37 AM EST 12/24/2024 11:08 AM EST Angel Adamson MD LAB BLOOD ORDERABLES Final Resul t [facility] [address] [place] [address], * (ABNORMAL) Complete blood count (12/24/2024 8:37 AM EST) WBC 6.4 4.8 - 10.8 K/mcL LAB HEMETOLOGY METHOD 12/24/2024 11:37 AM EST [facility] RBC 3.50(L) 4.50 - 5.50 M/mcL LAB HEMETOLOGY METHOD 12/24/2024 11:37 AM [facility] Hemoglobin 11.4(L) 13.5 - 17.5 g/dL LAB HEMETOLOGY METHOD 12/24/2024 11:37 AM [facility] Hematocrit 36.2(L) 42.0 - 54.0 % LAB HEMETOLOGY METHOD 12/24/2024 11:37 AM [facility] MCV 102.5(H) 79.0 - 98.0 FL LAB HEMETOLOGY METHOD 12/24/2024 11:37 AM [facility] MCH 32.3(H) 27.0 - 32.0 pcg LAB HEMETOLOGY METHOD 12/24/2024 11:37 AM [facility] MCHC 31.5(L) 32.0 - 37.0 g/dL LAB HEMETOLOGY METHOD 12/24/2024 11:37 AM [facility] RDW 15.2(H) 11.0 - 15.0 % LAB HEMETOLOGY METHOD 12/24/2024 11:37 AM [facility] Platelets 271 130 - 400 K/mcL LAB HEMETOLOGY METHOD 12/24/2024 11:37 AM [facility] MPV 9.5 7.0 - 11.0 FL LAB HEMETOLOGY METHOD 12/24/2024 11:37 AM EST [facility] NRBC 0.0 <1.0 % LAB HEMETOLOGY METHOD 12/24/2024 11:37 AM EST [facility] NRBC Absolute 0.00 <0.10 K/mcL LAB HEMETOLOGY METHOD 12/24/2024 11:37 AM EST [facility] Blood Venous blood specimen / Unknown Venipuncture / Unknown 12/24/2024 8:37 AM EST 12/24/2024 11:36 AM EST us Angel Adamson MD LAB BLOOD ORDERABLES Final Resul t [facility] [address] [place] [address], documented in this encounter Visit Diagnoses Diagnosis Parkinsonism, unspecified (CMS/HCC V24, CMS/HCC V28) documented in this encounter Additional Health Concerns Infection Onset Date Last Indicated Resolved Time ESBL 11/24/2024 11/24/2024 documented as of this encounter Care Teams Speech Language Specialist Relationship Specialty Start Date End Date Leona Almendarez MD [facility] [address] PCP - General 07/03/18 documented as of this encounter
--- OUTSIDE RECORDS SUMMARY | 2025-03-16 11:33 | XMS_ITS | Encounter Summary ---
Author Organization [facility] [place] [address] Care Team Providers Care Land Surveyor Assistant Name Role Phone Leona Almendarez MD Primary Care Provider [phone] Encounter Details Date Type Department Care Team (Late st Contact Info) Description 11/26/2024 Lab Requisition [facility] - Main Lab 299 [facility] [place] [phone] Angel Adamson MD [address] [place] [address] Parkinsonism, unspecified (CMS/HCC V24, CMS/HCC V28) Social [...] t [facility] [address] [place] [address], * (ABNORMAL) Complete blood count (11/27/2024 7:12 AM EST) WBC 7.7 4.8 - 10.8 K/mcL LAB HEMETOLOGY METHOD 11/27/2024 9:13 AM [facility] RBC 4.30(L) 4.50 - 5.50 M/mcL LAB HEMETOLOGY METHOD 11/27/2024 9:13 AM [facility] Hemoglobin 13.8 13.5 - 17.5 g/dL LAB HEMETOLOGY METHOD 11/27/2024 9:13 AM [facility] Hematocrit 42.9 42.0 - 54.0 % LAB HEMETOLOGY METHOD 11/27/2024 9:13 AM [facility] MCV 100.5(H) 79.0 - 98.0 FL LAB HEMETOLOGY METHOD 11/27/2024 9:13 AM [facility] MCH 32.3(H) 27.0 - 32.0 pcg LAB HEMETOLOGY METHOD 11/27/2024 9:13 AM [facility] MCHC 32.2 32.0 - 37.0 g/dL LAB HEMETOLOGY METHOD 11/27/2024 9:13 AM [facility] RDW 13.7 11.0 - 15.0 [...] LAB HEMETOLOGY METHOD 11/27/2024 9:13 AM EST [facility] NRBC Absolute 0.00 <0.10 K/mcL LAB HEMETOLOGY METHOD 11/27/2024 9:13 AM EST [facility] Blood Venous blood specimen / Unknown Venipuncture / Unknown 11/27/2024 7:12 AM EST 11/27/2024 8:47 AM EST us Angel Adamson MD LAB BLOOD ORDERABLES Final Resul t [facility] [address] [place] [address], documented in this encounter Visit Diagnoses Diagnosis Parkinsonism, unspecified (CMS/HCC V24, CMS/HCC V28) documented in this encounter Additional Health Concerns Infection Onset Date Last Indicated Resolved Time ESBL 11/24/2024 11/24/2024 documented as of this encounter Care Teams Land Surveyor Assistant Relationship Specialty Start Date End Date Leona Almendarez MD 1221 [facility] [address] [place], [place] PCP - General 07/03/18 documented as of this encounter
--- OUTSIDE RECORDS SUMMARY | 2025-03-16 11:33 | XMS_ITS | Encounter Summary ---
Author Organization [facility] [place] [address] Care Team Providers Care Sheet Tester Name Role Phone Leona Almendarez MD Primary Care Provider [phone] Encounter Details Date Type Department Care Team (Late st Contact Info) Description 01/16/2025 Lab Requisition [facility] - Main Lab 299 [facility] [place] [phone] Angel Adamson MD [address] [place] [address] Parkinsonism, unspecified (CMS/HCC V24, CMS/HCC V28) Social [...] LAB CHEMISTRY METHOD 01/18/2025 12:53 PM EST [facility] Folate 4.6 2.8 - 17.0 ng/ml LAB CHEMISTRY METHOD 01/18/2025 12:53 PM EST [facility] Blood Venous blood specimen / Unknown Venipuncture / Unknown 01/18/2025 7:43 AM EST 01/18/2025 11:26 AM EST us Angel Adamson MD LAB BLOOD ORDERABLES Final Resul t [facility] [address] [place] [address], documented in this encounter Visit Diagnoses Diagnosis Parkinsonism, unspecified (CMS/HCC V24, CMS/HCC V28) documented in this encounter Additional Health Concerns Infection Onset Date Last Indicated Resolved Time ESBL 11/24/2024 11/24/2024 documented as of this encounter Care Teams Sheet Tester Relationship Specialty Start Date End Date Leona Almendarez MD [address] PCP - General 07/03/18 documented as of this encounter
--- OUTSIDE RECORDS SUMMARY | 2025-03-16 11:33 | XMS_ITS | Encounter Summary ---
Author Organization [facility] [place] [address] Care Team Providers Care Director Corporate Name Role Phone Leona Almendarez MD Primary Care Provider [phone] Encounter Details Date Type Department Care Team (Late st Contact Info) Description 12/16/2024 Lab Requisition [facility] - Main Lab 299 [facility] [place] [phone] Angel Adamson MD [address] [place] [address] Parkinsonism, unspecified (CMS/HCC V24, CMS/HCC V28) Social [...] Final Resul t [facility] [address] [place] [address], * (ABNORMAL) Complete blood count (12/17/2024 7:30 AM EST) WBC 6.8 4.8 - 10.8 K/mcL LAB HEMETOLOGY METHOD 12/17/2024 10:16 AM EST [facility] RBC 3.60(L) 4.50 - 5.50 M/mcL LAB HEMETOLOGY METHOD 12/17/2024 10:16 AM EST [facility] Hemoglobin 11.5(L) 13.5 - 17.5 g/dL LAB HEMETOLOGY METHOD 12/17/2024 10:[address] [facility] Hematocrit 36.9(L) 42.0 - 54.0 % LAB HEMETOLOGY METHOD 12/17/2024 10:[address] [facility] MCV 101.9(H) 79.0 - 98.0 FL LAB HEMETOLOGY METHOD 12/17/2024 10:[address] [facility] MCH 31.8 27.0 - 32.0 pcg LAB HEMETOLOGY METHOD 12/17/2024 10:[address] [facility] MCHC 31.2(L) 32.0 - 37.0 g/dL LAB HEMETOLOGY METHOD 12/17/2024 10:[address] [facility] RDW 14.7 11.0 - 15.0 % LAB HEMETOLOGY METHOD 12/17/2024 10:[address] [facility] Platelets 352 130 - 400 K/mcL LAB HEMETOLOGY METHOD 12/17/2024 10:[address] [facility] MPV 9.4 7.0 - 11.0 FL LAB HEMETOLOGY METHOD 12/17/2024 10:16 AM EST [facility] NRBC 0.0 <1.0 % LAB HEMETOLOGY METHOD 12/17/2024 10:16 AM EST [facility] NRBC Absolute 0.00 <0.10 K/mcL LAB HEMETOLOGY METHOD 12/17/2024 10:16 AM EST [facility] Blood Venous blood specimen / Unknown Venipuncture / Unknown 12/17/2024 7:30 AM EST 12/17/2024 10:16 AM EST us Angel Adamson MD LAB BLOOD ORDERABLES Final Resul t [facility] [address] [place] [address], documented in this encounter Visit Diagnoses Diagnosis Parkinsonism, unspecified (CMS/HCC V24, CMS/HCC V28) documented in this encounter Additional Health Concerns Infection Onset Date Last Indicated Resolved Time ESBL 11/24/2024 11/24/2024 documented as of this encounter Care Teams Director Corporate Relationship Specialty Start Date End Date Leona Almendarez MD [facility] [address] PCP - General 07/03/18 documented as of this encounter
--- OUTSIDE RECORDS SUMMARY | 2025-03-16 11:33 | XMS_ITS | Encounter Summary ---
Author Organization [facility] [place] [address] Care Team Providers Care Field Operations Coordinator Name Role Phone Leona Almendarez MD Primary Care Provider [phone] Encounter Details Date Type Department Care Team (Late st Contact Info) Description 12/09/2024 Lab Requisition [facility] - Main Lab 299 [facility] [place] [phone] Angel Adamson MD [address] [place] [address] Parkinsonism, unspecified (CMS/HCC V24, CMS/HCC V28) Social [...] mmol/L LAB CHEMISTRY METHOD 12/10/2024 8:57 AM [facility] Potassium 4.0 3.5 - 5.5 mmol/L LAB CHEMISTRY METHOD 12/10/2024 8:57 AM [facility] Chloride 104 96 - 110 mmol/L LAB CHEMISTRY METHOD 12/10/2024 8:57 AM [facility] CO2 27 21 - 32 mmol/L LAB CHEMISTRY METHOD 12/10/2024 8:57 AM [facility] Anion Gap 5 3 - 11 LAB CHEMISTRY METHOD 12/10/2024 8:57 AM [facility] Glucose 104(H) 70 - 100 mg/dL LAB CHEMISTRY METHOD 12/10/2024 8:57 AM [facility] BUN 22 5 - 25 mg/dL LAB CHEMISTRY METHOD 12/10/2024 8:57 AM [facility] Creatinine 0.63(L) 0.70 - 1.30 mg/dL LAB CHEMISTRY METHOD 12/10/2024 8:57 AM [facility] eGFR 97 >=60 mL/min/1. 73m2 LAB CHEMISTRY METHOD 12/10/2024 8:57 AM [facility] Comment:Calculation based on the??Chronic Kidney Disease Epidemiology Collaboration (CKD-EPI) equation refit??without adjustment for race. BUN/Creatinine Ratio 34.9 LAB CHEMISTRY METHOD 12/10/2024 8:57 AM [facility] Calcium 8.5 8.5 - 10.5 mg/dL LAB CHEMISTRY METHOD 12/10/2024 8:57 AM [facility] Blood Venous blood specimen / Unknown Venipuncture / Unknown 12/10/2024 7:03 AM EST 12/10/2024 8:24 AM EST Angel Adamson MD LAB BLOOD ORDERABLES Final Resul t [facility] [address] [place] [address], * (ABNORMAL) Complete blood count (12/10/2024 7:03 AM EST) WBC 9.5 4.8 - 10.8 K/mcL LAB HEMETOLOGY METHOD 12/10/2024 8:32 AM [facility] RBC 3.20(L) 4.50 - 5.50 M/mcL LAB HEMETOLOGY METHOD 12/10/2024 8:32 AM [facility] Hemoglobin 10.4(L) 13.5 - 17.5 g/dL LAB HEMETOLOGY METHOD 12/10/2024 8:32 AM [facility] Hematocrit 32.5(L) 42.0 - 54.0 % LAB HEMETOLOGY METHOD 12/10/2024 8:32 AM [facility] MCV 100.6(H) 79.0 - 98.0 FL LAB HEMETOLOGY METHOD 12/10/2024 8:32 AM [facility] MCH 32.2(H) 27.0 - 32.0 pcg LAB HEMETOLOGY METHOD 12/10/2024 8:32 AM [facility] MCHC 32.0 32.0 - 37.0 g/dL LAB HEMETOLOGY METHOD 12/10/2024 8:32 AM [facility] RDW 14.2 11.0 - 15.0 % LAB HEMETOLOGY METHOD 12/10/2024 8:32 AM [facility] Platelets 356 130 - 400 K/mcL LAB HEMETOLOGY METHOD 12/10/2024 8:32 AM [facility] MPV 9.1 7.0 - 11.0 FL LAB HEMETOLOGY METHOD 12/10/2024 8:32 AM EST [facility] NRBC 0.0 <1.0 % LAB HEMETOLOGY METHOD 12/10/2024 8:32 AM EST [facility] NRBC Absolute 0.00 <0.10 K/mcL LAB HEMETOLOGY METHOD 12/10/2024 8:32 AM EST [facility] Blood Venous blood specimen / Unknown Venipuncture / Unknown 12/10/2024 7:03 AM EST 12/10/2024 8:24 AM EST us Angel Adamson MD LAB BLOOD ORDERABLES Final Resul t [facility] [address] [place] [address], documented in this encounter Visit Diagnoses Diagnosis Parkinsonism, unspecified (CMS/HCC V24, CMS/HCC V28) documented in this encounter Additional Health Concerns Infection Onset Date Last Indicated Resolved Time ESBL 11/24/2024 11/24/2024 documented as of this encounter Care Teams Field Operations Coordinator Relationship Specialty Start Date End Date Leona Almendarez MD [facility] [address] PCP - General 07/03/18 documented as of this encounter
== END 2025-03-16 11:34 | disposition home or self-care (01) ==
LOC: HO.HSMS 10:08
PROVIDERS: PCP Internal Medicine; Visit Provider Physician Assistant Medical
DX: G20.A1 Parkinson's disease without dyskinesia, without mention of fluctuations (principal); F02.82 Dementia in other diseases classified elsewhere, unspecified severity, with psychotic disturbance; R49.8 Other voice and resonance disorders; Z96.641 Presence of right artificial hip joint; G47.52 REM sleep behavior disorder
CPT/HCPCS: 99214

== ENCOUNTER → 2025-03-16 10:07 | Outpatient (BNVA) | payer MEDICARE, MEDICAID, SELFPAY | PROVIDERS: PCP Internal Medicine; Visit Provider Physician Assistant Medical | DX: G20.A1 Parkinson's disease without dyskinesia, without mention of fluctuations (principal); F02.80 Dementia in other diseases classified elsewhere, unspecified severity, without behavioral disturbance, psychotic disturbance, mood disturbance, and anxiety; R49.8 Other voice and resonance disorders; R44.3 Hallucinations, unspecified; G47.52 REM sleep behavior disorder; S72.001S Fracture of unspecified part of neck of right femur, sequela; X58.XXXS Exposure to other specified factors, sequela | CPT/HCPCS: 99212 ==

== ENCOUNTER 2025-09-01 12:17 | Outpatient (AMB) | payer MEDICARE, MEDICAID, SELFPAY ==
--- NOTE | 2025-09-01 12:34 | MHC.OFFVIS ---
Vital Signs 09/01/25 12:44 BP 106/70 Blood Pressure Location Rt brachial Position Sitting Pulse 78 Pulse Source Pulse Oximeter Pulse Oximetry (%) 96 Oxygen Delivery Method Room Air Intake Visit Reasons: Parkinson's F/U, okay per MD Intake Note: Follow up Parkinson's disease without dyskinesia, without mention of fluctuations, cognitive disorder, hypophonia, hallucinations Manager Inventory Control Required: No Accompanied by: Partner b- HCP and PO Allergies oxycodone Allergy (Severe, Verified 09/01/25 12:34) Blister haloperidol (From Haldol) Allergy (Verified 09/01/25 12:34) Agitated Medication List - Last Reconciled 09/01/25 by Isabell Lott MD acetaminophen 650 mg PO Q4H PRN apixaban (Eliquis) 5 mg PO BID Held on 12/04/24. Instructions: resume 12/05 with evening dose ascorbic acid (vitamin C) 250 mg PO BID carbidopa-levodopa 25-100 mg 1 tab PO QID docusate sodium (Colace) 100 mg PO BID melatonin 10 mg PO BEDTIME PRN polyethylene glycol 3350 (Miralax) 17 grams PO DAILY sennosides (senna) 17.2 mg PO BID HPI Comments Details: 80 year old male here for a 6 month f/u of Parkinsons Disorder with Dementia and urological difficulties. he is at [facility] He has day night reversal for past 8 weeks .He was started on melatonin 10mg but did not help, He is in a wheelchair now.He walks twice a week with PT. Cognition fluctuates. Sarah his partner is here to help with history today.Mood is stable SPeech is softer . He eats regular diet.He has more drooling He has persistent hallucinations but remy snot bother him. CD/LD 25/100mg PO TID with crackers. 30 min prior to meal time or two hours after meals, not to combine with protein or dairy. History from last visit-He says he has a rough time getting around, Sarah says his feet become swollen so he must elevate his feet through the day. He uses a reclining wheel chair per the orthopedic doctor's order since the R. hip replacement in Nov 2024 due to a fall. His L. hip was replaced in 2020. Now he is walking daily as tolerable with a rolling walker at the shelter where he lives. He is motivated to do PT / OT with the staff at [facility]. He has help with all his ADLs, he has difficulty holding the spoon or fork due to tremors. He has no difficulty chewing and swallowing, his food, he denies drooling, his speech is softer, raspier than his usual, he, yet he is on a regular diet. He denies constipation, has a stool softener, M.O.M daily and suppositories as needed. STM is poor at baseline, some days are better than others, and he can remember details from High School and when Sarah does not show up for the visits. His mood anxious. He sleeps well, and gets up at 3am, or 7am per the staff. He has insomnia and wanders from room to room at night, he denies auditory or visual hallucinations, and or Parasomnias. He is a patient of Dr. Almendarez. He is seen for the following urologic conditions by Dr. Norris elevated PSA, and nocturia, he wears adult diapers and occasionally 2-4 times a night or during the day has urinary incontinence, will require help from nursing staff to change him periodically through the day. Sarah says he is fine without the Finasteride and declines the medication. He doesn't hear well, he needs constant reminding, cuing and visual orientation, when he gets confused. He used to have hearing aids years ago and would like to be evaluated for hearing deficits. 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 HTN (hypertension) TIA (transient ischemic attack) Raynauds disease Hyperlipidemia Arthritis Lumbar spondylosis Fatty liver Atrial fibrillation Surgical History History of hip replacement Family History Father Stroke Mother Heart failure Sister Breast cancer in female Social History Household Members: Other Housing: Assisted Do you presently have visiting nurse or other home services: No Alcohol intake: former Patient Tobacco Use Status: Never used Tobacco Advance Directives Date on File: 12/02/24 service: Yes Physical Exam Vital Signs: Last Vital Signs Pulse 78 09/01/25 12:44 BP 106/70 09/01/25 12:44 Pulse Ox 96 09/01/25 12:44 Oxygen Delivery Method Room Air 09/01/25 12:44 Const General: cooperative and comfortable Nutritional Appearance: average body habitus Orientation/consciousness: oriented to person and oriented to place HEENT Head: Yes normal to inspection Neck Other: mild antecollis and restricted range of motion Neuro Other: severe decreased blink and facial expression, blunted mild- moderate tongue tremors , slow tongue movements Voice-severe hypophonia , whispering, raspy, quality with word finding difficulties no tremors to day Fine Finger movements - severely decreased hu R>L Alternating hand movements - decreased hu Hand movements - decreased hu Foot taps- decreased hu Hu cog wheel rigidity gait -unable to assess due to wheel chair bound General: oriented to person and oriented to place Cranial nerves: Yes CN's II-XII intact bilaterally, Yes Bilaterally intact EOM present, Yes Normal facial strength present and Yes Midline tongue present Cognition (Neuro): abnormal cognition (repeats questions frequently) Gait exam (Neuro): Other gait observations present (wheel chair) Motor exam (neuro): 5/5 motor strength present throughout and Normal motor muscle tone present throughout Psych Appearance: well kempt Speech and movement: Other speech and movement exam findings present (Psych) (scartchy voice, hypophonia barely audible) Affect: Blunted affect present Insight: Limited insight present (Psych) Judgement: Limited judgement present (Psych) Assessment & Plan Assessment & Plan (1) Parkinson's disease without dyskinesia: Code(s): G20.A1 - Parkinson's disease without dyskinesia, without mention of fluctuations Category: Medical Qualifiers: Fluctuating manifestations: without fluctuating manifestations Qualified Code(s): G20.A1 - Parkinson's disease without dyskinesia, without mention of fluctuations (2) Cognitive disorder: Comment: ? vascular ? DLBD? PDD Code(s): F09 - Unspecified mental disorder due to known physiological condition Category: Medical (3) Hallucinations: Code(s): R44.3 - Hallucinations, unspecified Category: Medical (4) REM behavioral disorder: Code(s): G47.52 - REM sleep behavior disorder Category: Medical Plan Increase carbidopa/levodopa 25/100 qid ( 8AM , 12 noon, 4 , 8pm )monitor for hallucinations , orthostatic hypotension. Interactions with protein discussed in detail. MAINTAIN time frame within 30 minutes when medications are given to avoid side effects Patients partner Sarah was disappointed and stressed with patients prognosis and his [place] [facility] care placement. Suggested a caregiver support group which she declined. Trazadone 50mg qhs to help with night time sleep Labs - TSH Vit B 12 Vit D Orders: Orders Vitamin B12 and Folate Today F09 - Unspecified mental disorder due to known physiological condition Vitamin D 25-OH (D2 and D3) Today F09 - Unspecified mental disorder due to known physiological condition TSH reflex Free T4 Today F09 - Unspecified mental disorder due to known physiological condition Medications: New trazodone 50 mg PO BEDTIME 30 tabs 6RF sleep Changed From carbidopa-levodopa 25-100 mg 1 tab PO TID To carbidopa-levodopa 25-100 mg 1 tab PO QID 120 tabs 0RF Coding Level of Care Code Est Pt Level 4 (37522) Complex EM visit Add On G2211 Diagnoses Parkinson's disease without dyskinesia or fluctuating manifestations G20.A1 Fluctuating manifestations: without fluctuating manifestations Cognitive disorder F09 Hallucinations R44.3 REM behavioral disorder G47.52
[2025-09-01 12:44] VITALS: BP 106/70; PULSE 78; O2SAT 96
--- OUTSIDE RECORDS SUMMARY | 2025-09-01 15:32 | XMS_ITS | Encounter Summary ---
Author Organization [facility] [place] [address] Care Team Providers Care Gymnastics Instructor Name Role Phone Leona Almendarez MD Primary Care Provider [phone] Encounter Details Date Type Department Care Team (Late st Contact Info) Description 01/15/[address] [facility] - Main Lab [address] [facility] [place] [phone] Angel Adamson MD [address] [place] [address] Other fatigue Social History Tobacco Use Types [...] LAB HEMETOLOGY METHOD 01/15/2025 10:10 AM EST [facility] Hematocrit 41.9(L) 42.0 - 54.0 % LAB HEMETOLOGY METHOD 01/15/2025 10:10 AM EST [facility] Blood Venous blood specimen / Unknown Venipuncture / Unknown 01/15/2025 8:18 AM EST 01/15/2025 9:34 AM EST us Angel Adamson MD LAB BLOOD ORDERABLES Final Resul t [facility] [address] [place] [address], documented in this encounter Visit Diagnoses Diagnosis Other fatigue documented in this encounter Additional Health Concerns Infection Onset Date Last Indicated Resolved Time ESBL 11/24/2024 03/24/2025 documented as of this encounter Care Teams Gymnastics Instructor Relationship Specialty Start Date End Date Leona Almendarez MD [address] [facility] [address] [place], [place] PCP - General 07/03/18 documented as of this encounter
--- OUTSIDE RECORDS SUMMARY | 2025-09-01 15:32 | XMS_ITS | Clinical Summary ---
Author Organization [address] [facility] Address [address] [place] [address] Phone Care Team Providers Care Opinion Polls Survey Worker Name Role Phone Leona Almendarez MD Primary Care Provider [phone] Encounters Date Type Department Care Team Description 09/01/2025 Lab Requisition [facility] Lab [address] [place] [phone] Angel Adamson MD Parkinsonism, unspecified ([facility] V24, [facility] V28) 09/01/2025 Lab Requisition [facility] Lab [address] [place] [phone] Angel Adamson MD Urinary tract infection, site not specified 08/24/2025 Lab Requisition [facility] Lab [address] [place] [phone] Angel Adamson MD Parkinsonism, unspecified ([facility] V24, [facility] V28) 08/23/2025 Lab Requisition [facility] [address] [place] [phone] Angel Adamson MD Dehydration 08/20/2025 Lab Requisition [facility] [address] [place] [phone] Angel Adamson MD Unspecified atrial fibrillation ([facility] V24, [facility] V28); Parkinsonism, unspecified ([facility] V24, [facility] V28) 06/04/[address] [facility] - Main Lab [address] [place] [address] Angel Adamson MD Frequency of micturition; Other fatigue from Last 3 Months Medical History Medical [...] (1 - Tdap) 1964 Pneumococcal Vaccine: 50+ Ye ars (1 of 1 - PCV) 1995 Zoster Vaccines (1 of 2) 1995 RSV Immunization Adult Patie nts (1 - 1-dose 75+ series) 2020 Falls Risk Assessment 10/25/2022 Medicare Annual Wellness Visit 10/25/2022 Social Influencers of Health Screening 10/25/2022 Depression Screening 11/18/2024 COVID-19 Vaccine (1 - 2023-2 5 season) 2025 Influenza Vaccine (#1) 2025 Cholesterol Screening (Lipid Panel) 03/11/2029 03/11/2024 HIB [...] to complete this topic RSV Immunization Patients Un jennifer 20 months Aged Out No longer eligible b ased on patient's age to complete this topic Varicella Vaccines Aged Out No longer eligible based on patient's age to complete this topic Procedures Procedure Name Priority Date/Time Associated Diagnosis Comments BASIC METABOLIC PANEL Routine 09/01/2025 7:01 AM EDT Parkinsonism, unspecified (CMS/HCC V24, CMS/HCC V28) COMPLETE BLOOD COUNT Routine 09/01/2025 7:01 AM EDT Parkinsonism, unspecified (CMS/HCC V24, CMS/HCC V28) URINALYSIS WITH REFLEX MICROSCOPIC Routine 08/31/2025 3:15 PM EDT Urinary tract infection, site not specified URINALYSIS WITH REFLEX MICROSCOPIC Routine 08/31/2025 3:15 PM EDT Urinary tract infection, site not specified BASIC METABOLIC PANEL Routine 08/24/2025 6:34 AM EDT Parkinsonism, unspecified (CMS/HCC V24, CMS/HCC V28) COMPLETE BLOOD COUNT Routine 08/24/2025 6:34 AM EDT Parkinsonism, unspecified (CMS/HCC V24, CMS/HCC V28) BASIC METABOLIC PANEL Routine 08/23/2025 7:20 AM EDT Dehydration BASIC METABOLIC PANEL Routine 08/20/2025 6:25 AM EDT Unspecified atrial fibrillation (CMS/HCC V24, CMS/HCC V28) Parkinsonism, unspecified (CMS/HCC V24, CMS/HCC V28) COMPLETE BLOOD COUNT Routine 08/20/2025 6:25 AM EDT Unspecified atrial fibrillation (CMS/HCC V24, CMS/HCC V28) Parkinsonism, unspecified (CMS/HCC V24, CMS/HCC V28) URINALYSIS WITH REFLEX MICROSCOPIC Routine 06/03/2025 12:00 AM EDT Frequency of micturition Other fatigue URINALYSIS WITH REFLEX MICROSCOPIC Routine 06/03/2025 12:00 AM EDT Frequency of micturition Other fatigue CULTURE URINE Routine 06/03/2025 12:00 AM EDT Frequency of micturition Other fatigue from Last 3 Months Results * (ABNORMAL) Complete blood count (09/01/2025 7:01 AM EDT) Only the most recent of3 resultswithin the time period is included. WBC 6.5 4.8 - 10.8 K/mcL LAB HEMETOLOGY METHOD 09/01/2025 10:27 AM [facility] RBC 4.40(L) 4.50 - 5.50 M/mcL LAB HEMETOLOGY METHOD 09/01/2025 10:[address] [facility] Hemoglobin 14.0 13.5 - 17.5 g/dL LAB HEMETOLOGY METHOD 09/01/2025 10:27 AM [facility] Hematocrit 43.2 42.0 - 54.0 % LAB HEMETOLOGY METHOD 09/01/2025 10:27 AM [facility] MCV 98.4(H) 79.0 - 98.0 FL LAB HEMETOLOGY METHOD 09/01/2025 10:27 AM [facility] MCH 31.9 27.0 - 32.0 pcg LAB HEMETOLOGY METHOD 09/01/2025 10:[address] [facility] MCHC 32.4 32.0 - 37.0 g/dL LAB HEMETOLOGY METHOD 09/01/2025 10:[address] [facility] RDW 13.2 11.0 - 15.0 % LAB HEMETOLOGY METHOD 09/01/2025 10:[address] [facility] Platelets 219 130 - 400 K/mcL LAB HEMETOLOGY METHOD 09/01/2025 10:[address] [facility] MPV 10.0 7.0 - 11.0 FL LAB HEMETOLOGY METHOD 09/01/2025 10:[address] [facility] NRBC 0.0 <1.0 % LAB HEMETOLOGY METHOD 09/01/2025 10:[address] [facility] NRBC Absolute 0.00 <0.10 K/mcL LAB HEMETOLOGY METHOD 09/01/2025 10:[address] [facility] Blood Venous blood specimen / Unknown Venipuncture / Unknown 09/01/2025 7:01 AM EDT 09/01/2025 9:39 AM EDT us Angel Adamson MD LAB BLOOD ORDERABLES Final Resul t [facility] [address] [place] [address], * (ABNORMAL) Basic metabolic panel (09/01/2025 7:01 AM EDT) Only the most recent of4 resultswithin the time period is included. Sodium 139 133 - 145 mmol/L LAB CHEMISTRY METHOD 09/01/2025 11:[address] [facility] Potassium 4.3 3.5 - 5.5 mmol/L LAB CHEMISTRY METHOD 09/01/2025 11:10 AM [facility] Chloride 106 96 - 110 mmol/L LAB CHEMISTRY METHOD 09/01/2025 11:10 AM [facility] CO2 28 21 - 32 mmol/L LAB CHEMISTRY METHOD 09/01/2025 11:10 AM [facility] Anion Gap 5 3 - 11 LAB CHEMISTRY METHOD 09/01/2025 11:10 AM [facility] Glucose 88 70 - 100 mg/dL LAB CHEMISTRY METHOD 09/01/2025 11:10 AM [facility] BUN 25 5 - 25 mg/dL LAB CHEMISTRY METHOD 09/01/2025 11:10 AM [facility] Creatinine 0.69(L) 0.70 - 1.30 mg/dL LAB CHEMISTRY METHOD 09/01/2025 11:10 AM [facility] eGFR 94 >=60 mL/min/1. 73m2 LAB CHEMISTRY METHOD 09/01/2025 11:10 AM [facility] Comment:Calculation based on the Chronic Kidney Disease Epidemiology Collaboration (CKD-EPI) equation refit without adjustment for race. BUN/Creatinine Ratio 36.2 LAB CHEMISTRY METHOD 09/01/2025 11:10 AM [facility] Calcium 9.5 8.5 - 10.5 mg/dL LAB CHEMISTRY METHOD 09/01/2025 11:10 AM [facility] Blood Venous blood specimen / Unknown Venipuncture / Unknown 09/01/2025 7:01 AM EDT 09/01/2025 9:39 AM EDT us Angel Adamson MD LAB BLOOD ORDERABLES Final Resul t [facility] [address] [place] [address], * (ABNORMAL) Urinalysis with reflex microscopic (08/31/2025 3:15 PM EDT) Only the most recent of2 resultswithin the time period is included. Specific [place] Urine 1.010 1.003 - 1.030 LAB URINALYSIS - AUTOMATED METHOD 09/01/2025 11:49 AM [facility] pH, Urine 7.5 5.0 - 8.0 pH LAB URINALYSIS - AUTOMATED METHOD 09/01/2025 11:49 AM [facility] Leukocytes, Urine Moderate(A) Negative LAB URINALYSIS - AUTOMATED METHOD 09/01/2025 11:49 AM [facility] Nitrite, Urine Negative Negative LAB URINALYSIS - AUTOMATED METHOD 09/01/2025 11:49 AM [facility] Protein, Urine Negative <=Trace mg/dL LAB URINALYSIS - AUTOMATED METHOD 09/01/2025 11:49 AM [facility] Glucose, Urine Negative Negative mg/dL LAB URINALYSIS - AUTOMATED METHOD 09/01/2025 11:49 AM [facility] Ketones, Urine Negative Negative mg/dL LAB URINALYSIS - AUTOMATED METHOD 09/01/2025 11:49 AM [facility] Urobilinogen , Urine 1.0 0.2 - 1.0 mg/dL LAB URINALYSIS - AUTOMATED METHOD 09/01/2025 11:49 AM [facility] Bilirubin, Urine Negative Negative LAB URINALYSIS - AUTOMATED METHOD 09/01/2025 11:49 AM [facility] Blood, Urine Negative Negative LAB URINALYSIS - AUTOMATED METHOD 09/01/2025 11:49 AM [facility] RBC, Urine 1.3 0 - 4 /HPF LAB URINALYSIS - AUTOMATED METHOD 09/01/2025 11:49 AM [facility] WBC, Urine 1.4 0 - 4 /HPF LAB URINALYSIS - AUTOMATED METHOD 09/01/2025 11:[address] [facility] Squamous Epithelial, Urine 8 0 - 60 /LPF LAB URINALYSIS - AUTOMATED METHOD 09/01/2025 11:[address] [facility] Bacteria, Urine Negative Negative /HPF LAB URINALYSIS - AUTOMATED METHOD 09/01/2025 11:[address] [facility] Hyaline Casts, Urine 5.0(H) 0 - 3 /LPF LAB URINALYSIS - AUTOMATED METHOD 09/01/2025 11:[address] [facility] Urine Urine specimen obtained by clean catch procedure / Unknown Non-blood Collection / Unknown 08/31/2025 3:15 PM EDT 09/01/2025 10:04 AM EDT us Angel Adamson MD LAB URINE ORDERABLES Final Resul t [facility] [address] [place] [address], [place] [phone] * Culture urine (06/03/2025 12:00 AM EDT) Culture, Urine <10,000 cfu/mL Mixed bacterial juliette 06/05/2025 9:[address] [facility] Urine Urine specimen from urethra / Unknown 06/03/2025 06/04/2025 10:16 AM EDT us Angel Adamson MD LAB MICROBIOLOGY - GENERAL ORDER TABITHA Final Result [facility] [address] [place] [address], [place] [phone] from Last 3 Months Additional Health Concerns Infection Onset Date Last Indicated ESBL 11/24/2024 03/24/2025 Insurance [place]ICA[place] - [place] MEDICARE Advance Directives Documents on File Type Date Recorded Patient Adjunct Latin Professor Expl anation Health Care Decision (hx) 06/25/2024 AD WILSON DIRECTIVE Health Care Decision (hx) 06/25/2024 AD WILSON DIRECTIVE Health Care Decision (hx) 06/20/2024 AD WILSON DIRECTIVE Health Care Decision (hx) 06/20/2024 AD WILSON DIRECTIVE Care Teams Opinion Polls Survey Worker Relationship Specialty Start Date End Date Leona Almendarez MD [address] [facility] [address] [place], [place] PCP - General 07/03/18
--- OUTSIDE RECORDS SUMMARY | 2025-09-01 15:32 | XMS_ITS | Encounter Summary ---
Author Organization [facility] [place] [address] Care Team Providers Care Shredder Tender Peat Name Role Phone Leona Almendarez MD Primary Care Provider [phone] Encounter Details Date Type Department Care Team (Late st Contact Info) Description 11/20/2024 Lab Requisition [facility] - Main Lab [address] [facility] [place] [phone] Maggie Parry PA [address] [place] [address] [facility] [address] Essential (primary) hypertension Social History Tobacco Use [...] mmol/L LAB CHEMISTRY METHOD 11/20/2024 5:10 PM [facility] Potassium 4.2 3.5 - 5.5 mmol/L LAB CHEMISTRY METHOD 11/20/2024 5:10 PM [facility] Chloride 106 96 - 110 mmol/L LAB CHEMISTRY METHOD 11/20/2024 5:10 PM [facility] CO2 30 21 - 32 mmol/L LAB CHEMISTRY METHOD 11/20/2024 5:10 PM [facility] Anion Gap 5 3 - 11 LAB CHEMISTRY METHOD 11/20/2024 5:10 PM [facility] Glucose 94 70 - 100 mg/dL LAB CHEMISTRY METHOD 11/20/2024 5:10 PM [facility] BUN 19 5 - 25 mg/dL LAB CHEMISTRY METHOD 11/20/2024 5:10 PM [facility] Creatinine 0.63(L) 0.70 - 1.30 mg/dL LAB CHEMISTRY METHOD 11/20/2024 5:10 PM [facility] eGFR 97 >=60 mL/min/1. 73m2 LAB CHEMISTRY METHOD 11/20/2024 5:10 PM [facility] Comment:Calculation based on the Chronic Kidney Disease Epidemiology Collaboration (CKD-EPI) equation refit without adjustment for race. BUN/Creatinine Ratio 30.2 LAB CHEMISTRY METHOD 11/20/2024 5:10 PM [facility] Calcium 8.8 8.5 - 10.5 mg/dL LAB CHEMISTRY METHOD 11/20/2024 5:10 PM [facility] Blood Venous blood specimen / Unknown Venipuncture / Unknown 11/20/2024 3:13 PM EST 11/20/2024 4:32 PM EST us Maggie YORK LAB BLOOD ORDERABLES Final Resu lt [facility] [address] [place] [address], * (ABNORMAL) Complete blood count (11/20/2024 3:13 PM EST) [facility] WBC 7.9 4.8 - 10.8 K/mcL LAB HEMETOLOGY METHOD 11/20/2024 4:51 PM EST [facility] RBC 4.10(L) 4.50 - 5.50 M/mcL LAB HEMETOLOGY METHOD 11/20/2024 4:51 PM [facility] Hemoglobin 12.8(L) 13.5 - 17.5 g/dL LAB HEMETOLOGY METHOD 11/20/2024 4:51 PM [facility] Hematocrit 39.5(L) 42.0 - 54.0 % LAB HEMETOLOGY METHOD 11/20/2024 4:51 PM [facility] MCV 97.3 79.0 - 98.0 FL LAB HEMETOLOGY METHOD 11/20/2024 4:51 PM [facility] MCH 31.5 27.0 - 32.0 pcg LAB HEMETOLOGY METHOD 11/20/2024 4:51 PM [facility] MCHC 32.4 32.0 - 37.0 g/dL LAB HEMETOLOGY METHOD 11/20/2024 4:51 PM EST [facility] RDW 13.5 11.0 - 15.0 % LAB HEMETOLOGY METHOD 11/20/2024 4:51 PM [facility] Platelets 200 130 - 400 K/mcL LAB HEMETOLOGY METHOD 11/20/2024 4:51 PM [facility] MPV 10.2 7.0 - 11.0 FL LAB HEMETOLOGY METHOD 11/20/2024 4:51 PM [facility] NRBC 0.0 <1.0 % LAB HEMETOLOGY METHOD 11/20/2024 4:51 PM EST [facility] NRBC Absolute 0.00 <0.10 K/mcL LAB HEMETOLOGY METHOD 11/20/2024 4:51 PM EST [facility] Blood Venous blood specimen / Unknown Venipuncture / Unknown 11/20/2024 3:13 PM EST 11/20/2024 4:32 PM EST us Maggie YORK LAB BLOOD ORDERABLES Final Resu lt [facility] [address] [place] [address], documented in this encounter Visit Diagnoses Diagnosis Essential (primary) hypertension Unspecified essential hypertension documented in this encounter Additional Health Concerns Infection Onset Date Last Indicated Resolved Time ESBL 11/24/2024 03/24/2025 documented as of this encounter Care Teams Shredder Tender Peat Relationship Specialty Start Date End Date Leona Almendarez MD [address] [facility] [address] [place], [place] PCP - General 07/03/18 documented as of this encounter
--- OUTSIDE RECORDS SUMMARY | 2025-09-01 15:32 | XMS_ITS | Clinical Summary ---
Author Organization [facility] Address [address] [place] [address] Phone Care Team Providers Care Senior Computer Specialist Name Role Phone Leona Almendarez MD Primary Care Provider Social History Tobacco Use Types Packs/Day Years Used Date Smoking Tobacco: Never Assessed Education Answer Date Recorded Are you interested in more education? Not on ijeoma e 12/20/2023 Are you concerned about learning? Not on file 12/20/2023 No 12/20/2023 No 12/20/2023 Digital Access Answer Date Recorded No 12/20/2023 No 12/20/2023 Reliable internet access at home? Not on file 12/20/2023 Device with a working camera? Not on file Sex and Gender Information Value Date Recorded Sex Assigned at Not on file Legal Sex Male 10:21 AM EST Gender Identity Not on file Sexual Orientation Not on file Plan of Treatment Health Maintenance Due Date Last Done Comments Adult Td,Tdap Booster 1945 DEPRESSION SCREENING 1957 SMOKING Hx and SMOKELESS TOB ACCO SCREENING 1958 PNEUMOCOCCAL VACCINES (50+ y ears) (1 of 1 - PCV) 1995 ZOSTER VACCINES (1 of 2) 1995 RSV VACCINE (1 - 1-dose 75+ series) 2020 INFLUENZA VACCINE (#1) 2025 COVID-19 VACCINE ( - 2024-2 6 season) 2025 LIPID PANEL 03/11/2029 03/11/2024 HEPATITIS A VACCINES Aged Out No long er eligible based on patient's age to complete this topic HIB VACCINES Aged Out No longer eligi ble based on patient's age to complete this topic MENINGOCOCCAL VACCINES (ACWY) Aged Out No longer eligible based on patient's age to complete this topic MENINGOCOCCAL VACCINES (B) Aged Out N o longer eligible based on patient's age to complete this topic Medical Devices Not on file Procedures Procedure Name Priority Date/Time Associated Diagnosis Comments LIPID PANEL Routine 03/11/2024 12:09 PM EDT from Last 3 Months or Most Recently Relevant to Health Maintenance Results * (ABNORMAL) Lipid panel (03/11/2024 12:09 PM EDT) HDL 37(L) 40 - 80 mg/dL [facility] CHOLESTEROL 166 0 - 200 mg/dL [facility] TRIGLYCERIDES 69 0 - 150 mg/dL [facility] LDL 115 0 - 130 mg/dL [facility] CARDIAC RISK RATIO [address] [facility] 03/11/2024 12:0 9 PM EDT 03/11/2024 12:20 PM EDT us Leona Almendarez MD LAB BLOOD ORDERABLES F inal Result [address] [phone] from Last 3 Months or Most Recently Relevant to Health Maintenance Insurance [employer] MEDICARE PART A & B [place] & B [facility] MEDICARE PART A & B Care Teams Senior Computer Specialist Relationship Specialty Start Date End Date Leona Almendarez MD [address] [place] [address] [place] [phone] PCP - General Internal Medicine 12/18/23 Additional Source Comments The information contained in this document represents components of the legal health record. It is not the complete legal health record.[facility]
--- OUTSIDE RECORDS SUMMARY | 2025-09-01 15:32 | XMS_ITS | Encounter Summary ---
Author Organization [facility] [place] [address] Care Team Providers Care Chopper Feeder Name Role Phone Leona Almendarez MD Primary Care Provider [phone] Encounter Details Date Type Department Care Team (Late st Contact Info) Description 12/16/2024 Lab Requisition [facility] - Main Lab 299 [facility] [place] [phone] Angel Adamson MD [address] [place] [address] Parkinsonism, unspecified (CMS/HCC V24, CMS/HCC V28) Social [...] mmol/L LAB CHEMISTRY METHOD 12/17/2024 10:16 AM [facility] Potassium 4.1 3.5 - 5.5 mmol/L LAB CHEMISTRY METHOD 12/17/2024 10:16 AM [facility] Chloride 106 96 - 110 mmol/L LAB CHEMISTRY METHOD 12/17/2024 10:16 AM [facility] CO2 28 21 - 32 mmol/L LAB CHEMISTRY METHOD 12/17/2024 10:16 AM [facility] Anion Gap 6 3 - 11 LAB CHEMISTRY METHOD 12/17/2024 10:16 AM [facility] Glucose 84 70 - 100 mg/dL LAB CHEMISTRY METHOD 12/17/2024 10:16 AM [facility] BUN 17 5 - 25 mg/dL LAB CHEMISTRY METHOD 12/17/2024 10:16 AM [facility] Creatinine 0.55(L) 0.70 - 1.30 mg/dL LAB CHEMISTRY METHOD 12/17/2024 10:16 AM [facility] eGFR 101 >=60 mL/min/1. 73m2 LAB CHEMISTRY METHOD 12/17/2024 10:16 AM [facility] Comment:Calculation based on the Chronic Kidney Disease Epidemiology Collaboration (CKD-EPI) equation refit without adjustment for race. BUN/Creatinine Ratio 30.9 LAB CHEMISTRY METHOD 12/17/2024 10:16 AM [facility] Calcium 9.0 8.5 - 10.5 mg/dL LAB CHEMISTRY METHOD 12/17/2024 10:16 AM [facility] Blood Venous blood specimen / Unknown Venipuncture / Unknown 12/17/2024 7:30 AM EST 12/17/2024 10:16 AM EST Angel Adamson MD LAB BLOOD ORDERABLES Final Resul t [facility] [address] [place] [address], * (ABNORMAL) Complete blood count (12/17/2024 7:30 AM EST) WBC 6.8 4.8 - 10.8 K/mcL LAB HEMETOLOGY METHOD 12/17/2024 10:16 AM EST [facility] RBC 3.60(L) 4.50 - 5.50 M/mcL LAB HEMETOLOGY METHOD 12/17/2024 10:16 AM [facility] Hemoglobin 11.5(L) 13.5 - 17.5 g/dL LAB HEMETOLOGY METHOD 12/17/2024 10:16 AM [facility] Hematocrit 36.9(L) 42.0 - 54.0 % LAB HEMETOLOGY METHOD 12/17/2024 10:16 AM [facility] MCV 101.9(H) 79.0 - 98.0 FL LAB HEMETOLOGY METHOD 12/17/2024 10:16 AM [facility] MCH 31.8 27.0 - 32.0 pcg LAB HEMETOLOGY METHOD 12/17/2024 10:16 AM [facility] MCHC 31.2(L) 32.0 - 37.0 g/dL LAB HEMETOLOGY METHOD 12/17/2024 10:16 AM [facility] RDW 14.7 11.0 - 15.0 % LAB HEMETOLOGY METHOD 12/17/2024 10:16 AM [facility] Platelets 352 130 - 400 K/mcL LAB HEMETOLOGY METHOD 12/17/2024 10:16 AM [facility] MPV 9.4 7.0 - 11.0 FL LAB HEMETOLOGY METHOD 12/17/2024 10:16 AM [facility] NRBC 0.0 <1.0 % LAB HEMETOLOGY METHOD 12/17/2024 10:16 AM EST [facility] NRBC Absolute 0.00 <0.10 K/mcL LAB HEMETOLOGY METHOD 12/17/2024 10:16 AM EST [facility] Blood Venous blood specimen / Unknown Venipuncture / Unknown 12/17/2024 7:30 AM EST 12/17/2024 10:16 AM EST us Angel Adamson MD LAB BLOOD ORDERABLES Final Resul t [facility] [address] [place] [address], documented in this encounter Visit Diagnoses Diagnosis Parkinsonism, unspecified (CMS/HCC V24, CMS/HCC V28) documented in this encounter Additional Health Concerns Infection Onset Date Last Indicated Resolved Time ESBL 11/24/2024 03/24/2025 documented as of this encounter Care Teams Chopper Feeder Relationship Specialty Start Date End Date Leona Almendarez MD [address] PCP - General 07/03/18 documented as of this encounter
--- OUTSIDE RECORDS SUMMARY | 2025-09-01 15:33 | XMS_ITS | Encounter Summary ---
Author Organization [facility] [place] [address] Care Team Providers Care Bowling Ball Patcher Name Role Phone Leona Almendarez MD Primary Care Provider [phone] Encounter Details Date Type Department Care Team (Late st Contact Info) Description 11/25/2024 Lab Requisition [facility] - Main Lab 299 [facility] [place] [phone] Angel Adamson MD [address] [place] [address] Altered mental status, unspecified; Chronic fatigue, unspecified [...] reflex microscopic (11/24/2024 3:20 PM EST) Specific [place] Urine 1.012 1.003 - 1.030 LAB URINALYSIS [...] - AUTOMATED METHOD 11/25/2024 10:19 AM EST [facility] WBC, Urine 2,095.6(H) 0 [...] MD LAB URINE ORDERABLES Final Resul t [facility] [address] [place] [address], * (ABNORMAL) Culture urine (11/24/2024 3:20 PM [...] MICROBIOLOGY - GENERAL ORDER TABITHA Final Result [facility] LAB [address] [place] [address], documented in this encounter Visit Diagnoses Diagnosis Altered mental status, unspecified Chronic fatigue, unspecified documented in this encounter Additional Health Concerns Infection Onset Date Last Indicated Resolved Time ESBL 11/24/2024 03/24/2025 documented as of this encounter Care Teams Bowling Ball Patcher Relationship Specialty Start Date End Date Leona Almendarez MD 1221 [facility] [address] [place], [place] PCP - General 07/03/18 documented as of this encounter
--- OUTSIDE RECORDS SUMMARY | 2025-09-01 15:33 | XMS_ITS | Encounter Summary ---
Author Organization [facility] [place] [address] Care Team Providers Care Pull Tab Dealer Name Role Phone Leona Almendarez MD Primary Care Provider [phone] Encounter Details Date Type Department Care Team (Late st Contact Info) Description 12/09/[address] [facility] - Main Lab 299 [facility] [place] [phone] Angel Adamson MD [address] [place] [address] Parkinsonism, unspecified (CMS/HCC V24, CMS/HCC V28) Social [...] mmol/L LAB CHEMISTRY METHOD 12/10/2024 8:57 AM [facility] Potassium 4.0 3.5 - 5.5 mmol/L LAB CHEMISTRY METHOD 12/10/2024 8:57 AM [facility] Chloride 104 96 - 110 mmol/L LAB CHEMISTRY METHOD 12/10/2024 8:57 AM [facility] CO2 27 21 - 32 mmol/L LAB CHEMISTRY METHOD 12/10/2024 8:57 AM [facility] Anion Gap 5 3 - 11 LAB CHEMISTRY METHOD 12/10/2024 8:57 AM [facility] Glucose 104(H) 70 - 100 mg/dL LAB CHEMISTRY METHOD 12/10/2024 8:57 AM [facility] BUN 22 5 - 25 mg/dL LAB CHEMISTRY METHOD 12/10/2024 8:57 AM [facility] Creatinine 0.63(L) 0.70 - 1.30 mg/dL LAB CHEMISTRY METHOD 12/10/2024 8:57 AM [facility] eGFR 97 >=60 mL/min/1. 73m2 LAB CHEMISTRY METHOD 12/10/2024 8:57 AM [facility] Comment:Calculation based on the Chronic Kidney Disease Epidemiology Collaboration (CKD-EPI) equation refit without adjustment for race. BUN/Creatinine Ratio 34.9 LAB CHEMISTRY METHOD 12/10/2024 8:57 AM [facility] Calcium 8.5 8.5 - 10.5 mg/dL LAB CHEMISTRY METHOD 12/10/2024 8:57 AM [facility] Blood Venous blood specimen / Unknown Venipuncture / Unknown 12/10/2024 7:03 AM EST 12/10/2024 8:24 AM EST Angel Adamson MD LAB BLOOD ORDERABLES Final Resul t [facility] [address] [place] [address], * (ABNORMAL) Complete blood count (12/10/2024 7:03 AM EST) WBC 9.5 4.8 - 10.8 K/mcL LAB HEMETOLOGY METHOD 12/10/2024 8:32 AM EST [facility] RBC 3.20(L) 4.50 - 5.50 M/mcL LAB HEMETOLOGY METHOD 12/10/2024 8:32 AM [facility] Hemoglobin 10.4(L) 13.5 - 17.5 g/dL LAB HEMETOLOGY METHOD 12/10/2024 8:32 AM [facility] Hematocrit 32.5(L) 42.0 - 54.0 % LAB HEMETOLOGY METHOD 12/10/2024 8:32 AM [facility] MCV 100.6(H) 79.0 - 98.0 FL LAB HEMETOLOGY METHOD 12/10/2024 8:32 AM [facility] MCH 32.2(H) 27.0 - 32.0 pcg LAB HEMETOLOGY METHOD 12/10/2024 8:32 AM [facility] MCHC 32.0 32.0 - 37.0 g/dL LAB HEMETOLOGY METHOD 12/10/2024 8:32 AM [facility] RDW 14.2 11.0 - 15.0 % LAB HEMETOLOGY METHOD 12/10/2024 8:32 AM [facility] Platelets 356 130 - 400 K/mcL LAB HEMETOLOGY METHOD 12/10/2024 8:32 AM [facility] MPV 9.1 7.0 - 11.0 FL LAB HEMETOLOGY METHOD 12/10/2024 8:32 AM EST [facility] NRBC 0.0 <1.0 % LAB HEMETOLOGY METHOD 12/10/2024 8:32 AM EST [facility] NRBC Absolute 0.00 <0.10 K/mcL LAB HEMETOLOGY METHOD 12/10/2024 8:32 AM EST [facility] Blood Venous blood specimen / Unknown Venipuncture / Unknown 12/10/2024 7:03 AM EST 12/10/2024 8:24 AM EST us Angel Adamson MD LAB BLOOD ORDERABLES Final Resul t [facility] [address] [place] [address], documented in this encounter Visit Diagnoses Diagnosis Parkinsonism, unspecified (CMS/HCC V24, CMS/HCC V28) documented in this encounter Additional Health Concerns Infection Onset Date Last Indicated Resolved Time ESBL 11/24/2024 03/24/2025 documented as of this encounter Care Teams Pull Tab Dealer Relationship Specialty Start Date End Date Leona Almendarez MD [facility] [address] PCP - General 07/03/18 documented as of this encounter
--- OUTSIDE RECORDS SUMMARY | 2025-09-01 15:33 | XMS_ITS | Encounter Summary ---
Author Organization [facility] [place] [address] Care Team Providers Care Carton Filler Name Role Phone Leona Almendarez MD Primary Care Provider [phone] Encounter Details Date Type Department Care Team (Late st Contact Info) Description 08/20/2025 Lab Requisition [facility] - Main Lab 299 [facility] [place] [phone] Angel Adamson MD [address] [place] [address] Unspecified atrial fibrillation (CMS/HCC V24, CMS/HCC V28); Parkinsonism, unspecified (CMS/HCC V24, CMS/HCC V28) Social [...] Associated Diagnosis Comments COMPLETE BLOOD COUNT Routine 08/20/2025 6:25 AM EDT Unspecified atrial fibrillation (CMS/HCC V24, CMS/HCC V28) Parkinsonism, unspecified (CMS/HCC V24, CMS/HCC V28) BASIC METABOLIC PANEL Routine 08/20/2025 6:25 AM EDT Unspecified atrial fibrillation (CMS/HCC V24, CMS/HCC V28) Parkinsonism, unspecified (CMS/HCC V24, CMS/HCC V28) documented in this encounter Results * (ABNORMAL) Basic metabolic panel (08/20/2025 6:25 AM EDT) Sodium 141 133 - 145 mmol/L LAB CHEMISTRY METHOD 08/20/2025 12:01 PM [facility] Potassium 4.1 3.5 - 5.5 mmol/L LAB CHEMISTRY METHOD 08/20/2025 12:01 PM [facility] Comment:Hemolysis present Chloride 107 96 - 110 mmol/L LAB CHEMISTRY METHOD 08/20/2025 12:01 PM [facility] CO2 26 21 - 32 mmol/L LAB CHEMISTRY METHOD 08/20/2025 12:01 PM [facility] Anion Gap 8 3 - 11 LAB CHEMISTRY METHOD 08/20/2025 12:01 PM [facility] Glucose 69(L) 70 - 100 mg/dL LAB CHEMISTRY METHOD 08/20/2025 12:01 PM [facility] BUN 28(H) 5 - 25 mg/dL LAB CHEMISTRY METHOD 08/20/2025 12:01 PM [facility] Creatinine 0.70 0.70 - 1.30 mg/dL LAB CHEMISTRY METHOD 08/20/2025 12:01 PM [facility] eGFR 93 >=60 mL/min/1. 73m2 LAB CHEMISTRY METHOD 08/20/2025 12:01 PM [facility] Comment:Calculation based on the Chronic Kidney Disease Epidemiology Collaboration (CKD-EPI) equation refit without adjustment for race. BUN/Creatinine Ratio 40.0 LAB CHEMISTRY METHOD 08/20/2025 12:01 PM [facility] Calcium 9.2 8.5 - 10.5 mg/dL LAB CHEMISTRY METHOD 08/20/2025 12:01 PM EDT [facility] Blood Venous blood specimen / Unknown Venipuncture / Unknown 08/20/2025 6:25 AM EDT 08/20/2025 10:08 AM EDT us Angel Adamson MD LAB BLOOD ORDERABLES Final Resul t [facility] [address] [place] [address], [place] [phone] * (ABNORMAL) Complete blood count (08/20/2025 6:25 AM EDT) WBC 6.4 4.8 - 10.8 K/mcL LAB HEMETOLOGY METHOD 08/20/2025 10:49 AM [facility] RBC 4.30(L) 4.50 - 5.50 M/mcL LAB HEMETOLOGY METHOD 08/20/2025 10:[facility] Hemoglobin 14.0 13.5 - 17.5 g/dL LAB HEMETOLOGY METHOD 08/20/2025 10:49 AM [facility] Hematocrit 42.8 42.0 - 54.0 % LAB HEMETOLOGY METHOD 08/20/2025 10:49 AM [facility] MCV 99.1(H) 79.0 - 98.0 FL LAB HEMETOLOGY METHOD 08/20/2025 10:49 [facility] MCH 32.4(H) 27.0 - 32.0 pcg LAB HEMETOLOGY METHOD 08/20/2025 10:49 AM [facility] MCHC 32.7 32.0 - 37.0 g/dL LAB HEMETOLOGY METHOD 08/20/2025 10:49 AM [facility] RDW 12.9 11.0 - 15.0 % LAB HEMETOLOGY METHOD 08/20/2025 10:49 AM EDT [facility] Platelets 201 130 - 400 K/mcL LAB HEMETOLOGY METHOD 08/20/2025 10:49 AM EDT [facility] MPV 10.5 7.0 - 11.0 FL LAB HEMETOLOGY METHOD 08/20/2025 10:49 AM EDT [facility] NRBC 0.0 <1.0 % LAB HEMETOLOGY METHOD 08/20/2025 10:49 AM EDT [facility] NRBC Absolute 0.00 <0.10 K/mcL LAB HEMETOLOGY METHOD 08/20/2025 10:49 AM EDT [facility] Blood Venous blood specimen / Unknown Venipuncture / Unknown 08/20/2025 6:25 AM EDT 08/20/2025 10:08 AM EDT us Angel Adamson MD LAB BLOOD ORDERABLES Final Resul t [facility] [address] [place] [address], documented in this encounter Visit Diagnoses Diagnosis Unspecified atrial fibrillation (CMS/HCC V24, CMS/HCC V28) Parkinsonism, unspecified (CMS/HCC V24, CMS/HCC V28) documented in this encounter Additional Health Concerns Infection Onset Date Last Indicated Resolved Time ESBL 11/24/2024 03/24/2025 documented as of this encounter Care Teams Carton Filler Relationship Specialty Start Date End Date Leona Almendarez MD [address] [place] [address] PCP - General 07/03/18 documented as of this encounter
--- OUTSIDE RECORDS SUMMARY | 2025-09-01 15:33 | XMS_ITS | Encounter Summary ---
Author Organization [facility] [place] [address] Care Team Providers Care Industrial Ecologist Name Role Phone Leona Almendarez MD Primary Care Provider [phone] Encounter Details Date Type Department Care Team (Late st Contact Info) Description 01/16/2025 Lab Requisition [facility] - Main Lab 299 [facility] [place] [phone] Angel Adamson MD [address] [place] [address] Parkinsonism, unspecified (CMS/HCC V24, CMS/HCC V28) Social [...] LAB CHEMISTRY METHOD 01/18/2025 12:[address] [facility] Folate 4.6 2.8 - 17.0 ng/ml LAB CHEMISTRY METHOD 01/18/2025 12:53 PM EST [facility] Blood Venous blood specimen / Unknown Venipuncture / Unknown 01/18/2025 7:43 AM EST 01/18/2025 11:26 AM EST us Angel Adamson MD LAB BLOOD ORDERABLES Final Resul t [facility] [address] [place] [address], documented in this encounter Visit Diagnoses Diagnosis Parkinsonism, unspecified (CMS/HCC V24, CMS/HCC V28) documented in this encounter Additional Health Concerns Infection Onset Date Last Indicated Resolved Time ESBL 11/24/2024 03/24/2025 documented as of this encounter Care Teams Industrial Ecologist Relationship Specialty Start Date End Date Leona Almendarez MD [address] PCP - General 07/03/18 documented as of this encounter
--- OUTSIDE RECORDS SUMMARY | 2025-09-01 15:33 | XMS_ITS | Encounter Summary ---
Author Organization [facility] [address] Care Team Providers Care Nuclear Reactor Engineer Name Role Phone Leona Almendarez MD Primary Care Provider [phone] Encounter Details Date Type Department Care Team (Late st Contact Info) Description 01/08/2025 Lab Requisition [facility] - Main Lab 299 [facility] [place] [phone] Angel Adamson MD [address] [place] [address] Hematuria, unspecified Social History Tobacco Use Types [...] reflex microscopic (01/08/2025 12:00 AM EST) Specific [place] Urine 1.020 1.003 - 1.030 LAB URINALYSIS - AUTOMATED METHOD 01/08/2025 7:39 PM [facility] pH, Urine 6.5 5.0 - 8.0 pH LAB URINALYSIS - AUTOMATED METHOD 01/08/2025 7:39 PM [facility] Leukocytes, Urine Trace(A) Negative LAB URINALYSIS - AUTOMATED METHOD 01/08/2025 7:39 PM [facility] Nitrite, Urine Negative Negative LAB URINALYSIS - AUTOMATED METHOD 01/08/2025 7:39 PM [facility] Protein, Urine Negative <=Trace mg/dL LAB URINALYSIS - AUTOMATED METHOD 01/08/2025 7:39 PM [facility] Glucose, Urine Negative Negative mg/dL LAB URINALYSIS - AUTOMATED METHOD 01/08/2025 7:39 PM [facility] Ketones, Urine Negative Negative mg/dL LAB URINALYSIS - AUTOMATED METHOD 01/08/2025 7:39 PM [facility] Urobilinogen, Urine 1.0 0.2 - 1.0 mg/dL LAB URINALYSIS - AUTOMATED METHOD 01/08/2025 7:39 PM [facility] Bilirubin, Urine Negative Negative LAB URINALYSIS - AUTOMATED METHOD 01/08/2025 7:39 PM [facility] Blood, Urine Negative Negative LAB URINALYSIS - AUTOMATED METHOD 01/08/2025 7:39 PM [facility] RBC, Urine 3.6 0 - 4 /HPF LAB URINALYSIS - AUTOMATED METHOD 01/08/2025 7:39 PM [facility] WBC, Urine 1.6 0 - 4 /HPF LAB URINALYSIS - AUTOMATED METHOD 01/08/2025 7:39 PM [facility] Squamous Epithelial, Urine 4 0 - 60 /LPF LAB URINALYSIS - AUTOMATED METHOD 01/08/2025 7:39 PM [facility] Bacteria, Urine Negative Negative /HPF LAB URINALYSIS - AUTOMATED METHOD 01/08/2025 7:39 PM [facility] Hyaline Casts, Urine 0.8 0 - 3 /LPF LAB URINALYSIS - AUTOMATED METHOD 01/08/2025 7:39 PM [facility] Urine Urine specimen obtained by clean catch procedure / Unknown 01/08/2025 01/08/2025 7:01 PM EST us Angel Adamson MD LAB URINE ORDERABLES Final Resul t Performing Organization Address [facility]/ZIP Co de Phone Number [facility] [address] [place] [address], [place] [phone] * Culture urine (01/08/2025 12:00 AM EST) Culture, Urine No growth 01/09/2025 1:42 PM [facility] Urine Urine specimen obtained by clean catch procedure / Unknown 01/08/2025 01/08/2025 7:01 PM EST us Angel Adamson MD LAB MICROBIOLOGY - GENERAL ORDER TABITHA Final Result Performing Organization Address City/[facility]/ZIP Co de Phone Number [facility] [address] [place] [address], [place] [phone] documented in this encounter Visit Diagnoses Diagnosis Hematuria, unspecified documented in this encounter Additional Health Concerns Infection Onset Date Last Indicated Resolved Time ESBL 11/24/2024 03/24/2025 documented as of this encounter Care Teams Nuclear Reactor Engineer Relationship Specialty Start Date End Date Leona Almendarez MD [address] PCP - General 07/03/18 documented as of this encounter
--- OUTSIDE RECORDS SUMMARY | 2025-09-01 15:33 | XMS_ITS | Encounter Summary ---
Author Organization [facility] [place] [address] Care Team Providers Care Dial Equipment Engineer Name Role Phone Leona Almendarez MD Primary Care Provider [phone] Encounter Details Date Type Department Care Team (Late st Contact Info) Description 08/24/2025 Lab Requisition [facility] - Main Lab 299 [facility] [place] [phone] Angel Adamson MD [address] [place] [address] Parkinsonism, unspecified (CMS/HCC V24, CMS/HCC V28) Social [...] Associated Diagnosis Comments COMPLETE BLOOD COUNT Routine 08/24/2025 6:34 AM EDT Parkinsonism, unspecified (CMS/HCC V24, CMS/HCC V28) BASIC METABOLIC PANEL Routine 08/24/2025 6:34 AM EDT Parkinsonism, unspecified (CMS/HCC V24, CMS/HCC V28) documented in this encounter Results * Basic metabolic panel (08/24/2025 6:34 AM EDT) Sodium 140 133 - 145 mmol/L LAB CHEMISTRY METHOD 08/24/2025 8:35 AM [facility] Potassium 4.1 3.5 - 5.5 mmol/L LAB CHEMISTRY METHOD 08/24/2025 8:35 AM [facility] Chloride 108 96 - 110 mmol/L LAB CHEMISTRY METHOD 08/24/2025 8:35 AM [facility] CO2 29 21 - 32 mmol/L LAB CHEMISTRY METHOD 08/24/2025 8:35 AM [facility] Anion Gap 3 3 - 11 LAB CHEMISTRY METHOD 08/24/2025 8:35 AM [facility] Glucose 86 70 - 100 mg/dL LAB CHEMISTRY METHOD 08/24/2025 8:35 AM [facility] BUN 19 5 - 25 mg/dL LAB CHEMISTRY METHOD 08/24/2025 8:35 AM [facility] Creatinine 0.71 0.70 - 1.30 mg/dL LAB CHEMISTRY METHOD 08/24/2025 8:35 AM [facility] eGFR 93 >=60 mL/min/1. 73m2 LAB CHEMISTRY METHOD 08/24/2025 8:35 AM [facility] Comment:Calculation based on the Chronic Kidney Disease Epidemiology Collaboration (CKD-EPI) equation refit without adjustment for race. BUN/Creatinine Ratio 26.8 LAB CHEMISTRY METHOD 08/24/2025 8:35 AM [facility] Calcium 9.0 8.5 - 10.5 mg/dL LAB CHEMISTRY METHOD 08/24/2025 8:35 AM [facility] Blood Venous blood specimen / Unknown Venipuncture / Unknown 08/24/2025 6:34 AM EDT 08/24/2025 7:41 AM EDT us Angel Adamson MD LAB BLOOD ORDERABLES Final Resul t [facility] [address] [place] [address], [place] [phone] * (ABNORMAL) Complete blood count (08/24/2025 6:34 AM EDT) WBC 6.2 4.8 - 10.8 K/mcL LAB HEMETOLOGY METHOD 08/24/2025 8:13 AM EDT [facility] RBC 4.20(L) 4.50 - 5.50 M/mcL LAB HEMETOLOGY METHOD 08/24/2025 8:13 AM EDT [facility] Hemoglobin 13.4(L) 13.5 - 17.5 g/dL LAB HEMETOLOGY METHOD 08/24/2025 8:13 AM EDT [facility] Hematocrit 41.4(L) 42.0 - 54.0 % LAB HEMETOLOGY METHOD 08/24/2025 8:13 AM EDT [facility] MCV 99.5(H) 79.0 - 98.0 FL LAB HEMETOLOGY METHOD 08/24/2025 8:13 AM EDT [facility] MCH 32.2(H) 27.0 - 32.0 pcg LAB HEMETOLOGY METHOD 08/24/2025 8:13 AM EDT [facility] MCHC 32.4 32.0 - 37.0 g/dL LAB HEMETOLOGY METHOD 08/24/2025 8:13 AM EDT [facility] RDW 13.2 11.0 - 15.0 % LAB HEMETOLOGY [facility] 08/24[facility]25 8:[facility] Platelets 184 130 - 400 K/mcL LAB HEMETOLOGY METHOD 08/24/2025 8:13 AM EDT [facility] MPV 10.2 7.0 - 11.0 FL LAB HEMETOLOGY METHOD 08/24/2025 8:13 AM EDT [facility] NRBC 0.0 <1.0 % LAB HEMETOLOGY METHOD 08/24/2025 8:13 AM EDT [facility] NRBC Absolute 0.00 <0.10 K/mcL LAB HEMETOLOGY METHOD 08/24/2025 8:13 AM EDT [facility] Blood Venous blood specimen / Unknown Venipuncture / Unknown 08/24/2025 6:34 AM EDT 08/24/2025 7:41 AM EDT Angel Adamson MD LAB BLOOD ORDERABLES Final Resul t [facility] [address] [place] [address], documented in this encounter Visit Diagnoses Diagnosis Parkinsonism, unspecified (CMS/HCC V24, CMS/HCC V28) documented in this encounter Additional Health Concerns Infection Onset Date Last Indicated Resolved Time ESBL 11/24/2024 03/24/2025 documented as of this encounter Care Teams Dial Equipment Engineer Relationship Specialty Start Date End Date Leona Almendarez MD [address] PCP - General 07/03/18 documented as of this encounter
--- OUTSIDE RECORDS SUMMARY | 2025-09-01 15:33 | XMS_ITS | Encounter Summary ---
Author Organization [facility] [place] [address] Care Team Providers Care Manager Local Name Role Phone Leona Almendarez MD Primary Care Provider [phone] Encounter Details Date Type Department Care Team (Late st Contact Info) Description 01/08/2025 Lab Requisition [facility] - Main Lab 299 [facility] [phone] Angel Adamson MD [address] [place] [address] Unspecified atrial fibrillation (CMS/HCC V24, CMS/HCC V28) [...] mmol/L LAB CHEMISTRY METHOD 01/08/2025 11:57 AM [facility] Potassium 3.9 3.5 - 5.5 mmol/L LAB CHEMISTRY METHOD 01/08/2025 11:57 AM [facility] Chloride 108 96 - 110 mmol/L LAB CHEMISTRY METHOD 01/08/2025 11:57 AM [facility] CO2 27 21 - 32 mmol/L LAB CHEMISTRY METHOD 01/08/2025 11:57 AM [facility] Anion Gap 7 3 - 11 LAB CHEMISTRY METHOD 01/08/2025 11:57 AM [facility] Glucose 97 70 - 100 mg/dL LAB CHEMISTRY METHOD 01/08/2025 11:57 AM [facility] BUN 16 5 - 25 mg/dL LAB CHEMISTRY METHOD 01/08/2025 11:57 AM [facility] Creatinine 0.63(L) 0.70 - 1.30 mg/dL LAB CHEMISTRY METHOD 01/08/2025 11:57 AM [facility] eGFR 97 >=60 mL/min/1. 73m2 LAB CHEMISTRY METHOD 01/08/2025 11:57 AM [facility] Comment:Calculation based on the Chronic Kidney Disease Epidemiology Collaboration (CKD-EPI) equation refit without adjustment for race. BUN/Creatinine Ratio 25.4 LAB CHEMISTRY METHOD 01/08/2025 11:57 AM [facility] Calcium 8.8 8.5 - 10.5 mg/dL LAB CHEMISTRY METHOD 01/08/2025 11:57 AM [facility] Blood Venous blood specimen / Unknown Venipuncture / Unknown 01/08/2025 10:49 AM EST 01/08/2025 11:28 AM EST Angel Adamson MD LAB BLOOD ORDERABLES Final Resul t [facility] [address] [place] [address], * (ABNORMAL) Complete blood count (01/08/2025 10:49 AM EST) WBC 6.8 4.8 - 10.8 K/mcL LAB HEMETOLOGY METHOD 01/08/2025 11:42 AM EST [facility] RBC 3.70(L) 4.50 - 5.50 M/mcL LAB HEMETOLOGY METHOD 01/08/2025 11:42 AM [facility] Hemoglobin 11.8(L) 13.5 - 17.5 g/dL LAB HEMETOLOGY METHOD 01/08/2025 11:42 AM [facility] Hematocrit 37.8(L) 42.0 - 54.0 % LAB HEMETOLOGY METHOD 01/08/2025 11:42 AM [facility] MCV 103.6(H) 79.0 - 98.0 FL LAB HEMETOLOGY METHOD 01/08/2025 11:42 AM [facility] MCH 32.3(H) 27.0 - 32.0 pcg LAB HEMETOLOGY METHOD 01/08/2025 11:42 AM [facility] MCHC 31.2(L) 32.0 - 37.0 g/dL LAB HEMETOLOGY METHOD 01/08/2025 11:42 AM [facility] RDW 14.0 11.0 - 15.0 % LAB HEMETOLOGY METHOD 01/08/2025 11:42 AM [facility] Platelets 221 130 - 400 K/mcL LAB HEMETOLOGY METHOD 01/08/2025 11:42 AM [facility] MPV 10.0 7.0 - 11.0 FL LAB HEMETOLOGY METHOD 01/08/2025 11:42 AM EST [facility] NRBC 0.0 <1.0 % LAB HEMETOLOGY METHOD 01/08/2025 11:42 AM EST [facility] NRBC Absolute 0.00 <0.10 K/mcL LAB HEMETOLOGY METHOD 01/08/2025 11:42 AM EST [facility] Blood Venous blood specimen / Unknown Venipuncture / Unknown 01/08/2025 10:49 AM EST 01/08/2025 11:28 AM EST us Angel Adamson MD LAB BLOOD ORDERABLES Final Resul t [facility] [address] [place] [address], documented in this encounter Visit Diagnoses Diagnosis Unspecified atrial fibrillation (CMS/HCC V24, CMS/HCC V28) documented in this encounter Additional Health Concerns Infection Onset Date Last Indicated Resolved Time ESBL 11/24/2024 03/24/2025 documented as of this encounter Care Teams Manager Local Relationship Specialty Start Date End Date Leona Almendarez MD [facility] [address] [place], [place] PCP - General 07/03/18 documented as of this encounter
--- OUTSIDE RECORDS SUMMARY | 2025-09-01 15:33 | XMS_ITS | Clinical Summary ---
Author Organization [facility] Address [facility] [place] [address] Care Team Providers Care Business Services Representative Name Role Phone Unavailable Primary Care Provider Unavailabl e Social History Tobacco Use Types Packs/Day Years Used Date Smoking Tobacco: Never Assessed Sex and Gender Information Value Date Recorded Sex Assigned at Not on file Legal Sex Male 2:20 PM EST Gender Identity Not on file Sexual Orientation Not on file Plan of Treatment Health Maintenance Due Date Last Done Comments Hepatitis C Screening 1963 Tetanus/Diphtheria/Pertussis Vaccines (1 - Tdap) 04/13 Pneumoccocal Vaccine: 50+ (1 of 1 - PCV) 1995 Zoster vaccine (1 of 2) 1995 Advance Directive 2000 RSV Vaccine (1 - 1-dose 75+ series) 2020 Covid-19 Vaccine (1 - season) 2025 Influenza (Flu) vaccine (1 o f 1 - Influenza standard series) 07/19/2025 Insurance [employer] MANAGED MEDICARE
--- OUTSIDE RECORDS SUMMARY | 2025-09-01 15:33 | XMS_ITS | Encounter Summary ---
Author Organization [facility] [place] [address] Care Team Providers Care Mid Level Net Developer Name Role Phone Leona Almendarez MD Primary Care Provider [phone] Encounter Details Date Type Department Care Team (Late st Contact Info) Description 09/22/2024 Lab Requisition [facility] - Main Lab 299 [facility] [place] [phone] Angel Adamson MD [address] [place] [address] Hematuria, unspecified Social History Tobacco Use Types [...] K/mcL LAB HEMETOLOGY METHOD 09/24/2024 9:58 AM [facility] RBC 4.20(L) 4.50 - 5.50 M/[facility] LAB HEMETOLOGY METHOD 09/24/2024 9:58 AM [facility] Hemoglobin 13.3(L) 13.5 - 17.5 g/dL LAB HEMETOLOGY METHOD 09/24/2024 9:58 AM [facility] Hematocrit 41.8(L) 42.0 - 54.0 % LAB HEMETOLOGY METHOD 09/24/2024 9:58 AM [facility] MCV 100.7(H) 79.0 - 98.0 FL LAB HEMETOLOGY METHOD 09/24/2024 9:58 AM [facility] MCH 32.0 27.0 - 32.0 pcg LAB HEMETOLOGY METHOD 09/24/2024 9:58 AM [facility] MCHC 31.8(L) 32.0 - 37.0 g/dL LAB HEMETOLOGY METHOD 09/24/2024 9:58 AM [facility] RDW 13.6 11.0 - 15.0 % LAB HEMETOLOGY METHOD 09/24/2024 9:58 AM [facility] Platelets 222 130 - 400 K/[facility] LAB HEMETOLOGY METHOD 09/24/2024 9:58 AM [facility] MPV 10.3 7.0 - 11.0 FL LAB HEMETOLOGY METHOD 09/24/2024 9:58 AM [facility] NRBC 0.0 <1.0 % LAB HEMETOLOGY METHOD 09/24/2024 9:58 AM [facility] NRBC Absolute 0.00 <0.10 K/[facility] LAB HEMETOLOGY METHOD 09/24/2024 9:58 AM [facility] Blood Venous blood specimen / Unknown Venipuncture / Unknown 09/24/2024 6:32 AM EST 09/24/2024 8:46 AM EST Angel Adamson MD LAB BLOOD ORDERABLES Final Resul t [facility] [address] [place] [address], [place] [phone] * (ABNORMAL) Basic metabolic panel (09/24/2024 6:32 AM EST) Sodium 141 133 - 145 mmol/L LAB CHEMISTRY METHOD 09/24/2024 10:21 AM [facility] Potassium 3.8 3.5 - 5.5 mmol/L LAB CHEMISTRY METHOD 09/24/2024 10:21 AM [facility] Chloride 107 96 - 110 mmol/L LAB CHEMISTRY METHOD 09/24/2024 10:21 AM [facility] CO2 26 21 - 32 mmol/L LAB CHEMISTRY METHOD 09/24/2024 10:21 AM [facility] Anion Gap 8 3 - 11 LAB CHEMISTRY METHOD 09/24/2024 10:21 AM [facility] Glucose 63(L) 70 - 100 mg/dL LAB CHEMISTRY METHOD 09/24/2024 10:21 AM [facility] BUN 15 5 - 25 mg/dL LAB CHEMISTRY METHOD 09/24/2024 10:21 AM [facility] Creatinine 0.59(L) 0.70 - 1.30 mg/dL LAB CHEMISTRY METHOD 09/24/2024 10:21 AM [facility] eGFR 99 >=60 mL/min/1. 73m2 LAB CHEMISTRY METHOD 09/24/2024 10:21 AM [facility] Comment:Calculation based [...] Final Resul t [facility] [address] [place] [address], documented in this encounter Visit Diagnoses Diagnosis Hematuria, unspecified documented in this encounter Additional Health Concerns Infection Onset Date Last Indicated Resolved Time ESBL 11/24/2024 03/24/2025 documented as of this encounter Care Teams Mid Level Net Developer Relationship Specialty Start Date End Date Leona Almendarez MD 12[address] [facility] [address] [place], [place] PCP - General 07/03/18 documented as of this encounter
--- OUTSIDE RECORDS SUMMARY | 2025-09-01 15:33 | XMS_ITS | Encounter Summary ---
Author Organization [facility] [place] [address] Care Team Providers Care Nursery Technician Name Role Phone Leona Almendarez MD Primary Care Provider [phone] Encounter Details Date Type Department Care Team (Late st Contact Info) Description 09/01/2025 Lab Requisition [facility] - Main Lab 299 [facility] [place] [phone] Angel Adamson MD [address] [place] [address] Parkinsonism, unspecified (CMS/HCC V24, CMS/HCC V28) Social [...] Associated Diagnosis Comments COMPLETE BLOOD COUNT Routine 09/01/2025 7:01 AM EDT Parkinsonism, unspecified (CMS/HCC V24, CMS/HCC V28) BASIC METABOLIC PANEL Routine 09/01/2025 7:01 AM EDT Parkinsonism, unspecified (CMS/HCC V24, CMS/HCC V28) documented in this encounter Results * (ABNORMAL) Basic metabolic panel (09/01/2025 7:01 AM EDT) Sodium 139 133 - 145 mmol/L LAB CHEMISTRY METHOD 09/01/2025 11:10 AM [facility] Potassium 4.3 3.5 - 5.5 mmol/L LAB CHEMISTRY METHOD 09/01/2025 11:10 AM [facility] Chloride 106 96 - 110 mmol/L LAB CHEMISTRY METHOD 09/01/2025 11:10 AM [facility] CO2 28 21 - 32 mmol/L LAB CHEMISTRY METHOD 09/01/2025 11:10 AM [facility] Anion Gap 5 3 - 11 LAB CHEMISTRY METHOD 09/01/2025 11:10 AM [facility] Glucose 88 70 - 100 mg/dL LAB CHEMISTRY METHOD 09/01/2025 11:10 AM [facility] BUN 25 5 - 25 mg/dL LAB CHEMISTRY METHOD 09/01/2025 11:10 AM [facility] Creatinine 0.69(L) 0.70 - 1.30 mg/dL LAB CHEMISTRY METHOD 09/01/2025 11:10 AM [facility] eGFR 94 >=60 mL/min/1. 73m2 LAB CHEMISTRY METHOD 09/01/2025 11:10 AM [facility] Comment:Calculation based on the Chronic Kidney Disease Epidemiology Collaboration (CKD-EPI) equation refit without adjustment for race. BUN/Creatinine Ratio 36.2 LAB CHEMISTRY METHOD 09/01/2025 11:10 AM [facility] Calcium 9.5 8.5 - 10.5 mg/dL LAB CHEMISTRY METHOD 09/01/2025 11:10 AM [facility] Blood Venous blood specimen / Unknown Venipuncture / Unknown 09/01/2025 7:01 AM EDT 09/01/2025 9:39 AM EDT us Angel Adamson MD LAB BLOOD ORDERABLES Final Resul t [facility] [address] [place] [address], [place] [phone] * (ABNORMAL) Complete blood count (09/01/2025 7:01 AM EDT) WBC 6.5 4.8 - 10.8 K/mcL LAB HEMETOLOGY METHOD 09/01/2025 10:27 AM EDT [facility] RBC 4.40(L) 4.50 - 5.50 M/mcL LAB HEMETOLOGY METHOD 09/01/2025 10:27 AM EDT [facility] Hemoglobin 14.0 13.5 - 17.5 g/dL LAB HEMETOLOGY METHOD 09/01/2025 10:27 AM EDT [facility] Hematocrit 43.2 42.0 - 54.0 % LAB HEMETOLOGY METHOD 09/01/2025 10:27 AM EDT [facility] MCV 98.4(H) 79.0 - 98.0 FL LAB HEMETOLOGY METHOD 09/01/2025 10:27 AM EDT [facility] MCH 31.9 27.0 - 32.0 pcg LAB HEMETOLOGY METHOD 09/01/2025 10:27 AM EDT [facility] MCHC 32.4 32.0 - 37.0 g/dL LAB HEMETOLOGY METHOD 09/01/2025 10:27 AM EDT [facility] RDW 13.2 11.0 - 15.0 % LAB HEMETOLOGY METHOD 09/01/2025 10:27 AM EDT [facility] Platelets 219 130 - 400 K/mcL LAB HEMETOLOGY METHOD 09/01/2025 10:27 AM EDT [facility] MPV 10.0 7.0 - 11.0 FL LAB HEMETOLOGY METHOD 09/01/2025 10:27 AM EDT [facility] NRBC 0.0 <1.0 % LAB HEMETOLOGY METHOD 09/01/2025 10:27 AM EDT [facility] NRBC Absolute 0.00 <0.10 K/mcL LAB HEMETOLOGY METHOD 09/01/2025 10:27 AM EDT [facility] Blood Venous blood specimen / Unknown Venipuncture / Unknown 09/01/2025 7:01 AM EDT 09/01/2025 9:39 AM EDT Angel Adamson MD LAB BLOOD ORDERABLES Final Resul t [facility] [address] [place] [address], documented in this encounter Visit Diagnoses Diagnosis Parkinsonism, unspecified (CMS/HCC V24, CMS/HCC V28) documented in this encounter Additional Health Concerns Infection Onset Date Last Indicated Resolved Time ESBL 11/24/2024 03/24/2025 documented as of this encounter Care Teams Nursery Technician Relationship Specialty Start Date End Date Leona Almendarez MD [address] PCP - General 07/03/18 documented as of this encounter
--- OUTSIDE RECORDS SUMMARY | 2025-09-01 15:33 | XMS_ITS | Encounter Summary ---
Author Organization [facility] [place] [address] Care Team Providers Care Dynamics Ax Developer Name Role Phone Leona Almendarez MD Primary Care Provider [phone] Encounter Details Date Type Department Care Team (Late st Contact Info) Description 12/23/[address] [facility] - Main Lab 299 [facility] [place] [phone] Angel Adamson MD [address] [place] [address] Parkinsonism, unspecified (CMS/HCC V24, CMS/HCC V28) Social [...] [facility] Comment:Calculation based on the Chronic Kidney Disease Epidemiology Collaboration (CKD-EPI) equation refit without adjustment for race. BUN/Creatinine Ratio 36.4 LAB [...] t [facility] [address] [place] [address], * (ABNORMAL) Complete blood count (12/24/2024 8:37 [...] Resul t [facility] [address] [place] [address], documented in this encounter Visit Diagnoses Diagnosis Parkinsonism, unspecified (CMS/HCC V24, CMS/HCC V28) documented in this encounter Additional Health Concerns Infection Onset Date Last Indicated Resolved Time ESBL 11/24/2024 03/24/2025 documented as of this encounter Care Teams Dynamics Ax Developer Relationship Specialty Start Date End Date Leona Almendarez MD [facility] [address] PCP - General 07/03/18 documented as of this encounter
--- OUTSIDE RECORDS SUMMARY | 2025-09-01 15:33 | XMS_ITS | Encounter Summary ---
Author Organization [facility] [place] [place] [address] Care Team Providers Care Sole Conforming Machine Operator Name Role Phone Leona Almendarez MD Primary Care Provider Encounter Details Date Type Department Care Team (Late st Contact Info) Description 09/30/[address] [facility] - Main Lab 299 [facility] [place] [phone] Angel Adamson MD [address] [place] [address] Hematuria, unspecified Social History Tobacco Use Types [...] K/mcL LAB HEMETOLOGY METHOD 10/01/2024 10:12 AM [facility] RBC 4.00(L) 4.50 - 5.50 M/mcL LAB HEMETOLOGY METHOD 10/01/2024 10:12 AM [facility] Hemoglobin 13.0(L) 13.5 - 17.5 g/dL LAB HEMETOLOGY METHOD 10/01/2024 10:12 AM [facility] Hematocrit 40.5(L) 42.0 - 54.0 % LAB HEMETOLOGY METHOD 10/01/2024 10:12 AM [facility] MCV 101.0(H) 79.0 - 98.0 FL LAB HEMETOLOGY METHOD 10/01/2024 10:12 AM [facility] MCH 32.4(H) 27.0 - 32.0 pcg LAB HEMETOLOGY METHOD 10/01/2024 10:12 AM [facility] MCHC 32.1 32.0 - 37.0 g/dL LAB HEMETOLOGY METHOD 10/01/2024 10:12 AM [facility] RDW 13.6 11.0 - 15.0 % LAB HEMETOLOGY METHOD 10/01/2024 10:12 AM [facility] Platelets 223 130 - 400 K/[facility] LAB HEMETOLOGY METHOD 10/01/2024 10:12 AM [facility] MPV 10.3 7.0 - 11.0 FL LAB HEMETOLOGY METHOD 10/01/2024 10:12 AM [facility] NRBC 0.0 <1.0 % LAB HEMETOLOGY METHOD 10/01/2024 10:12 AM [facility] NRBC Absolute 0.00 <0.10 K/mcL LAB HEMETOLOGY METHOD 10/01/2024 10:12 AM [facility] Blood Venous blood specimen / Unknown Venipuncture / Unknown 10/01/2024 7:30 AM EST 10/01/2024 8:42 AM EST Angel Adamson MD LAB BLOOD ORDERABLES Final Resul t [facility] [address] [place] [address], [place] [phone] * (ABNORMAL) Basic metabolic panel (10/01/2024 7:30 AM EST) Sodium 140 133 - 145 mmol/L LAB CHEMISTRY METHOD 10/01/2024 10:16 AM [facility] Potassium 4.1 3.5 - 5.5 mmol/L LAB CHEMISTRY METHOD 10/01/2024 10:16 AM [facility] Chloride 108 96 - 110 mmol/L LAB CHEMISTRY METHOD 10/01/2024 10:16 AM [facility] CO2 26 21 - 32 mmol/L LAB CHEMISTRY METHOD 10/01/2024 10:16 AM [facility] Anion Gap 6 3 - 11 LAB CHEMISTRY METHOD 10/01/2024 10:16 AM [facility] Glucose 84 70 - 100 mg/dL LAB CHEMISTRY METHOD 10/01/2024 10:16 AM [facility] BUN 16 5 - 25 mg/dL LAB CHEMISTRY METHOD 10/01/2024 10:16 AM [facility] Creatinine 0.65(L) 0.70 - 1.30 mg/dL LAB CHEMISTRY METHOD 10/01/2024 10:16 AM [facility] eGFR 96 >=60 mL/min/1. 73m2 LAB CHEMISTRY METHOD 10/01/2024 10:16 AM [facility] Comment:Calculation based on the Chronic Kidney Disease Epidemiology Collaboration (CKD-EPI) equation refit without adjustment for race. BUN/Creatinine Ratio 24.6 LAB CHEMISTRY METHOD 10/01/2024 10:16 AM EST [facility] Calcium 9.0 8.5 - 10.5 mg/dL LAB CHEMISTRY METHOD 10/01/2024 10:16 AM EST [facility] Blood Venous blood specimen / Unknown Venipuncture / Unknown 10/01/2024 7:30 AM EST 10/01/2024 8:42 AM EST us Angel Adamson MD LAB BLOOD ORDERABLES Final Resul t [facility] [address] [place] [address], documented in this encounter Visit Diagnoses Diagnosis Hematuria, unspecified documented in this encounter Additional Health Concerns Infection Onset Date Last Indicated Resolved Time ESBL 11/24/2024 03/24/2025 documented as of this encounter Care Teams Sole Conforming Machine Operator Relationship Specialty Start Date End Date Leona Almendarez MD [address] PCP - General 07/03/18 documented as of this encounter
--- OUTSIDE RECORDS SUMMARY | 2025-09-01 15:33 | XMS_ITS | Encounter Summary ---
Author Organization [facility] [place] [address] Care Team Providers Care Expanded Function Dental Assistant Name Role Phone Leona Almendarez MD Primary Care Provider [phone] Encounter Details Date Type Department Care Team (Late st Contact Info) Description 06/04/2025 Lab Requisition [facility] - Main Lab 299 [facility] [place] [phone] Angel Adamson MD [address] [place] [address] Frequency of micturition; Other fatigue Social History Tobacco Use Types [...] Diagnosis Comments URINALYSIS WITH REFLEX MICROSCOPIC Routine 06/03/2025 12:00 AM EDT Frequency of micturition Other fatigue URINALYSIS WITH REFLEX MICROSCOPIC Routine 06/03/2025 12:00 AM EDT Frequency of micturition Other fatigue CULTURE URINE Routine 06/03/2025 12:00 AM EDT Frequency of micturition Other fatigue documented in this encounter Results * (ABNORMAL) Urinalysis with reflex microscopic (06/03/2025 12:00 AM EDT) Specific [place] Urine 1.014 1.003 - 1.030 LAB URINALYSIS - AUTOMATED METHOD 06/04/2025 11:25 AM [facility] pH, Urine 6.0 5.0 - 8.0 pH LAB URINALYSIS - AUTOMATED METHOD 06/04/2025 11:25 AM [facility] Leukocytes, Urine Moderate(A) Negative LAB URINALYSIS - AUTOMATED METHOD 06/04/2025 11:25 AM [facility] Nitrite, Urine Negative Negative LAB URINALYSIS - AUTOMATED METHOD 06/04/2025 11:25 AM [facility] Protein, Urine Negative <=Trace mg/dL LAB URINALYSIS - AUTOMATED METHOD 06/04/2025 11:25 AM [facility] Glucose, Urine Negative Negative mg/dL LAB URINALYSIS - AUTOMATED METHOD 06/04/2025 11:25 AM [facility] Ketones, Urine Negative Negative mg/dL LAB URINALYSIS - AUTOMATED METHOD 06/04/2025 11:25 AM [facility] Urobilinogen , Urine 0.2 0.2 - 1.0 mg/dL LAB URINALYSIS - AUTOMATED METHOD 06/04/2025 11:25 AM [facility] Bilirubin, Urine Negative Negative LAB URINALYSIS - AUTOMATED METHOD 06/04/2025 11:25 AM [facility] Blood, Urine Negative Negative LAB URINALYSIS - AUTOMATED METHOD 06/04/2025 11:25 AM [facility] RBC, Urine 3.4 0 - 4 /HPF LAB URINALYSIS - AUTOMATED METHOD 06/04/2025 11:25 AM [facility] WBC, Urine 21.6(H) 0 - 4 /HPF LAB URINALYSIS - AUTOMATED METHOD 06/04/2025 11:[address] [facility] Squamous Epithelial, Urine 34 0 - 60 /LPF LAB URINALYSIS - AUTOMATED METHOD 06/04/2025 11:[address] [facility] Crystals, Urine MOD CALCIUM OXALATE /LPF LAB URINALYSIS - AUTOMATED METHOD 06/04/2025 11:[address] [facility] Bacteria, Urine Negative Negative /HPF LAB URINALYSIS - AUTOMATED METHOD 06/04/2025 11:[address] [facility] Hyaline Casts, Urine 0.8 0 - 3 /LPF LAB URINALYSIS - AUTOMATED METHOD 06/04/2025 11:[address] [facility] Urine Urine specimen from urethra / Unknown 06/03/2025 06/04/2025 10:16 AM EDT us Angel Adamson MD LAB URINE ORDERABLES Final Resul t [facility] [address] [place] [address], [place] [phone] * Culture urine (06/03/2025 12:00 AM EDT) Culture, Urine <10,000 cfu/mL Mixed bacterial juliette 06/05/2025 9:[address] [facility] Urine Urine specimen from urethra / Unknown 06/03/2025 06/04/2025 10:16 AM EDT us Angel Adamson MD LAB MICROBIOLOGY - GENERAL ORDER TABITHA Final Result [facility] [address] [place] [address], [place] [phone] documented in this encounter Visit Diagnoses Diagnosis Frequency of micturition Urinary frequency Other fatigue documented in this encounter Additional Health Concerns Infection Onset Date Last Indicated Resolved Time ESBL 11/24/2024 03/24/2025 documented as of this encounter Care Teams Expanded Function Dental Assistant Relationship Specialty Start Date End Date Leona Almendarez MD [address] PCP - General 07/03/18 documented as of this encounter
--- OUTSIDE RECORDS SUMMARY | 2025-09-01 15:33 | XMS_ITS | Encounter Summary ---
Author Organization [facility] [place] [address] Care Team Providers Care Asbestos Cloth Inspector Name Role Phone Leona Almendarez MD Primary Care Provider [phone] Encounter Details Date Type Department Care Team (Late st Contact Info) Description 11/26/2024 Lab Requisition [facility] - Main Lab 299 [facility] [place] [phone] Angel Adamson MD [address] [place] [address] Parkinsonism, unspecified (CMS/HCC V24, CMS/HCC V28) Social [...] mmol/L LAB CHEMISTRY METHOD 11/27/2024 9:35 AM [facility] Potassium 4.0 3.5 - 5.5 mmol/L LAB CHEMISTRY METHOD 11/27/2024 9:35 AM [facility] Chloride 105 96 - 110 mmol/L LAB CHEMISTRY METHOD 11/27/2024 9:35 AM [facility] CO2 29 21 - 32 mmol/L LAB CHEMISTRY METHOD 11/27/2024 9:35 AM [facility] Anion Gap 4 3 - 11 LAB CHEMISTRY METHOD 11/27/2024 9:35 AM [facility] Glucose 81 70 - 100 mg/dL LAB CHEMISTRY METHOD 11/27/2024 9:35 AM [facility] BUN 20 5 - 25 mg/dL LAB CHEMISTRY METHOD 11/27/2024 9:35 AM [facility] Creatinine 0.73 0.70 - 1.30 mg/dL LAB CHEMISTRY METHOD 11/27/2024 9:35 AM [facility] eGFR 93 >=60 mL/min/1. 73m2 LAB CHEMISTRY METHOD 11/27/2024 9:35 AM [facility] Comment:Calculation based on the Chronic Kidney Disease Epidemiology Collaboration (CKD-EPI) equation refit without adjustment for race. BUN/Creatinine Ratio 27.4 LAB CHEMISTRY METHOD 11/27/2024 9:35 AM [facility] Calcium 9.2 8.5 - 10.5 mg/dL LAB CHEMISTRY METHOD 11/27/2024 9:35 AM [facility] Blood Venous blood specimen / Unknown Venipuncture / Unknown 11/27/2024 7:12 AM EST 11/27/2024 8:47 AM EST Angel Adamson MD LAB BLOOD ORDERABLES Final Resul t [facility] [address] [place] [address], * (ABNORMAL) Complete blood count (11/27/2024 7:12 AM EST) WBC 7.7 4.8 - 10.8 K/mcL LAB HEMETOLOGY METHOD 11/27/2024 9:13 AM [facility] RBC 4.30(L) 4.50 - 5.50 M/mcL LAB HEMETOLOGY METHOD 11/27/2024 9:13 AM [facility] Hemoglobin 13.8 13.5 - 17.5 g/dL LAB HEMETOLOGY METHOD 11/27/2024 9:13 AM [facility] Hematocrit 42.9 42.0 - 54.0 % LAB HEMETOLOGY METHOD 11/27/2024 9:13 AM [facility] MCV 100.5(H) 79.0 - 98.0 FL LAB HEMETOLOGY METHOD 11/27/2024 9:13 AM [facility] MCH 32.3(H) 27.0 - 32.0 pcg LAB HEMETOLOGY METHOD 11/27/2024 9:13 AM [facility] MCHC 32.2 32.0 - 37.0 g/dL LAB HEMETOLOGY METHOD 11/27/2024 9:13 AM [facility] RDW 13.7 11.0 - 15.0 % LAB HEMETOLOGY METHOD 11/27/2024 9:13 AM [facility] Platelets 214 130 - 400 K/mcL LAB HEMETOLOGY METHOD 11/27/2024 9:13 AM [facility] MPV 10.2 7.0 - 11.0 FL LAB HEMETOLOGY METHOD 11/27/2024 9:13 AM [facility] NRBC 0.0 [...] t [facility] [address] [place] [address], documented in this encounter Visit Diagnoses Diagnosis Parkinsonism, unspecified (CMS/HCC V24, CMS/HCC V28) documented in this encounter Additional Health Concerns Infection Onset Date Last Indicated Resolved Time ESBL 11/24/2024 03/24/2025 documented as of this encounter Care Teams Asbestos Cloth Inspector Relationship Specialty Start Date End Date Leona Almendarez MD [address] PCP - General 07/03/18 documented as of this encounter
--- OUTSIDE RECORDS SUMMARY | 2025-09-01 15:33 | XMS_ITS ---
Author Name [facility] Organization Unknown Encounters Encounter Type Encounter Reason Primary Diagnosis Location Date Ambulatory [facility] [place] 03/02/2024 Ambulatory [facility] [place] 03/02/2024
--- OUTSIDE RECORDS SUMMARY | 2025-09-01 15:33 | XMS_ITS | Encounter Summary ---
Author Organization [facility] [place] [address] Care Team Providers Care Lithographers Printer Name Role Phone Leona Almendarez MD Primary Care Provider [phone] Encounter Details Date Type Department Care Team (Late st Contact Info) Description 03/25/2025 Lab Requisition [facility] - Main Lab 299 [facility] [place] [phone] Angel Adamson MD [address] [place] [address] Hematuria, unspecified; Parkinsonism, unspecified (CMS/HCC V24, CMS/HCC V28) Social [...] Diagnosis Comments URINALYSIS WITH REFLEX MICROSCOPIC Routine 03/24/2025 1:30 PM EDT Hematuria, unspecified Parkinsonism, unspecified (CMS/HCC V24, CMS/HCC V28) URINALYSIS WITH REFLEX MICROSCOPIC Routine 03/24/2025 1:30 PM EDT Hematuria, unspecified Parkinsonism, unspecified (CMS/HCC V24, [facility] V28) CULTURE URINE Routine 03/24/2025 1:30 PM EDT Hematuria, unspecified Parkinsonism, unspecified ([facility] V24, [facility] V28) documented in this encounter Results * (ABNORMAL) Urinalysis with reflex microscopic (03/24/2025 1:30 PM EDT) Pathologist [facility] Specific [place] Urine 1.019 1.003 - 1.030 LAB URINALYSIS - AUTOMATED METHOD 03/25/2025 9:18 AM [facility] pH, Urine 6.0 5.0 - 8.0 pH LAB URINALYSIS - AUTOMATED METHOD 03/25/2025 9:18 AM [facility] Leukocytes, Urine Large(A) Negative LAB URINALYSIS - AUTOMATED METHOD 03/25/2025 9:18 AM [facility] Nitrite, Urine Negative Negative LAB URINALYSIS - AUTOMATED METHOD 03/25/2025 9:18 AM [facility] Protein, Urine 100(A) <=Trace mg/dL LAB URINALYSIS - AUTOMATED METHOD 03/25/2025 9:18 AM [facility] Glucose, Urine Negative Negative mg/dL LAB URINALYSIS - AUTOMATED METHOD 03/25/2025 9:18 AM [facility] Ketones, Urine Trace(A) Negative mg/dL LAB URINALYSIS - AUTOMATED METHOD 03/25/2025 9:18 AM [facility] Urobilinogen , Urine 1.0 0.2 - 1.0 mg/dL LAB URINALYSIS - AUTOMATED METHOD 03/25/2025 9:18 AM [facility] Bilirubin, Urine Negative Negative LAB URINALYSIS - AUTOMATED METHOD 03/25/2025 9:18 AM [facility] Blood, Urine Moderate(A) Negative LAB URINALYSIS - AUTOMATED METHOD 03/25/2025 9:18 AM EDT [facility] RBC, Urine 81.0(H) 0 - 4 /HPF LAB URINALYSIS - AUTOMATED METHOD 03/25/2025 9:18 AM EDT [facility] WBC, Urine >4,000(H) 0 - 4 /HPF LAB URINALYSIS - AUTOMATED METHOD 03/25/2025 9:18 AM EDT [facility] Squamous Epithelial, Urine >100(H) 0 - 60 /LPF LAB URINALYSIS - AUTOMATED METHOD 03/25/2025 9:18 AM EDT [facility] Bacteria, Urine Many(A) Negative /HPF LAB URINALYSIS - AUTOMATED METHOD 03/25/2025 9:18 AM [facility] Hyaline Casts, Urine >182(H) 0 - 3 /LPF LAB URINALYSIS - AUTOMATED METHOD 03/25/2025 9:18 AM [facility] Urine Urine specimen obtained by clean catch procedure / Unknown Non-blood Collection / Unknown 03/24/2025 1:30 PM EDT 03/25/2025 8:01 AM EDT Angel Adamson MD LAB URINE ORDERABLES Final Resul t [facility] [address] [place] [address], * (ABNORMAL) Culture urine (03/24/2025 1:30 PM EDT) Culture, Urine >100,000 CFU/mL Klebsiella pneumoniae ESBL(A) ABNER 03/27/2025 8:43 AM EDT [facility] Comment: THIS ORGANISM IS POSITIVE FOR EXTENDED SPECTRUM BETA-LACTAMASE (ESBL). EXTENDED SPECTRUM BETA-LACTAMASE PRODUCING ORGANISMS DEMONSTRATE DECREASED ACTIVITY WITH PENICILLILNS, CEPHALOSPORINS AND AZTREONAM. This is an edited result. Previous organism was Gram negative bacilli on 03/26/2025 at 0823 EDT. Urine Urine specimen obtained by clean catch procedure / Unknown Non-blood Collection / Unknown 03/24/2025 1:30 PM EDT 03/25/2025 8:01 AM EDT N[facility]ative [facility] - 03/27/2025 8:43 AM EDT Additional colony types present in insignificant amounts. Organism Antibiotic Method Susceptibility Klebsiella pneumoniae ESBL Amoxicillin/Clavulanate ABNER >=32 ug/ml: Resistant Klebsiella pneumoniae ESBL Ampicillin/Sulbactam ABNER >=32 ug/ml: Resistant Klebsiella pneumoniae ESBL Piperacillin/Tazobactam ABNER 32 ug/ml: Resistant Klebsiella pneumoniae ESBL Cefazolin (Urine) ABNER >=32 [...] MICROBIOLOGY - GENERAL ORDER TABITHA Final Result [facility] [address] [place] [address], documented in this encounter Visit Diagnoses Diagnosis Hematuria, unspecified Parkinsonism, unspecified (CMS/HCC V24, CMS/HCC V28) documented in this encounter Additional Health Concerns Infection Onset Date Last Indicated Resolved Time ESBL 11/24/2024 03/24/2025 documented as of this encounter Care Teams Lithographers Printer Relationship Specialty Start Date End Date Leona Almendarez MD [address] PCP - General 07/03/18 documented as of this encounter
--- OUTSIDE RECORDS SUMMARY | 2025-09-01 15:33 | XMS_ITS | Encounter Summary ---
Author Organization [facility] [place] [address] Care Team Providers Care Sand And Gravel Plant Operator Name Role Phone Leona Almendarez MD Primary Care Provider [phone] Encounter Details Date Type Department Care Team (Late st Contact Info) Description 10/07/2024 Lab Requisition [facility] - Main Lab [address] [facility] [place] [phone] Angel Adamson MD [address] [place] [address] Hematuria, unspecified Social History Tobacco Use Types [...] mmol/L LAB CHEMISTRY METHOD 10/08/2024 10:04 AM [facility] Potassium 4.0 3.5 - 5.5 mmol/L LAB CHEMISTRY METHOD 10/08/2024 10:04 AM [facility] Chloride 107 96 - 110 mmol/L LAB CHEMISTRY METHOD 10/08/2024 10:04 AM [facility] CO2 26 21 - 32 mmol/L LAB CHEMISTRY METHOD 10/08/2024 10:04 AM [facility] Anion Gap 6 3 - 11 LAB CHEMISTRY METHOD 10/08/2024 10:04 AM [facility] Glucose 111(H) 70 - 100 mg/dL LAB CHEMISTRY METHOD 10/08/2024 10:04 AM [facility] BUN 12 5 - 25 mg/dL LAB CHEMISTRY METHOD 10/08/2024 10:04 AM [facility] Creatinine 0.65(L) 0.70 - 1.30 mg/dL LAB CHEMISTRY METHOD 10/08/2024 10:04 AM [facility] eGFR 96 >=60 mL/min/1. 73m2 LAB CHEMISTRY METHOD 10/08/2024 10:04 AM [facility] Comment:Calculation based on the Chronic Kidney Disease Epidemiology Collaboration (CKD-EPI) equation refit without adjustment for race. BUN/Creatinine Ratio 18.5 LAB CHEMISTRY METHOD 10/08/2024 10:04 AM [facility] Calcium 9.2 8.5 - 10.5 mg/dL LAB CHEMISTRY METHOD 10/08/2024 10:04 AM [facility] Blood Venous blood specimen / Unknown Venipuncture / Unknown 10/08/2024 7:18 AM EST 10/08/2024 9:10 AM EST us Angel Adamson MD LAB BLOOD ORDERABLES Final Resul t [facility] [address] [place] [address], * (ABNORMAL) Complete blood count (10/08/2024 7:18 AM EST) [facility] WBC 7.0 4.8 - 10.8 K/mcL LAB HEMETOLOGY METHOD 10/08/2024 9:41 AM EST [facility] RBC 4.20(L) 4.50 - 5.50 M/mcL LAB HEMETOLOGY METHOD 10/08/2024 9:41 AM [facility] Hemoglobin 13.6 13.5 - 17.5 g/dL LAB HEMETOLOGY METHOD 10/08/2024 9:41 AM [facility] Hematocrit 42.0 42.0 - 54.0 % LAB HEMETOLOGY METHOD 10/08/2024 9:41 AM [facility] MCV 99.1(H) 79.0 - 98.0 FL LAB HEMETOLOGY METHOD 10/08/2024 9:41 AM [facility] MCH 32.1(H) 27.0 - 32.0 pcg LAB HEMETOLOGY METHOD 10/08/2024 9:41 AM [facility] MCHC 32.4 32.0 - 37.0 g/dL LAB HEMETOLOGY METHOD 10/08/2024 9:41 AM EST [facility] RDW 13.3 11.0 - 15.0 % LAB HEMETOLOGY METHOD 10/08/2024 9:41 AM [facility] Platelets 255 130 - 400 K/mcL LAB HEMETOLOGY METHOD 10/08/2024 9:41 AM [facility] MPV 9.9 7.0 - 11.0 FL LAB HEMETOLOGY METHOD 10/08/2024 9:41 AM [facility] NRBC 0.0 <1.0 % LAB HEMETOLOGY METHOD 10/08/2024 9:41 AM EST [facility] NRBC Absolute 0.00 <0.10 K/mcL LAB HEMETOLOGY METHOD 10/08/2024 9:41 AM EST [facility] Blood Venous blood specimen / Unknown Venipuncture / Unknown 10/08/2024 7:18 AM EST 10/08/2024 9:10 AM EST us Angel Adamson MD LAB BLOOD ORDERABLES Final Resul t [facility] [address] [place] [address], documented in this encounter Visit Diagnoses Diagnosis Hematuria, unspecified documented in this encounter Additional Health Concerns Infection Onset Date Last Indicated Resolved Time ESBL 11/24/2024 03/24/2025 documented as of this encounter Care Teams Sand And Gravel Plant Operator Relationship Specialty Start Date End Date Leona Almendarez MD 1221 [facility] [address] [place], [place] PCP - General 07/03/18 documented as of this encounter
--- OUTSIDE RECORDS SUMMARY | 2025-09-01 15:33 | XMS_ITS | Encounter Summary ---
Author Organization [facility] [place] [address] Care Team Providers Care Director Enterprise Systems Name Role Phone Leona Almendarez MD Primary Care Provider [phone] Encounter Details Date Type Department Care Team (Late st Contact Info) Description 03/30/2025 Lab Requisition [facility] - Main Lab 299 [facility] [place] [phone] Angel Adamson MD [address] [place] [address] Parkinsonism, unspecified (CMS/HCC V24, CMS/HCC V28); Hematuria, unspecified Social History Tobacco Use Types [...] Associated Diagnosis Comments COMPLETE BLOOD COUNT Routine 03/30/2025 7:18 AM EDT Parkinsonism, unspecified (CMS/HCC V24, CMS/HCC V28) Hematuria, unspecified BASIC METABOLIC PANEL Routine 03/30/2025 7:18 AM EDT Parkinsonism, unspecified (CMS/HCC V24, CMS/HCC V28) Hematuria, unspecified documented in this encounter Results * Basic metabolic panel (03/30/2025 7:18 AM EDT) Sodium 139 133 - 145 mmol/L LAB CHEMISTRY METHOD 03/30/2025 10:48 AM [facility] Potassium 4.0 3.5 - 5.5 mmol/L LAB CHEMISTRY METHOD 03/30/2025 10:48 AM [facility] Chloride 106 96 - 110 mmol/L LAB CHEMISTRY METHOD 03/30/2025 10:48 AM [facility] CO2 27 21 - 32 mmol/L LAB CHEMISTRY METHOD 03/30/2025 10:48 AM [facility] Anion Gap 6 3 - 11 LAB CHEMISTRY METHOD 03/30/2025 10:48 AM [facility] Glucose 78 70 - 100 mg/dL LAB CHEMISTRY METHOD 03/30/2025 10:48 AM [facility] BUN 17 5 - 25 mg/dL LAB CHEMISTRY METHOD 03/30/2025 10:48 AM [facility] Creatinine 0.70 0.70 - 1.30 mg/dL LAB CHEMISTRY METHOD 03/30/2025 10:48 AM [facility] eGFR 94 >=60 mL/min/1. 73m2 LAB CHEMISTRY METHOD 03/30/2025 10:48 AM [facility] Comment:Calculation based on the Chronic Kidney Disease Epidemiology Collaboration (CKD-EPI) equation refit without adjustment for race. BUN/Creatinine Ratio 24.3 LAB CHEMISTRY METHOD 03/30/2025 10:48 AM [facility] Calcium 9.2 8.5 - 10.5 mg/dL LAB CHEMISTRY METHOD 03/30/2025 10:48 AM [facility] Blood Venous blood specimen / Unknown Venipuncture / Unknown 03/30/2025 7:18 AM EDT 03/30/2025 9:37 AM EDT us Angel Adamson MD LAB BLOOD ORDERABLES Final Resul t [facility] [address] [place] [address], [place] [phone] * (ABNORMAL) Complete blood count (03/30/2025 7:18 AM EDT) WBC 6.5 4.8 - 10.8 K/mcL LAB HEMETOLOGY METHOD 03/30/2025 10:44 AM EDT [facility] RBC 4.30(L) 4.50 - 5.50 M/mcL LAB HEMETOLOGY METHOD 03/30/2025 10:44 AM EDT [facility] Hemoglobin 13.6 13.5 - 17.5 g/dL LAB HEMETOLOGY METHOD 03/30/2025 10:44 AM EDT [facility] Hematocrit 42.5 42.0 - 54.0 % LAB HEMETOLOGY METHOD 03/30/2025 10:44 AM EDT [facility] MCV 99.1(H) 79.0 - 98.0 FL LAB HEMETOLOGY METHOD 03/30/2025 10:44 AM EDT [facility] MCH 31.7 27.0 - 32.0 pcg LAB HEMETOLOGY METHOD 03/30/2025 10:44 AM EDT [facility] MCHC 32.0 32.0 - 37.0 g/dL LAB HEMETOLOGY METHOD 03/30/2025 10:44 AM EDT [facility] RDW 13.8 11.0 - 15.0 % LAB [facility]OLOGY [facility] Platelets 214 130 - 400 K/mcL LAB HEMETOLOGY METHOD 03/30/2025 10:44 AM EDT [facility] MPV 10.3 7.0 - 11.0 FL LAB HEMETOLOGY METHOD 03/30/2025 10:44 AM EDT [facility] NRBC 0.0 <1.0 % [facility] 03/30/2025 10:44 AM EDT [facility] NRBC Absolute 0.00 <0.10 K/mcL LAB [facility] METHOD 03/30/2025 10:44 AM EDT [facility] Blood Venous blood specimen / Unknown Venipuncture / Unknown 03/30/2025 7:18 AM EDT 03/30/2025 9:37 AM EDT us Angel Adamson MD LAB BLOOD ORDERABLES Final Resul t [facility] [address] [place] [address], documented in this encounter Visit Diagnoses Diagnosis Parkinsonism, unspecified (CMS/HCC V24, CMS/HCC V28) Hematuria, unspecified documented in this encounter Additional Health Concerns Infection Onset Date Last Indicated Resolved Time ESBL 11/24/2024 03/24/2025 documented as of this encounter Care Teams Director [employer] Relationship Specialty Start Date End Date Leona Almendarez MD [facility] PCP - General 07/03/18 documented as of this encounter
--- OUTSIDE RECORDS SUMMARY | 2025-09-01 15:33 | XMS_ITS | Data Portability ---
Author Organization [facility], PAIN OFFICE Address [address] [facility] [address] [place] [address] Care Team Providers Care Civilian Jail Officer Name Role Phone CAPRI DUNAWAY Primary Care [...] booked for the same. He needs a stock driver on the day of the procedure. [...] By Organization Details Last Modified Time 05/12/2018 [id number] He was advised against bed rest lasting longer than four days and to continue activities as tolerated. [email or web address] Not available 05/12/2018 14:54:12 05/27/2018 [id number] He was advised against bed rest lasting longer than four days and to continue activities as tolerated. [email or web address] Not available 05/27/2018 13:41:18 Reason for Referral None Reported. Problems Name Problem SNOMED Code Status Onset Date Resolution Date Notes Provider Name and Address Organization Details Recorded Time Spinal stenosis of lumbar region [id number] Saul enriquez MD [address] , [address], [facility], [address], [place] [facility] 8 13:58:53 Degeneration of lumbar intervertebral disc 91157549 Saul enriquez MD [address] , [address], [place], [address], [place] [facility] 8 13:59:02 Lumbosacral radiculopathy 1608338 Saul enriquez MD [address] , [address], [place], [address], [place] [facility] 8 13:59:16 Lumbosacral spondylosis without myelopathy [id number] Saul enriquez MD [address] , [address], [place], [address], [place] [facility] 8 13:59:38 Problem Notes None recorded. Procedures Surgical History Date Name Laterality Status Provider Name and Address Organization Details Recorded Time 05/27/20 18 Lumbar Epidural steroid injection under fluoroscopic guidance completed Davey Auguste MD [address] [facility] , [address], [place], [address], [place] [facility] 05/27/2018 13:45:40 [...] Available Not Available Not Available Fluzone High-Dose [id number] (PF) 180 mcg/0.5 mL intramuscular syringe ADM 0.5ML IM UTD 05/12 completed Not Available Not Available Not Available Vitals Date Recorded Heart rate Oxygen saturation Oxygen saturation in Arterial blood by Pulse oximetry Body weight Body mass index (BMI) Body height Systolic And Diastolic Provider Name and Address Organization Details Last Updated DateTime 8 71 /min 95 % 95 % 081422. 05 g 34.6 kg/m2 182.88 cm 152/65 mm[Hg] Ashwini Tsang [place] [facility] 8 13:49:46 Date Recorded Body height Heart rate Oxygen saturation Oxygen saturation in Arterial blood by Pulse oximetry Systolic And Diastolic Provider Name and Address Organization Details Last Updated DateTime 8 182.88 cm 69 /min 96 % 96 % 153/73 mm[Hg] Ashwini Tsang [place] [facility] 8 13:18:29 Social History Question Answer Notes LastModified by Organizat ion Details LastModified Time Tobacco Smoking Status Never Smoker Ashwini [address] [place] [facility] 05/12/2018 13:56:10 Which Illicit Or Recreational Drugs Have You Used? No Information not available 05/12/2018 Education 12 Some College Information not available 05/12/2018 Live Alone Or With Others? With Others Information not available 05/12/2018 Marital Status [email or web address] Informatio n not available 05/12/2018 What Was The Date Of Your Most Recent Tobacco Screening? 05/27/2018 Information not available 06/10/2019 Sex: Unknown Functional Status Question Answer Note LastModified by Organizat ion Details LastModified Time What is your level of alcohol consumption? 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 Family History Relationship Description Onset Age of this Age Resolved Age Notes LastModified by Organization Details LastModified Time Father No current problems or disability [email or web address] Not available 05/12 13:56:04 Mother No current problems or disability [email or web address] Not available 05/12 13:56:04 Medical History Condition Response Cancer Y Past Encounters Encounter ID Performer Location Encounter Start Date Encounter Closed Date Diagnosis/Indication Diagnosis SNOMED-CT Code Diagnosis ICD10 Code Diagnosis IMO Codes Diagnosis Note [id number] Davey Auguste MD PAIN OFFICE [address] [place] [address] 05/12/2018 13:27:49 05/12/2018 15:01:22 Lumbosacral radiculopathy 0768359 M54.17 Spinal marla nosis of lumbar region 87658154 M48.062 Degenerati on of lumbar intervertebral disc 95153554 M51.36 Lumbosacra l spondylosis without myelopathy 98118004 M47.817 [id number] Davey Auguste MD PAIN OFFICE [address] [place] [address] 05/27/2018 13:15:35 05/27/2018 14:13:07 Lumbosacral radiculopathy 3850216 M54.17 Spinal marla nosis of lumbar region 31594572 M48.062 Degenerati on of lumbar intervertebral disc 90953834 M51.36 Lumbosacra l spondylosis without myelopathy 56697705 M47.817 Health Concerns Section Related Observation LastModified by Organization Detai ls LastModified Time None Recorded Concern Status LastModified by Organization Details LastModified Time None Recorded Advance Directives Directive None Recorded Payers Insurance Date Sequence Insurance Name Policy Number Policy Seymour Covered Member ID Seymour Member ID Guarantor Name 05/13/2018 1 [facility] - PREFERRED (MEDICARE SUPPLEMENT) [facility] Daniel Smith [id number] Daniel WoodallNeill 05/13/2018 1 [facility] - MEDICARE PREFERRED (MEDICARE REPLACEMENT HMO) [facility] Daniel Smith [id number] Daniel WoodallNeill 06/30/2018 1 [facility] - MEDICARE PREFERRED (MEDICARE REPLACEMENT HMO) [facility] Daniel Smith [id number] Daniel Smith Notes Date Note Type [...] fat planes.He has trialed physical therapy at [facility] with aggravation of his symptoms. He had two steroid injections at [facility] and the injections did not help. He has seen Dr. miriam Thomas who did not recommend surgery at that time. Davey Auguste MD [address] [facility] , [address], [place], [address], [facility] Pain Management 05/27/2018 08:28:05 05/27/2018 text/html He is here today for a lumbar epidural steroid injection under fluroscopic guidance. Davey Auguste MD [address] [facility] , [address], [place], [address], [facility] Pain Management 05/30/2018 08:35:36
--- OUTSIDE RECORDS SUMMARY | 2025-09-01 15:33 | XMS_ITS | Encounter Summary ---
Author Organization [facility] [place] [address] Care Team Providers Care Education Managers Name Role Phone Leona Almendarez MD Primary Care Provider [phone] Encounter Details Date Type Department Care Team (Late st Contact Info) Description 11/21/2024 Lab Requisition [facility] - Main Lab [address] [facility] [place] [phone] Angel Adamson MD [address] [place] [address] Urinary tract infection, site not specified Social [...] t [facility] [address] [place] [address], [place] [phone] * (ABNORMAL) Urinalysis with reflex microscopic (11/20/2024 12:00 AM EST) [facility] Specific [place] Urine 1.019 1.003 - 1.030 LAB URINALYSIS [...] t [facility] [address] [place] [address], documented in this encounter Visit Diagnoses Diagnosis Urinary tract infection, site not specified documented in this encounter Additional Health Concerns Infection Onset Date Last Indicated Resolved Time ESBL 11/24/2024 03/24/2025 documented as of this encounter Care Teams Education Managers Relationship Specialty Start Date End Date Leona Almendarez MD [address] [facility] [address] [place], [place] PCP - General 07/03/18 documented as of this encounter
--- OUTSIDE RECORDS SUMMARY | 2025-09-01 15:33 | XMS_ITS | Encounter Summary ---
Author Organization [facility] [place] [address] Care Team Providers Care Web Operations Specialist Name Role Phone Leona Almendarez MD Primary Care Provider [phone] Encounter Details Date Type Department Care Team (Late st Contact Info) Description 08/23/2025 Lab Requisition [facility] - Main Lab [address] [facility] [place] [phone] Angel Adamson MD [address] [place] [address] Dehydration Social History Tobacco Use Types Packs/Day Years [...] Associated Diagnosis Comments BASIC METABOLIC PANEL Routine 08/23/2025 7:20 AM EDT Dehydration documented in this encounter Results * (ABNORMAL) Basic metabolic panel (08/23/2025 7:20 AM EDT) Sodium 140 133 - 145 mmol/L LAB CHEMISTRY METHOD 08/23/2025 12:03 PM EDT [facility] Potassium 4.0 3.5 - 5.5 mmol/L LAB CHEMISTRY METHOD 08/23/2025 12:03 PM [facility] LAB Chloride 106 96 - 110 mmol/L LAB CHEMISTRY METHOD 08/23/2025 12:03 PM [facility] LAB CO2 26 21 - 32 mmol/L LAB CHEMISTRY METHOD 08/23/2025 12:03 PM [facility] LAB Anion Gap 8 3 - 11 LAB CHEMISTRY METHOD 08/23/2025 12:03 PM [facility] LAB Glucose 70 70 - 100 mg/dL LAB CHEMISTRY METHOD 08/23/2025 12:03 PM [facility] LAB BUN 15 5 - 25 mg/dL LAB CHEMISTRY METHOD 08/23/2025 12:03 PM [facility] LAB Creatinine 0.62(L) 0.70 - 1.30 mg/dL LAB CHEMISTRY METHOD 08/23/2025 12:03 PM [facility] LAB eGFR 97 >=60 mL/min/1. 73m2 LAB CHEMISTRY METHOD 08/23/2025 12:03 PM [facility] LAB Comment:Calculation based on the Chronic Kidney Disease Epidemiology Collaboration (CKD-EPI) equation refit without adjustment for race. BUN/Creatinine Ratio 24.2 LAB CHEMISTRY METHOD 08/23/2025 12:03 PM [facility] LAB Calcium 9.1 8.5 - 10.5 mg/dL LAB CHEMISTRY METHOD 08/23/2025 12:03 PM [facility] LAB Blood Venous blood specimen / Unknown Venipuncture / Unknown 08/23/2025 7:20 AM EDT 08/23/2025 10:52 AM EDT us Angel Adamson MD LAB BLOOD ORDERABLES Final Resul t [facility] [address] [place], [place] [address] [phone] documented in this encounter Visit Diagnoses Diagnosis Dehydration documented in this encounter Additional Health Concerns Infection Onset Date Last Indicated Resolved Time ESBL 11/24/2024 03/24/2025 documented as of this encounter Care Teams Web Operations Specialist Relationship Specialty Start Date End Date Leona Almendarez MD [address] [facility] [address] [place], [place] PCP - General 07/03/18 documented as of this encounter
--- OUTSIDE RECORDS SUMMARY | 2025-09-01 15:33 | XMS_ITS | Encounter Summary ---
Author Organization [facility] [place] [address] Care Team Providers Care Agriscience Technology Instructor Name Role Phone Leona Almendarez MD Primary Care Provider [phone] Encounter Details Date Type Department Care Team (Late st Contact Info) Description 12/15/[address] [facility] - Main Lab [address] [facility] [place] [phone] Angel Adamson MD [address] [place] [address] Altered mental status, unspecified; Confusional arousals Social [...] Resul t [facility] [address] [place] [address], [place] [phone] * Culture urine (12/15/2024 10:30 AM EST) Culture, Urine <10,000 CFU/mL gram positive cocci, insignificant count, no further workup 12/16/2024 7:[address] [facility] Urine Urine specimen obtained by clean catch procedure / Unknown 12/15/2024 10:30 AM EST 12/15/2024 4:02 PM EST Angel Adamson MD LAB MICROBIOLOGY - GENERAL ORDER TABITHA Final Result [facility] [address] [place] [address], documented in this encounter Visit Diagnoses Diagnosis Altered mental status, unspecified Confusional arousals documented in this encounter Additional Health Concerns Infection Onset Date Last Indicated Resolved Time ESBL 11/24/2024 03/24/2025 documented as of this encounter Care Teams Agriscience Technology Instructor Relationship Specialty Start Date End Date Leona Almendarez MD [address] [facility] [address] [place], [place] PCP - General 07/03/18 documented as of this encounter
--- OUTSIDE RECORDS SUMMARY | 2025-09-01 15:33 | XMS_ITS | Encounter Summary ---
Author Organization [facility] [place] [address] Care Team Providers Care Urban Renewal Manager Name Role Phone Leona Almendarez MD Primary Care Provider [phone] Encounter Details Date Type Department Care Team (Late st Contact Info) Description 10/14/2024 Lab Requisition [facility] - Main Lab [address] [facility] [place] [phone] Angel Adamson MD [address] [place] [address] Hematuria, unspecified Social History Tobacco Use Types [...] K/mcL LAB HEMETOLOGY METHOD 10/16/2024 11:51 AM [facility] LAB RBC 4.20(L) 4.50 - 5.50 M/mcL LAB HEMETOLOGY METHOD 10/16/2024 11:51 AM [facility] LAB Hemoglobin 13.5 13.5 - 17.5 g/dL LAB HEMETOLOGY METHOD 10/16/2024 11:51 AM [facility] LAB Hematocrit 43.1 42.0 - 54.0 % LAB HEMETOLOGY METHOD 10/16/2024 11:51 AM [facility] LAB MCV 101.7(H) 79.0 - 98.0 FL LAB HEMETOLOGY METHOD 10/16/2024 11:51 AM [facility] LAB MCH 31.8 27.0 - 32.0 pcg LAB HEMETOLOGY METHOD 10/16/2024 11:51 AM [facility] LAB MCHC 31.3(L) 32.0 - 37.0 g/dL LAB HEMETOLOGY METHOD 10/16/2024 11:51 AM [facility] LAB RDW 13.2 11.0 - 15.0 % LAB HEMETOLOGY METHOD 10/16/2024 11:51 AM [facility] LAB Platelets 243 130 - 400 K/[facility] LAB HEMETOLOGY METHOD 10/16/2024 11:51 AM [facility] LAB MPV 10.0 7.0 - 11.0 FL LAB HEMETOLOGY METHOD 10/16/2024 11:51 AM [facility] LAB NRBC 0.0 <1.0 % LAB HEMETOLOGY METHOD 10/16/2024 11:51 AM [facility] LAB NRBC Absolute 0.00 <0.10 K/mcL LAB HEMETOLOGY METHOD 10/16/2024 11:51 AM [facility] LAB Blood Venous blood specimen / Unknown Venipuncture / Unknown 10/16/2024 8:55 AM EST 10/16/2024 11:14 AM EST Angel Adamson MD LAB BLOOD ORDERABLES Final Resul t [facility] [address] [place] [address], * (ABNORMAL) Basic metabolic panel (10/16/2024 8:55 AM EST) Sodium 140 133 - 145 mmol/L LAB CHEMISTRY METHOD 10/16/2024 12:09 PM [facility] Potassium 4.1 3.5 - 5.5 mmol/L LAB CHEMISTRY METHOD 10/16/2024 12:09 PM [facility] LAB Chloride 106 96 - 110 mmol/L LAB CHEMISTRY METHOD 10/16/2024 12:09 PM [facility] LAB CO2 28 21 - 32 mmol/L LAB CHEMISTRY METHOD 10/16/2024 12:09 PM [facility] LAB Anion Gap 6 3 - 11 LAB CHEMISTRY METHOD 10/16/2024 12:09 PM [facility] LAB Glucose 80 70 - 100 mg/dL LAB CHEMISTRY METHOD 10/16/2024 12:09 PM [facility] BUN 19 5 - 25 mg/dL LAB CHEMISTRY METHOD 10/16/2024 12:09 PM [facility] LAB Creatinine 0.69(L) 0.70 - 1.30 mg/dL LAB CHEMISTRY METHOD 10/16/2024 12:09 PM [facility] LAB eGFR 94 >=60 mL/min/1. 73m2 LAB CHEMISTRY METHOD 10/16/2024 12:09 PM [facility] LAB Comment:Calculation based on the Chronic Kidney Disease Epidemiology Collaboration (CKD-EPI) equation refit without adjustment for race. BUN/Creatinine Ratio 27.5 LAB CHEMISTRY METHOD 10/16/2024 12:09 PM EST [facility] Calcium 9.3 8.5 - 10.5 mg/dL LAB CHEMISTRY METHOD 10/16/2024 12:09 PM EST [facility] Blood Venous blood specimen / Unknown Venipuncture / Unknown 10/16/2024 8:55 AM EST 10/16/2024 11:14 AM EST us Angel Adamson MD LAB BLOOD ORDERABLES Final Resul t [facility] [address] [place] [address], documented in this encounter Visit Diagnoses Diagnosis Hematuria, unspecified documented in this encounter Additional Health Concerns Infection Onset Date Last Indicated Resolved Time ESBL 11/24/2024 03/24/2025 documented as of this encounter Care Teams Urban Renewal Manager Relationship Specialty Start Date End Date Leona Almendarez MD [address] [facility] [address] [place], [place] PCP - General 07/03/18 documented as of this encounter
--- OUTSIDE RECORDS SUMMARY | 2025-09-01 15:33 | XMS_ITS | Encounter Summary ---
Author Organization [facility] [place] [address] Care Team Providers Care Pellet Preparation Operator Name Role Phone Leona Almendarez MD Primary Care Provider [phone] Encounter Details Date Type Department Care Team (Late st Contact Info) Description 09/01/2025 Lab Requisition [facility] - Main Lab [address] [facility] [place] [phone] Angel Adamson MD [address] [place] [address] Urinary tract infection, site not specified Social [...] as of this encounter Plan of Treatment Pending Results Name Type Priority Associated Diagnoses Date /Time Culture urine Microbiology Routine Urinary tract infection, site not specified 08/31/2025 3:15 PM EDT documented as of this encounter Procedures Procedure Name Priority Date/Time Associated Diagnosis Comments URINALYSIS WITH REFLEX MICROSCOPIC Routine 08/31/2025 3:15 PM EDT Urinary tract infection, site not specified URINALYSIS WITH REFLEX MICROSCOPIC Routine 08/31/2025 3:15 PM EDT Urinary tract infection, site not specified documented in this encounter Results * (ABNORMAL) Urinalysis with reflex microscopic (08/31/2025 3:15 PM EDT) Specific [place] Urine 1.010 1.003 - 1.030 LAB URINALYSIS - AUTOMATED METHOD 09/01/2025 11:[address] [facility] pH, Urine 7.5 5.0 - 8.0 pH LAB URINALYSIS - AUTOMATED METHOD 09/01/2025 11:[address] [facility] Leukocytes, Urine Moderate(A) Negative LAB URINALYSIS - AUTOMATED METHOD 09/01/2025 11:[address] [facility] Nitrite, Urine Negative Negative LAB URINALYSIS - AUTOMATED METHOD 09/01/2025 11:[address] [facility] Protein, Urine Negative <=Trace mg/dL LAB URINALYSIS - AUTOMATED METHOD 09/01/2025 11:[address] [facility] Glucose, Urine Negative Negative mg/dL LAB URINALYSIS - AUTOMATED METHOD 09/01/2025 11:[address] [facility] Ketones, Urine Negative Negative mg/dL LAB URINALYSIS - AUTOMATED METHOD 09/01/2025 11:[address] [facility] Urobilinogen , Urine 1.0 0.2 - 1.0 mg/dL LAB URINALYSIS - AUTOMATED METHOD 09/01/2025 11:[address] [facility] Bilirubin, Urine Negative Negative LAB URINALYSIS - AUTOMATED METHOD 09/01/2025 11:[address] [facility] Blood, Urine Negative Negative LAB URINALYSIS - AUTOMATED METHOD 09/01/2025 11:[address] [facility] RBC, Urine 1.3 0 - 4 /HPF LAB URINALYSIS - AUTOMATED METHOD 09/01/2025 11:[address] [facility] WBC, Urine 1.4 0 - 4 /HPF LAB URINALYSIS - AUTOMATED METHOD 09/01/2025 11:49 AM EDT [facility] Squamous Epithelial, Urine 8 0 - 60 /LPF LAB URINALYSIS - AUTOMATED METHOD 09/01/2025 11:49 AM EDT [facility] Bacteria, Urine Negative Negative /HPF LAB URINALYSIS - AUTOMATED METHOD 09/01/2025 11:49 AM T [facility] Hyaline Casts, Urine 5.0(H) 0 - 3 /LPF LAB URINALYSIS - AUTOMATED METHOD 09/01/2025 11:49 AM T [facility] Urine Urine specimen obtained by clean catch procedure / Unknown Non-blood Collection / Unknown 08/31/2025 3:15 PM EDT 09/01/2025 10:04 AM EDT us Angel Adamson MD LAB URINE ORDERABLES Final Resul t [facility] [address] [place] [address], documented in this encounter Visit Diagnoses Diagnosis Urinary tract infection, site not specified documented in this encounter Additional Health Concerns Infection Onset Date Last Indicated Resolved Time ESBL 11/24/2024 03/24/2025 documented as of this encounter Care Teams Pellet Preparation Operator Relationship Specialty Start Date End Date Leona Almendarez MD [facility] [address] PCP - General 07/03/18 documented as of this encounter
== END 2025-09-01 13:19 | disposition home or self-care (01) ==
LOC: HO.HSMS 12:18
PROVIDERS: PCP Internal Medicine; Visit Provider Psychiatry & Neurology Neurology
DX: G20.A1 Parkinson's disease without dyskinesia, without mention of fluctuations (principal); R41.89 Other symptoms and signs involving cognitive functions and awareness; R44.3 Hallucinations, unspecified; G47.52 REM sleep behavior disorder
CPT/HCPCS: 99214; G2211

== ENCOUNTER 2025-09-01 12:17 | Outpatient (REF) | payer MEDICARE, MEDICAID, SELFPAY ==
[2025-09-01 19:03] LABS: Folate 7.4 ng/mL (> or = 4.0); Vitamin B12 400 pg/mL (200-900)
[2025-09-01 21:02] LABS: Free T4 (Free Thyroxine) 1.11 ng/dL (0.71-1.85)
[2025-09-06 16:33] LABS: Vitamin D 25-OH, D2 <4 ng/mL; Vitamin D 25-OH, D3 26 ng/mL; Vitamin D 25-OH, Total 26 ng/mL (30-100)
== END 2025-09-01 12:18 | disposition home or self-care (01) ==
LOC: HO.HKASLDS 12:17
PROVIDERS: PCP Internal Medicine; Visit Provider Psychiatry & Neurology Neurology
DX: G20.A1 Parkinson's disease without dyskinesia, without mention of fluctuations (principal); F09 Unspecified mental disorder due to known physiological condition; R44.3 Hallucinations, unspecified; G47.52 REM sleep behavior disorder; Z79.899 Other long term (current) drug therapy
CPT/HCPCS: 36415; 82306; 82607; 82746; 84439; 84443; 99212